=== PATIENT | male | born 1955 | race Caucasian/White ===

== ENCOUNTER 2016-04-08 22:21 | Inpatient (IN) | payer OTHER ==
[~2016-04-08] VITALS: Ht 175.3 cm; Wt 66.2 kg
[~2016-04-08 22:21] MED LIST: BSP15 PO; CALC600T PO; CHOLTAB3 PO; CLC150 PO; DLC5 PO; DOCU100C31 PO; FLUO40CA8 PO; FURO40TA3 PO; GABA600T PO; MAGN10TA; MCRK20 PO; NAPR1TAB9 PO; PANT40TA PO; PROP20TA67 PO; SPR25 PO
[2016-04-08] MEDS ORDERED: SODIUM CHLORIDE 0.9% 1000ML 1,000 ML IV STA ×2 (22:46)
[2016-04-08] MEDS ORDERED: MAGN400T6 PO (23:11)
[2016-04-08] MEDS ORDERED: POLY335019 PO (23:11)
[2016-04-08] MEDS ORDERED: POTA20TA16 PO (23:13)
[2016-04-08] MEDS ORDERED: ZNTT/150 PO (23:17)
[2016-04-08] MEDS ORDERED: SPIR100T PO (23:17)
[2016-04-08] MEDS ORDERED: CEFTRIAXONE SOD INJ 1 GM ADDVIAL IV STA (23:18)
[2016-04-08] MEDS ORDERED: BUSP5TAB59 PO (23:21)
[2016-04-08] MEDS ORDERED: ASCO1CAP3 PO (23:23)
[2016-04-08] MEDS ORDERED: CHOL1TAB42 PO (23:25)
[2016-04-08] MEDS ORDERED: PANTOprazole INJ 80 MG in DEXTROSE 5% 100ML IV SCH (23:45)
[2016-04-09] VITALS (29 sets, daily range): BP systolic 84–116; BP diastolic 53–72; PULSE 79–105; TEMP 36.7–37.1; O2SAT 96–100; Ht 175.3 cm; Wt 66.2 kg
[2016-04-09] MEDS ORDERED: PANTOprazole INJ 40 MG in DEXTROSE 5% 100ML IV SCH ×2
[2016-04-09] MEDS ORDERED: SODIUM CHLORIDE 0.9% 1000ML 1,000 ML IV STA (00:05)
[2016-04-09 00:09] LABS: BASO ABS # 0.01 K/uL (0-0.2); COMPLETE YES; HEMATOCRIT 29.9 % (42-52); IG% 0.5 %; LYMPH % 12.9 %; LYMPH ABS # 2.87 K/uL (1.2-3.4); MEAN CELL VOLUME 91.7 fL (80-100); MEAN CORPUSCULAR HEMOGLOBIN 33.4 pg (25-34); MEAN CORPUSCULAR HGB CONC 36.5 g/dl (32-36); MEAN PLATELET VOLUME 10.8 fL (7.4-10.4); MONO % 10.9 %; NEUT % 75.7 %; PLATELET COUNT 180 K/uL (130-400); RED BLOOD COUNT 3.26 M/uL (4.7-6.1); WHITE BLOOD COUNT 22.21 K/uL (4.8-10.8)
[2016-04-09] MEDS ORDERED: LORAZEPAM 2 MG/ML 1 ML VIAL IV STA (00:11)
[2016-04-09 00:23] LABS: INR 1.5 (0.9-1.1); PARTIAL THROMBOPLASTIN RATIO 1.3; PROTHROMBIN TIME (PATIENT) 16.6 SECONDS (9.0-12.0)
[2016-04-09 00:29] LABS: BUN/CREATININE RATIO 30.5 (10-20); CALCIUM 7.7 mg/dl (8.5-10.1); CREATININE 2.2 mg/dl (0.60-1.40); MAGNESIUM 1.7 mg/dl (1.8-2.4); POTASSIUM 3.9 mmol/L (3.5-5.1)
[2016-04-09 00:39] LABS: ALB/GLOB RATIO 0.6 (0.9-2); CKMB/CK RATIO 3.3 (0-3.0); THYROID STIMULATING HORMONE 0.782 uIu/ml (0.300-4.500)
[2016-04-09 00:47] LABS: VEN BLD GAS O2 SATURATION < 60.0 %; VEN BLOOD GAS BASE EXCESS -15.6 mmol/L; VENOUS BLOOD GAS PCO2 23 mmHg (38.0-50.0); VENOUS BLOOD GAS PO2 36 mmHg
[2016-04-09] MEDS ORDERED: VANCOMYCIN INJ 1,000 MG in SODIUM CHLORIDE 0.9% 250ML 250 ML IV STA (00:55)
[2016-04-09] MEDS ORDERED: PIPERACILLIN/TAZOBACTAM 4.5 GM/100ML D5W IV STA (00:55)
[2016-04-09] MEDS ORDERED: PHYTONADIONE INJ 10 MG in SODIUM CHLORIDE 0.9% 50ML 50 ML IV ONE (01:00)
[2016-04-09 01:49] LABS: URINE APPEARANCE CLEAR (CLEAR); URINE BILIRUBIN NEG (NEG); URINE COLOR YELLOW; URINE EPITHELIAL CELL AUTO >30 /lpf (0-5); URINE NITRITE NEG (NEG); URINE SPECIFIC GRAVITY 1.019 (1.000-1.030); UROBILINOGEN NEG (NEG); ZZURINE CULT IF INDIC CATH NO
[2016-04-09 01:52] LABS: MANUAL MICROSCOPIC REQUIRED? NO; REVIEW REQ? YES
[2016-04-09] MEDS ORDERED: RAPID SEQUENCE INDUCTION BAG ONE (01:55)
[2016-04-09 02:07] LABS: HEMATOCRIT 28.8 % (42-52)
[2016-04-09] MEDS ORDERED: NOREPINEPHRINE BIT INJ 8 MG in DEXTROSE 5% 500ML 500 ML IV PRN (02:15)
[2016-04-09] MEDS ORDERED: MIDAZOLAM HCL 1 MG/ML 2ML VIAL ONE (02:24)
[2016-04-09 02:30] LABS: ALLEN TEST POS (POS); ARTERIAL BLD GAS O2 SATURATION 89.2 % (90-95); ARTERIAL BLOOD GAS BASE EXCESS -15.6 mEq/L (-9-1.8); ARTERIAL BLOOD GAS HCO3 8 mmol/L (19-24); ARTERIAL BLOOD GAS PO2 62 mm/Hg (80-95); ARTERIAL BLOOD GAS pH 7.32 (7.35-7.45); O2 ADMINISTRATION ROOM AIR
[2016-04-09] MEDS ORDERED: FENTANYL 1250MCG/250ML NSS 250 ML IV PRN (02:30)
[2016-04-09] MEDS ORDERED: PIPERACILL/TAZOBAC CONSULT ACTIVE PRN (03:30)
[2016-04-09] MEDS ORDERED: VANCOMYCIN CONSULT ACTIVE PRN (03:30)
--- NOTE | 2016-04-09 03:34 | EMERGENCY ROOM VISIT NOTE ---
History First contact with patient: 22:34 Chief Complaint: LETHARGIC Stated Complaint: LETHARGIC Nursing Triage Summary: pt arrives by ALS for c/o lethargy from home. Daughter who is from out of town called EMS, reports she saw pt about 5 weeks ago. Pt has deteriorated in status since that visit. Reports weight loss, pt not eating, lethargic. Pt c/o chest pain, answers most questions with "10". pt has hx of Cirrhosis and does have a Holter monitor on upon arrival History of Present Illness The patient is a 60 year old male who presents to the Emergency Room with complaints of altered mental status. Patient has past medical history of liver cirrhosis, hepatitis, and alcohol abuse. He is found to have a nurse to be altered and was brought in. Leading up to today they've been trying to investigate why he has been having single episode was. History of present illness is unobtainable from patient. Patient was initially seen by my PA. Please refer to her note for initial history of present illness. Past Medical/Surgical History Medical Problems: (1) Bipolar disorder (2) Celiac disease (3) Chronic hepatitis C (4) Cirrhosis (5) Esophageal varices (6) GI bleed (7) Hematemesis with nausea (8) Hepatic encephalopathy (9) Pancreatitis (10) Sacral decubitus ulcer, stage II (11) stomach ulcers Family History Heart disease Hypertension Social History Smoking Status: Current Some Day Smoker Alcohol Use: occasionally Drug Use: none Marital Status: Housing Status: lives with friends Occupation Status: disabled Current/Historical Medications Scheduled Ascorbic Acid (Vitamin C), 500 MG PO QAM Buspirone Hcl (Buspirone Hcl), 15 MG PO BID Calcium Carbonate (Calcium 600), 600 MG PO QAM Cholecalciferol (Vitamin D), 5,000 UNIT PO DAILY Ergocalciferol (Vitamin D), 400 INTER.UNIT PO QAM Fluoxetine (Prozac), 40 MG PO BID Furosemide (Lasix), 40 MG PO DAILY Gabapentin (Neurontin), 600 MG PO BID Magnesium Oxide (Mag-Ox), 400 MG PO DAILY Pantoprazole (Protonix), 40 MG PO BID Polyethylene Glycol 3350 (Miralax), 17 GM PO DAILY Potassium Ext Rel (Klor-Con), 20 MEQ PO DAILY Propranolol (Inderal), 20 MG PO BID Ranitidine (Zantac), 150 MG PO BID Spironolactone (Aldactone), 100 MG PO DAILY Scheduled PRN Naproxen (Aleve), 440 MG PO Q6 PRN for Pain Allergies Coded Allergies: Gluten (Verified Allergy, Intermediate, PAINFUL JOINTS,ABD PAIN, 04/08/16) Lactose Intolerance (GI) (Unverified Allergy, Unknown, ABD PAIN, 04/08/16) NO KNOWN DRUG ALLERGIES (Unverified Allergy, Unknown, NONE, 04/08/16) Wheat (Verified Allergy, Unknown, GI intolerance, 04/08/16) Physical Exam Vital Signs Date Time Temp Pulse Resp B/P Pulse Ox O2 Delivery O2 Flow Rate FiO2 04/09/16 02:39 126/80 04/09/16 02:35 98 24 100 04/09/16 02:33 131/84 04/09/16 02:30 95 36 119/79 100 04/09/16 02:28 108/74 04/09/16 02:25 96 28 100 04/09/16 02:20 79 04/09/16 02:20 83 29 100 04/09/16 02:18 119/72 04/09/16 02:15 72 17 100 04/09/16 02:12 107/67 04/09/16 02:10 81 21 100 04/09/16 02:05 93 22 98 04/09/16 02:00 94 28 95 04/09/16 01:46 93 24 100/68 95 Room Air NIBP 04/09/16 01:30 93 24 116/64 95 Room Air 04/09/16 00:52 98 26 128/81 96 Room Air 04/08/16 22:42 92 04/08/16 22:29 94 Room Air 04/08/16 22:29 36.5 96 26 123/85 93 Room Air Physical Exam GENERAL: Ill-appearing, significant distress, toxic, not responding to commands EYE EXAM: normal conjunctiva OROPHARYNX: no exudate, no erythema, lips, buccal mucosa, and tongue normal and mucous membranes are dry NECK: supple, no nuchal rigidity, no adenopathy, non-tender LUNGS: Clear to auscultation. Normal chest wall mechanics HEART: Tachycardic, S1 normal and S2 normal ABDOMEN: abdomen soft, non-tender, normo-active bowel sounds, no masses, no rebound or guarding. RECTAL: Gross melanotic stools UPPER EXTREMITIES: upper extremities are grossly normal. LOWER EXTREMITIES: No pitting edema. NEURO EXAM: Laying in bed intermittently moaning moving extremities but nonfocal. Was Compa lower extremities pain. Medical Decision & Procedures ER Provider Diagnostic Interpretation: Portable AP one view left IJ in place without pneumothorax. Portable AP upright one view per my read ET tube in place without pneumothorax and left IJ in place. ET tube was advanced. Laboratory Results 04/08/16 23:58 Red Blood Count 3.26, Mean Corpuscular Volume 91.7, Mean Corpuscular Hemoglobin 33.4, Mean Corpuscular Hemoglobin Concent 36.5, Mean Platelet Volume 10.8, Neutrophils (%) (Auto) 75.7, Lymphocytes (%) (Auto) 12.9, Monocytes (%) (Auto) 10.9, Eosinophils (%) (Auto) 0.0, Basophils (%) (Auto) 0.0, Neutrophils # (Auto ) 16.81, Lymphocytes # (Auto) 2.87, Monocytes # (Auto) 2.42, Eosinophils # (Auto ) 0.00, Basophils # (Auto) 0.01 04/09/16 02:00 04/08/16 23:58 Test 04/08/16 23:58 04/09/16 00:15 04/09/16 01:35 04/09/16 02:00 White Blood Count 22.21 K/uL (4.8-10.8) Red Blood Count 3.26 M/uL (4.7-6.1) Hemoglobin 10.9 g/dL (14.0-18.0) Hematocrit 29.9 % (42-52) Mean Corpuscular Volume 91.7 fL (80-100) Mean Corpuscular Hemoglobin 33.4 pg (25-34) Mean Corpuscular Hemoglobin Concent 36.5 g/dl (32-36) Platelet Count 180 K/uL (130-400) Mean Platelet Volume 10.8 fL (7.4-10.4) Neutrophils (%) (Auto) 75.7 % Lymphocytes (%) (Auto) 12.9 % Monocytes (%) (Auto) 10.9 % Eosinophils (%) (Auto) 0.0 % Basophils (%) (Auto) 0.0 % Neutrophils # (Auto) 16.81 K/uL (1.4-6.5) Lymphocytes # (Auto) 2.87 K/uL (1.2-3.4) Monocytes # (Auto) 2.42 K/uL (0.11-0.59) Eosinophils # (Auto) 0.00 K/uL (0-0.5) Basophils # (Auto) 0.01 K/uL (0-0.2) RDW Standard Deviation 51.6 fL (36.4-46.3) RDW Coefficient of Variation 15.3 % (11.5-14.5) Immature Granulocyte % (Auto) 0.5 % Immature Granulocyte # (Auto) 0.10 K/uL (0.00-0.02) Prothrombin Time 16.6 SECONDS (9.0-12.0) Prothromb Time International Ratio 1.5 (0.9-1.1) Activated Partial Thromboplast Time 33.1 SECONDS (21.0-31.0) Partial Thromboplastin Ratio 1.3 Anion Gap 14.0 mmol/L (3-11) Est Creatinine Clear Calc Drug Dose 25.5 ml/min Estimated GFR () 36.1 Estimated GFR (Non- 31.2 BUN/Creatinine Ratio 30.5 (10-20) Calcium Level 7.7 mg/dl (8.5-10.1) Magnesium Level 1.7 mg/dl (1.8-2.4) Total Bilirubin 1.0 mg/dl (0.2-1) Aspartate Amino Transf (AST/SGOT) 39 U/L (15-37) Alanine Aminotransferase (ALT/SGPT) 34 U/L (12-78) Alkaline Phosphatase 114 U/L (45-117) Ammonia 265.0 umol/L (11-32) Creatine Kinase MB 4.3 ng/ml (0.5-3.6) Creatine Kinase MB Ratio 3.3 (0-3.0) Troponin I 0.017 ng/ml (0-0.045) Total Protein 7.0 gm/dl (6.4-8.2) Albumin 2.6 gm/dl (3.4-5.0) Globulin 4.4 gm/dl (2.5-4.0) Albumin/Globulin Ratio 0.6 (0.9-2) Thyroid Stimulating Hormone (TSH) 0.782 uIu/ml (0.300-4.500) Venous Blood pH 7.25 (7.36-7.41) Venous Blood Partial Pressure CO2 23 mmHg (38.0-50.0) Venous Blood Partial Pressure O2 36 mmHg Venous Blood HCO3 10 mmol/L Venous Blood Oxygen Saturation < 60.0 % Venous Blood Base Excess -15.6 mmol/L Total Creatine Kinase 140 U/L (39-308) Urine Color YELLOW Urine Appearance CLEAR (CLEAR) Urine pH 6.0 (4.5-7.5) Urine Specific [place] 1.019 (1.000-1.030) Urine Protein TRACE (NEG) Urine Glucose (UA) NEG (NEG) Urine Ketones NEG (NEG) Urine Occult Blood TRACE (NEG) Urine Nitrite NEG (NEG) Urine Bilirubin NEG (NEG) Urine Urobilinogen NEG (NEG) Urine Leukocyte Esterase NEG (NEG) Urine WBC (Auto) 1-5 /hpf (0-5) Urine RBC (Auto) 5-10 /hpf (0-4) Urine Hyaline Casts (Auto) 5-10 /lpf (0-5) Urine Epithelial Cells (Auto) >30 /lpf (0-5) Urine Bacteria (Auto) NEG (NEG) Urine Pathogenic Casts /lpf (0) Arterial Blood pH 7.32 (7.35-7.45) Arterial Blood Partial Pressure CO2 17 mmHg (35-46) Arterial Blood Partial Pressure O2 62 mm/Hg (80-95) Arterial Blood HCO3 8 mmol/L (19-24) Arterial Blood Oxygen Saturation 89.2 % (90-95) Arterial Blood Base Excess -15.6 mEq/L (-9-1.8) Arterial Blood Gas Delivery ROOM AIR Robert Test POS (POS) Test 04/09/16 03:00 Date/Time Source Procedure Growth Status 04/09/16 01:30 Stool C.difficile Toxin B Gene (PCR) - Final Positive for C. difficile toxin B gene Complete Medications Administered Medications (Trade) Dose Ordered Sig/Vin Route Start Time Stop Time Status Last Admin Dose Admin Sodium Chloride 1,000 ml @ 999 mls/hr Q1H1M STAT IV 04/08/16 22:46 04/08/16 23:46 DC 04/09/16 00:45 999 MLS/HR Sodium Chloride (Nss 1000ml) 1,000 ml @ 200 mls/hr Q5H STAT IV 04/08/16 22:46 04/09/16 03:45 04/09/16 00:48 200 MLS/HR Ceftriaxone Sodium (Rocephin Inj) 1 gm NOW STAT IV 04/08/16 23:18 04/08/16 23:23 DC 04/09/16 00:45 1 GM Pantoprazole Sodium 1 ea 1 ea NOW STAT IV 04/08/16 23:18 04/08/16 23:23 DC 04/09/16 00:48 1 EA Pantoprazole Sodium 80 mg/ Dextrose 120 ml @ 480 mls/hr TODAY@2345 IV 04/08/16 23:45 04/08/16 23:59 DC 04/09/16 00:48 480 MLS/HR Pantoprazole Sodium 40 mg/ Dextrose 100 ml @ 20 mls/hr Q5H IV 04/09/16 00:00 04/09/16 04:59 04/09/16 00:49 20 MLS/HR Sodium Chloride (Nss 1000ml) 1,000 ml @ 999 mls/hr Q1H1M STAT IV 04/09/16 00:05 04/09/16 01:05 DC 04/09/16 00:51 999 MLS/HR Lorazepam (Ativan Inj) 1 mg NOW STAT IV 04/09/16 00:11 04/09/16 00:12 DC 04/09/16 00:45 1 MG Piperacillin Sod/ Tazobactam Sod 4.5 gm 4.5 gm NOW STAT IV 04/09/16 00:55 04/09/16 00:56 DC 04/09/16 01:27 4.5 GM Vancomycin HCl 1000 mg/Sodium Chloride 270 ml @ 125 mls/hr NOW STAT IV 04/09/16 00:55 04/09/16 03:04 DC 04/09/16 02:25 125 MLS/HR Phytonadione/ Sodium Chloride (Aqua-Mephyton Inj/Nss 50ml) 51 ml @ 102 mls/hr ONE ONCE IV 04/09/16 01:00 04/09/16 01:29 DC 04/09/16 01:26 102 MLS/HR Miscellaneous (Rapid Sequence Induction Bag) 1 ea STK-MED ONCE N/A 04/09/16 01:55 04/09/16 01:56 DC 04/09/16 02:08 1 EA Midazolam HCl (Versed Inj) 2 mg STK-MED ONCE .ROUTE 04/09/16 02:24 04/09/16 02:25 DC 04/09/16 02:38 1 MG Procedure EM PROCEDURE NOTE - Endotracheal Intubation PROCEDURE NOTE: Informed consent was not obtained by the patient. Verify Correct Patient: yes Procedure: Endotracheal intubation Indication: Respiratory failure The procedure was done emergently. Description of the Procedure: The patient was seen and properly identified. The patient was pre-oxygenated and intubated after rapid sequence induction with meds: Succinylcholine and ketamine. Intubation was performed using a glidescope and a 7.5 cuffed endotracheal tube. The tube was visualized going through the cords and secured with the 23cm guillermo at the lips. The patient had good bilateral breath sounds in the axillae with good chest rise. Proper ET tube placement was confirmed by end tidal CO2 detector. The patient tolerated the procedure well. PROCEDURE NOTE - Central Line Insertion - Ultrasound Guided placed emergently for access PRIOR TO PROCEDURE: Consent: Discussion was not held with the patient concerning central line. The risks and benefits were not explained with possible risks to include bleeding, pain, pneumothorax, hemothorax, pulmonary contusion, pulmonary laceration, and infection. The [patient] freely consented. The patient was evaluated prior to the procedure. The patient was identified and the procedure verified as central line insertion. A Time Out was held and the following information confirmed. Verify Correct Patient: Yes Verify Correct Site: Yes Availability of Necessary Equipment: Yes PROCEDURE NOTE: Procedure: Central Line Inserting Clinician: Davina Hernandez DO. Guide-wire was removed, examined and is intact Complication/Corrective Action: two sticks Estimated Blood Loss: 5 mls US guided line placement: Yes Bonilla MCLAUGHLIN discussed this with family. CENTRAL LINE BUNDLE: Skin Prep: Chlorhexidine/alcohol Barriers Used: Mask: yes Sterile gown: yes Large sterile drape: yes Cap: yes Sterile gloves: yes Insertion Status: new site Indications - include all that apply: Emergent access Placement Conditions: Emergent Site: Left IJ Side: L Number of lumen(s): 3 Length of catheter inserted into patient: 16 centimeters Anesthesia: local Number of Needle Passes: 2 Radiological confirmation: Yes Procedure was performed by Mary MCLAUGHLIN and I assisted with the central line. Medical Decision Patient is a 60-year-old alcoholic liver cirrhotic with hepatitis C and known esophageal varices that presents the ER for altered mental status. Upon presentation he is not following commands an insignificant distress. Unable to obtain IV access with the exception of a right EJ. Patient was initially seen by my PA and was called into the room. At this time she'll are discussed with family and they wanted all measures performed. We established a left IJ performed under worsening incontinence and understood my supervision. Following this patient was given pulse normal saline and typed and crossed. Labs returned and showed leukocytosis of 22,000, anemia 10.9, bicarbonate 10, creatinine 2.2 and an ammonia of 265 with an elevated lactate at 3. INR was 1.5. VBG has a pH is 7.2. Following this his blood pressure became labile and he became more unresponsive. He is not protecting his airway and consequently was intubated. Repeat hemoglobin was obtained 3 hours later and trended down to 10.5. Patient was given vitamin K for the elevated INR 1.5. He is initially placed on a PPI drip and bolus. I gave him Rocephin initially as he had likely had a variceal bleed. Following placing a central line I immediately contacted GI. He recommended admission to the ICU and he will evaluate in the morning. And blood work returned to discuss case with internal medicine and the leather grader. Following intubating him short there after every discussed case with both internal medicine and the leather grader. His repeat hemoglobin returned at this time and was fairly stable. NG tube was placed and dark cough, emesis was returned. I did not elect to transfuse him at this time although his pressures did fracture. Into the 80s but rebounded following bolus normal saline. I did not transfuse him as I did not want to increase is not too much which would increase additional variceal bleeding which I presume is a cause of his melena. He was probably covered with Rocephin, Zosyn and vancomycin. He did end up being C. difficile positive. Patient was put on Levophed drip for comfort. I did give him a small dose of Versed for the advancement of the ET tube. This was advanced 1.5 cm following placement. Levophed was at the bedside but was never started as he maintained his pressures following intubation. Repeat VBG did show a pH is 7.32 and was slightly improving. His bicarbonate continued around 8. While on the ventilator we did adjust his vent settings from AC to SIMV as his respiratory rate was in the mid 20s. He was pulling tidal lungs 500-1 L. Patient rested comfortably during the remainder time in the ER. Patient was taken to the ICU Impression Primary Impression: Hepatic encephalopathy Additional Impressions: Altered mental status, Alcoholism, GI bleed, Cirrhosis , Esophageal varices, Anemia, Acute kidney injury, Leukocytosis Critical Care I have personally spent 130 minutes of critical care time in the direct management of this patient. This includes bedside care, interpretation of diagnostic studies, and testing, discussion with consultants, patient, and family members, and other required patient management activities. This 130 minutes is in excess of all separately billable procedures. Departure Information Referrals Babak Hunt M.D. (PCP) Patient Instructions A Signature Page, [facility]
--- NOTE | 2016-04-09 03:51 | EMERGENCY ROOM VISIT NOTE ---
History First contact with patient: 22:34 Chief Complaint: LETHARGIC Stated Complaint: LETHARGIC Nursing Triage Summary: pt arrives by ALS for c/o lethargy from home. Daughter who is from out of town called EMS, reports she saw pt about 5 weeks ago. Pt has deteriorated in status since that visit. Reports weight loss, pt not eating, lethargic. Pt c/o chest pain, answers most questions with "10". pt has hx of Cirrhosis and does have a Holter monitor on upon arrival History of Present Illness The patient is a 60 year old male who presents to the Emergency Room with complaints of lethargy, altered mental status with diarrhea. History is obtained from the daughter as patient is unable to answer questions and is confused appearing. The daughter states that he has been on clindamycin for the past week for decubitus ulcer that is infected on his buttocks. She states for the past 4 days he has had diarrhea and today it was black in nature. No history GI bleeding in the past. He does have cirrhosis and hepatitis C. Family denies vomiting, fever. Family states he was confused and crawling on the ground so they brought him in. The daughter states she just returned today and noticed how confused he was and brought him in. The son states that he was not this ill-appearing the other day. The daughter states 10 days ago he was at the family care doctor's office for syncopal episodes and had a negative EEG and now has a Holter monitor for further evaluation for the syncopal episodes. Review of Systems Unable to obtain secondary to altered mental status Past Medical/Surgical History Medical Problems: (1) Bipolar disorder (2) Celiac disease (3) Chronic hepatitis C (4) Cirrhosis (5) Esophageal varices (6) GI bleed (7) Hematemesis with nausea (8) Hepatic encephalopathy (9) Pancreatitis (10) Sacral decubitus ulcer, stage II (11) stomach ulcers Family History Heart disease Hypertension Social History Smoking Status: Current Some Day Smoker Alcohol Use: occasionally Drug Use: none Marital Status: Housing Status: lives with friends Occupation Status: disabled Current/Historical Medications Scheduled Ascorbic Acid (Vitamin C), 500 MG PO QAM Buspirone Hcl (Buspirone Hcl), 15 MG PO BID Calcium Carbonate (Calcium 600), 600 MG PO QAM Cholecalciferol (Vitamin D), 5,000 UNIT PO DAILY Ergocalciferol (Vitamin D), 400 INTER.UNIT PO QAM Fluoxetine (Prozac), 40 MG PO BID Furosemide (Lasix), 40 MG PO DAILY Gabapentin (Neurontin), 600 MG PO BID Magnesium Oxide (Mag-Ox), 400 MG PO DAILY Pantoprazole (Protonix), 40 MG PO BID Polyethylene Glycol 3350 (Miralax), 17 GM PO DAILY Potassium Ext Rel (Klor-Con), 20 MEQ PO DAILY Propranolol (Inderal), 20 MG PO BID Ranitidine (Zantac), 150 MG PO BID Spironolactone (Aldactone), 100 MG PO DAILY Scheduled PRN Naproxen (Aleve), 440 MG PO Q6 PRN for Pain Allergies Coded Allergies: Gluten (Verified Allergy, Intermediate, PAINFUL JOINTS,ABD PAIN, 04/08/16) Lactose Intolerance (GI) (Unverified Allergy, Unknown, ABD PAIN, 04/08/16) NO KNOWN DRUG ALLERGIES (Unverified Allergy, Unknown, NONE, 04/08/16) Wheat (Verified Allergy, Unknown, GI intolerance, 04/08/16) Physical Exam Vital Signs Date Time Temp Pulse Resp B/P Pulse Ox O2 Delivery O2 Flow Rate FiO2 04/09/16 02:39 126/80 04/09/16 02:35 98 24 100 04/09/16 02:33 131/84 04/09/16 02:30 95 36 119/79 100 04/09/16 02:28 108/74 04/09/16 02:25 96 28 100 04/09/16 02:20 79 04/09/16 02:20 83 29 100 04/09/16 02:18 119/72 04/09/16 02:15 72 17 100 04/09/16 02:12 107/67 04/09/16 02:10 81 21 100 04/09/16 02:05 93 22 98 04/09/16 02:00 94 28 95 04/09/16 01:46 93 24 100/68 95 Room Air NIBP 04/09/16 01:30 93 24 116/64 95 Room Air 04/09/16 00:52 98 26 128/81 96 Room Air 04/08/16 22:42 92 04/08/16 22:29 94 Room Air 04/08/16 22:29 36.5 96 26 123/85 93 Room Air Pain Rating (0-10): 0 Physical Exam VITALS: Vitals are noted on the nurse's note and reviewed by myself. Vital signs stable. GENERAL: Confused appearing male unable to answer questions SKIN: The skin was without rashes, erythema, edema, or bruising. There is tenting of the skin. Capillary reflex less than 2 seconds. HEAD: Normocephalic atraumatic. EARS: External auditory canals clear, tympanic membranes pearly lambert without erythema or effusion bilaterally. EYES: Pupils equal round and reactive to light and accommodation. Conjunctivae without injection, sclerae without icterus. Extraocular movements intact. NOSE: Patent, turbinates without inflammation or discharge. MOUTH: Mucous membranes dry. Pharynx without erythema or exudate. Uvula midline. Airway patent. Tongue does not deviate. NECK: Supple without nuchal rigidity. No lymphadenopathy. No thyromegaly. Cervical spine is nontender. No JVD. HEART: Regular rate and rhythm LUNGS: Clear to auscultation bilaterally without wheezes, rales or rhonchi. No dullness to percussion. No retractions or accessory muscle use. ABDOMEN: Positive bowel sounds x 4. Normal tympanic percussion. Soft, nontender, without masses or organomegaly. Ferreira sign negative. No guarding or rebound tenderness. exam: Stage II decubitus ulcer on the Buttucks with black stool malodorous concerning for C. difficile and guaiac positive MUSCULOSKELETAL: No muscle atrophy, erythema, or edema noted. NEURO: Patient was not alert and oriented to person place and time. He is awake but confused appearing. Unable to follow commands Medical Decision & Procedures Laboratory Results 04/08/16 23:58 Red Blood Count 3.26, Mean Corpuscular Volume 91.7, Mean Corpuscular Hemoglobin 33.4, Mean Corpuscular Hemoglobin Concent 36.5, Mean Platelet Volume 10.8, Neutrophils (%) (Auto) 75.7, Lymphocytes (%) (Auto) 12.9, Monocytes (%) (Auto) 10.9, Eosinophils (%) (Auto) 0.0, Basophils (%) (Auto) 0.0, Neutrophils # (Auto ) 16.81, Lymphocytes # (Auto) 2.87, Monocytes # (Auto) 2.42, Eosinophils # (Auto ) 0.00, Basophils # (Auto) 0.01 04/09/16 02:00 04/08/16 23:58 Test 04/08/16 23:58 04/09/16 00:15 04/09/16 01:35 04/09/16 02:00 White Blood Count 22.21 K/uL (4.8-10.8) Red Blood Count 3.26 M/uL (4.7-6.1) Hemoglobin 10.9 g/dL (14.0-18.0) Hematocrit 29.9 % (42-52) Mean Corpuscular Volume 91.7 fL (80-100) Mean Corpuscular Hemoglobin 33.4 pg (25-34) Mean Corpuscular Hemoglobin Concent 36.5 g/dl (32-36) Platelet Count 180 K/uL (130-400) Mean Platelet Volume 10.8 fL (7.4-10.4) Neutrophils (%) (Auto) 75.7 % Lymphocytes (%) (Auto) 12.9 % Monocytes (%) (Auto) 10.9 % Eosinophils (%) (Auto) 0.0 % Basophils (%) (Auto) 0.0 % Neutrophils # (Auto) 16.81 K/uL (1.4-6.5) Lymphocytes # (Auto) 2.87 K/uL (1.2-3.4) Monocytes # (Auto) 2.42 K/uL (0.11-0.59) Eosinophils # (Auto) 0.00 K/uL (0-0.5) Basophils # (Auto) 0.01 K/uL (0-0.2) RDW Standard Deviation 51.6 fL (36.4-46.3) RDW Coefficient of Variation 15.3 % (11.5-14.5) Immature Granulocyte % (Auto) 0.5 % Immature Granulocyte # (Auto) 0.10 K/uL (0.00-0.02) Prothrombin Time 16.6 SECONDS (9.0-12.0) Prothromb Time International Ratio 1.5 (0.9-1.1) Activated Partial Thromboplast Time 33.1 SECONDS (21.0-31.0) Partial Thromboplastin Ratio 1.3 Anion Gap 14.0 mmol/L (3-11) Est Creatinine Clear Calc Drug Dose 25.5 ml/min Estimated GFR () 36.1 Estimated GFR (Non- 31.2 BUN/Creatinine Ratio 30.5 (10-20) Calcium Level 7.7 mg/dl (8.5-10.1) Magnesium Level 1.7 mg/dl (1.8-2.4) Total Bilirubin 1.0 mg/dl (0.2-1) Aspartate Amino Transf (AST/SGOT) 39 U/L (15-37) Alanine Aminotransferase (ALT/SGPT) 34 U/L (12-78) Alkaline Phosphatase 114 U/L (45-117) Ammonia 265.0 umol/L (11-32) Creatine Kinase MB 4.3 ng/ml (0.5-3.6) Creatine Kinase MB Ratio 3.3 (0-3.0) Troponin I 0.017 ng/ml (0-0.045) Total Protein 7.0 gm/dl (6.4-8.2) Albumin 2.6 gm/dl (3.4-5.0) Globulin 4.4 gm/dl (2.5-4.0) Albumin/Globulin Ratio 0.6 (0.9-2) Thyroid Stimulating Hormone (TSH) 0.782 uIu/ml (0.300-4.500) Venous Blood pH 7.25 (7.36-7.41) Venous Blood Partial Pressure CO2 23 mmHg (38.0-50.0) Venous Blood Partial Pressure O2 36 mmHg Venous Blood HCO3 10 mmol/L Venous Blood Oxygen Saturation < 60.0 % Venous Blood Base Excess -15.6 mmol/L Total Creatine Kinase 140 U/L (39-308) Urine Color YELLOW Urine Appearance CLEAR (CLEAR) Urine pH 6.0 (4.5-7.5) Urine Specific Ewing 1.019 (1.000-1.030) Urine Protein TRACE (NEG) Urine Glucose (UA) NEG (NEG) Urine Ketones NEG (NEG) Urine Occult Blood TRACE (NEG) Urine Nitrite NEG (NEG) Urine Bilirubin NEG (NEG) Urine Urobilinogen NEG (NEG) Urine Leukocyte Esterase NEG (NEG) Urine WBC (Auto) 1-5 /hpf (0-5) Urine RBC (Auto) 5-10 /hpf (0-4) Urine Hyaline Casts (Auto) 5-10 /lpf (0-5) Urine Epithelial Cells (Auto) >30 /lpf (0-5) Urine Bacteria (Auto) NEG (NEG) Urine Pathogenic Casts /lpf (0) Arterial Blood pH 7.32 (7.35-7.45) Arterial Blood Partial Pressure CO2 17 mmHg (35-46) Arterial Blood Partial Pressure O2 62 mm/Hg (80-95) Arterial Blood HCO3 8 mmol/L (19-24) Arterial Blood Oxygen Saturation 89.2 % (90-95) Arterial Blood Base Excess -15.6 mEq/L (-9-1.8) Arterial Blood Gas Delivery ROOM AIR Robert Test POS (POS) Test 04/09/16 03:00 Lactic Acid Level 1.6 mmol/L (0.4-2.0) Date/Time Source Procedure Growth Status 04/09/16 01:30 Stool C.difficile Toxin B Gene (PCR) - Final Positive for C. difficile toxin B gene Complete Medications Administered Medications (Trade) Dose Ordered Sig/Vin Route Start Time Stop Time Status Last Admin Dose Admin Sodium Chloride 1,000 ml @ 999 mls/hr Q1H1M STAT IV 04/08/16 22:46 04/08/16 23:46 DC 04/09/16 00:45 999 MLS/HR Sodium Chloride (Nss 1000ml) 1,000 ml @ 200 mls/hr Q5H STAT IV 04/08/16 22:46 04/09/16 03:45 04/09/16 00:48 200 MLS/HR Ceftriaxone Sodium (Rocephin Inj) 1 gm NOW STAT IV 04/08/16 23:18 04/08/16 23:23 DC 04/09/16 00:45 1 GM Pantoprazole Sodium 1 ea 1 ea NOW STAT IV 04/08/16 23:18 04/08/16 23:23 DC 04/09/16 00:48 1 EA Pantoprazole Sodium 80 mg/ Dextrose 120 ml @ 480 mls/hr TODAY@2345 IV 04/08/16 23:45 04/08/16 23:59 DC 04/09/16 00:48 480 MLS/HR Pantoprazole Sodium 40 mg/ Dextrose 100 ml @ 20 mls/hr Q5H IV 04/09/16 00:00 04/09/16 04:59 04/09/16 00:49 20 MLS/HR Sodium Chloride (Nss 1000ml) 1,000 ml @ 999 mls/hr Q1H1M STAT IV 04/09/16 00:05 04/09/16 01:05 DC 04/09/16 00:51 999 MLS/HR Lorazepam (Ativan Inj) 1 mg NOW STAT IV 04/09/16 00:11 04/09/16 00:12 DC 04/09/16 00:45 1 MG Piperacillin Sod/ Tazobactam Sod 4.5 gm 4.5 gm NOW STAT IV 04/09/16 00:55 04/09/16 00:56 DC 04/09/16 01:27 4.5 GM Vancomycin HCl 1000 mg/Sodium Chloride 270 ml @ 125 mls/hr NOW STAT IV 04/09/16 00:55 04/09/16 03:04 DC 04/09/16 02:25 125 MLS/HR Phytonadione/ Sodium Chloride (Aqua-Mephyton Inj/Nss 50ml) 51 ml @ 102 mls/hr ONE ONCE IV 04/09/16 01:00 04/09/16 01:29 DC 04/09/16 01:26 102 MLS/HR Miscellaneous (Rapid Sequence Induction Bag) 1 ea STK-MED ONCE N/A 04/09/16 01:55 04/09/16 01:56 DC 04/09/16 02:08 1 EA Midazolam HCl (Versed Inj) 2 mg STK-MED ONCE .ROUTE 04/09/16 02:24 04/09/16 02:25 DC 04/09/16 02:38 1 MG ED Course Prior records/ancillary studies reviewed and summarized above. Nursing notes reviewed. Additional history obtained from family. The patient's history was concerning for altered mental status. Differential diagnosis: Etiologies such as metabolic, infection, hypoglycemia, electrolyte abnormalities , cardiac sources, intracerebral event, toxicologic, neurologic, as well as others were entertained. Physical examination: As above. ER treatment provided: IV Lock Normal saline hydration at 2 L bolus then 200 mL an hour. Protonix drip, vancomycin, Zosyn, Rocephin On reassessment the patients mental status improved. Diagnostics interpretation by me: ECG: Normal sinus, normal intervals, no acute ST-T wave changes. Impression normal sinus rhythm interpreted by myself The labs revealed leukocytosis, anemia, low magnesium , elevated ammonia VBG concerning for acidosis Imaging studies: Chest x-ray with proper ET tube placement with no pneumothorax or free air or pneumonia per my interpretation CT was negative for intracranial bleed per stat radiology Given the above diagnostic work-up and treatment, this episode appears to be consistent with GI bleeding, hepatic encephalopathy, altered mental status, C. difficile. Further treatment will be required. The patient is extremely sick. Family was consulted on how to their father was. They would like everything done for him. My attending was made immediately aware of this patient, initial evaluation. Central line was immediately placed as no peripheral axis was able to be obtained. Patient's respiratory drive was being suppressed and he was intubated as he was altered. Please see my attending's dictation for further pressure drainage procedures. Patient was typed and crossmatched but his H&H were stable so this was held. Antibiotics and drips were started as above. He was positive for C. difficile. He has been on clindamycin for decubitus ulcer. My attending and myself were caring for this patient for greater than 120 minutes. Consultation: A consultation was placed with Dr. Felix, hospitalist. The case was discussed and diagnostics were reviewed. The patient was evaluated in the ER for further treatment. The handbag framer was also informed of this patient as he was going to the unit. Medical Decision As above Impression Primary Impression: Hepatic encephalopathy Additional Impressions: Acute kidney injury, GI bleed, Anemia, Cirrhosis, Esophageal varices, Leukocytosis, Altered mental status Critical Care I have personally spent greater than 120 minutes of critical care time in the direct management of this patient. This includes bedside care, interpretation of diagnostic studies, and testing, discussion with consultants, patient, and family members, and other required patient management activities. This 120 minutes is in excess of all separately billable procedures. Departure Information Dispostion Being Evaluated By Hospitalist Condition POOR Referrals Babak Hunt M.D. (PCP) Patient Instructions A Signature Page, My [facility]
[2016-04-09] MEDS ORDERED: LEVOFLOXACIN / D5W 750 MG in PREMIXED IN D5W 150 ML IV SCH (04:00)
[2016-04-09] MEDS ORDERED: MAGNESIUM SULFATE 1GM / D5W 1 GM in PREMIXED IN D5W 100 ML IV STA (04:09)
[2016-04-09] MEDS ORDERED: LEVOFLOXACIN CONSULT ACTIVE PRN (04:30)
[2016-04-09 05:34] LABS: ISTAT ALLEN TEST Pass; ISTAT ARTERIAL BLOOD GAS HCO3 8 meq/L (19-24); ISTAT ARTERIAL BLOOD GAS PCO2 15 mmHg (35-46); ISTAT ARTERIAL BLOOD GAS PO2 205 mmHg (80-95); ISTAT ARTERIAL BLOOD GAS pH 7.32 (7.35-7.45); ISTAT CARBON DIOXIDE 8 mEq/l (24-31); ISTAT DELIVERY SYSTEM Ventilator; ISTAT FIO2 60 %; ISTAT PEEP 5; ISTAT RATE 8; ISTAT SITE R Radial; VE 17.5; Vt 450
[2016-04-09] MEDS: PANTOprazole INJ 40 MG in DEXTROSE 5% 100ML IV SCH ×4 (05:44→20:19)
[2016-04-09] MEDS ORDERED: PIPERACILL/TAZOBAC IV 3.375 GM in DEXTROSE 5% 100ML 100 ML IV SCH (06:00)
[2016-04-09] MEDS ORDERED: SODIUM BICARB 8.4% INJ 50 MEQ/50 ML SYR - CCU EMERGENCY DRUG IV STA (06:08)
--- NOTE | 2016-04-09 06:39 | DIAGNOSTIC IMAGING REPORT ---
CHEST ONE VIEW PORTABLE CLINICAL HISTORY: Sepsis CENTRAL LINE PLACEMENT COMPARISON STUDY: 01/29/2016 FINDINGS: The chest has an emphysematous configuration. There is chronic basilar interstitial thickening. There is no lobar consolidation. There is been interval placement on the left internal jugular central venous catheter. The tip projects over the superior vena cava at the brachiocephalic vein confluence. No pneumothorax is visualized on the supine study.[ IMPRESSION: 1. Chronic basilar interstitial thickening 2. No pneumothorax identified on this supine study status post central line placement Electronically signed by: Cachorro Landry M.D. 04/09/2016 6:37 AM
[2016-04-09] MEDS: SODIUM BICARBONATE 8.4% INJ 100 MEQ in DEXTROSE 5% 1000ML 1,000 ML IV SCH ×2 (06:45→18:26)
[2016-04-09] MEDS ORDERED: ETOMIDATE 2 MG/ML 20 ML VIAL IV ONE (06:51)
[2016-04-09] MEDS ORDERED: KETAMINE HCL INJ 50 MG/ML 10 ML VIAL IV ONE (06:51)
[2016-04-09] MEDS ORDERED: SUCCINYLCHOLINE CHLORIDE 20 MG/ML 10 ML VIAL IV ONE (06:51)
[2016-04-09 07:14] LABS: BUN/CREATININE RATIO 35.6 (10-20); CREATININE 1.8 mg/dl (0.60-1.40); MAGNESIUM 2.3 mg/dl (1.8-2.4); PHOSPHORUS 2.6 mg/dl (2.5-4.9); POTASSIUM 3.1 mmol/L (3.5-5.1)
--- NOTE | 2016-04-09 07:16 | DIAGNOSTIC IMAGING REPORT ---
CT SCAN OF THE BRAIN WITHOUT IV CONTRAST CLINICAL HISTORY: Change in mental status. COMPARISON STUDY: CT of the brain dated 08/23/2006. TECHNIQUE: Unenhanced axial CT scan of the brain is performed from the vertex to the skull base. Automated dose control exposure was utilized. The patient was scanned twice due to motion artifact. CT DOSE: 1423.56 mGy.cm FINDINGS: Brain parenchyma: There are mild age-related involutional changes. There is no hemorrhage, mass effect, or evidence of acute territorial ischemia by CT criteria. Starr-white matter is preserved. No extra-axial fluid collection is seen. Ventricles, sulci, cisterns: Prominent secondary to involutional change. Intracranial vasculature: There is mild atherosclerotic calcification of the cavernous carotid arteries. Calvarium: Unremarkable. Sinuses and mastoids: The visualized paranasal sinuses are clear. The mastoid air cells are well pneumatized. Orbits: The bony orbits are grossly intact. IMPRESSION: There is no hemorrhage, mass effect, or evidence of acute territorial ischemia by CT criteria noting a motion degraded examination. Electronically signed by: Manuel Bran M.D. 04/09/2016 7:14 AM
--- NOTE | 2016-04-09 07:34 | DIAGNOSTIC IMAGING REPORT ---
SINGLE VIEW CHEST CLINICAL HISTORY: Respiratory failure. Intubation. FINDINGS: An AP, portable, supine chest radiograph is compared to study performed earlier the same day 04/09/2016. The examination is degraded by portable technique and patient rotation. A left internal jugular central venous catheter is unchanged in position. An endotracheal tube has been placed. The tip of the catheter projects 6 cm above the skyler just below the thoracic inlet. The cardiomediastinal silhouette is unremarkable. There is atherosclerotic calcification of the thoracic aorta. The pulmonary vasculature is noncongested. Chronic interstitial thickening is unchanged. There are increasing airspace opacities at the left lung base. No large pleural effusion or pneumothorax is seen. The skeletal structures are osteopenic. The bony thorax is grossly intact. IMPRESSION: 1. An endotracheal tube has been placed. The tip of the catheter projects 6 cm above the skyler just below the thoracic inlet. 2. There are increasing airspace opacities at the left lung base. This could represent atelectasis, developed pneumonia, and/or aspiration pneumonitis. Clinical correlation will be required. Electronically signed by: Manuel Bran M.D. 04/09/2016 7:33 AM
[2016-04-09 07:35] LABS: HEMATOCRIT 27.6 % (42-52)
--- NOTE | 2016-04-09 07:43 | History and Physical ---
History & Physical Date & Time of Service: Apr 09, 2016 at 07:33 Chief Complaint: Gi Bleed, Hepatic Encephalopathy Primary Care Physician: Babak Hunt M.D. History of Present Illness Source: family, clinic records, hospital records The patient is a 60-year-old male who was brought emergency department with worsening lethargy, altered mental state, diarrhea. His daughter is the primary source of information, as the patient is unable to respond to questions. The daughter reports he been on clindamycin the past week for decubitus ulcer. He has a known history of hepatitis C and cirrhosis, and alcohol intake. Family reports that the patient was confused and crawling around on the grandmother brought him in. The son reports that the patient was being assessed for syncopal episodes when seen at doctor's office approximately 10 days ago, which included wearing a Holter monitor. Past Medical/Surgical History Medical Problems: (1) Bipolar disorder Status: Chronic (2) Celiac disease Status: Chronic (3) Chronic hepatitis C Status: Chronic (4) Pancreatitis Status: Chronic (5) stomach ulcers Status: Chronic Family History Heart disease Hypertension Social History Smoking Status: Current Some Day Smoker Smokeless Tobacco Use: No Alcohol Use: none Drug Use: none Marital Status: Housing status: lives alone Occupational Status: disabled Immunizations History of Influenza Vaccine: Yes Influenza Vaccine Date: Mar 15, 2012 History of Tetanus Vaccine?: Unknown History of Pneumococcal: No History of Hepatitis B Vaccine: Unknown Multi-Drug Resistant Organisms History of MDRO: No Allergies Coded Allergies: Gluten (Verified Allergy, Intermediate, PAINFUL JOINTS,ABD PAIN, 04/08/16) Lactose Intolerance (GI) (Unverified Allergy, Unknown, ABD PAIN, 04/08/16) NO KNOWN DRUG ALLERGIES (Unverified Allergy, Unknown, NONE, 04/08/16) Wheat (Verified Allergy, Unknown, GI intolerance, 04/08/16) Home Medications Scheduled Ascorbic Acid (Vitamin C), 500 MG PO QAM Buspirone Hcl (Buspirone Hcl), 15 MG PO BID Calcium Carbonate (Calcium 600), 600 MG PO QAM Cholecalciferol (Vitamin D), 5,000 UNIT PO DAILY Ergocalciferol (Vitamin D), 400 INTER.UNIT PO QAM Fluoxetine (Prozac), 40 MG PO BID Furosemide (Lasix), 40 MG PO DAILY Gabapentin (Neurontin), 600 MG PO BID Magnesium Oxide (Mag-Ox), 400 MG PO DAILY Pantoprazole (Protonix), 40 MG PO BID Polyethylene Glycol 3350 (Miralax), 17 GM PO DAILY Potassium Ext Rel (Klor-Con), 20 MEQ PO DAILY Propranolol (Inderal), 20 MG PO BID Ranitidine (Zantac), 150 MG PO BID Spironolactone (Aldactone), 100 MG PO DAILY Scheduled PRN Naproxen (Aleve), 440 MG PO Q6 PRN for Pain Review of Systems Review of systems cannot be obtained through family is a patient is not responsive Physical Exam Vital Signs Date Time Temp Pulse Resp B/P Pulse Ox O2 Delivery O2 Flow Rate FiO2 04/09/16 06:00 37.1 86 16 100/53 98 Mechanical Ventilator 40 04/09/16 05:27 40 04/09/16 05:03 37.1 79 26 111/66 100 Mechanical Ventilator 100 04/09/16 04:22 60 04/09/16 04:15 60 04/09/16 04:07 100 04/09/16 02:39 126/80 04/09/16 02:35 98 24 100 04/09/16 02:33 131/84 04/09/16 02:30 95 36 119/79 100 04/09/16 02:28 108/74 04/09/16 02:25 96 28 100 04/09/16 02:20 79 04/09/16 02:20 83 29 100 04/09/16 02:18 119/72 04/09/16 02:15 72 17 100 04/09/16 02:12 107/67 04/09/16 02:10 81 21 100 04/09/16 02:05 93 22 98 04/09/16 02:00 94 28 95 04/09/16 01:46 93 24 100/68 95 Room Air NIBP 04/09/16 01:30 93 24 116/64 95 Room Air 04/09/16 00:52 98 26 128/81 96 Room Air 04/08/16 22:42 92 04/08/16 22:29 94 Room Air 04/08/16 22:29 36.5 96 26 123/85 93 Room Air The patient is nonresponsive, chronically ill-appearing, progressively worsening respiratory state while in the emergency department, resulted in intubation for airway protection. HEENT--PERRL, mucous membranes dry, and oropharynx dry. Neck--supple, no JVD or bruits, thyroid normal, trachea midline, no adenopathy. Heart--normal S1 and S2, no extra beats, no murmurs, rubs or gallops. Lungs--coarse breath sounds throughout, progressively worsening respiratory distress with accessory muscle use during exam in the emergency department. Abdomen--normal bowel sounds and soft, nontender and nondistended, no hernias or masses, no organomegaly. Extremities--no cyanosis, clubbing or edema. There are good distal pulses b/l. Dermatologic--normal skin turgor, normal color, warm and dry, no abnormal lymph nodes, no rash. Neurologic--not able to perform Psychiatric--obtunded Diagnostics Laboratory Results Results Past 24 Hours Test 04/08/16 23:58 04/09/16 00:15 04/09/16 01:35 04/09/16 02:00 Range/Units White Blood Count 22.21 4.8-10.8 K/uL Red Blood Count 3.26 4.7-6.1 M/uL Hemoglobin 10.9 10.5 14.0-18.0 g/dL Hematocrit 29.9 28.8 42-52 % Mean Corpuscular Volume 91.7 80-100 fL Mean Corpuscular Hemoglobin 33.4 25-34 pg Mean Corpuscular Hemoglobin Concent 36.5 32-36 g/dl Platelet Count 180 130-400 K/uL Mean Platelet Volume 10.8 7.4-10.4 fL Neutrophils (%) (Auto) 75.7 % Lymphocytes (%) (Auto) 12.9 % Monocytes (%) (Auto) 10.9 % Eosinophils (%) (Auto) 0.0 % Basophils (%) (Auto) 0.0 % Neutrophils # (Auto) 16.81 1.4-6.5 K/uL Lymphocytes # (Auto) 2.87 1.2-3.4 K/uL Monocytes # (Auto) 2.42 0.11-0.59 K/uL Eosinophils # (Auto) 0.00 0-0.5 K/uL Basophils # (Auto) 0.01 0-0.2 K/uL RDW Standard Deviation 51.6 36.4-46.3 fL RDW Coefficient of Variation 15.3 11.5-14.5 % Immature Granulocyte % (Auto) 0.5 % Immature Granulocyte # (Auto) 0.10 0.00-0.02 K/uL Prothrombin Time 16.6 9.0-12.0 SECONDS Prothromb Time International Ratio 1.5 0.9-1.1 Activated Partial Thromboplast Time 33.1 21.0-31.0 SECONDS Partial Thromboplastin Ratio 1.3 Sodium Level 139 136-145 mmol/L Potassium Level 3.9 3.5-5.1 mmol/L Chloride Level 115 98-107 mmol/L Carbon Dioxide Level 10 21-32 mmol/L Anion Gap 14.0 3-11 mmol/L Blood Urea Nitrogen 67 7-18 mg/dl Creatinine 2.20 0.60-1.40 mg/dl Est Creatinine Clear Calc Drug Dose 25.5 ml/min Estimated GFR () 36.1 Estimated GFR (Non- 31.2 BUN/Creatinine Ratio 30.5 10-20 Random Glucose 111 70-99 mg/dl Calcium Level 7.7 8.5-10.1 mg/dl Magnesium Level 1.7 1.8-2.4 mg/dl Total Bilirubin 1.0 0.2-1 mg/dl Aspartate Amino Transf (AST/SGOT) 39 15-37 U/L Alanine Aminotransferase (ALT/SGPT) 34 12-78 U/L Alkaline Phosphatase 114 45-117 U/L Ammonia 265.0 11-32 umol/L Total Creatine Kinase 130 140 39-308 U/L Creatine Kinase MB 4.3 0.5-3.6 ng/ml Creatine Kinase MB Ratio 3.3 0-3.0 Troponin I 0.017 0-0.045 ng/ml Total Protein 7.0 6.4-8.2 gm/dl Albumin 2.6 3.4-5.0 gm/dl Globulin 4.4 2.5-4.0 gm/dl Albumin/Globulin Ratio 0.6 0.9-2 Thyroid Stimulating Hormone (TSH) 0.782 0.300-4.500 uIu/ml Venous Blood pH 7.25 7.36-7.41 Venous Blood Partial Pressure CO2 23 38.0-50.0 mmHg Venous Blood Partial Pressure O2 36 mmHg Venous Blood HCO3 10 mmol/L Venous Blood Oxygen Saturation < 60.0 % Venous Blood Base Excess -15.6 mmol/L Lactic Acid Level 3.1 0.4-2.0 mmol/L Urine Color YELLOW Urine Appearance CLEAR CLEAR Urine pH 6.0 4.5-7.5 Urine Specific [place] 1.019 1.000-1.030 Urine Protein TRACE NEG Urine Glucose (UA) NEG NEG Urine Ketones NEG NEG Urine Occult Blood TRACE NEG Urine Nitrite NEG NEG Urine Bilirubin NEG NEG Urine Urobilinogen NEG NEG Urine Leukocyte Esterase NEG NEG Urine WBC (Auto) 1-5 0-5 /hpf Urine RBC (Auto) 5-10 0-4 /hpf Urine Hyaline Casts (Auto) 5-10 0-5 /lpf Urine Epithelial Cells (Auto) >30 0-5 /lpf Urine Bacteria (Auto) NEG NEG Urine Pathogenic Casts 0 /lpf Arterial Blood pH 7.32 7.35-7.45 Arterial Blood Partial Pressure CO2 17 35-46 mmHg Arterial Blood Partial Pressure O2 62 80-95 mm/Hg Arterial Blood HCO3 8 19-24 mmol/L Arterial Blood Oxygen Saturation 89.2 90-95 % Arterial Blood Base Excess -15.6 -9-1.8 mEq/L Arterial Blood Gas Delivery ROOM AIR Robert Test POS POS Test 04/09/16 03:00 04/09/16 05:10 04/09/16 06:37 04/09/16 07:26 Range/Units Lactic Acid Level 1.6 0.4-2.0 mmol/L Blood Gas Sample Site R Radial Bedside Blood Gas pH (LAB) 7.32 7.35-7.45 Bedside Blood Gas pCO2 (LAB) 15 35-46 mmHg Bedside Blood Gas pO2 (LAB) 205 80-95 mmHg Bedside Blood Gas HCO3 (LAB) 8 19-24 meq/L Bedside Blood Gas Total CO2 8 24-31 mEq/l Bedside Blood Gas Base Excess (LAB) -18.0 -9-1.8 meq/L Bedside Blood Gas O2 Saturation 100.0 90-95 % Robert Test Pass Oxygen Delivery Device Ventilator Bedside Oxygen Rate (breaths/min) 8 Blood Gas Minute Ventilation 17.5 Bedside FiO2 60 % Blood Gas Tidal Volume 450 Blood Gas PEEP 5 Sodium Level 142 136-145 mmol/L Potassium Level 3.1 3.5-5.1 mmol/L Chloride Level 118 98-107 mmol/L Carbon Dioxide Level 9 21-32 mmol/L Anion Gap 15.0 3-11 mmol/L Blood Urea Nitrogen 64 7-18 mg/dl Creatinine 1.80 0.60-1.40 mg/dl Est Creatinine Clear Calc Drug Dose 30.6 ml/min Estimated GFR () 46.1 Estimated GFR (Non- 39.7 BUN/Creatinine Ratio 35.6 10-20 Random Glucose 112 70-99 mg/dl Calcium Level 8.0 8.5-10.1 mg/dl Phosphorus Level 2.6 2.5-4.9 mg/dl Magnesium Level 2.3 1.8-2.4 mg/dl Microbiology Results 04/08/16 Blood Culture, Received Pending 04/08/16 Blood Culture, Received Pending 04/09/16 MRSA DNA Surveillance Screen, Received Pending 04/09/16 C.difficile Toxin B Gene (PCR) - Final, Complete Positive for C. difficile toxin B gene 04/09/16 Shiga Toxin Test, Received Pending 04/09/16 Stool Culture, Received Pending Diagnostic Radiology Patient Name: LATESHA JENKINS Unit Number: [id number] Dictated: 04/09/16711 Transcribed: 04/09/16711 EV Printed Date/Time: [~ rep prt dt]/[~ rep prt tm] [~ rep ct labl] - [~ rep ct ivnm] [facility] Radiology [place] [address] Dictated: 04/09/16711 Transcribed: 04/09/16711 EV Printed Date/Time: [~ rep prt dt]/[~ rep prt tm] [~ rep ct labl] - [~ rep ct ivnm] CT SCAN OF THE BRAIN WITHOUT IV CONTRAST CLINICAL HISTORY: Change in mental status. COMPARISON STUDY: CT of the brain dated 08/23/2006. TECHNIQUE: Unenhanced axial CT scan of the brain is performed from the vertex to the skull base. Automated dose control exposure was utilized. The patient was scanned twice due to motion artifact. CT DOSE: 1423.56 mGy.cm FINDINGS: Brain parenchyma: There are mild age-related involutional changes. There is no hemorrhage, mass effect, or evidence of acute territorial ischemia by CT criteria. Starr-white matter is preserved. No extra-axial fluid collection is seen. Ventricles, sulci, cisterns: Prominent secondary to involutional change. Intracranial vasculature: There is mild atherosclerotic calcification of the cavernous carotid arteries. Calvarium: Unremarkable. Sinuses and mastoids: The visualized paranasal sinuses are clear. The mastoid air cells are well pneumatized. Orbits: The bony orbits are grossly intact. IMPRESSION: There is no hemorrhage, mass effect, or evidence of acute territorial ischemia by CT criteria noting a motion degraded examination. Electronically signed by: Manuel Bran M.D. 04/09/2016 7:14 AM The status of this report is Signed. Draft = Not yet reviewed or approved by Radiologist. Signed = Reviewed and approved by Radiologist. <AttendingPhy>Avi Arreguin M.D.</AttendingPhy> <FamilyPhy>Pita Werner C.R.N.P.</FamilyPhy> <PrimaryPhy>Babak Hunt M.D.</ PrimaryPhy> <UnitNumber>[id number]</UnitNumber> <VisitNumber>[id number]</ VisitNumber> <PatientName>LATESHA JENKINS</PatientName> <DateOfBirth>1955</DateOfBirth> <Location>C.MSICU</Location> <ServiceDate>04/08/16</ ServiceDate> <MNE>ESINDI</MNE> <OrderingPhy>Mary Tabor PA-C</OrderingPhy > <OrderingPhyMNE>f rep ord dr chahal</OrderingPhyMNE> <DictatingPhyMNE>f rep dict dr chahal</DictatingPhyMNE> <CCListMNE>f rep ct [place]e</CCListMNE> <AdmittingPhyMNE>f pt admit dr chahal</AdmittingPhyMNE> <AttendingPhyMNE>f pt attend dr chahal</ AttendingPhyMNE> <ConsultingPhyMNE>f pt consult dr chahal</ConsultingPhyMNE> <FamilyPhyMNE>f pt fam dr chahal</FamilyPhyMNE> <OtherPhyMNE>f pt other dr chahal</OtherPhyMNE> < PrimaryPhyMNE>f pt prim care dr chahal</PrimaryPhyMNE> <ReferringPhyMNE>f pt referring dr chahal</ReferringPhyMNE> Patient Name: LATESHA JENKINS Unit Number: [id number] Dictated: 04/09/16635 Transcribed: 04/09/16635 ARG Printed Date/Time: [~ rep prt dt]/[~ rep prt tm] [~ rep ct labl] - [~ rep ct ivnm] [facility] Radiology Department [place] [id number] Dictated: 04/09/16635 Transcribed: 04/09/16635 ARG Printed Date/Time: [~ rep prt dt]/[~ rep prt tm] [~ rep ct labl] - [~ rep ct ivnm] CLINICAL HISTORY: Sepsis CENTRAL LINE PLACEMENT COMPARISON STUDY: 01/29/2016 FINDINGS: The chest has an emphysematous configuration. There is chronic basilar interstitial thickening. There is no lobar consolidation. There is been interval placement on the left internal jugular central venous catheter. The tip projects over the superior vena cava at the brachiocephalic vein confluence. No pneumothorax is visualized on the supine study.[ IMPRESSION: 1. Chronic basilar interstitial thickening 2. No pneumothorax identified on this supine study status post central line placement Electronically signed by: Cachorro Landry M.D. 04/09/2016 6:37 AM The status of this report is Signed. Draft = Not yet reviewed or approved by Radiologist. Signed = Reviewed and approved by Radiologist. <AttendingPhy>Avi Arreguin M.D.</AttendingPhy> <FamilyPhy>Pita Werner C.R.NEvelynePEvelyne</FamilyPhy> <PrimaryPhy>Babak Hunt M.D.</ PrimaryPhy> <UnitNumber>[id number]</UnitNumber> <VisitNumber>[id number]</ VisitNumber> <PatientName>LATESHA JENKINS</PatientName> <DateOfBirth>1955</DateOfBirth> <Location>C.MSICU</Location> <ServiceDate>04/08/16</ ServiceDate> <MNE>ESINDI</MNE> <OrderingPhy>Leander, Mary PA-C</OrderingPhy > <OrderingPhyMNE>f rep ord dr chahal</OrderingPhyMNE> <DictatingPhyMNE>f rep dict dr chahal</DictatingPhyMNE> <CCListMNE>f rep ct mne</CCListMNE> <AdmittingPhyMNE>f pt admit dr chahal</AdmittingPhyMNE> <AttendingPhyMNE>f pt attend dr chahal</ AttendingPhyMNE> <ConsultingPhyMNE>f pt consult dr chahal</ConsultingPhyMNE> <FamilyPhyMNE>f pt fam dr chahal</FamilyPhyMNE> <OtherPhyMNE>f pt other dr chahal</OtherPhyMNE> < PrimaryPhyMNE>f pt prim care dr chahal</PrimaryPhyMNE> <ReferringPhyMNE>f pt referring dr chahal</ReferringPhyMNE> EKG EKG shows normal sinus rhythm at 95, with too much baseline noise for interpretation Impression Assessment and Plan Hepatic encephalopathy with intubation performed for airway protection, with subsequent admission to the ICU. Patient will be transferred to the care of the tentmaker service, case discussed with with Dr. Mclaughlin. Serial laboratories have been ordered for CBCD, chemistry profile, PT PTT INR, ABGs. Chronic hepatitis C, cirrhosis, esophageal varices, stomach ulcers--the patient started on a Protonix drip, serial laboratories performed. Left lower lobe pneumonia--place on vancomycin IV per renal dosing, levofloxacin 500 mg IV every 24 hours, and Zosyn 3.375 mg IV every 8 hours. Level of Care Critical Care Advanced Directives Existing Advance Directive: No Existing Living Will: No Existing Power of Yard Switch Operator: No Resuscitation Status FULL RESUSCITATION VTE Prophylaxis VTE Risk Assessment Done? Y/N: Yes Risk Level: High Given or contraindicated: SCD's
[2016-04-09] MEDS ORDERED: INFLUENZA ADMINISTRATION CHARGE ONE (08:00)
[2016-04-09] MEDS ORDERED: INFLUENZA VIRUS QUAD VACCINE 0.5 ML SYR IM. ONE (08:00)
[2016-04-09] MEDS ORDERED: CEFEPIME CONSULT ACTIVE PRN ×2 (08:45)
[2016-04-09] MEDS ORDERED: PANTOprazole INJ 40 MG in SYRINGE 0 ML IV SCH (09:00)
[2016-04-09] MEDS: METRONIDAZOLE 500MG / NSS IV SCH ×2 (09:24→18:26)
[2016-04-09] MEDS ORDERED: POTASSIUM CHLR 10 MEQ / WTR 10 MEQ in PREMIXED WATER 100 ML IV SCH (10:30)
[2016-04-09 11:03] LABS: CKMB/CK RATIO 3.9 (0-3.0)
--- NOTE | 2016-04-09 11:47 | Critical Care Consultation ---
Critical Care Consultation Date of Consultation: Apr 09, 2016. Attending Physician: Saad Yañez D.O. Reason for Consultation: ICU and vent management History of Present Illness Mr Godfrey is a 60 yo M with chronic hep C and cirrhosis, alcoholism (apparently in recovery), recent sacral ulcer (most recently admitted 02/01 for IV abx), and recent syncopal episodes for which he has a Holter monitor who was brought by his daughter to the ED for altered mental status, and is now in the ICU as he is ventilated. History was obtained from the patients daughter. She reports that after his last admission he was discharged to [facility] for rehab, and received Clindamycin IV for 12 days. She has not seen him over the last 5 weeks, but came to see him yesterday afternoon and found him laying on the sofa saying that "the ocean was behind him" and that he was "salting his food" though there was no food present. He was crawling on his hands and legs as well. He had meandered to the bathroom and she followed him, and he stooled himself, at which point she decided to call the ambulance. She reports he was adamant about not going to the hospital but the paramedics were able to convince him to come in. His daughter reports over the last 5 weeks he has also lost a significant amount of weight (BMI now 16). The patient lives with his son, who is not currently present, but told his sister he has not seen the patient drink any more alcohol since then. His daughter reports the pt follows with Dr Eckert and recently his liver function was "18% of normal" Upon arrival to the ED he was lethargic. There were concerns about his airway patency and he was intubated. He also had a Left IJ central line placed. He did have melena and tested positive for C difficile. He received Protonix, Vancomycin, Zosyn, and Rocephin. He also received a dose of Vitamin K to reverse his INR. Overnight, he has had loose bowel movements. He has an OG tube with black discharge. Past Medical/Surgical History Medical Problems: (1) Bipolar disorder (2) Celiac disease (3) Chronic hepatitis C (4) Cirrhosis (5) Esophageal varices (6) GI bleed (7) Hematemesis with nausea (8) Hepatic encephalopathy (9) Pancreatitis (10) Sacral decubitus ulcer, stage II (11) stomach ulcers Family History Heart disease Hypertension Social History Smoking Status: Current Some Day Smoker Smokeless Tobacco Use: No Alcohol Use: none Drug Use: none Marital Status: Housing Status: lives with family Occupation Status: disabled Allergies Coded Allergies: Gluten (Verified Allergy, Intermediate, PAINFUL JOINTS,ABD PAIN, 04/08/16) Lactose Intolerance (GI) (Unverified Allergy, Unknown, ABD PAIN, 04/08/16) NO KNOWN DRUG ALLERGIES (Unverified Allergy, Unknown, NONE, 04/08/16) Wheat (Verified Allergy, Unknown, GI intolerance, 04/08/16) Home Medications Scheduled Ascorbic Acid (Vitamin C), 500 MG PO QAM Buspirone Hcl (Buspirone Hcl), 15 MG PO BID Calcium Carbonate (Calcium 600), 600 MG PO QAM Cholecalciferol (Vitamin D), 5,000 UNIT PO DAILY Ergocalciferol (Vitamin D), 400 INTER.UNIT PO QAM Fluoxetine (Prozac), 40 MG PO BID Furosemide (Lasix), 40 MG PO DAILY Gabapentin (Neurontin), 600 MG PO BID Magnesium Oxide (Mag-Ox), 400 MG PO DAILY Pantoprazole (Protonix), 40 MG PO BID Polyethylene Glycol 3350 (Miralax), 17 GM PO DAILY Potassium Ext Rel (Klor-Con), 20 MEQ PO DAILY Propranolol (Inderal), 20 MG PO BID Ranitidine (Zantac), 150 MG PO BID Spironolactone (Aldactone), 100 MG PO DAILY Scheduled PRN Naproxen (Aleve), 440 MG PO Q6 PRN for Pain Current Inpatient Medications Current Inpatient Medications Medications (Trade) Dose Ordered Sig/Vin Route Start Time Stop Time Status Last Admin Dose Admin Lorazepam 0.5 mg 0.5 mg Q4H PRN IV 04/09/16 02:45 05/09/16 02:44 Pantoprazole Sodium 40 mg/ Dextrose 100 ml @ 20 mls/hr Q5H IV 04/09/16 05:30 05/09/16 05:29 04/09/16 09:24 20 MLS/HR Sodium Bicarbonate 100 meq/Dextrose 1,100 ml @ 100 mls/hr Q11H IV 04/09/16 06:30 05/09/16 06:29 04/09/16 06:45 100 MLS/HR Metronidazole/Prmx (Flagyl / Nss/ Premixed Nss) 100 ml @ 100 mls/hr Q8@0200,1000,1800 IV 04/09/16 09:30 04/19/16 09:29 04/09/16 09:24 100 MLS/HR Fentanyl Citrate (Fentanyl Inj) 25 mcg Q2H PRN IV 04/09/16 08:45 04/23/16 08:44 Cefepime HCl 1 ea 1 ea UD PRN N/A 04/09/16 08:45 05/09/16 08:44 Potassium Chloride 10 meq/ Prmx 100 ml @ 100 mls/hr Q1H IV 04/09/16 10:30 04/09/16 12:29 Cefepime HCl 2000 mg/Dextrose 112.5 ml @ 225 mls/hr TODAY@1200 ONCE IV 04/09/16 12:00 04/09/16 12:29 Cefepime HCl/ Dextrose (Maxipime IV/D5 100ml) 111.3 ml @ 222.6 mls/ hr DAILY@1200 IV 04/10/16 12:00 04/19/16 11:59 Chlorhexidine Gluconate (Peridex Oral Soln) 15 ml BID MT 04/09/16 21:00 05/09/16 20:59 Review of Systems Unable to obtain ROS due to patients mental status Physical Exam Date Time Temp Pulse Resp B/P Pulse Ox O2 Delivery O2 Flow Rate FiO2 04/09/16 10:00 89 19 91/57 97 Mechanical Ventilator 40 04/09/16 09:58 86 18 97 04/09/16 09:30 92 18 97 04/09/16 08:58 88 19 91/58 98 04/09/16 08:16 36.8 85 17 91/56 98 04/09/16 08:00 98 Mechanical Ventilator 40 04/09/16 08:00 40 04/09/16 07:58 91/56 04/09/16 07:40 40 04/09/16 06:00 37.1 86 16 100/53 98 Mechanical Ventilator 40 04/09/16 05:27 40 04/09/16 05:03 37.1 79 26 111/66 100 Mechanical Ventilator 100 04/09/16 04:22 60 04/09/16 04:15 60 04/09/16 04:07 100 04/09/16 02:39 126/80 04/09/16 02:35 98 24 100 04/09/16 02:33 131/84 04/09/16 02:30 95 36 119/79 100 04/09/16 02:28 108/74 04/09/16 02:25 96 28 100 04/09/16 02:20 79 04/09/16 02:20 83 29 100 04/09/16 02:18 119/72 04/09/16 02:15 72 17 100 04/09/16 02:12 107/67 04/09/16 02:10 81 21 100 04/09/16 02:05 93 22 98 04/09/16 02:00 94 28 95 04/09/16 01:46 93 24 100/68 95 Room Air NIBP 04/09/16 01:30 93 24 116/64 95 Room Air 04/09/16 00:52 98 26 128/81 96 Room Air 04/08/16 22:42 92 04/08/16 22:29 94 Room Air 04/08/16 22:29 36.5 96 26 123/85 93 Room Air General Appearance: WD/WN, no apparent distress, + thin Head: normocephalic, atraumatic Eyes: normal inspection, PERRL ENT: + pertinent finding (ET tube at 24mm) Neck: supple, no JVD Respiratory/Chest: lungs clear, normal breath sounds, no respiratory distress Cardiovascular: regular rate, rhythm, no murmur, normal peripheral pulses Abdomen/GI: normal bowel sounds, non tender, soft Back: no CVA tenderness, no muscle spasm Extremities/Musculoskelatal: no calf tenderness, no pedal edema Neurologic/Psych: + pertinent finding (Unable to assess) Skin: no rash Laboratory Results Last 24 Hours Test 04/08/16 23:58 04/09/16 00:15 04/09/16 01:35 04/09/16 02:00 White Blood Count 22.21 K/uL Red Blood Count 3.26 M/uL Hemoglobin 10.9 g/dL 10.5 g/dL Hematocrit 29.9 % 28.8 % Mean Corpuscular Volume 91.7 fL Mean Corpuscular Hemoglobin 33.4 pg Mean Corpuscular Hemoglobin Concent 36.5 g/dl Platelet Count 180 K/uL Mean Platelet Volume 10.8 fL Neutrophils (%) (Auto) 75.7 % Lymphocytes (%) (Auto) 12.9 % Monocytes (%) (Auto) 10.9 % Eosinophils (%) (Auto) 0.0 % Basophils (%) (Auto) 0.0 % Neutrophils # (Auto) 16.81 K/uL Lymphocytes # (Auto) 2.87 K/uL Monocytes # (Auto) 2.42 K/uL Eosinophils # (Auto) 0.00 K/uL Basophils # (Auto) 0.01 K/uL RDW Standard Deviation 51.6 fL RDW Coefficient of Variation 15.3 % Immature Granulocyte % (Auto) 0.5 % Immature Granulocyte # (Auto) 0.10 K/uL Prothrombin Time 16.6 SECONDS Prothromb Time International Ratio 1.5 Activated Partial Thromboplast Time 33.1 SECONDS Partial Thromboplastin Ratio 1.3 Sodium Level 139 mmol/L Potassium Level 3.9 mmol/L Chloride Level 115 mmol/L Carbon Dioxide Level 10 mmol/L Anion Gap 14.0 mmol/L Blood Urea Nitrogen 67 mg/dl Creatinine 2.20 mg/dl Est Creatinine Clear Calc Drug Dose 25.5 ml/min Estimated GFR () 36.1 Estimated GFR (Non- 31.2 BUN/Creatinine Ratio 30.5 Random Glucose 111 mg/dl Calcium Level 7.7 mg/dl Magnesium Level 1.7 mg/dl Total Bilirubin 1.0 mg/dl Aspartate Amino Transf (AST/SGOT) 39 U/L Alanine Aminotransferase (ALT/SGPT) 34 U/L Alkaline Phosphatase 114 U/L Ammonia 265.0 umol/L Total Creatine Kinase 130 U/L 140 U/L Creatine Kinase MB 4.3 ng/ml Creatine Kinase MB Ratio 3.3 Troponin I 0.017 ng/ml Total Protein 7.0 gm/dl Albumin 2.6 gm/dl Globulin 4.4 gm/dl Albumin/Globulin Ratio 0.6 Thyroid Stimulating Hormone (TSH) 0.782 uIu/ml Venous Blood pH 7.25 Venous Blood Partial Pressure CO2 23 mmHg Venous Blood Partial Pressure O2 36 mmHg Venous Blood HCO3 10 mmol/L Venous Blood Oxygen Saturation < 60.0 % Venous Blood Base Excess -15.6 mmol/L Lactic Acid Level 3.1 mmol/L Urine Color YELLOW Urine Appearance CLEAR Urine pH 6.0 Urine Specific [place] 1.019 Urine Protein TRACE Urine Glucose (UA) NEG Urine Ketones NEG Urine Occult Blood TRACE Urine Nitrite NEG Urine Bilirubin NEG Urine Urobilinogen NEG Urine Leukocyte Esterase NEG Urine WBC (Auto) 1-5 /hpf Urine RBC (Auto) 5-10 /hpf Urine Hyaline Casts (Auto) 5-10 /lpf Urine Epithelial Cells (Auto) >30 /lpf Urine Bacteria (Auto) NEG Urine Pathogenic Casts /lpf Arterial Blood pH 7.32 Arterial Blood Partial Pressure CO2 17 mmHg Arterial Blood Partial Pressure O2 62 mm/Hg Arterial Blood HCO3 8 mmol/L Arterial Blood Oxygen Saturation 89.2 % Arterial Blood Base Excess -15.6 mEq/L Arterial Blood Gas Delivery ROOM AIR Robert Test POS Test 04/09/16 03:00 04/09/16 05:10 04/09/16 06:37 04/09/16 07:26 Lactic Acid Level 1.6 mmol/L Blood Gas Sample Site R Radial Bedside Blood Gas pH (LAB) 7.32 Bedside Blood Gas pCO2 (LAB) 15 mmHg Bedside Blood Gas pO2 (LAB) 205 mmHg Bedside Blood Gas HCO3 (LAB) 8 meq/L Bedside Blood Gas Total CO2 8 mEq/l Bedside Blood Gas Base Excess (LAB) -18.0 meq/L Bedside Blood Gas O2 Saturation 100.0 % Robert Test Pass Oxygen Delivery Device Ventilator Bedside Oxygen Rate (breaths/min) 8 Blood Gas Minute Ventilation 17.5 Bedside FiO2 60 % Blood Gas Tidal Volume 450 Blood Gas PEEP 5 Sodium Level 142 mmol/L Potassium Level 3.1 mmol/L Chloride Level 118 mmol/L Carbon Dioxide Level 9 mmol/L Anion Gap 15.0 mmol/L Blood Urea Nitrogen 64 mg/dl Creatinine 1.80 mg/dl Est Creatinine Clear Calc Drug Dose 30.6 ml/min Estimated GFR () 46.1 Estimated GFR (Non- 39.7 BUN/Creatinine Ratio 35.6 Random Glucose 112 mg/dl Calcium Level 8.0 mg/dl Phosphorus Level 2.6 mg/dl Magnesium Level 2.3 mg/dl Total Bilirubin 1.0 mg/dl Direct Bilirubin 0.5 mg/dl Aspartate Amino Transf (AST/SGOT) 40 U/L Alanine Aminotransferase (ALT/SGPT) 29 U/L Alkaline Phosphatase 105 U/L Total Protein 6.6 gm/dl Albumin 2.4 gm/dl Hemoglobin 10.2 g/dL Hematocrit 27.6 % Test 04/09/16 10:25 Ammonia 98.0 umol/L Total Creatine Kinase 116 U/L Creatine Kinase MB 4.5 ng/ml Creatine Kinase MB Ratio 3.9 Troponin I < 0.015 ng/ml Diagnostic Results CT SCAN OF THE BRAIN WITHOUT IV CONTRAST CLINICAL HISTORY: Change in mental status. COMPARISON STUDY: CT of the brain dated 08/23/2006. TECHNIQUE: Unenhanced axial CT scan of the brain is performed from the vertex to the skull base. Automated dose control exposure was utilized. The patient was scanned twice due to motion artifact. CT DOSE: 1423.56 mGy.cm FINDINGS: Brain parenchyma: There are mild age-related involutional changes. There is no hemorrhage, mass effect, or evidence of acute territorial ischemia by CT criteria. Starr-white matter is preserved. No extra-axial fluid collection is seen. Ventricles, sulci, cisterns: Prominent secondary to involutional change. Intracranial vasculature: There is mild atherosclerotic calcification of the cavernous carotid arteries. Calvarium: Unremarkable. Sinuses and mastoids: The visualized paranasal sinuses are clear. The mastoid air cells are well pneumatized. Orbits: The bony orbits are grossly intact. IMPRESSION: There is no hemorrhage, mass effect, or evidence of acute territorial ischemia by CT criteria noting a motion degraded examination. CHEST ONE VIEW PORTABLE CLINICAL HISTORY: Sepsis CENTRAL LINE PLACEMENT COMPARISON STUDY: 01/29/2016 FINDINGS: The chest has an emphysematous configuration. There is chronic basilar interstitial thickening. There is no lobar consolidation. There is been interval placement on the left internal jugular central venous catheter. The tip projects over the superior vena cava at the brachiocephalic vein confluence. No pneumothorax is visualized on the supine study.[ IMPRESSION: 1. Chronic basilar interstitial thickening 2. No pneumothorax identified on this supine study status post central line placement Electronically signed by: Cachorro Landry M.D. 04/09/2016 6:37 AM SINGLE VIEW CHEST CLINICAL HISTORY: Respiratory failure. Intubation. FINDINGS: An AP, portable, supine chest radiograph is compared to study performed earlier the same day 04/09/2016. The examination is degraded by portable technique and patient rotation. A left internal jugular central venous catheter is unchanged in position. An endotracheal tube has been placed. The tip of the catheter projects 6 cm above the skyler just below the thoracic inlet. The cardiomediastinal silhouette is unremarkable. There is atherosclerotic calcification of the thoracic aorta. The pulmonary vasculature is noncongested. Chronic interstitial thickening is unchanged. There are increasing airspace opacities at the left lung base. No large pleural effusion or pneumothorax is seen. The skeletal structures are osteopenic. The bony thorax is grossly intact. IMPRESSION: 1. An endotracheal tube has been placed. The tip of the catheter projects 6 cm above the skyler just below the thoracic inlet. 2. There are increasing airspace opacities at the left lung base. This could represent atelectasis, developed pneumonia, and/or aspiration pneumonitis. Clinical correlation will be required. Assessment & Plan 60 year old male with chronic Hep C with cirrhosis, sacral ulcers, and alcoholism who presents with metabolic encephalopathy, now intubated and ventilated. IMPRESSION: 1. Acute hypoxemic respiratory failure, intubated / ventilated, from respiratory compensation of metabolic acidosis 2. Metabolic acidosis and encephalopathy, etiology uncertain. Differential includes ingestion of substances (alcohol v other drugs), infectious (C Diff related), electrolyte abnormality, sepsis (has an active ulcer). 3. Melena, presumed upper GI bleed, with Hb 10.5. Currently not indicated for transfusion. 4. Acute kidney injury, slightly improved with fluid rehydration. Baseline creatinine 0.7. 5. Sacral decubitus ulcer, with cultures previously pansensitive to MSSA 6. Clostridium difficile infection 7. Chronic hepatitis C with cirrhosis 8. Bipolar disorder 9. Syncopal episodes PLAN: RISK AND INSURANCE CONSULTANT/NEURO: Not on any sedatives. For pain, Fentanyl 25mcg PRN q2h. Monitor for signs of alcohol withdrawal. Head of bed to 30 degrees. HEME: Last Hb 10.2. Will continue to trend H&H q6h and transfuse if indicated. RENAL: Monitor renal function, will improve as acidosis improves. Will replace potassium today. ID: Will add IV Flagyl for C. Diff, and consider PO Vancomycin if severity worsens. Will add Cefepime IV to cover intra-abdominal infections. GI: Pt follows w/ Case, will consult GI today for potential EGD. Continue protonix drip. Trend ammonia / bicarb. Will consider lactulose. CVS: Continue to monitor PULMONARY: Continue to monitor, will likely improve as metabolic acidosis improves. Chlorhexidine rinse BID. SKIN/MSK: Ulcer precautions VTE: SCDs FULL CODE Fuel Cell Engineer Attending: Resident Physician Supervision Note: I interviewed and examined the patient. Discussed with Dr. Singh and agree with findings and plan as documented in the note. Any exceptions or clarifications are located in my dictated addendum. Documented By: Lisbeth Mclaughlin Resident Tracking Resident Involvement: Resident Care Provided Care Provided: Adult [facility] Medicine
--- NOTE | 2016-04-09 11:54 | Gastrointestinal Consultation ---
Gastrointestinal Consultation Date of Consultation: Apr 09, 2016 Attending Physician: Dr. Mclaughlin Consulting Physician: Dr. Avila Reason for Consultation: melena History of Present Illness Patient is a 60 year old male with ETOH/hepatitis C (not treated) cirrhosis as well as celiac disease, history of chronic pancreatitis and bipolar disorder admitted with altered mental status. He was found by family crawling around on the floor. He was intubated in the ER and remains intubated in the ICU. Workup on admission is significant for elevated ammonia in the 100's as well as C diff toxin which is positive. He has been on clindamycin for a decubitus ulcer. He has also had a problem with syncope and has been seeing his PCP for work up in the last 2 weeks. It is unclear if he is still drinking ETOH. OG tube has a small amount of dark coffee ground material in the tube. Nursing reports loose stool consistent with C diff but no justice melena. His hgb is stable in the mid 10's. He had an EGD in June (Dr. Eckert) which showed small grade 1 varices as well as mucosal chaages in the small intestine consistent with celiac disease. He is on IV PPI and is being treated for C diff as well as pneumonia. Past Medical/Surgical History Medical Problems: (1) Acute kidney injury Status: Acute (2) Alcoholism Status: Acute (3) Altered mental status Status: Acute (4) Anemia Status: Acute (5) Cellulitis Status: Acute (6) Decubitus ulcer Status: Acute (7) Dehydration Status: Acute (8) Elevated LFTs Status: Acute (9) Elevated lipase Status: Acute (10) GI bleed Status: Acute (11) Hypokalemia Status: Acute (12) Leukocytosis Status: Acute (13) Varices, esophageal Status: Acute Past Medical History: ETOH hepatitis C cirrhosis grade 1 varices chronic pancreatitis bipolar disorder celiac disease Past Surgical History: non-contributory Family History Heart disease Hypertension non-contributory Social History Smoking Status: Current Some Day Smoker Alcohol Use: occasionally Drug Use: none Marital Status: Housing Status: lives with friends Occupation Status: disabled Allergies Coded Allergies: Gluten (Verified Allergy, Intermediate, PAINFUL JOINTS,ABD PAIN, 04/08/16) Lactose Intolerance (GI) (Unverified Allergy, Unknown, ABD PAIN, 04/08/16) NO KNOWN DRUG ALLERGIES (Unverified Allergy, Unknown, NONE, 04/08/16) Wheat (Verified Allergy, Unknown, GI intolerance, 04/08/16) Current Medications Home Meds and Scripts Medications Dose Route/Sig Max Daily Dose Days Date Category Vitamin D (Cholecalciferol) 5,000 Unit Tab 5,000 Unit PO DAILY 04/08/16 Reported Vitamin C (Ascorbic Acid) 500 Mg Cap 500 Mg PO QAM 04/08/16 Reported Buspirone Hcl 5 Mg Tab 15 Mg PO BID 04/08/16 Reported Aldactone (Spironolactone) 100 Mg Tab 100 Mg PO DAILY 04/08/16 Reported Zantac (Ranitidine HCl) 150 Mg Tab 150 Mg PO BID 04/08/16 Reported Klor-Con (Potassium Chloride) 20 Meq Tabcr 20 Meq PO DAILY 04/08/16 Reported Miralax (Polyethylene Glycol 3350) 1 17 Gm PO DAILY 04/08/16 Reported Mag-Ox (Magnesium Oxide) 400 Mg Tab 400 Mg PO DAILY 04/08/16 Reported Lasix (Furosemide) 40 Mg Tab 40 Mg PO DAILY 02/19/16 Reported Inderal (Propranolol HCl) 20 Mg Tab 20 Mg PO BID 06/16/15 Reported Aleve (Naproxen) 220 Mg Tab 440 Mg PO Q6 PRN 09/07/13 Reported Calcium 600 (Calcium Carbonate) 600 Mg Tab 600 Mg PO QAM 09/01/13 Reported Vitamin D (Ergocalciferol) 400 Inter.unit Tab 400 Inter.unit PO QAM 09/01/13 Reported Neurontin (Gabapentin) 600 Mg Tab 600 Mg PO BID 10/07/12 Reported Protonix (Pantoprazole Sodium) 40 Mg Tab 40 Mg PO BID 08/02/12 Reported Prozac (Fluoxetine HCl) 40 Mg Cap 40 Mg PO BID 04/25/11 Reported Review of Systems unable to obtain ROS as patient is intubated and sedated Physical Exam Date Time Temp Pulse Resp B/P Pulse Ox O2 Delivery O2 Flow Rate FiO2 04/09/16 10:00 89 19 91/57 97 Mechanical Ventilator 40 04/09/16 09:58 86 18 97 04/09/16 09:30 92 18 97 04/09/16 08:58 88 19 91/58 98 04/09/16 08:16 36.8 85 17 91/56 98 04/09/16 08:00 98 Mechanical Ventilator 40 04/09/16 08:00 40 04/09/16 07:58 91/56 04/09/16 07:40 40 04/09/16 06:00 37.1 86 16 100/53 98 Mechanical Ventilator 40 04/09/16 05:27 40 04/09/16 05:03 37.1 79 26 111/66 100 Mechanical Ventilator 100 04/09/16 04:22 60 04/09/16 04:15 60 04/09/16 04:07 100 04/09/16 02:39 126/80 04/09/16 02:35 98 24 100 04/09/16 02:33 131/84 04/09/16 02:30 95 36 119/79 100 04/09/16 02:28 108/74 04/09/16 02:25 96 28 100 04/09/16 02:20 79 04/09/16 02:20 83 29 100 04/09/16 02:18 119/72 04/09/16 02:15 72 17 100 04/09/16 02:12 107/67 04/09/16 02:10 81 21 100 04/09/16 02:05 93 22 98 04/09/16 02:00 94 28 95 04/09/16 01:46 93 24 100/68 95 Room Air NIBP 04/09/16 01:30 93 24 116/64 95 Room Air 04/09/16 00:52 98 26 128/81 96 Room Air 04/08/16 22:42 92 04/08/16 22:29 94 Room Air 04/08/16 22:29 36.5 96 26 123/85 93 Room Air General Appearance: + pertinent finding (appears chronically ill, intubated, sedated) ENT: normal ENT inspection, + pertinent finding (OGT with small amount of dark/ ?coffee ground fluid) Neck: supple, no JVD Respiratory/Chest: lungs clear Cardiovascular: + tachycardia Abdomen: normal bowel sounds, non tender, soft Extremities: no pedal edema, normal capillary refill Neurologic/Psych: + pertinent finding (sedated) Skin: normal color, no jaundice Laboratory Results Last 24 Hours Test 04/08/16 23:58 04/09/16 00:15 04/09/16 01:35 04/09/16 02:00 White Blood Count 22.21 K/uL Red Blood Count 3.26 M/uL Hemoglobin 10.9 g/dL 10.5 g/dL Hematocrit 29.9 % 28.8 % Mean Corpuscular Volume 91.7 fL Mean Corpuscular Hemoglobin 33.4 pg Mean Corpuscular Hemoglobin Concent 36.5 g/dl Platelet Count 180 K/uL Mean Platelet Volume 10.8 fL Neutrophils (%) (Auto) 75.7 % Lymphocytes (%) (Auto) 12.9 % Monocytes (%) (Auto) 10.9 % Eosinophils (%) (Auto) 0.0 % Basophils (%) (Auto) 0.0 % Neutrophils # (Auto) 16.81 K/uL Lymphocytes # (Auto) 2.87 K/uL Monocytes # (Auto) 2.42 K/uL Eosinophils # (Auto) 0.00 K/uL Basophils # (Auto) 0.01 K/uL RDW Standard Deviation 51.6 fL RDW Coefficient of Variation 15.3 % Immature Granulocyte % (Auto) 0.5 % Immature Granulocyte # (Auto) 0.10 K/uL Prothrombin Time 16.6 SECONDS Prothromb Time International Ratio 1.5 Activated Partial Thromboplast Time 33.1 SECONDS Partial Thromboplastin Ratio 1.3 Sodium Level 139 mmol/L Potassium Level 3.9 mmol/L Chloride Level 115 mmol/L Carbon Dioxide Level 10 mmol/L Anion Gap 14.0 mmol/L Blood Urea Nitrogen 67 mg/dl Creatinine 2.20 mg/dl Est Creatinine Clear Calc Drug Dose 25.5 ml/min Estimated GFR () 36.1 Estimated GFR (Non- 31.2 BUN/Creatinine Ratio 30.5 Random Glucose 111 mg/dl Calcium Level 7.7 mg/dl Magnesium Level 1.7 mg/dl Total Bilirubin 1.0 mg/dl Aspartate Amino Transf (AST/SGOT) 39 U/L Alanine Aminotransferase (ALT/SGPT) 34 U/L Alkaline Phosphatase 114 U/L Ammonia 265.0 umol/L Total Creatine Kinase 130 U/L 140 U/L Creatine Kinase MB 4.3 ng/ml Creatine Kinase MB Ratio 3.3 Troponin I 0.017 ng/ml Total Protein 7.0 gm/dl Albumin 2.6 gm/dl Globulin 4.4 gm/dl Albumin/Globulin Ratio 0.6 Thyroid Stimulating Hormone (TSH) 0.782 uIu/ml Venous Blood pH 7.25 Venous Blood Partial Pressure CO2 23 mmHg Venous Blood Partial Pressure O2 36 mmHg Venous Blood HCO3 10 mmol/L Venous Blood Oxygen Saturation < 60.0 % Venous Blood Base Excess -15.6 mmol/L Lactic Acid Level 3.1 mmol/L Urine Color YELLOW Urine Appearance CLEAR Urine pH 6.0 Urine Specific [place] 1.019 Urine Protein TRACE Urine Glucose (UA) NEG Urine Ketones NEG Urine Occult Blood TRACE Urine Nitrite NEG Urine Bilirubin NEG Urine Urobilinogen NEG Urine Leukocyte Esterase NEG Urine WBC (Auto) 1-5 /hpf Urine RBC (Auto) 5-10 /hpf Urine Hyaline Casts (Auto) 5-10 /lpf Urine Epithelial Cells (Auto) >30 /lpf Urine Bacteria (Auto) NEG Urine Pathogenic Casts /lpf Arterial Blood pH 7.32 Arterial Blood Partial Pressure CO2 17 mmHg Arterial Blood Partial Pressure O2 62 mm/Hg Arterial Blood HCO3 8 mmol/L Arterial Blood Oxygen Saturation 89.2 % Arterial Blood Base Excess -15.6 mEq/L Arterial Blood Gas Delivery ROOM AIR Robert Test POS Test 04/09/16 03:00 04/09/16 05:10 04/09/16 06:37 04/09/16 07:26 Lactic Acid Level 1.6 mmol/L Blood Gas Sample Site R Radial Bedside Blood Gas pH (LAB) 7.32 Bedside Blood Gas pCO2 (LAB) 15 mmHg Bedside Blood Gas pO2 (LAB) 205 mmHg Bedside Blood Gas HCO3 (LAB) 8 meq/L Bedside Blood Gas Total CO2 8 mEq/l Bedside Blood Gas Base Excess (LAB) -18.0 meq/L Bedside Blood Gas O2 Saturation 100.0 % Robert Test Pass Oxygen Delivery Device Ventilator Bedside Oxygen Rate (breaths/min) 8 Blood Gas Minute Ventilation 17.5 Bedside FiO2 60 % Blood Gas Tidal Volume 450 Blood Gas PEEP 5 Sodium Level 142 mmol/L Potassium Level 3.1 mmol/L Chloride Level 118 mmol/L Carbon Dioxide Level 9 mmol/L Anion Gap 15.0 mmol/L Blood Urea Nitrogen 64 mg/dl Creatinine 1.80 mg/dl Est Creatinine Clear Calc Drug Dose 30.6 ml/min Estimated GFR () 46.1 Estimated GFR (Non- 39.7 BUN/Creatinine Ratio 35.6 Random Glucose 112 mg/dl Calcium Level 8.0 mg/dl Phosphorus Level 2.6 mg/dl Magnesium Level 2.3 mg/dl Total Bilirubin 1.0 mg/dl Direct Bilirubin 0.5 mg/dl Aspartate Amino Transf (AST/SGOT) 40 U/L Alanine Aminotransferase (ALT/SGPT) 29 U/L Alkaline Phosphatase 105 U/L Total Protein 6.6 gm/dl Albumin 2.4 gm/dl Hemoglobin 10.2 g/dL Hematocrit 27.6 % Test 04/09/16 10:25 Ammonia 98.0 umol/L Total Creatine Kinase 116 U/L Creatine Kinase MB 4.5 ng/ml Creatine Kinase MB Ratio 3.9 Troponin I < 0.015 ng/ml Impression Patient is a 60 year old male with ETOH/HCV cirrhosis admitted with altered mental status found to have C diff in the setting of recent abx for decub ulcer as well as ?lung infiltrate. His ammonia is elevated and he has some dark coffee ground material in the OGT. - clinical findings not suggestive of an acute on going UGI/portal hypertensive GI bleed. EGD in June with small varices. - ammonia elevate din the setting of acute illness. Unclear if he was on lactulose or Xifaxan as an outpatient. - ETOH/HCV cirrhosis. - +C diff secondary to recent clindamycin Plan - Would continue with IV PPI. - Follow H/H. - Agree with current tx of C diff - Consider addition of Xifaxan for the elevated ammonia. Lactulose will exacerbate the diarrhea in the setting of C diff. - If he becomes hemodynamically unstable with increase in OGT output of has melena, can consider an upper endoscopy.
[2016-04-09] MEDS ORDERED: CEFEPIME IV 2000 MG in DEXTROSE 5% 100ML IV ONE (12:00)
[2016-04-09 13:00] LABS: HEMATOCRIT 25.8 % (42-52)
--- NOTE | 2016-04-09 13:04 | Family Medicine Progress Note ---
Progress Note Date of Service Apr 09, 2016. Subjective Pt evaluation today including: conversation w/ patient, physical exam, chart review, lab review, review of studies, review of inpatient medication list Voiding: rangel catheter in place Patient is a 60 year old gentleman with history of liver cirrhosis secondary to hepatitis C and alcohol abuse. Admitted for progressive generalized weakness ( crawling on his hands and knees), altered mental state, malnutrition ( significant weight loss, in Oct he was 60kg, now approx 50kg) and diarrhea. He has been on clindamycin for the past week for a decubitus ulcer. Additional history was taken from his daughter at the bedside. She corroborates the story from previous notes. She also notes he has a pile of prescription papers at home which are not filled and therefore likely a lack of compliance with outpatient medications. His workup so far indicates dehydration, possible UGI bleed, c.diff positive diarrhea, hyperammonemia and multi-system failure (ANANYA, elevated LFTs, AMS). Ventilated for airway protection due to encephalopathy and acute hypoxic respiratory failure. Additional Comments: Unable to perform due to patient encephalopathy Medications Current Inpatient Medications Medications (Trade) Dose Ordered Sig/Vin Route Start Time Stop Time Status Last Admin Dose Admin Lorazepam 0.5 mg 0.5 mg Q4H PRN IV 04/09/16 02:45 05/09/16 02:44 Pantoprazole Sodium 40 mg/ Dextrose 100 ml @ 20 mls/hr Q5H IV 04/09/16 05:30 05/09/16 05:29 04/09/16 09:24 20 MLS/HR Sodium Bicarbonate 100 meq/Dextrose 1,100 ml @ 100 mls/hr Q11H IV 04/09/16 06:30 05/09/16 06:29 04/09/16 06:45 100 MLS/HR Metronidazole/Prmx (Flagyl / Nss/ Premixed Nss) 100 ml @ 100 mls/hr Q8@0200,1000,1800 IV 04/09/16 09:30 04/19/16 09:29 04/09/16 09:24 100 MLS/HR Fentanyl Citrate (Fentanyl Inj) 25 mcg Q2H PRN IV 04/09/16 08:45 04/23/16 08:44 Cefepime HCl 1 ea 1 ea UD PRN N/A 04/09/16 08:45 05/09/16 08:44 Cefepime HCl/ Dextrose (Maxipime IV/D5 100ml) 111.3 ml @ 222.6 mls/ hr DAILY@1200 IV 04/10/16 12:00 04/19/16 11:59 Chlorhexidine Gluconate (Peridex Oral Soln) 15 ml BID UT 04/09/16 21:00 05/09/16 20:59 Vancomycin HCl (Vancomycin Oral Soln) 250 mg QID PO 04/09/16 13:00 04/19/16 12:59 Raspberry (Raspberry Syrup 5ML Cup) 5 ml QID PO 04/09/16 13:00 04/19/16 12:59 Objective Vital Signs Current Inpatient Medications Medications (Trade) Dose Ordered Sig/Vin Route Start Time Stop Time Status Last Admin Dose Admin Lorazepam 0.5 mg 0.5 mg Q4H PRN IV 04/09/16 02:45 05/09/16 02:44 Pantoprazole Sodium 40 mg/ Dextrose 100 ml @ 20 mls/hr Q5H IV 04/09/16 05:30 05/09/16 05:29 04/09/16 09:24 20 MLS/HR Sodium Bicarbonate 100 meq/Dextrose 1,100 ml @ 100 mls/hr Q11H IV 04/09/16 06:30 05/09/16 06:29 04/09/16 06:45 100 MLS/HR Metronidazole/Prmx (Flagyl / Nss/ Premixed Nss) 100 ml @ 100 mls/hr Q8@0200,1000,1800 IV 04/09/16 09:30 04/19/16 09:29 04/09/16 09:24 100 MLS/HR Fentanyl Citrate (Fentanyl Inj) 25 mcg Q2H PRN IV 04/09/16 08:45 04/23/16 08:44 Cefepime HCl 1 ea 1 ea UD PRN N/A 04/09/16 08:45 05/09/16 08:44 Cefepime HCl/ Dextrose (Maxipime IV/D5 100ml) 111.3 ml @ 222.6 mls/ hr DAILY@1200 IV 04/10/16 12:00 04/19/16 11:59 Chlorhexidine Gluconate (Peridex Oral Soln) 15 ml BID UT 04/09/16 21:00 05/09/16 20:59 Vancomycin HCl (Vancomycin Oral Soln) 250 mg QID PO 04/09/16 13:00 04/19/16 12:59 Raspberry (Raspberry Syrup 5ML Cup) 5 ml QID PO 04/09/16 13:00 04/19/16 12:59 Physical Exam General Appearance: no apparent distress Eyes: + pertinent finding (drifting horizontal gaze without any fixation) Neck: supple, no JVD, no carotid bruits, trachea midline Respiratory/Chest: chest non-tender, lungs clear, normal breath sounds, no respiratory distress, no accessory muscle use Cardiovascular: regular rate, rhythm, no murmur Abdomen: normal bowel sounds, non tender, soft Extremities: no pedal edema, no calf tenderness Neurologic/Psychiatric: + pertinent finding (patient intubated, non responsive to voice or pain) Skin: normal color, warm/dry, no rash, + pertinent finding (ducubitus ulcer on right buttocks without surrounding cellulitis by report but patient not turned during examination) Laboratory Results 04/08/16 23:58 Red Blood Count 3.26, Mean Corpuscular Volume 91.7, Mean Corpuscular Hemoglobin 33.4, Mean Corpuscular Hemoglobin Concent 36.5, Mean Platelet Volume 10.8, Neutrophils (%) (Auto) 75.7, Lymphocytes (%) (Auto) 12.9, Monocytes (%) (Auto) 10.9, Eosinophils (%) (Auto) 0.0, Basophils (%) (Auto) 0.0, Neutrophils # (Auto ) 16.81, Lymphocytes # (Auto) 2.87, Monocytes # (Auto) 2.42, Eosinophils # (Auto ) 0.00, Basophils # (Auto) 0.01 04/09/16 07:26 04/09/16 06:37 Test 04/08/16 23:58 04/09/16 00:15 04/09/16 01:35 04/09/16 02:00 White Blood Count 22.21 K/uL (4.8-10.8) Red Blood Count 3.26 M/uL (4.7-6.1) Hemoglobin 10.9 g/dL (14.0-18.0) Hematocrit 29.9 % (42-52) Mean Corpuscular Volume 91.7 fL (80-100) Mean Corpuscular Hemoglobin 33.4 pg (25-34) Mean Corpuscular Hemoglobin Concent 36.5 g/dl (32-36) Platelet Count 180 K/uL (130-400) Mean Platelet Volume 10.8 fL (7.4-10.4) Neutrophils (%) (Auto) 75.7 % Lymphocytes (%) (Auto) 12.9 % Monocytes (%) (Auto) 10.9 % Eosinophils (%) (Auto) 0.0 % Basophils (%) (Auto) 0.0 % Neutrophils # (Auto) 16.81 K/uL (1.4-6.5) Lymphocytes # (Auto) 2.87 K/uL (1.2-3.4) Monocytes # (Auto) 2.42 K/uL (0.11-0.59) Eosinophils # (Auto) 0.00 K/uL (0-0.5) Basophils # (Auto) 0.01 K/uL (0-0.2) RDW Standard Deviation 51.6 fL (36.4-46.3) RDW Coefficient of Variation 15.3 % (11.5-14.5) Immature Granulocyte % (Auto) 0.5 % Immature Granulocyte # (Auto) 0.10 K/uL (0.00-0.02) Prothrombin Time 16.6 SECONDS (9.0-12.0) Prothromb Time International Ratio 1.5 (0.9-1.1) Activated Partial Thromboplast Time 33.1 SECONDS (21.0-31.0) Partial Thromboplastin Ratio 1.3 Globulin 4.4 gm/dl (2.5-4.0) Albumin/Globulin Ratio 0.6 (0.9-2) Thyroid Stimulating Hormone (TSH) 0.782 uIu/ml (0.300-4.500) Venous Blood pH 7.25 (7.36-7.41) Venous Blood Partial Pressure CO2 23 mmHg (38.0-50.0) Venous Blood Partial Pressure O2 36 mmHg Venous Blood HCO3 10 mmol/L Venous Blood Oxygen Saturation < 60.0 % Venous Blood Base Excess -15.6 mmol/L Urine Color YELLOW Urine Appearance CLEAR (CLEAR) Urine pH 6.0 (4.5-7.5) Urine Specific [place] 1.019 (1.000-1.030) Urine Protein TRACE (NEG) Urine Glucose (UA) NEG (NEG) Urine Ketones NEG (NEG) Urine Occult Blood TRACE (NEG) Urine Nitrite NEG (NEG) Urine Bilirubin NEG (NEG) Urine Urobilinogen NEG (NEG) Urine Leukocyte Esterase NEG (NEG) Urine WBC (Auto) 1-5 /hpf (0-5) Urine RBC (Auto) 5-10 /hpf (0-4) Urine Hyaline Casts (Auto) 5-10 /lpf (0-5) Urine Epithelial Cells (Auto) >30 /lpf (0-5) Urine Bacteria (Auto) NEG (NEG) Urine Pathogenic Casts /lpf (0) Arterial Blood pH 7.32 (7.35-7.45) Arterial Blood Partial Pressure CO2 17 mmHg (35-46) Arterial Blood Partial Pressure O2 62 mm/Hg (80-95) Arterial Blood HCO3 8 mmol/L (19-24) Arterial Blood Oxygen Saturation 89.2 % (90-95) Arterial Blood Base Excess -15.6 mEq/L (-9-1.8) Arterial Blood Gas Delivery ROOM AIR Robert Test POS (POS) Test 04/09/16 03:00 04/09/16 05:10 04/09/16 06:37 04/09/16 10:25 Lactic Acid Level 1.6 mmol/L (0.4-2.0) Blood Gas Sample Site R Radial Bedside Blood Gas pH (LAB) 7.32 (7.35-7.45) Bedside Blood Gas pCO2 (LAB) 15 mmHg (35-46) Bedside Blood Gas pO2 (LAB) 205 mmHg (80-95) Bedside Blood Gas HCO3 (LAB) 8 meq/L (19-24) Bedside Blood Gas Total CO2 8 mEq/l (24-31) Bedside Blood Gas Base Excess (LAB) -18.0 meq/L (-9-1.8) Bedside Blood Gas O2 Saturation 100.0 % (90-95) Robert Test Pass Oxygen Delivery Device Ventilator Bedside Oxygen Rate (breaths/min) 8 Blood Gas Minute Ventilation 17.5 Bedside FiO2 60 % Blood Gas Tidal Volume 450 Blood Gas PEEP 5 Anion Gap 15.0 mmol/L (3-11) Est Creatinine Clear Calc Drug Dose 30.6 ml/min Estimated GFR () 46.1 Estimated GFR (Non- 39.7 BUN/Creatinine Ratio 35.6 (10-20) Calcium Level 8.0 mg/dl (8.5-10.1) Phosphorus Level 2.6 mg/dl (2.5-4.9) Magnesium Level 2.3 mg/dl (1.8-2.4) Total Bilirubin 1.0 mg/dl (0.2-1) Direct Bilirubin 0.5 mg/dl (0-0.2) Aspartate Amino Transf (AST/SGOT) 40 U/L (15-37) Alanine Aminotransferase (ALT/SGPT) 29 U/L (12-78) Alkaline Phosphatase 105 U/L (45-117) Total Protein 6.6 gm/dl (6.4-8.2) Albumin 2.4 gm/dl (3.4-5.0) Ammonia 98.0 umol/L (11-32) Total Creatine Kinase 116 U/L (39-308) Creatine Kinase MB 4.5 ng/ml (0.5-3.6) Creatine Kinase MB Ratio 3.9 (0-3.0) Troponin I < 0.015 ng/ml (0-0.045) Date/Time Source Procedure Growth Status 04/09/16 00:00 Nasal MRSA DNA Surveillance Screen - Final Specimen Negative for MRSA by DNA Probe Complete 04/09/16 01:30 Stool C.difficile Toxin B Gene (PCR) - Final Positive for C. difficile toxin B gene Complete Assessment and Plan 60 yo male with known liver cirrhosis, Hep C, Alcohol abuse. Admitted for general deterioration over a number of weeks with weight loss, diarrhea, and acute altered mental status over the past week. Reportedly has not had an alcoholic drink in the past 5 weeks. Acute hypoxemic respiratory failure - current intubated and mechanically ventilated - management as per ICU. Not currently on any sedation. Metabolic acidosis with raised anion gap - lactic acidosis on admission, no ketones in urine - management as per ICU with sodium bicarb - possible sepsis source intraabdominal (SBP) vs. pneumonia. Treating with cefepime Hyperammonemia / hepatic encephalopathy - GI consult - consider lactulose / rifaximin Dehydration / ANANAY - Continue IV fluids (Sodium Bicarb 100 MLS/HR) - trend Cr, improving with IVF Melena - heme positive stool, probable UGI bleed given previous Hx. - stable Hgb - continue to trend - Pantoprazole 40mg IV Q5H - GI consult C. diff - management as per ICU team with IV metronidazole + PO vancomycin Chronic hepatitis C and alcohol abuse with cirrhosis - GI consult. - Under Dr Eckert previously, recently increased spironolactone and lasix in February Bipolar disorder - holding home medications due to encephalopathy Alcohol abuse with horizontal gaze drifting - will treat as Wernicke's encephalopathy with thiamine replacement. Apathy noted by daughter. - Thiamine 500 mg/day for 3 days, then 250mg daily - Thiamine level added to labs VTE Prophylaxis - chemical contraindicated given concern for GI bleed Code - Full Disposition - Continue management in ICU pending extubation. Resident Physician Supervision Note: I interviewed and examined the patient. Discussed with Dr. Haro and agree with findings and plan as documented in the note. Any exceptions or clarifications are listed here: None Documented By: Saad Yañez intubated, sedated, no HPI or ROS obtainable dw dr haro, german zamarripa ICU vitals noted intubated, sedated, nad breathing unlabored on the vent no pallor severe hepatic encephalopathy -- with apparent concomitant pneumonia and concern on possible SBP - ICU altered abx to be able to cover for all. continue current care. ammonia did come down, alonsoley still encephalopathic from septic physiology
[2016-04-09] MEDS: RASPBERRY SYRUP 5 ML UDP PO SCH ×3 (13:42→20:21)
[2016-04-09] MEDS: VANCOMYCIN HCL 250 MG/5 ML SOLN PO SCH ×3 (13:42→20:21)
[2016-04-09] MEDS: FENTANYL CITRATE INJ 50 MCG/1 ML 2 ML VIAL IV PRN (15:07)
[2016-04-09] MEDS ORDERED: THIAMINE HCL 100 MG/ML 2 ML VIAL IM STA (15:45)
[2016-04-09] MEDS ORDERED: THIAMINE HCL INJ 100 MG in SYRINGE 9 ML IV ONE (16:30)
[2016-04-09 18:51] LABS: HEMATOCRIT 25.9 % (42-52)
[2016-04-09 19:23] LABS: BLOOD UREA NITROGEN 48 mg/dl (7-18); BUN/CREATININE RATIO 32.3 (10-20); CALCIUM 8.2 mg/dl (8.5-10.1); CARBON DIOXIDE 15 mmol/L (21-32); CHLORIDE 113 mmol/L (98-107); GLUCOSE 129 mg/dl (70-99); POTASSIUM 2.9 mmol/L (3.5-5.1); SODIUM 140 mmol/L (136-145)
[2016-04-09] MEDS: CHLORHEXIDINE GLUCONATE 0.12% 480 ML MT SCH (19:26)
[2016-04-09] MEDS: THIAMINE HCL INJ 100 MG in SYRINGE 9 ML IV SCH ×2 (19:26→22:36)
[2016-04-09 19:28] LABS: CKMB/CK RATIO 3.5 (0-3.0)
[2016-04-09] MEDS: POTASSIUM CHLR 20 MEQ / WTR 20 MEQ in PREMIXED WATER 100 ML IV SCH ×4 (20:19→23:55)
[2016-04-09] MEDS: RIFAXIMIN TAB 200 MG TAB PO SCH (20:22)
--- NOTE | 2016-04-09 21:52 | CRITICAL CARE CONSULTATION ---
DATE OF CONSULTATION: 04/09/2016 Please accept this as an addendum to Dr. Jewell's consult done earlier today. CHIEF COMPLAINT: Altered mental status. Briefly, the patient is a 60-year-old gentleman with a history of hepatitis C, grade 1 esophageal varices, pancreatitis and alcohol use who presented to the Emergency Department last night with lethargy and altered mental status. He has been on clindamycin for a week and started having black diarrhea at home. He is known to have decubitus ulcers, which is the reason he was on clindamycin. In the Emergency Department, he required intubation secondary to his altered mental status and he received 2 liters of normal saline as well as a Protonix infusion, vancomycin, Zosyn and Rocephin. He has since been found to have positive C. diff assay. He was admitted to the intensive care unit last night for further management. Past medical and surgical history, allergies, outpatient medications, social history and family history as per Dr. Jewell's consultation. REVIEW OF SYSTEMS: Not obtainable. PHYSICAL EXAMINATION: VITAL SIGNS: Have been reviewed. Ventilator settings are assist control rate 12, tidal volume 450, FiO2 40%, PEEP 5. GENERAL: This is a chronically ill-appearing gentleman who is very thin. The patient was unresponsive to painful stimuli and on the ventilator. LUNGS: Coarse bilaterally. No rales, rhonchi or wheezes. HEART: Regular rate and rhythm. ABDOMEN: Flat, soft, nondistended with active bowel sounds. EXTREMITIES: Cachectic and somewhat cool. PERTINENT LABORATORY DATA: Hemoglobin 9.7, hematocrit 25.8. Sodium 142, potassium 3.1, chloride 118, CO2 9, BUN 64, creatinine 1.8, pH 7.32, pCO2 of 15, pO2 205, HCO3 8, INR 1.5. Urinalysis was reviewed. Ammonia level was initially 265, now down to 98. CT of the brain is negative for acute process. Chest x-ray shows left basilar density. MEDICATIONS: Cefepime, chlorhexidine, fentanyl, Ativan, Flagyl, Protonix, Xifaxan, sodium bicarbonate infusion, thiamin and vancomycin. IMPRESSION: 1. Altered mental status which is likely multifactorial, although hepatic encephalopathy is certainly contributing. He was unable to protect his airway, which is the reason he was intubated. There is also risk of aspiration. The history surrounding his history of present illness is quite limited. 2. Clostridium difficile colitis. 3. Acute kidney injury with metabolic acidosis. 4. Decubitus ulcers. 5. Gastrointestinal bleed with history of grade 1 esophageal varices. He remains on Protonix infusion. He is also on Xifaxan. He has been seen by the Gastroenterology service and we are following his blood counts presently. No plans for any endoscopies at the present time. 6. Possible sepsis. It is unclear to me what caused his hepatic decompensation, whether or not he was taking lactulose or perhaps developed an infection. I do not see any ascites on physical examination. He is being covered broadly with IV antibiotics while cultures are being resulted. 7. History of pancreatitis. I am not seeing a lipase and will order one. 8. History of hepatitis C. 9. History of tobacco and alcohol use. It is unclear whether or not he has continued to drink alcohol on a regular basis. PLAN: 1. NEUROLOGIC: Avoid sedatives and continue rifaximin. Follow ammonia level. 2. PULMONARY: Once he is awake, we will do weaning trials. Keep head of bed at 30 degrees and watch for development of aspiration pneumonia. 3. CARDIOVASCULAR: Trend up troponins. 4. RENAL: He remains on sodium bicarbonate infusion. I am ordering another PRP presently. 5. GASTROINTESTINAL: Continue Protonix infusion and follow blood counts. Should he worsen or develop brisk bleeding, we will contact the GI service for possible endoscopy. 6. INFECTIOUS DISEASE: Continue Flagyl and oral vancomycin as well as cefepime for the time being. The wound care team has been consulted. Consider culturing his decubitus ulcers. 7. HEME: Provide DVT prophylaxis with venodynes. Critical care time; 40 minutes.
[2016-04-10] VITALS (21 sets, daily range): BP systolic 90–151; BP diastolic 58–93; PULSE 72–108; TEMP 36.7–37.2; O2SAT 94–100
[2016-04-10] MEDS: PANTOprazole INJ 40 MG in DEXTROSE 5% 100ML IV SCH ×5 (00:58→20:37)
[2016-04-10] MEDS: METRONIDAZOLE 500MG / NSS IV SCH ×3 (01:41→18:21)
[2016-04-10] MEDS: SODIUM BICARBONATE 8.4% INJ 100 MEQ in DEXTROSE 5% 1000ML 1,000 ML IV SCH ×2 (05:23→15:48)
[2016-04-10 05:48] LABS: BASO % 0.1 %; BASO ABS # 0.01 K/uL (0-0.2); COMPLETE YES; EOS % 0.1 %; HEMATOCRIT 24.2 % (42-52); IG% 0.3 %; LYMPH % 16.8 %; LYMPH ABS # 3.03 K/uL (1.2-3.4); MEAN CORPUSCULAR HEMOGLOBIN 33.1 pg (25-34); MEAN CORPUSCULAR HGB CONC 37.6 g/dl (32-36); MEAN PLATELET VOLUME 10.7 fL (7.4-10.4); MONO % 11.2 %; NEUT % 71.5 %; PLATELET COUNT 154 K/uL (130-400); RED BLOOD COUNT 2.75 M/uL (4.7-6.1); WHITE BLOOD COUNT 18.06 K/uL (4.8-10.8)
[2016-04-10 06:26] LABS: BUN/CREATININE RATIO 32.7 (10-20); CALCIUM 7.9 mg/dl (8.5-10.1); CREATININE 1.2 mg/dl (0.60-1.40); MAGNESIUM 1.9 mg/dl (1.8-2.4); POTASSIUM 3.4 mmol/L (3.5-5.1)
[2016-04-10] MEDS: FENTANYL CITRATE INJ 50 MCG/1 ML 2 ML VIAL IV PRN ×3 (06:36→23:58)
--- NOTE | 2016-04-10 07:08 | DIAGNOSTIC IMAGING REPORT ---
CHEST ONE VIEW PORTABLE CLINICAL HISTORY: Respiratory failure COMPARISON STUDY: 04/09/2016 FINDINGS: There is a nasogastric tube within the stomach. There is a left internal jugular central venous catheter unchanged in position. The endotracheal tube is 34 mm above the skyelr. The heart is normal in size. There are progressive left basilar airspace opacities. Pneumonia/aspiration must be considered. There is also a slight increase in the airspace opacities the right lateral lung base.[ IMPRESSION: Progressive basal airspace opacities left greater than right. Pneumonia/aspiration pneumonia must be considered. Electronically signed by: Cachorro Landry M.D. 04/10/2016 7:06 AM
[2016-04-10] MEDS: THIAMINE HCL INJ 100 MG in SYRINGE 9 ML IV SCH (07:47)
--- NOTE | 2016-04-10 08:28 | Gastroenterology Progress Note ---
Progress Note Date of Service: Apr 10, 2016 Subjective Pt evaluation today including: conversation w/ patient, physical exam, chart review, lab review, review of studies, review of inpatient medication list Mr. 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 Ammonia: 265 on arrival, 65 this morning. Pt intubated, appears comfortable. Today OG aspirates clear. Yesterday: dark coffee ground material in the OGT. Hb 10.9 on arrival, 9.6 yesterday, 9.1. today. Review of Systems Constitutional: No fever Respiratory: No cough ROS not obtainable from pt Medications Current Inpatient Medications Medications (Trade) Dose Ordered Sig/Vin Route Start Time Stop Time Status Last Admin Dose Admin Lorazepam 0.5 mg 0.5 mg Q4H PRN IV 04/09/16 02:45 05/09/16 02:44 Pantoprazole Sodium 40 mg/ Dextrose 100 ml @ 20 mls/hr Q5H IV 04/09/16 05:30 05/09/16 05:29 04/10/16 05:55 20 MLS/HR Sodium Bicarbonate 100 meq/Dextrose 1,100 ml @ 100 mls/hr Q11H IV 04/09/16 06:30 05/09/16 06:29 04/10/16 05:23 100 MLS/HR Metronidazole/Prmx (Flagyl / Nss/ Premixed Nss) 100 ml @ 100 mls/hr Q8@0200,1000,1800 IV 04/09/16 09:30 04/19/16 09:29 04/10/16 01:41 100 MLS/HR Fentanyl Citrate (Fentanyl Inj) 25 mcg Q2H PRN IV 04/09/16 08:45 04/23/16 08:44 04/10/16 06:36 25 MCG Cefepime HCl (Consult) 1 ea UD PRN N/A 04/09/16 08:45 05/09/16 08:44 Chlorhexidine Gluconate (Peridex Oral Soln) 15 ml BID MT 04/09/16 21:00 05/09/16 20:59 04/09/16 19:26 15 ML Vancomycin HCl (Vancomycin Oral Soln) 250 mg QID PO 04/09/16 13:00 04/19/16 12:59 04/09/16 20:21 250 MG Raspberry (Raspberry Syrup 5ML Cup) 5 ml QID PO 04/09/16 13:00 04/19/16 12:59 04/09/16 20:21 5 ML Rifaximin 200 mg 200 mg TID PO 04/09/16 21:00 05/09/16 20:59 04/09/16 20:22 200 MG Thiamine HCl 100 mg/Syringe 10 ml @ 2 mls/min [id number] IV 04/09/16 19:00 05/09/16 18:59 04/10/16 07:47 2 MLS/MIN Cefepime HCl/ Dextrose (Maxipime IV/D5 100ml) 112.5 ml @ 225 mls/hr DAILY@1200 IV 04/10/16 12:00 04/19/16 11:59 Objective Vital Signs Date Time Temp Pulse Resp B/P Pulse Ox O2 Delivery O2 Flow Rate FiO2 04/10/16 05:59 106 20 103/67 94 04/10/16 05:14 40 04/10/16 04:59 108 25 151/93 96 04/10/16 04:00 Mechanical Ventilator 40 04/10/16 04:00 40 04/10/16 03:58 36.8 87 23 98/60 97 Mechanical Ventilator 04/10/16 02:58 89 22 108/71 97 Mechanical Ventilator 04/10/16 02:30 40 04/10/16 01:59 86 22 117/72 98 Mechanical Ventilator 40 04/10/16 00:58 90 23 91/66 98 Mechanical Ventilator 40 04/10/16 00:39 40 04/10/16 00:01 Mechanical Ventilator 40 04/10/16 00:01 40 04/09/16 23:59 36.7 89 24 100/62 97 Mechanical Ventilator 40 04/09/16 22:58 88 22 116/67 Mechanical Ventilator 40 04/09/16 21:58 87 107/72 97 Mechanical Ventilator 40 04/09/16 20:59 87 22 105/63 96 Mechanical Ventilator 40 04/09/16 20:56 40 04/09/16 20:27 36.8 96 24 97/64 100 Mechanical Ventilator 40 04/09/16 20:00 40 04/09/16 20:00 Mechanical Ventilator 40 04/09/16 19:00 96 33 96 04/09/16 18:59 115/64 04/09/16 18:00 93 23 96 04/09/16 17:58 94 23 110/56 96 04/09/16 17:45 40 04/09/16 17:00 94 21 96 04/09/16 16:58 92 21 86/62 96 04/09/16 16:00 96 Mechanical Ventilator 40 04/09/16 16:00 40 04/09/16 15:58 36.8 102/63 04/09/16 14:20 40 04/09/16 13:58 105 23 109/67 98 Mechanical Ventilator 40 04/09/16 13:00 93 22 96 04/09/16 12:59 97 22 98/65 96 04/09/16 12:00 89 21 96 04/09/16 11:59 84/67 Mechanical Ventilator 40 04/09/16 11:50 96 Mechanical Ventilator 40 04/09/16 11:50 40 04/09/16 11:40 40 04/09/16 11:00 86 20 96 04/09/16 10:00 89 19 91/57 97 Mechanical Ventilator 40 04/09/16 09:58 86 18 97 04/09/16 09:30 92 18 97 04/09/16 08:58 88 19 91/58 98 Physical Exam General Appearance: no apparent distress Neck: no JVD Respiratory/Chest: lungs clear Cardiovascular: regular rate, rhythm, no JVD, no murmur Abdomen: non tender, soft Extremities: no pedal edema Neurologic/Psych: + pertinent finding (intubated, sedated) Skin: normal color, no jaundice Laboratory Results Last 24 Hours Test 04/09/16 10:25 04/09/16 12:54 04/09/16 14:57 04/09/16 18:43 Ammonia 98.0 umol/L Total Creatine Kinase 116 U/L 109 U/L Creatine Kinase MB 4.5 ng/ml 3.8 ng/ml Creatine Kinase MB Ratio 3.9 3.5 Troponin I < 0.015 ng/ml < 0.015 ng/ml Hemoglobin 9.7 g/dL 9.6 g/dL Hematocrit 25.8 % 25.9 % Bedside Glucose 126 mg/dl Sodium Level 140 mmol/L Potassium Level 2.9 mmol/L Chloride Level 113 mmol/L Carbon Dioxide Level 15 mmol/L Anion Gap 12.0 mmol/L Blood Urea Nitrogen 48 mg/dl Creatinine 1.50 mg/dl Est Creatinine Clear Calc Drug Dose 36.7 ml/min Estimated GFR () 57.4 Estimated GFR (Non- 49.5 BUN/Creatinine Ratio 32.3 Random Glucose 129 mg/dl Calcium Level 8.2 mg/dl Lipase 238 U/L Test 04/09/16 21:49 04/10/16 05:36 04/10/16 05:37 Bedside Glucose 133 mg/dl 115 mg/dl White Blood Count 18.06 K/uL Red Blood Count 2.75 M/uL Hemoglobin 9.1 g/dL Hematocrit 24.2 % Mean Corpuscular Volume 88.0 fL Mean Corpuscular Hemoglobin 33.1 pg Mean Corpuscular Hemoglobin Concent 37.6 g/dl Platelet Count 154 K/uL Mean Platelet Volume 10.7 fL Neutrophils (%) (Auto) 71.5 % Lymphocytes (%) (Auto) 16.8 % Monocytes (%) (Auto) 11.2 % Eosinophils (%) (Auto) 0.1 % Basophils (%) (Auto) 0.1 % Neutrophils # (Auto) 12.93 K/uL Lymphocytes # (Auto) 3.03 K/uL Monocytes # (Auto) 2.02 K/uL Eosinophils # (Auto) 0.01 K/uL Basophils # (Auto) 0.01 K/uL RDW Standard Deviation 46.6 fL RDW Coefficient of Variation 14.7 % Immature Granulocyte % (Auto) 0.3 % Immature Granulocyte # (Auto) 0.06 K/uL Sodium Level 139 mmol/L Potassium Level 3.4 mmol/L Chloride Level 111 mmol/L Carbon Dioxide Level 18 mmol/L Anion Gap 10.0 mmol/L Blood Urea Nitrogen 39 mg/dl Creatinine 1.20 mg/dl Est Creatinine Clear Calc Drug Dose 48.2 ml/min Estimated GFR () 75.2 Estimated GFR (Non- 64.9 BUN/Creatinine Ratio 32.7 Random Glucose 118 mg/dl Calcium Level 7.9 mg/dl Phosphorus Level 1.0 mg/dl Magnesium Level 1.9 mg/dl Total Bilirubin 1.5 mg/dl Direct Bilirubin 0.7 mg/dl Aspartate Amino Transf (AST/SGOT) 41 U/L Alanine Aminotransferase (ALT/SGPT) 22 U/L Alkaline Phosphatase 87 U/L Ammonia 64.0 umol/L Total Protein 6.1 gm/dl Albumin 2.2 gm/dl Lipase 322 U/L Vitamin B12 Level 314 pg/mL Folate 2.52 ng/mL Assessment and Plan Mr. Godfrey is a 60 yr old male with ETOH and Hep C cirrhosis with hx of small EV. He was admitted for change in mental status (found non responsive, on the floor). C-diff likely caused by being on Clindamycin for an infected decubitus ulcer. No clear evidence of hepatic encephalopathy, but this may be part of his presentation. Responding well to Vanco for C-diff. No significant drop in Hb/Hct or large amt of gross GI bleeding. I have seen and examined the patient with AMARI Adamson whose note reflects our findings and plan.
[2016-04-10] MEDS: RASPBERRY SYRUP 5 ML UDP PO SCH ×4 (09:00→22:33)
[2016-04-10] MEDS: RIFAXIMIN TAB 200 MG TAB PO SCH ×3 (09:00→22:33)
[2016-04-10] MEDS ORDERED: THIAMINE HCL 100 MG/ML 2 ML VIAL IM SCH (09:00)
[2016-04-10] MEDS: CHLORHEXIDINE GLUCONATE 0.12% 480 ML MT SCH ×2 (09:00→22:32)
[2016-04-10] MEDS: VANCOMYCIN HCL 250 MG/5 ML SOLN PO SCH ×4 (09:00→22:32)
[2016-04-10] MEDS ORDERED: THIAMINE HCL IV SCH (09:45)
[2016-04-10] MEDS ORDERED: SODIUM PHOSPHATE 3 MMOL/1 ML INFUSION IV STA ×2 (09:52→20:39)
[2016-04-10] MEDS ORDERED: SODIUM PHOSPHATE INJ 30 MMOL in SODIUM CHLORIDE 0.9% 500ML 500 ML IV SCH (10:15)
--- NOTE | 2016-04-10 10:37 | Family Medicine Progress Note ---
Progress Note Date of Service Apr 10, 2016. Subjective Pt evaluation today including: conversation w/ patient, physical exam, chart review, lab review, review of studies, review of inpatient medication list Voiding: rangel catheter in place No acute issues overnight. BM liquid black stool. Additional Comments: Unable to obtain review of systems - Patient encephalopathic and intubated Medications Current Inpatient Medications Medications (Trade) Dose Ordered Sig/Vin Route Start Time Stop Time Status Last Admin Dose Admin Lorazepam 0.5 mg 0.5 mg Q4H PRN IV 04/09/16 02:45 05/09/16 02:44 Pantoprazole Sodium 40 mg/ Dextrose 100 ml @ 20 mls/hr Q5H IV 04/09/16 05:30 05/09/16 05:29 04/10/16 05:55 20 MLS/HR Sodium Bicarbonate 100 meq/Dextrose 1,100 ml @ 100 mls/hr Q11H IV 04/09/16 06:30 05/09/16 06:29 04/10/16 05:23 100 MLS/HR Metronidazole/Prmx (Flagyl / Nss/ Premixed Nss) 100 ml @ 100 mls/hr Q8@0200,1000,1800 IV 04/09/16 09:30 04/19/16 09:29 04/10/16 01:41 100 MLS/HR Fentanyl Citrate (Fentanyl Inj) 25 mcg Q2H PRN IV 04/09/16 08:45 04/23/16 08:44 04/10/16 06:36 25 MCG Cefepime HCl (Consult) 1 ea UD PRN N/A 04/09/16 08:45 05/09/16 08:44 Chlorhexidine Gluconate (Peridex Oral Soln) 15 ml BID MT 04/09/16 21:00 05/09/16 20:59 04/09/16 19:26 15 ML Vancomycin HCl (Vancomycin Oral Soln) 250 mg QID PO 04/09/16 13:00 04/19/16 12:59 04/09/16 20:21 250 MG Raspberry (Raspberry Syrup 5ML Cup) 5 ml QID PO 04/09/16 13:00 04/19/16 12:59 04/09/16 20:21 5 ML Rifaximin 200 mg 200 mg TID PO 04/09/16 21:00 05/09/16 20:59 12/27/16 20:22 200 MG Cefepime HCl 2000 mg/Dextrose 112.5 ml @ 225 mls/hr DAILY@1200 IV 04/10/16 12:00 04/19/16 11:59 Thiamine HCl 500 mg/Sodium Chloride 105 ml @ 210 mls/hr DAILY IV 04/11/16 09:00 05/11/16 08:59 Sodium Phosphate/ Sodium Chloride (Sodium Phosphate Inj/Nss 500ml) 510 ml @ 102 mls/hr TODAY@1015 IV 04/10/16 10:15 04/10/16 15:14 Objective Vital Signs Date Time Temp Pulse Resp B/P Pulse Ox O2 Delivery O2 Flow Rate FiO2 04/10/16 07:20 40 04/10/16 05:59 106 20 103/67 94 04/10/16 05:14 40 04/10/16 04:59 108 25 151/93 96 04/10/16 04:00 Mechanical Ventilator 40 04/10/16 04:00 40 04/10/16 03:58 36.8 87 23 98/60 97 Mechanical Ventilator 04/10/16 02:58 89 22 108/71 97 Mechanical Ventilator 04/10/16 02:30 40 04/10/16 01:59 86 22 117/72 98 Mechanical Ventilator 40 04/10/16 00:58 90 23 91/66 98 Mechanical Ventilator 40 04/10/16 00:39 40 04/10/16 00:01 Mechanical Ventilator 40 04/10/16 00:01 40 04/09/16 23:59 36.7 89 24 100/62 97 Mechanical Ventilator 40 04/09/16 22:58 88 22 116/67 Mechanical Ventilator 40 04/09/16 21:58 87 107/72 97 Mechanical Ventilator 40 04/09/16 20:59 87 22 105/63 96 Mechanical Ventilator 40 04/09/16 20:56 40 04/09/16 20:27 36.8 96 24 97/64 100 Mechanical Ventilator 40 04/09/16 20:00 40 04/09/16 20:00 Mechanical Ventilator 40 04/09/16 19:00 96 33 96 04/09/16 18:59 115/64 04/09/16 18:00 93 23 96 04/09/16 17:58 94 23 110/56 96 04/09/16 17:45 40 04/09/16 17:00 94 21 96 04/09/16 16:58 92 21 86/62 96 04/09/16 16:00 96 Mechanical Ventilator 40 04/09/16 16:00 40 04/09/16 15:58 36.8 102/63 04/09/16 14:20 40 04/09/16 13:58 105 23 109/67 98 Mechanical Ventilator 40 04/09/16 13:00 93 22 96 04/09/16 12:59 97 22 98/65 96 04/09/16 12:00 89 21 96 04/09/16 11:59 84/67 Mechanical Ventilator 40 04/09/16 11:50 96 Mechanical Ventilator 40 04/09/16 11:50 40 04/09/16 11:40 40 04/09/16 11:00 86 20 96 Physical Exam General Appearance: no apparent distress, + cachetic ENT: + pertinent finding (OG tube) Neck: no JVD, no carotid bruits Respiratory/Chest: lungs clear, normal breath sounds (anteriorly), + pertinent finding (intubated) Cardiovascular: regular rate, rhythm, no murmur Abdomen: normal bowel sounds, non tender, soft Extremities: no pedal edema, normal capillary refill Neurologic/Psychiatric: + pertinent finding (bites on tube on apinful stimuli, does not open eyes, GCS 3) Skin: + jaundice Laboratory Results 04/10/16 05:36 Red Blood Count 2.75, Mean Corpuscular Volume 88.0, Mean Corpuscular Hemoglobin 33.1, Mean Corpuscular Hemoglobin Concent 37.6, Mean Platelet Volume 10.7, Neutrophils (%) (Auto) 71.5, Lymphocytes (%) (Auto) 16.8, Monocytes (%) (Auto) 11.2, Eosinophils (%) (Auto) 0.1, Basophils (%) (Auto) 0.1, Neutrophils # (Auto ) 12.93, Lymphocytes # (Auto) 3.03, Monocytes # (Auto) 2.02, Eosinophils # (Auto ) 0.01, Basophils # (Auto) 0.01 04/10/16 05:36 Test 04/09/16 18:43 04/10/16 05:36 04/10/16 05:37 Total Creatine Kinase 109 U/L (39-308) Creatine Kinase MB 3.8 ng/ml (0.5-3.6) Creatine Kinase MB Ratio 3.5 (0-3.0) Troponin I < 0.015 ng/ml (0-0.045) White Blood Count 18.06 K/uL (4.8-10.8) Red Blood Count 2.75 M/uL (4.7-6.1) Hemoglobin 9.1 g/dL (14.0-18.0) Hematocrit 24.2 % (42-52) Mean Corpuscular Volume 88.0 fL (80-100) Mean Corpuscular Hemoglobin 33.1 pg (25-34) Mean Corpuscular Hemoglobin Concent 37.6 g/dl (32-36) Platelet Count 154 K/uL (130-400) Mean Platelet Volume 10.7 fL (7.4-10.4) Neutrophils (%) (Auto) 71.5 % Lymphocytes (%) (Auto) 16.8 % Monocytes (%) (Auto) 11.2 % Eosinophils (%) (Auto) 0.1 % Basophils (%) (Auto) 0.1 % Neutrophils # (Auto) 12.93 K/uL (1.4-6.5) Lymphocytes # (Auto) 3.03 K/uL (1.2-3.4) Monocytes # (Auto) 2.02 K/uL (0.11-0.59) Eosinophils # (Auto) 0.01 K/uL (0-0.5) Basophils # (Auto) 0.01 K/uL (0-0.2) RDW Standard Deviation 46.6 fL (36.4-46.3) RDW Coefficient of Variation 14.7 % (11.5-14.5) Immature Granulocyte % (Auto) 0.3 % Immature Granulocyte # (Auto) 0.06 K/uL (0.00-0.02) Anion Gap 10.0 mmol/L (3-11) Est Creatinine Clear Calc Drug Dose 48.2 ml/min Estimated GFR () 75.2 Estimated GFR (Non- 64.9 BUN/Creatinine Ratio 32.7 (10-20) Calcium Level 7.9 mg/dl (8.5-10.1) Phosphorus Level 1.0 mg/dl (2.5-4.9) Magnesium Level 1.9 mg/dl (1.8-2.4) Total Bilirubin 1.5 mg/dl (0.2-1) Direct Bilirubin 0.7 mg/dl (0-0.2) Aspartate Amino Transf (AST/SGOT) 41 U/L (15-37) Alanine Aminotransferase (ALT/SGPT) 22 U/L (12-78) Alkaline Phosphatase 87 U/L (45-117) Ammonia 64.0 umol/L (11-32) Total Protein 6.1 gm/dl (6.4-8.2) Albumin 2.2 gm/dl (3.4-5.0) Lipase 322 U/L (73-393) Vitamin B12 Level 314 pg/mL (211-911) Folate 2.52 ng/mL (>5.38) Bedside Glucose 115 mg/dl (70-99) Assessment and Plan 60 yo male with known liver cirrhosis, Hep C, Alcohol abuse. Admitted for general deterioration over a number of weeks with weight loss, diarrhea, and acute altered mental status over the past week. Reportedly has not had an alcoholic drink in the past 5 weeks. Metabolic encephalopathy - multiple possible causes including pneumonia, dehydration from diuretics, malnutrition, Wernicke's, metabolic acidosis - CT head - nill acute - EEG and MRI Brain as per ICU team - management of other abnormalities as below Acute hypoxemic respiratory failure - current intubated and mechanically ventilated - management as per ICU. Not currently on any sedation. Metabolic acidosis with raised anion gap - lactic acidosis on admission, no ketones in urine - management as per ICU with sodium bicarb - possible sepsis source intraabdominal (SBP) vs. pneumonia. Continue treatment with cefepime Hypophosphatemia - 1.0 - replacement as per ICU - 30 mmol Sodium Phos Hyperammonemia / hepatic encephalopathy - continue to trend, appears to be improving Dehydration / ANANYA - resolved - Continue IV fluids as per ICU (Sodium Bicarb 50 MLS/HR) - trend Cr, improving with IVF Melena - heme positive stool, continuing black stool overnight. - appreciate GI recommendations, not for EGD currently - slight downward trend in Hgb - continue to trend - Pantoprazole 40mg IV Q5H C. diff - Continue IV metronidazole + PO vancomycin Chronic hepatitis C and alcohol abuse with cirrhosis - appreciate GI recommendations, started rifaximin - Under Dr Eckert previously, recently increased spironolactone and lasix in February Bipolar disorder - holding home medications due to encephalopathy Alcohol abuse with horizontal gaze drifting - will treat as Wernicke's encephalopathy with thiamine replacement. Apathy noted by daughter. - Thiamine 500 mg/day for 3 days, then 250mg daily - Thiamine level added to labs VTE Prophylaxis - chemical contraindicated due to ongoing melena and Hgb trending down Code - Full Disposition - Continue management in ICU pending extubation. Resident Physician Supervision Note: I interviewed and examined the patient. Discussed with [Estrellita] and agree with findings and plan as documented in the note. Any exceptions or clarifications are listed here: [None] Documented By: Saad Yañez no hpi or ros obtainable labs reviewed d/w nursing extensively as well vitals noted sedated, intubated nc at mmm, ogt, ett without breakdown cardio -reg no r/m/g lungs - cta b/l no r/r/w good effort abd - soft nd nt ext - no c/c/e neuro - no asymmetry respiratory failure due to encephalopathy - vent support mutlifactorial encephalopathy - treat underlying causes pneumonia- abx cdiff - abx otherwise as above
--- NOTE | 2016-04-10 10:56 | Critical Care Progress Note ---
Critical Care Progress Note Date of Service Apr 10, 2016. Attending Dr Mclaughlin Subjective Mr Epifanio remains sedated / intubated today. Was not easily arousable during exam. Eyes open with sternal rub. Son and daughter present in the AM, multiple questions answered. Objective General Appearance: WD/WN, no apparent distress, + thin Head: normocephalic, atraumatic Eyes: normal inspection, PERRL ENT: + pertinent finding (ET tube at 24mm) Neck: supple, no JVD Respiratory/Chest: lungs clear, normal breath sounds, no respiratory distress Cardiovascular: regular rate, rhythm, no murmur, normal peripheral pulses Abdomen/GI: normal bowel sounds, non tender, soft Extremities/Musculoskelatal: no calf tenderness, no pedal edema Neurologic/Psych: + pertinent finding (Unable to assess) Skin: no rash Assessment & Plan 60 year old male with chronic Hep C with cirrhosis, sacral ulcers, and alcoholism who presents with metabolic encephalopathy, now intubated and ventilated. IMPRESSION: 1. Altered mental status, multifactorial, with hepatic encephalopathy as a major component. 2. Acute respiratory failure when was unable to maintain airway in ED, likely as compensation for metabolic acidosis. Day 2 of intubation. 3. Acute kidney injury with metabolic acidosis, improving. 4. Clostridium difficile colitis, on IV Flagyl and PO Vancomycin. Contact / Isolation precautions in place. Continues to have loose dark stool overnight. 5. Upper GI bleed with grade I varices. Was reviewed by GI and has stable H&Hs thus far, and remains on Protonix and Rifaximin. 6. Sacral decubitus ulcer, with cultures previously pansensitive to MSSA. Followed by wound care. 7. Chronic hepatitis C with cirrhosis 8. Bipolar disorder 9. Syncopal episodes 10. 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 For pain, Fentanyl 25mcg PRN q2h. High dose thiamine replacement. Head of bed to 30 degrees. Ammonia level improving. HEME: Will continue to trend H&H q6h and transfuse if indicated. RENAL: Continue sodium bicarbonate infusion. Will replace phosphorus. ID: Day 2 of IV Flagyl, PO Vancomycin, and IV Cefepime. Appreciate wound care recommendations. GI: Will start tube feeds today. Should he worsen or develop brisk bleeding, we will contact the GI service for possible endoscopy. CVS: Continue to monitor PULMONARY: CPAP weaning trial today. Monitor for aspiration pneumonia. Chlorhexidine rinse BID. SKIN/MSK: Ulcer precautions VTE: SCDs FULL CODE Data Medications: Current Inpatient Medications Medications (Trade) Dose Ordered Sig/Vin Route Start Time Stop Time Status Last Admin Dose Admin Lorazepam 0.5 mg 0.5 mg Q4H PRN IV 04/09/16 02:45 05/09/16 02:44 Pantoprazole Sodium 40 mg/ Dextrose 100 ml @ 20 mls/hr Q5H IV 04/09/16 05:30 05/09/16 05:29 04/10/16 05:55 20 MLS/HR Sodium Bicarbonate 100 meq/Dextrose 1,100 ml @ 100 mls/hr Q11H IV 04/09/16 06:30 05/09/16 06:29 04/10/16 05:23 100 MLS/HR Metronidazole/Prmx (Flagyl / Nss/ Premixed Nss) 100 ml @ 100 mls/hr Q8@0200,1000,1800 IV 04/09/16 09:30 04/19/16 09:29 04/10/16 01:41 100 MLS/HR Fentanyl Citrate (Fentanyl Inj) 25 mcg Q2H PRN IV 04/09/16 08:45 04/23/16 08:44 04/10/16 06:36 25 MCG Cefepime HCl (Consult) 1 ea UD PRN N/A 04/09/16 08:45 05/09/16 08:44 Chlorhexidine Gluconate (Peridex Oral Soln) 15 ml BID MT 04/09/16 21:00 05/09/16 20:59 04/09/16 19:26 15 ML Vancomycin HCl (Vancomycin Oral Soln) 250 mg QID PO 04/09/16 13:00 04/19/16 12:59 04/09/16 20:21 250 MG Raspberry (Raspberry Syrup 5ML Cup) 5 ml QID PO 04/09/16 13:00 04/19/16 12:59 04/09/16 20:21 5 ML Rifaximin 200 mg 200 mg TID PO 04/09/16 21:00 05/09/16 20:59 04/09/16 20:22 200 MG Cefepime HCl 2000 mg/Dextrose 112.5 ml @ 225 mls/hr DAILY@1200 IV 04/10/16 12:00 04/19/16 11:59 Thiamine HCl 500 mg/Sodium Chloride 105 ml @ 210 mls/hr DAILY IV 04/11/16 09:00 05/11/16 08:59 Sodium Phosphate/ Sodium Chloride (Sodium Phosphate Inj/Nss 500ml) 510 ml @ 102 mls/hr TODAY@1015 IV 04/10/16 10:15 04/10/16 15:14 Enteral Nutritional Formula (Impact 1.0 Duane) 1,000 ml UD OG 04/10/16 10:45 05/10/16 10:44 UNV I & O: 24-Hour Column 04/10/16 07:59 Intake Total 3837 ml Output Total 2425 ml Balance 1412 ml Vital Signs: Date Time Temp Pulse Resp B/P Pulse Ox O2 Delivery O2 Flow Rate FiO2 04/10/16 07:20 40 04/10/16 05:59 106 20 103/67 94 04/10/16 05:14 40 04/10/16 04:59 108 25 151/93 96 04/10/16 04:00 Mechanical Ventilator 40 04/10/16 04:00 40 04/10/16 03:58 36.8 87 23 98/60 97 Mechanical Ventilator 04/10/16 02:58 89 22 108/71 97 Mechanical Ventilator 04/10/16 02:30 40 04/10/16 01:59 86 22 117/72 98 Mechanical Ventilator 40 04/10/16 00:58 90 23 91/66 98 Mechanical Ventilator 40 04/10/16 00:39 40 04/10/16 00:01 Mechanical Ventilator 40 04/10/16 00:01 40 04/09/16 23:59 36.7 89 24 100/62 97 Mechanical Ventilator 40 04/09/16 22:58 88 22 116/67 Mechanical Ventilator 40 04/09/16 21:58 87 107/72 97 Mechanical Ventilator 40 04/09/16 20:59 87 22 105/63 96 Mechanical Ventilator 40 04/09/16 20:56 40 04/09/16 20:27 36.8 96 24 97/64 100 Mechanical Ventilator 40 04/09/16 20:00 40 04/09/16 20:00 Mechanical Ventilator 40 04/09/16 19:00 96 33 96 04/09/16 18:59 115/64 04/09/16 18:00 93 23 96 04/09/16 17:58 94 23 110/56 96 04/09/16 17:45 40 04/09/16 17:00 94 21 96 04/09/16 16:58 92 21 86/62 96 04/09/16 16:00 96 Mechanical Ventilator 40 04/09/16 16:00 40 04/09/16 15:58 36.8 102/63 04/09/16 14:20 40 04/09/16 13:58 105 23 109/67 98 Mechanical Ventilator 40 04/09/16 13:00 93 22 96 04/09/16 12:59 97 22 98/65 96 04/09/16 12:00 89 21 96 04/09/16 11:59 84/67 Mechanical Ventilator 40 04/09/16 11:50 96 Mechanical Ventilator 40 04/09/16 11:50 40 04/09/16 11:40 40 04/09/16 11:00 86 20 96 Laboratory Results: Last 24 Hours Test 04/09/16 12:54 04/09/16 14:57 04/09/16 18:43 04/09/16 21:49 Hemoglobin 9.7 g/dL 9.6 g/dL Hematocrit 25.8 % 25.9 % Bedside Glucose 126 mg/dl 133 mg/dl Sodium Level 140 mmol/L Potassium Level 2.9 mmol/L Chloride Level 113 mmol/L Carbon Dioxide Level 15 mmol/L Anion Gap 12.0 mmol/L Blood Urea Nitrogen 48 mg/dl Creatinine 1.50 mg/dl Est Creatinine Clear Calc Drug Dose 36.7 ml/min Estimated GFR () 57.4 Estimated GFR (Non- 49.5 BUN/Creatinine Ratio 32.3 Random Glucose 129 mg/dl Calcium Level 8.2 mg/dl Total Creatine Kinase 109 U/L Creatine Kinase MB 3.8 ng/ml Creatine Kinase MB Ratio 3.5 Troponin I < 0.015 ng/ml Lipase 238 U/L Test 04/10/16 05:36 04/10/16 05:37 White Blood Count 18.06 K/uL Red Blood Count 2.75 M/uL Hemoglobin 9.1 g/dL Hematocrit 24.2 % Mean Corpuscular Volume 88.0 fL Mean Corpuscular Hemoglobin 33.1 pg Mean Corpuscular Hemoglobin Concent 37.6 g/dl Platelet Count 154 K/uL Mean Platelet Volume 10.7 fL Neutrophils (%) (Auto) 71.5 % Lymphocytes (%) (Auto) 16.8 % Monocytes (%) (Auto) 11.2 % Eosinophils (%) (Auto) 0.1 % Basophils (%) (Auto) 0.1 % Neutrophils # (Auto) 12.93 K/uL Lymphocytes # (Auto) 3.03 K/uL Monocytes # (Auto) 2.02 K/uL Eosinophils # (Auto) 0.01 K/uL Basophils # (Auto) 0.01 K/uL RDW Standard Deviation 46.6 fL RDW Coefficient of Variation 14.7 % Immature Granulocyte % (Auto) 0.3 % Immature Granulocyte # (Auto) 0.06 K/uL Sodium Level 139 mmol/L Potassium Level 3.4 mmol/L Chloride Level 111 mmol/L Carbon Dioxide Level 18 mmol/L Anion Gap 10.0 mmol/L Blood Urea Nitrogen 39 mg/dl Creatinine 1.20 mg/dl Est Creatinine Clear Calc Drug Dose 48.2 ml/min Estimated GFR () 75.2 Estimated GFR (Non- 64.9 BUN/Creatinine Ratio 32.7 Random Glucose 118 mg/dl Calcium Level 7.9 mg/dl Phosphorus Level 1.0 mg/dl Magnesium Level 1.9 mg/dl Total Bilirubin 1.5 mg/dl Direct Bilirubin 0.7 mg/dl Aspartate Amino Transf (AST/SGOT) 41 U/L Alanine Aminotransferase (ALT/SGPT) 22 U/L Alkaline Phosphatase 87 U/L Ammonia 64.0 umol/L Total Protein 6.1 gm/dl Albumin 2.2 gm/dl Lipase 322 U/L Vitamin B12 Level 314 pg/mL Folate 2.52 ng/mL Bedside Glucose 115 mg/dl Resident Tracking Resident Involvement: Resident Care Provided Care Provided: Adult Hospital Medicine
[2016-04-10] MEDS ORDERED: CEFEPIME IV 1,000 MG in DEXTROSE 5% 100ML IV SCH (12:00)
[2016-04-10] MEDS: CEFEPIME IV 2000 MG in DEXTROSE 5% 100ML IV SCH (12:00)
--- NOTE | 2016-04-10 12:03 | EEG Procedure Note ---
EEG Procedure Note Date of Service Apr 10, 2016. Start / End Times Start Time: 11:07 AM End Time: 11:[address] Jewell History Encephalopathy, comatose, patient on life support, mechanical ventilator, hepatic encephalopathy Home Medication List Scheduled Ascorbic Acid (Vitamin C), 500 MG PO QAM Buspirone Hcl (Buspirone Hcl), 15 MG PO BID Calcium Carbonate (Calcium 600), 600 MG PO QAM Cholecalciferol (Vitamin D), 5,000 UNIT PO DAILY Ergocalciferol (Vitamin D), 400 INTER.UNIT PO QAM Fluoxetine (Prozac), 40 MG PO BID Furosemide (Lasix), 40 MG PO DAILY Gabapentin (Neurontin), 600 MG PO BID Magnesium Oxide (Mag-Ox), 400 MG PO DAILY Pantoprazole (Protonix), 40 MG PO BID Polyethylene Glycol 3350 (Miralax), 17 GM PO DAILY Potassium Ext Rel (Klor-Con), 20 MEQ PO DAILY Propranolol (Inderal), 20 MG PO BID Ranitidine (Zantac), 150 MG PO BID Spironolactone (Aldactone), 100 MG PO DAILY Scheduled PRN Naproxen (Aleve), 440 MG PO Q6 PRN for Pain Inpatient Medication List Current Inpatient Medications Medications (Trade) Dose Ordered Sig/Vin Route Start Time Stop Time Status Last Admin Dose Admin Lorazepam 0.5 mg 0.5 mg Q4H PRN IV 04/09/16 02:45 05/09/16 02:44 Pantoprazole Sodium 40 mg/ Dextrose 100 ml @ 20 mls/hr Q5H IV 04/09/16 05:30 05/09/16 05:29 04/10/16 05:55 20 MLS/HR Sodium Bicarbonate 100 meq/Dextrose 1,100 ml @ 100 mls/hr Q11H IV 04/09/16 06:30 05/09/16 06:29 04/10/16 05:23 100 MLS/HR Metronidazole/Prmx (Flagyl / Nss/ Premixed Nss) 100 ml @ 100 mls/hr Q8@0200,1000,1800 IV 04/09/16 09:30 04/19/16 09:29 04/10/16 01:41 100 MLS/HR Fentanyl Citrate (Fentanyl Inj) 25 mcg Q2H PRN IV 04/09/16 08:45 04/23/16 08:44 04/10/16 06:36 25 MCG Cefepime HCl (Consult) 1 ea UD PRN N/A 04/09/16 08:45 05/09/16 08:44 Chlorhexidine Gluconate (Peridex Oral Soln) 15 ml BID MT 04/09/16 21:00 05/09/16 20:59 04/09/16 19:26 15 ML Vancomycin HCl (Vancomycin Oral Soln) 250 mg QID PO 04/09/16 13:00 04/19/16 12:59 04/09/16 20:21 250 MG Raspberry (Raspberry Syrup 5ML Cup) 5 ml QID PO 04/09/16 13:00 04/19/16 12:59 04/09/16 20:21 5 ML Rifaximin 200 mg 200 mg TID PO 04/09/16 21:00 05/09/16 20:59 04/09/16 20:22 200 MG Cefepime HCl 2000 mg/Dextrose 112.5 ml @ 225 mls/hr DAILY@1200 IV 04/10/16 12:00 04/19/16 11:59 Thiamine HCl 500 mg/Sodium Chloride 105 ml @ 210 mls/hr DAILY IV 04/11/16 09:00 05/11/16 08:59 Sodium Phosphate/ Sodium Chloride (Sodium Phosphate Inj/Nss 500ml) 510 ml @ 102 mls/hr TODAY@1015 IV 04/10/16 10:15 04/10/16 15:14 Enteral Nutritional Formula (Impact 1.0 [place]) 1,000 ml trickle feed @ 10ml/hr OG 04/10/16 12:00 05/10/16 11:59 Description This is a 21 electrode EEG with a single channel dedicated to limited EKG. The electrodes were placed in accordance with the International 10-20 system. This EEG was obtained in the intensive care unit with the patient on life support on the mechanical ventilator. His sedation was weaned prior to obtaining the test. The predominant background rhythm consists of a mix of generalized polymorphic theta activity and admixed delta of moderate amplitude. Symmetrically distributed frontal beta activity is initiated. Movement artifact related to breathing movements while on the ventilator observed and correlated on video. Rare triphasic waves are observed. No epileptiform abnormalities appreciated. Interpretation This EEG is notable for generalized slowing and rare triphasic waves. These findings are consistent with encephalopathy. Clinical Correlation This abnormal EEG is suggestive of encephalopathy. The presence of triphasic waves is consistent with hepatic encephalopathy as suggested in the history. There is no evidence of seizure activity.
[2016-04-10 13:34] LABS: HEMATOCRIT 22.7 % (42-52)
--- NOTE | 2016-04-10 14:13 | CRITICAL CARE PROGRESS NOTE ---
DATE: 04/10/2016 HISTORY OF PRESENT ILLNESS: Mr. Godfrey is ventilator day #2 after being intubated for airway protection. He presented with altered mental status as well as melena. He has not had any acute events overnight and is not having any significant endotracheal tube secretions. He is still having some loose black stools, but no coffee or bloody NG tube drainage. He is not receiving sedation or did not have any until just recently when he received 0.5 mg of Ativan IV. His care was discussed in detail on multidisciplinary rounds. PHYSICAL EXAMINATION: VITAL SIGNS: Maximum temperature 36.8, heart rate 86-106, respiratory rate 20-25, blood pressure 91-151/70s to 90s, oxygen saturation 94%, ventilator settings assist controlled, rate 12, tidal volume 450, FiO2 40%, PEEP 5, CVP 4-5. GENERAL: He will withdraw to painful stimuli. HEENT: It is difficult for me to see his pupils, but he has roving eye movements. LUNGS: Clear anteriorly with decreased sounds in the bases laterally. No rales, rhonchi or wheezes. HEART: Tachycardic, regular, no murmurs. ABDOMEN: Flat, soft, nondistended, nontender. Active bowel sounds. EXTREMITIES: Cachectic, no edema. LABORATORY DATA: White blood cell count 18, hemoglobin 9.1, hematocrit 24.2, platelets 154. He has a left shift. Folate 2.52, Vitamin B12 of 314. Sodium 139, potassium 3.4, chloride 111, CO2 of 18, BUN 39, creatinine 1.2, phosphorus 1.0. Total bilirubin 1.5, direct bilirubin 0.7, AST 71, total protein 6.1, albumin 2.2. Lipase 322. MEDICATIONS AND INFUSIONS: Cefepime day 2, chlorhexidine, Impact at 10 mL per hour, fentanyl, Ativan, Flagyl day 2, Protonix, Xifaxan, D5W with 2 amps of sodium bicarbonate at 100 mL per hour, sodium phosphate, thiamine and vancomycin. DATA: No new microbiology data. Blood cultures 04/08/2016 show no growth. IMAGING: Portable chest x-ray from this morning was reviewed and shows bibasilar infiltrates, left greater than right. IMPRESSION: 1. Altered mental status, likely multifactorial. He may be encephalopathic from his infection. His ammonia level was elevated and he now has decreased. It is 64 today. He has undergone CT of the brain which did not show any acute changes. He is being supplemented with thiamine. 2. Acute hypoxemic respiratory failure, now with developing infiltrate. He may have aspirated. If he develops sputum we will culture that. 3. Acute gastrointestinal bleed, now without coffee-ground or bloody NG tube drainage. He also has a history of grade 1 esophageal varices. No plans to perform endoscopy at this point. 4. History of hepatitis C. 5. Metabolic acidosis improved with the sodium bicarbonate infusion. 6. Hypophosphatemia. 7. Malnutrition. 8. Decubitus ulcer. 9. C. diff colitis, leukocytosis is improving. 10. History of prior pancreatitis. 11. History of tobacco and alcohol use. Family reports he is not continuing to drink alcohol according to staff. 12. Folate deficiency. PLAN: 1. Neurologic: Continue to try to avoid sedatives and watch for any signs of alcohol withdrawal. I have ordered an MRI. EEG does not show any seizures and does show slowing. Check TSH if not already done and consider neuro consult. 2. Pulmonary: Attempt CPAP trial today. Keep head of bed at 30 degrees and culture sputum if he develops it. May benefit from bronchodilators. 3. Cardiovascular: Has a holter monitor in place. Discussed with RN regarding finding out who would take it off and who it belongs to. 4. Renal: Continue sodium bicarbonate infusion, likely will be able to discontinue tomorrow. I will cut it back later today. 5. Gastrointestinal: Continue to follow blood counts and continue Protonix infusion. Watch for any abdominal distention or signs that he is developing a toxic picture from his C. diff colitis. Begin tube feeds and consult dietary. 6. Infectious disease: Continue vancomycin, Flagyl, cefepime, which should cover pneumonia, his decubitus ulcers and his Clostridium difficile. 7. Fluids, electrolytes, nutrition: We will replete phosphorus and begin folic acid as well as tube feeds. His family was in this morning but did not stay long enough for me to talk with them. Critical care time 40 minutes. [facility]
[2016-04-10] MEDS ORDERED: RAPID SEQUENCE INDUCTION BAG ONE (14:52)
[2016-04-10] MEDS ORDERED: ALBUT/IPRATROP 3MG/0.5MG NEB 3 ML VIAL INH SCH (15:00)
[2016-04-10] MEDS ORDERED: NURSING VERBAL MED ORDER ONE (15:30)
--- NOTE | 2016-04-10 15:42 | DIAGNOSTIC IMAGING REPORT ---
KUB HISTORY: tube placement COMPARISON: Chest and abdominal series 06/19/2015. FINDINGS: The bowel gas pattern is unremarkable. There are no dilated loops of small bowel to suggest an obstruction. No renal calculi. No ureteral calculi. No pneumoperitoneum or pneumatosis. Nasogastric tube projects over the fundus of the stomach. Left basilar density/effusion. IMPRESSION: The tip of the nasogastric tube projects over the fundus of the stomach. Electronically signed by: Jonel Thomas M.D. 04/10/2016 3:40 PM
--- NOTE | 2016-04-10 16:21 | Procedure Note ---
Procedure Note Pen And Pencil Repairer: 7.5 ETT emergently exchanged over tube exchanger due to leak in the balloon. Patient was preoxygenated with 100% FiO2, tube feeds stopped and suctioned from stomach. He was sedated with 100mcg of Fentanyl and O2 sats 92% or greater throughout.
[2016-04-10] MEDS ORDERED: SODIUM CHLORIDE 0.9% 1000ML 1,000 ML IV STA (17:08)
[2016-04-10] MEDS ORDERED: THIAMINE HCL 100 MG/ML 2 ML VIAL IM STA (17:24)
[2016-04-10 18:48] LABS: INR 1.2 (0.9-1.1); PARTIAL THROMBOPLASTIN RATIO 1.5; PROTHROMBIN TIME (PATIENT) 12.9 SECONDS (9.0-12.0)
[2016-04-10 19:52] LABS: HEMATOCRIT 20.9 % (42-52)
[2016-04-10] MEDS: IPRATROPIUM BROMIDE HFA INHALER INH SCH (19:52)
[2016-04-10] MEDS: ALBUTEROL HFA 8 GM INHALER INH SCH (19:52)
[2016-04-10 20:17] LABS: HEMATOCRIT 21.5 % (42-52)
[2016-04-10] MEDS: LORAZEPAM 2 MG/ML 1 ML VIAL IV PRN (21:00)
[2016-04-10] MEDS ORDERED: SODIUM PHOSPHATE INJ 9 MMOL in SODIUM CHLORIDE 0.9% 250ML 250 ML IV SCH (21:00)
--- NOTE | 2016-04-10 22:09 | DIAGNOSTIC IMAGING REPORT ---
Brain MRI WITHOUT CONTRAST HISTORY: Change in mental status altered mental status TECHNIQUE: Multiplanar multisequence MRI of the brain was performed without the use of contrast. COMPARISON STUDY: None. FINDINGS: There are no areas of restricted diffusion to suggest acute infarction. The midline structures are intact. The paranasal sinuses are clear. The mastoid air cells are clear. The ventricles and sulci are within normal limits for age. There is no mass, hematoma, midline shift. The major vascular flow-voids at the skull base are well maintained. Considerable chronic small vessel change. IMPRESSION: 1. No acute intracranial abnormality. 2. Considerable chronic small vessel change Electronically signed by: Erick Lau M.D. 04/10/2016 10:08 PM
[2016-04-11] VITALS (16 sets, daily range): BP systolic 86–114; BP diastolic 55–73; PULSE 76–100; TEMP 36.6–37.4; O2SAT 96–100
[2016-04-11] MEDS ORDERED: NURSING VERBAL MED ORDER ONE
[2016-04-11] MEDS: METRONIDAZOLE 500MG / NSS IV SCH ×3 (01:34→17:22)
[2016-04-11] MEDS: PANTOprazole INJ 40 MG in DEXTROSE 5% 100ML IV SCH ×5 (01:35→22:18)
[2016-04-11] MEDS: LORAZEPAM 2 MG/ML 1 ML VIAL IV PRN ×2 (01:35→23:21)
[2016-04-11] MEDS: IPRATROPIUM BROMIDE HFA INHALER INH SCH ×4 (01:57→20:16)
[2016-04-11] MEDS: ALBUTEROL HFA 8 GM INHALER INH SCH ×4 (01:57→20:16)
[2016-04-11 03:32] LABS: HEMATOCRIT 24.9 % (42-52)
[2016-04-11 06:02] LABS: BASO % 0.1 %; BASO ABS # 0.01 K/uL (0-0.2); EOS % 0.8 %; HEMATOCRIT 22.8 % (42-52); IG% 0.2 %; LYMPH % 17.1 %; LYMPH ABS # 2.25 K/uL (1.2-3.4); MEAN CELL VOLUME 87.7 fL (80-100); MEAN CORPUSCULAR HEMOGLOBIN 31.9 pg (25-34); MEAN CORPUSCULAR HGB CONC 36.4 g/dl (32-36); MEAN PLATELET VOLUME 11.1 fL (7.4-10.4); MONO % 11.5 %; NEUT % 70.3 %; PLATELET COUNT 136 K/uL (130-400); WHITE BLOOD COUNT 13.15 K/uL (4.8-10.8)
[2016-04-11 06:13] LABS: INR 1.2 (0.9-1.1); PARTIAL THROMBOPLASTIN RATIO 1.3
[2016-04-11 06:54] LABS: COMPLETE YES; SCHISTOCYTES 2+
[2016-04-11 08:28] LABS: BUN/CREATININE RATIO 22.5 (10-20); CALCIUM 7.5 mg/dl (8.5-10.1); CREATININE 0.83 mg/dl (0.60-1.40); MAGNESIUM 1.7 mg/dl (1.8-2.4); PHOSPHORUS 1.7 mg/dl (2.5-4.9); POTASSIUM 2.5 mmol/L (3.5-5.1)
--- NOTE | 2016-04-11 08:38 | DIAGNOSTIC IMAGING REPORT ---
CHEST ONE VIEW PORTABLE HISTORY: Respiratory failure. VENTILATOR COMPARISON: Chest 04/10/2016. FINDINGS: No pneumothorax. Left basilar airspace opacity persists. Nasogastric tube terminates in the fundus of the stomach. Left jugular central venous catheter terminates at the brachiocephalic/SVC junction. Endotracheal tube terminates 3.5 cm from the skyler. Improvement in the patchy right basilar densities. The heart is normal in size. IMPRESSION: 1. Satisfactory support line placement. 2. Left basilar airspace opacities persist. This could be due to aspiration. Electronically signed by: Jonel Thomas M.D. 04/11/2016 8:36 AM
[2016-04-11] MEDS: RASPBERRY SYRUP 5 ML UDP PO SCH ×4 (09:00→20:37)
[2016-04-11] MEDS ORDERED: POTASSIUM CHLORIDE 20 MEQ/15 ML UDC PO STA (09:39)
[2016-04-11] MEDS ORDERED: POTASSIUM PHOS 3 MMOL/1 ML INFUSION IV STA (09:42)
[2016-04-11] MEDS: FoLIC ACID INJ 1 MG in SYRINGE 9.8 ML IV SCH (10:12)
[2016-04-11] MEDS: THIAMINE HCL INJ 500 MG in SODIUM CHLORIDE 0.9% 100ML IV SCH (10:14)
[2016-04-11] MEDS: RIFAXIMIN TAB 200 MG TAB PO SCH ×3 (10:15→20:37)
[2016-04-11] MEDS: VANCOMYCIN HCL 250 MG/5 ML SOLN PO SCH ×4 (10:15→20:37)
[2016-04-11] MEDS ORDERED: MAGNESIUM SULFATE 1GM / D5W 1 GM in PREMIXED IN D5W 100 ML IV STA (10:15)
[2016-04-11] MEDS: CHLORHEXIDINE GLUCONATE 0.12% 480 ML MT SCH ×2 (10:16→20:38)
[2016-04-11] MEDS ORDERED: POTASSIUM PHOSPHATE INJ 30 MMOL in SODIUM CHLORIDE 0.9% 500ML 500 ML IV SCH (11:00)
[2016-04-11] MEDS: CEFEPIME IV 2000 MG in DEXTROSE 5% 100ML IV SCH (11:30)
--- NOTE | 2016-04-11 13:05 | Family Medicine Progress Note ---
Progress Note Date of Service Apr 11, 2016. Subjective Pt evaluation today including: physical exam, chart review, lab review, review of studies, review of inpatient medication list Voiding: no incontinence Mr Godfrey is able to open his eyes today to voice. He looks in a straight direction but this does not appear to be purposeful. He remains intubated. Additional Comments: Unable to perform due to patient's encephalopathy Medications Current Inpatient Medications Medications (Trade) Dose Ordered Sig/Vin Route Start Time Stop Time Status Last Admin Dose Admin Lorazepam 0.5 mg 0.5 mg Q4H PRN IV 04/09/16 02:45 05/09/16 02:44 04/11/16 01:35 0.5 MG Pantoprazole Sodium 40 mg/ Dextrose 100 ml @ 20 mls/hr Q5H IV 04/09/16 05:30 05/09/16 05:29 04/11/16 11:30 20 MLS/HR Metronidazole/Prmx (Flagyl / Nss/ Premixed Nss) 100 ml @ 100 mls/hr Q8@0200,1000,1800 IV 04/09/16 09:30 04/19/16 09:29 04/11/16 10:16 100 MLS/HR Fentanyl Citrate (Fentanyl Inj) 25 mcg Q2H PRN IV 04/09/16 08:45 04/23/16 08:44 04/10/16 23:58 25 MCG Cefepime HCl (Consult) 1 ea UD PRN N/A 04/09/16 08:45 05/09/16 08:44 Chlorhexidine Gluconate (Peridex Oral Soln) 15 ml BID MT 04/09/16 21:00 05/09/16 20:59 04/11/16 10:16 15 ML Vancomycin HCl (Vancomycin Oral Soln) 250 mg QID PO 04/09/16 13:00 04/19/16 12:59 04/11/16 10:15 250 MG Raspberry (Raspberry Syrup 5ML Cup) 5 ml QID PO 04/09/16 13:00 04/19/16 12:59 04/10/16 22:33 5 ML Rifaximin 200 mg 200 mg TID PO 04/09/16 21:00 05/09/16 20:59 04/11/16 10:15 200 MG Cefepime HCl 2000 mg/Dextrose 112.5 ml @ 225 mls/hr DAILY@1200 IV 04/10/16 12:00 04/19/16 11:59 04/11/16 11:30 225 MLS/HR Thiamine HCl/ Sodium Chloride (Vitamin B-1 Inj/ Nss 100ml) 105 ml @ 210 mls/hr DAILY IV 04/11/16 09:00 05/11/16 08:59 04/11/16 10:14 210 MLS/HR Enteral Nutritional Formula 1000 ml 1,000 ml trickle feed @ 10ml/hr OG 04/10/16 12:00 05/10/16 11:59 Future hold Folic Acid/Syringe (Folvite Inj/ Syringe) 10 ml @ 5 mls/min QAM IV 04/11/16 09:00 05/11/16 08:59 04/11/16 10:12 5 MLS/MIN Ipratropium [place] (Atrovent Hfa Inhaler) 4 puffs Q6R INH 04/10/16 21:00 05/10/16 20:59 04/11/16 07:30 4 PUFFS Albuterol 4 puffs 4 puffs Q6R INH 04/10/16 21:00 05/10/16 20:59 04/11/16 07:30 4 PUFFS Potassium Phosphate/Sodium Chloride (Potassium Phosphate Inj/Nss 500ml) 510 ml @ 127.5 mls/ hr TODAY@1100 IV 04/11/16 11:00 04/11/16 14:59 04/11/16 11:06 127.5 MLS/HR Objective Vital Signs Date Time Temp Pulse Resp B/P Pulse Ox O2 Delivery O2 Flow Rate FiO2 04/11/16 11:49 40 04/11/16 10:00 76 16 92/59 99 BiPAP 40 Mechanical Ventilator 04/11/16 09:30 40 04/11/16 09:05 40 04/11/16 08:00 40 04/11/16 08:00 99 Mechanical Ventilator 40 04/11/16 08:00 36.7 78 20 109/68 99 Mechanical Ventilator 40 04/11/16 07:15 40 04/11/16 06:00 98 21 102/66 98 40 04/11/16 05:35 40 04/11/16 04:06 37.4 94 18 106/67 98 40 04/11/16 04:00 40 04/11/16 04:00 98 Mechanical Ventilator 40 04/11/16 02:00 95 21 113/70 96 40 04/11/16 01:57 40 04/11/16 01:15 36.9 100 22 103/70 97 04/11/16 00:50 37.2 90 20 114/68 97 04/11/16 00:20 36.9 94 18 108/62 97 04/10/16 23:59 40 04/10/16 23:59 97 Mechanical Ventilator 40 04/10/16 23:50 36.9 97 22 98/75 97 04/10/16 23:32 36.7 90 20 106/67 96 04/10/16 23:20 91 20 101/62 97 04/10/16 23:14 91 20 101/62 96 04/10/16 23:07 90 20 114/66 96 04/10/16 23:05 36.7 90 19 114/64 96 04/10/16 23:02 40 04/10/16 20:58 72 20 108/62 98 Mechanical Ventilator 40 04/10/16 20:00 98 Mechanical Ventilator 40 04/10/16 20:00 40 04/10/16 20:00 37.2 88 18 93/62 96 Mechanical Ventilator 40 04/10/16 19:53 100 04/10/16 18:20 40 04/10/16 18:00 84 20 104/68 100 Mechanical Ventilator 100 04/10/16 16:00 100 Mechanical Ventilator 40 04/10/16 16:00 36.9 78 20 99/62 100 Mechanical Ventilator 40 04/10/16 16:00 40 04/10/16 15:00 40 04/10/16 14:00 90 20 97/66 97 Mechanical Ventilator 40 Physical Exam General Appearance: no apparent distress (at rest but on movement of his limbs he grimaces), + cachetic Eyes: + abnormal sclerae exam (icteric), + pertinent finding (looking straight ahead when I open his eyes which has changed from the slow drifting from side to side he had before.) Neck: no adenopathy, trachea midline, + pertinent finding (intubated, OG tube in place) Respiratory/Chest: + accessory muscle use (on CPAP trial is using accessory muscles), + crackles (coarse anteriorly) Cardiovascular: regular rate, rhythm, no edema, no murmur Abdomen: normal bowel sounds, non tender, soft Extremities: no pedal edema, no calf tenderness, normal capillary refill Neurologic/Psychiatric: + pertinent finding (hypertonia (rigidity) of all his limbs, grimaces when I try to move them, opens eyes to pain but unable to illicit other purposeful movements, GCS 4) Assessment and Plan 60 yo male with known liver cirrhosis, hep C, alcohol abuse. Admitted for general deterioration over a number of weeks with weight loss, diarrhea, and acute altered mental status over the past week. Reportedly has not had an alcoholic drink in the past 5 weeks. Metabolic encephalopathy - Multiple possible causes including pneumonia, dehydration from diuretics, malnutrition, hyperammonemia, Wernicke's, metabolic acidosis - CT head - Nill acute - MRI Brain - No acute intracranial abnormality. Considerable chronic small vessel change - EEG - Generalized slowing and rare triphasic waves. These findings are consistent with encephalopathy. - Management of other abnormalities as below Acute hypoxemic respiratory failure - Currently intubated - Management as per ICU. CPAP trial ongoing - Continue ipratropium and albuterol as per ICU Metabolic acidosis with raised anion gap - Lactic acidosis on admission, no ketones in urine. resolved - Bicarb drip stopped Pneumonia - On CXR 04/10, continue cefepime (metronidazole also covering for aspiration) Hypophosphatemia - 1.9, will likely worsen with refeeding and malnutrition - Replacement as per ICU - 30 mmol Sodium Phos. Holding off starting OG feeds again. Hyperkalemia - Replete as per ICU protocol Hyperammonemia / hepatic encephalopathy - Continue to trend as no longer having loose stool as c.diff is treated therefore may go back up Dehydration / ANANYA - Resolved - Continue IV fluids as per ICU (Sodium Bicarb 50 MLS/HR) - Trend Cr Melena - Heme positive stool, continuing black stool overnight. - Appreciate GI recommendations, not for EGD currently - Transfused 1 unit RBC 04/10 - Pantoprazole 40mg IV Q5H C. diff - Continue IV metronidazole + PO vancomycin Chronic hepatitis C and alcohol abuse with cirrhosis - Appreciate GI recommendations, started rifaximin - Under Dr Eckert previously, recently increased spironolactone and lasix in February Bipolar disorder - Holding home medications due to encephalopathy Alcohol abuse - will treat as Wernicke's encephalopathy with thiamine replacement. Apathy and gait instability noted by daughter. - Thiamine 500 mg/day for 3 days, then 250mg daily - Thiamine level added to labs VTE Prophylaxis - Chemical contraindicated due to ongoing melena needing blood transfusion Code - Full Disposition - Continue management in ICU pending extubation. I agree with Resident's assessment and plan Pt admitted with metabolic encephalopathy Slightly improving mentation Lungs: Dec BS B/L Trial of CPAP today MRI brain no acute etiology Leukocytosis improving Agree with neuro consult
--- NOTE | 2016-04-11 14:02 | Critical Care Progress Note ---
Critical Care Progress Note Date of Service Apr 11, 2016. Attending Dr Arnoldo Hernandez Opened his eyes when his name was called today. Did not make any purposeful movements. Yesterday, ET tube was changed, and so he was given 100mcg fentanyl for this. He also received 1 unit PRBC transfusion and had a negative MRI. Objective PHYSICAL EXAM General Appearance: WD/WN, no apparent distress, + thin Head: normocephalic, atraumatic Eyes: normal inspection, PERRL ENT: + pertinent finding (ET tube at 24mm) Neck: supple, no JVD Respiratory/Chest: lungs clear, normal breath sounds, no respiratory distress Cardiovascular: regular rate, rhythm, no murmur, normal peripheral pulses Abdomen/GI: normal bowel sounds, non tender, soft Extremities/Musculoskelatal: no calf tenderness, no pedal edema Neurologic/Psych: + pertinent finding (Unable to assess) Skin: no rash DATA BY SYSTEM: NEURO: Received Ativan 0.2mg q4h twice (21:00 and 01:35), and 100mcg fentanyl. Receiving Thiamine replacement at 500mg IV x 3 days, and Folic acid 1mg IV daily. EEG (04/10): Suggestive of encephalopathy. The presence of triphasic waves is consistent with hepatic encephalopathy as suggested in the history. There is no evidence of seizure activity. Brain MRI (04/11): 1. No acute intracranial abnormality. 2. Considerable chronic small vessel change Restraints in place. CVS: Holter monitor given to [facility] lab for interrogation. Yesterday afternoon was slightly hypotensive and given 1L NS bolus. Telemetry: SR, no ectopy. EKG: SR 88bpm, QTc 464 RESP: Vent settings: Type: A/C: RR 14, TV 450mL, PEEP 5, FiO2 450. ET tube at 25 at lip. Sputum culture not yet sent. Minimal secretions, yellow sputum. Receiving Albuterol / Ipratropium nebs. Receiving Chlorhexidine mouth wash. GI: Receiving Rifaximin 200mg TID, and Protonix 40mg IV BID. Followed by GI. Less bowel movements overnight. OG tube to intermittent suction. Tube feeds were started yesterday, held when it was considered that pt may have a GI bleed. ID: Afebrile. Day 3 of Cefepime 2g daily IV, Flagyl 500mg TID IV, Vancomycin 250mg QID PO Cultures: Blood negative. Positive stool culture for C Diff. Lines: Right EJ day 3, Left IJ day 3. RENAL: Received 30mmoL KPhos yesterday for Phos 1.0, today is 2.0. Mag 1.7, K+ 2.5. Remains on Bicarb drip D5W with 2 amps sodium bicarb at 50mL / hour HEME: Hb 8.6, Hct 22.8. Received 1 unit PRBC on 04/10. SCDs in place. ENDO: Glc 115-121. SKIN: Ulcer over sacrum followed by wound care. Optifoam dressing has stayed now that loose BMs have slopped. Assessment & Plan 60 year old male with chronic Hep C with cirrhosis, sacral ulcers, and alcoholism who presents with metabolic encephalopathy, now intubated and ventilated. IMPRESSION: 1. Altered mental status, multifactorial, with hepatic encephalopathy as a major component. 2. Acute respiratory failure when was unable to maintain airway in ED, likely as compensation for metabolic acidosis. Day 3 of intubation. 3. Acute kidney injury with metabolic acidosis, improving. 4. Clostridium difficile colitis, on IV Flagyl and PO Vancomycin. Contact / Isolation precautions in place. 5. Upper GI bleed with grade I varices. Was reviewed by GI and has stable H&Hs thus far, and remains on Protonix and Rifaximin. 6. Sacral decubitus ulcer, with cultures previously pansensitive to MSSA. Followed by wound care. 7. Chronic hepatitis C with cirrhosis 8. Bipolar disorder 9. Syncopal episodes 10. History of drug and alcohol abuse PLAN: [employer] ST[employer]/STEWARDESS/NEURO: Not on any sedatives, and will continue to avoid. For pain, Fentanyl 25mcg PRN q2h. High dose thiamine replacement. Head of bed to 30 degrees. Ammonia level improving. Neuro consult. HEME: Will continue to trend H&H q6h and transfuse if indicated. RENAL: Stop sodium bicarbonate today. Replace K with 40mEQ KCL elixir and 30mmoL KPhos IV. Free water flushes. ID: Day 3 of IV Flagyl, PO Vancomycin, and IV Cefepime. Appreciate wound care recommendations. GI: Will re-start tube feeds today. Should he worsen or develop brisk bleeding, we will contact the GI service for possible endoscopy. CVS: Continue to monitor PULMONARY: CPAP weaning trial today. Monitor for aspiration pneumonia. Chlorhexidine rinse BID. SKIN/MSK: Ulcer precautions VTE: SCDs FULL CODE Admissions Supervisor Attending: Resident Physician Supervision Note: I interviewed and examined the patient. Discussed with Dr. Jewell and agree with findings and plan as documented in the note. Any exceptions or clarifications are listed here: He's a bit more awake today and is receiving some PRN ativan. He continues on a protonix infusion and feeds were held last night due to some blood tinged NGT output. He had 1unit of PRBC's but no other evidence of bleeding although Hct is trending down. Will resume TF at 10ml/hr and will not advance due to concerns of refeeding syndrome and recommendations by quantitative consultant. Data and imaging reviewed. Will wait for neurology evaluation and continue CPAP trials. I spoke to his daughter (Estrellita) and son, (Ignacio) last night and again to his daughter outside the room today. They have noticed consistent decline in the patient's health and mental status. Documented By: Lisbeth Mclaughlin Data Medications: Current Inpatient Medications Medications (Trade) Dose Ordered Sig/Vin Route Start Time Stop Time Status Last Admin Dose Admin Lorazepam 0.5 mg 0.5 mg Q4H PRN IV 04/09/16 02:45 05/09/16 02:44 04/11/16 01:35 0.5 MG Pantoprazole Sodium 40 mg/ Dextrose 100 ml @ 20 mls/hr Q5H IV 04/09/16 05:30 05/09/16 05:29 04/11/16 11:30 20 MLS/HR Metronidazole/Prmx (Flagyl / Nss/ Premixed Nss) 100 ml @ 100 mls/hr Q8@0200,1000,1800 IV 04/09/16 09:30 04/19/16 09:29 04/11/16 10:16 100 MLS/HR Fentanyl Citrate (Fentanyl Inj) 25 mcg Q2H PRN IV 04/09/16 08:45 04/23/16 08:44 04/10/16 23:58 25 MCG Cefepime HCl (Consult) 1 ea UD PRN N/A 04/09/16 08:45 05/09/16 08:44 Chlorhexidine Gluconate (Peridex Oral Soln) 15 ml BID MT 04/09/16 21:00 05/09/16 20:59 04/11/16 10:16 15 ML Vancomycin HCl (Vancomycin Oral Soln) 250 mg QID PO 04/09/16 13:00 04/19/16 12:59 04/11/16 10:15 250 MG Raspberry (Raspberry Syrup 5ML Cup) 5 ml QID PO 04/09/16 13:00 04/19/16 12:59 04/10/16 22:33 5 ML Rifaximin 200 mg 200 mg TID PO 04/09/16 21:00 05/09/16 20:59 04/11/16 13:15 200 MG Cefepime HCl 2000 mg/Dextrose 112.5 ml @ 225 mls/hr DAILY@1200 IV 04/10/16 12:00 04/19/16 11:59 04/11/16 11:30 225 MLS/HR Thiamine HCl/ Sodium Chloride (Vitamin B-1 Inj/ Nss 100ml) 105 ml @ 210 mls/hr DAILY IV 04/11/16 09:00 05/11/16 08:59 04/11/16 10:14 210 MLS/HR Enteral Nutritional Formula 1000 ml 1,000 ml trickle feed @ 10ml/hr OG 04/10/16 12:00 05/10/16 11:59 Future hold Folic Acid/Syringe (Folvite Inj/ Syringe) 10 ml @ 5 mls/min QAM IV 04/11/16 09:00 05/11/16 08:59 04/11/16 10:12 5 MLS/MIN Ipratropium [place] (Atrovent Hfa Inhaler) 4 puffs Q6R INH 04/10/16 21:00 05/10/16 20:59 04/11/16 07:30 4 PUFFS Albuterol 4 puffs 4 puffs Q6R INH 04/10/16 21:00 05/10/16 20:59 04/11/16 07:30 4 PUFFS Potassium Phosphate/Sodium Chloride (Potassium Phosphate Inj/Nss 500ml) 510 ml @ 127.5 mls/ hr TODAY@1100 IV 04/11/16 11:00 04/11/16 14:59 04/11/16 11:06 127.5 MLS/HR I & O: 24-Hour Column 04/11/16 08:00 Intake Total 3127 ml Output Total 1425 ml Balance 1702 ml Vital Signs: Date Time Temp Pulse Resp B/P Pulse Ox O2 Delivery O2 Flow Rate FiO2 04/11/16 12:00 100 CPAP 40 Mechanical Ventilator 04/11/16 12:00 40 04/11/16 12:00 36.6 90 24 98/68 100 CPAP 40 Mechanical Ventilator 04/11/16 11:49 40 04/11/16 10:00 76 16 92/59 99 BiPAP 40 Mechanical Ventilator 04/11/16 09:30 40 04/11/16 09:05 40 04/11/16 08:00 40 04/11/16 08:00 99 Mechanical Ventilator 40 04/11/16 08:00 36.7 78 20 109/68 99 Mechanical Ventilator 40 04/11/16 07:15 40 04/11/16 06:00 98 21 102/66 98 40 04/11/16 05:35 40 04/11/16 04:06 37.4 94 18 106/67 98 40 04/11/16 04:00 40 04/11/16 04:00 98 Mechanical Ventilator 40 04/11/16 02:00 95 21 113/70 96 40 04/11/16 01:57 40 04/11/16 01:15 36.9 100 22 103/70 97 04/11/16 00:50 37.2 90 20 114/68 97 04/11/16 00:20 36.9 94 18 108/62 97 04/10/16 23:59 40 04/10/16 23:59 97 Mechanical Ventilator 40 04/10/16 23:50 36.9 97 22 98/75 97 04/10/16 23:32 36.7 90 20 106/67 96 04/10/16 23:20 91 20 101/62 97 04/10/16 23:14 91 20 101/62 96 04/10/16 23:07 90 20 114/66 96 04/10/16 23:05 36.7 90 19 114/64 96 04/10/16 23:02 40 04/10/16 20:58 72 20 108/62 98 Mechanical Ventilator 40 04/10/16 20:00 98 Mechanical Ventilator 40 04/10/16 20:00 40 04/10/16 20:00 37.2 88 18 93/62 96 Mechanical Ventilator 40 04/10/16 19:53 100 04/10/16 18:20 40 04/10/16 18:00 84 20 104/68 100 Mechanical Ventilator 100 04/10/16 16:00 100 Mechanical Ventilator 40 04/10/16 16:00 36.9 78 20 99/62 100 Mechanical Ventilator 40 04/10/16 16:00 40 04/10/16 15:00 40 04/10/16 14:00 90 20 97/66 97 Mechanical Ventilator 40 Laboratory Results: Last 24 Hours Test 04/10/16 13:58 04/10/16 18:25 04/10/16 20:08 04/10/16 22:49 Bedside Glucose 118 mg/dl 106 mg/dl Hemoglobin 7.7 g/dL 7.8 g/dL Hematocrit 20.9 % 21.5 % Prothrombin Time 12.9 SECONDS Prothromb Time International Ratio 1.2 Activated Partial Thromboplast Time 38.4 SECONDS Partial Thromboplastin Ratio 1.5 Lactic Acid Level 1.6 mmol/L Phosphorus Level 2.0 mg/dl Test 04/11/16 02:15 04/11/16 05:50 04/11/16 06:26 04/11/16 13:15 Hemoglobin 9.1 g/dL 8.3 g/dL Hematocrit 24.9 % 22.8 % White Blood Count 13.15 K/uL Red Blood Count 2.60 M/uL Mean Corpuscular Volume 87.7 fL Mean Corpuscular Hemoglobin 31.9 pg Mean Corpuscular Hemoglobin Concent 36.4 g/dl Platelet Count 136 K/uL Mean Platelet Volume 11.1 fL Neutrophils (%) (Auto) 70.3 % Lymphocytes (%) (Auto) 17.1 % Monocytes (%) (Auto) 11.5 % Eosinophils (%) (Auto) 0.8 % Basophils (%) (Auto) 0.1 % Neutrophils # (Auto) 9.24 K/uL Lymphocytes # (Auto) 2.25 K/uL Monocytes # (Auto) 1.51 K/uL Eosinophils # (Auto) 0.11 K/uL Basophils # (Auto) 0.01 K/uL RDW Standard Deviation 47.3 fL RDW Coefficient of Variation 15.1 % Immature Granulocyte % (Auto) 0.2 % Immature Granulocyte # (Auto) 0.03 K/uL Nucleated RBC Absolute Count (auto) 0.07 K/uL Nucleated Red Blood Cells % 0.5 % Schistocytes 2+ Prothrombin Time 13.0 SECONDS Prothromb Time International Ratio 1.2 Activated Partial Thromboplast Time 34.8 SECONDS Partial Thromboplastin Ratio 1.3 Sodium Level 144 mmol/L Potassium Level 2.5 mmol/L Chloride Level 112 mmol/L Carbon Dioxide Level 21 mmol/L Anion Gap 11.0 mmol/L Blood Urea Nitrogen 19 mg/dl Creatinine 0.83 mg/dl Est Creatinine Clear Calc Drug Dose 74.6 ml/min Estimated GFR () 110.1 Estimated GFR (Non- 95.0 BUN/Creatinine Ratio 22.5 Random Glucose 109 mg/dl Calcium Level 7.5 mg/dl Phosphorus Level 1.7 mg/dl Magnesium Level 1.7 mg/dl Total Bilirubin 1.5 mg/dl Direct Bilirubin 0.6 mg/dl Aspartate Amino Transf (AST/SGOT) 40 U/L Alanine Aminotransferase (ALT/SGPT) 17 U/L Alkaline Phosphatase 74 U/L Ammonia 45.0 umol/L Total Protein 5.1 gm/dl Albumin 2.0 gm/dl Bedside Glucose 121 mg/dl Resident Tracking Resident Involvement: Resident Care Provided Care Provided: Adult [facility] Medicine
[2016-04-11] MEDS: IMPACT LIQ 1000 ML BAG OG SCH (15:02)
--- NOTE | 2016-04-11 15:33 | Progress Note ---
Progress Note Addendum to critical care progress note from today: Critical Care Time 40 min.
[2016-04-11 17:45] LABS: HEMATOCRIT 23.3 % (42-52)
[2016-04-11 18:07] LABS: CALCIUM 7.2 mg/dl (8.5-10.1); CREATININE 0.76 mg/dl (0.60-1.40); PHOSPHORUS 2.6 mg/dl (2.5-4.9); POTASSIUM 3.1 mmol/L (3.5-5.1)
[2016-04-11] MEDS: POTASSIUM CHLR 20 MEQ / WTR 20 MEQ in PREMIXED WATER 100 ML IV SCH ×3 (19:26→22:18)
[2016-04-11] MEDS ORDERED: POTASSIUM CHLORIDE 20 MEQ/15 ML UDC PO ONE (19:30)
[2016-04-11] MEDS: FENTANYL CITRATE INJ 50 MCG/1 ML 2 ML VIAL IV PRN (20:39)
[2016-04-12] VITALS (15 sets, daily range): BP systolic 90–109; BP diastolic 55–71; PULSE 80–104; TEMP 36.7–37.5; O2SAT 97–100
[2016-04-12] MEDS: CEFEPIME IV 2000 MG in DEXTROSE 5% 100ML IV SCH ×2 (00:12→12:01)
[2016-04-12] MEDS: FENTANYL CITRATE INJ 50 MCG/1 ML 2 ML VIAL IV PRN ×3 (01:10→23:17)
[2016-04-12] MEDS: METRONIDAZOLE 500MG / NSS IV SCH ×3 (01:49→18:14)
[2016-04-12] MEDS: IPRATROPIUM BROMIDE HFA INHALER INH SCH ×4 (03:11→19:12)
[2016-04-12] MEDS: ALBUTEROL HFA 8 GM INHALER INH SCH ×4 (03:11→19:12)
[2016-04-12] MEDS: PANTOprazole INJ 40 MG in DEXTROSE 5% 100ML IV SCH ×3 (03:44→12:00)
[2016-04-12] MEDS: LORAZEPAM 2 MG/ML 1 ML VIAL IV PRN ×2 (04:06→23:17)
[2016-04-12 05:19] LABS: BASO % 0.1 %; BASO ABS # 0.01 K/uL (0-0.2); EOS % 5.3 %; HEMATOCRIT 23.5 % (42-52); IG% 0.3 %; LYMPH % 22.3 %; LYMPH ABS # 2.54 K/uL (1.2-3.4); MEAN CELL VOLUME 89.7 fL (80-100); MEAN CORPUSCULAR HEMOGLOBIN 32.1 pg (25-34); MEAN CORPUSCULAR HGB CONC 35.7 g/dl (32-36); MEAN PLATELET VOLUME 10.8 fL (7.4-10.4); MONO % 15.6 %; NEUT % 56.4 %; PLATELET COUNT 141 K/uL (130-400); RED BLOOD COUNT 2.62 M/uL (4.7-6.1); WHITE BLOOD COUNT 11.38 K/uL (4.8-10.8)
[2016-04-12 05:28] LABS: INR 1.1 (0.9-1.1); PARTIAL THROMBOPLASTIN RATIO 1.3; PROTHROMBIN TIME (PATIENT) 12.1 SECONDS (9.0-12.0)
[2016-04-12 05:47] LABS: COMPLETE YES; POLYCHROMASIA 1+; TARGET CELLS 1+
[2016-04-12 05:51] LABS: BUN/CREATININE RATIO 15.7 (10-20); CALCIUM 7.4 mg/dl (8.5-10.1); CREATININE 0.8 mg/dl (0.60-1.40); MAGNESIUM 2.2 mg/dl (1.8-2.4); POTASSIUM 4.1 mmol/L (3.5-5.1)
[2016-04-12 05:58] LABS: PHOSPHORUS 1.1 mg/dl (2.5-4.9)
[2016-04-12] MEDS ORDERED: POTASSIUM PHOS 3 MMOL/1 ML INFUSION IV STA (06:24)
[2016-04-12] MEDS ORDERED: POTASSIUM PHOSPHATE INJ 30 MMOL in SODIUM CHLORIDE 0.9% 500ML 500 ML IV SCH (06:30)
--- NOTE | 2016-04-12 07:45 | DIAGNOSTIC IMAGING REPORT ---
CHEST ONE VIEW PORTABLE CLINICAL HISTORY: respiratory failure dyspnea COMPARISON STUDY: 04/11/2016 FINDINGS: Endotracheal tube 3 cm above the skyler. Bibasilar atelectasis similar compared to the prior exam. Mid and upper lungs are considered generally clear. IMPRESSION: Unchanging left and to lesser extent right basilar infiltrative/atelectatic change.. Tubes and lines in good position. Electronically signed by: Erick Lau M.D. 04/12/2016 7:43 AM
[2016-04-12] MEDS: THIAMINE HCL INJ 500 MG in SODIUM CHLORIDE 0.9% 100ML IV SCH (08:07)
[2016-04-12] MEDS: VANCOMYCIN HCL 250 MG/5 ML SOLN PO SCH ×4 (08:29→20:48)
[2016-04-12] MEDS: RASPBERRY SYRUP 5 ML UDP PO SCH ×4 (08:29→20:46)
[2016-04-12] MEDS: FoLIC ACID INJ 1 MG in SYRINGE 9.8 ML IV SCH (08:29)
[2016-04-12] MEDS: RIFAXIMIN TAB 200 MG TAB PO SCH ×3 (08:30→20:46)
[2016-04-12] MEDS: CHLORHEXIDINE GLUCONATE 0.12% 480 ML MT SCH ×2 (08:30→20:48)
--- NOTE | 2016-04-12 10:04 | Critical Care Progress Note ---
Critical Care Progress Note Date of Service Apr 12, 2016. Attending Dr Arnoldo Hernandez Did not open his eyes as much this morning. Had 4 loose, dark bowels yesterday and overnight. He also was slightly agitated when off CPAP all day then placed back on Assist Control. Objective PHYSICAL EXAM General Appearance: WD/WN, no apparent distress, + thin Head: normocephalic, atraumatic Eyes: normal inspection, PERRL ENT: + pertinent finding (ET tube at 24mm) Neck: supple, no JVD Respiratory/Chest: lungs clear, normal breath sounds, no respiratory distress Cardiovascular: regular rate, rhythm, no murmur, normal peripheral pulses Abdomen/GI: normal bowel sounds, non tender, soft Extremities/Musculoskeletal: no calf tenderness, no pedal edema Neurologic/Psych: + pertinent finding (Unable to assess) Skin: no rash DATA BY SYSTEM: NEURO: Received Ativan 0.2mg q4h once so far today (0400 today). Receiving Thiamine replacement at 500mg IV x 3 days, and Folic acid 1mg IV daily. EEG (04/10): Suggestive of encephalopathy. The presence of triphasic waves is consistent with hepatic encephalopathy as suggested in the history. There is no evidence of seizure activity. Brain MRI (04/11): 1. No acute intracranial abnormality. 2. Considerable chronic small vessel change Restraints in place. CVS: Holter monitor given to [facility] lab for interrogation. Remains slightly hypotensive, though this could be a reflection of his cirrhosis and consequent vasodilation as well. Telemetry: SR/sinus tachycardia. EKG 04/11: SR 88bpm, QTc 464 RESP: Vent settings: Type: A/C: RR 12, TV 450mL, PEEP 5, FiO2 40%. ET tube at 25 at lip. Sputum culture not yet sent. Minimal secretions, yellow sputum. Receiving Albuterol / Ipratropium nebs. Receiving Chlorhexidine mouth wash. CXR 04/12: Unchanging left and to lesser extent right basilar infiltrative/ atelectatic change.. Tubes and lines in good position. GI: Receiving Rifaximin 200mg TID, and Protonix 40mg infusion. Had 4 loose, dark, sticky bowel movements yesterday. OG tube to intermittent suction. Tube feeds were started yesterday, held when it was considered that pt may have a GI bleed / refeeding syndrome, then restarted in discussion with wild life photographer about giving him minimal caloric intake (10mL / hour) ID: Afebrile. Day 4 of Cefepime 2g BID IV, Flagyl 500mg TID IV, Vancomycin 250mg QID PO Cultures: Blood negative. Positive stool culture for C Diff. Lines: Right EJ day 4, Left IJ day 4. RENAL: Received 30mmoL KPhos yesterday for Phos 1.0, Repeat Phos was 2.6 at 1700 , then 1.0 this AM. Currently receiving further 30mmoL replacement, which will finish around noon. Mag 1.7, K+ 2.5. I/O's: Positive 2080mL yesterday. HEME: Hb 8.4, Hct 23.5. Received 1 unit PRBC on 04/10. SCDs in place. ENDO: Glc 115-121. SKIN: Ulcer over sacrum followed by wound care. Has Optifoam dressing. Assessment & Plan 60 year old male with chronic Hep C with cirrhosis, sacral ulcers, and alcoholism who presents with metabolic encephalopathy, now intubated and ventilated (day 4). IMPRESSION: 1. Altered mental status, multifactorial, with hepatic encephalopathy as a major component. 2. Acute respiratory failure when was unable to maintain airway in ED, likely as compensation for metabolic acidosis. Day 4 of intubation. 3. Refeeding syndrome 4. Clostridium difficile colitis, on IV Flagyl and PO Vancomycin. Contact / Isolation precautions in place. 5. Upper GI bleed with grade I varices. Was reviewed by GI and has stable H&Hs thus far, and remains on Protonix and Rifaximin. 6. Sacral decubitus ulcer, with cultures previously pansensitive to MSSA. Followed by wound care. 7. Chronic hepatitis C with cirrhosis 8. Bipolar disorder 9. Syncopal episodes 10. History of drug and alcohol abuse PLAN: UPSCALE SECURITY OFFICER/NEURO: Not on any sedatives, and will continue to avoid. For pain, Fentanyl 25mcg PRN q2h. High dose thiamine replacement - will increase to 500mg TID for two days, then reassess. If seems to be helpful, will go to 250mg IV thereafter. Head of bed to [address] Granado, appreciate his review of records, no further recommendations at this time. HEME: Will continue to trend H&H and transfuse if indicated. RENAL: Will recheck phos again 1 hour after infusion. Will continue free water flushes but increase this from 30 to 70mL q6h. ID: Will continue PO Vanco and IV Flagyl. Will continue Cefepime for 1 more day , to complete 5 day course total. GI: Will continue Impact feeds for now at lowest dose as recommended by Relief Worker, 10mL/hour. Will continue Protonix infusion for one further day, and tomorrow switch to BID. CVS: Continue to monitor PULMONARY: CPAP weaning trial today. Monitor for aspiration pneumonia. Chlorhexidine rinse BID. SKIN/MSK: Ulcer precautions VTE: SCDs FULL CODE Resident Physician Supervision Note: I interviewed and examined the patient. Discussed with Dr. Jewell and agree with findings and plan as documented in the note. Any exceptions or clarifications are listed in my dictated addendum. Documented By: Lisbeth Mclaughlin Consults & Procedures Consultants: Dr Granado, Neuro Data Medications: Current Inpatient Medications Medications (Trade) Dose Ordered Sig/Vin Route Start Time Stop Time Status Last Admin Dose Admin Lorazepam 0.5 mg 0.5 mg Q4H PRN IV 04/09/16 02:45 05/09/16 02:44 04/12/16 04:06 0.5 MG Pantoprazole Sodium 40 mg/ Dextrose 100 ml @ 20 mls/hr Q5H IV 04/09/16 05:30 05/09/16 05:29 04/12/16 06:09 20 MLS/HR Metronidazole/Prmx (Flagyl / Nss/ Premixed Nss) 100 ml @ 100 mls/hr Q8@0200,1000,1800 IV 04/09/16 09:30 04/19/16 09:29 04/12/16 01:49 100 MLS/HR Fentanyl Citrate (Fentanyl Inj) 25 mcg Q2H PRN IV 04/09/16 08:45 04/23/16 08:44 04/12/16 01:10 25 MCG Cefepime HCl (Consult) 1 ea UD PRN N/A 04/09/16 08:45 05/09/16 08:44 Chlorhexidine Gluconate (Peridex Oral Soln) 15 ml BID MT 04/09/16 21:00 05/09/16 20:59 04/12/16 08:30 15 ML Vancomycin HCl (Vancomycin Oral Soln) 250 mg QID PO 04/09/16 13:00 04/19/16 12:59 04/12/16 08:29 250 MG Raspberry (Raspberry Syrup 5ML Cup) 5 ml QID PO 04/09/16 13:00 04/19/16 12:59 04/11/16 20:37 5 ML Rifaximin 200 mg 200 mg TID PO 04/09/16 21:00 05/09/16 20:59 04/12/16 08:30 200 MG Thiamine HCl/ Sodium Chloride (Vitamin B-1 Inj/ Nss 100ml) 105 ml @ 210 mls/hr DAILY IV 04/11/16 09:00 05/11/16 08:59 04/12/16 08:07 210 MLS/HR Enteral Nutritional Formula 1000 ml 1,000 ml trickle feed @ 10ml/hr OG 04/10/16 12:00 05/10/16 11:59 Future hold 04/11/16 15:02 1,000 ML Folic Acid/Syringe (Folvite Inj/ Syringe) 10 ml @ 5 mls/min QAM IV 04/11/16 09:00 05/11/16 08:59 04/12/16 08:29 5 MLS/MIN Ipratropium [place] (Atrovent Hfa Inhaler) 4 puffs Q6R INH 04/10/16 21:00 05/10/16 20:59 04/12/16 07:33 4 PUFFS Albuterol 4 puffs 4 puffs Q6R INH 04/10/16 21:00 05/10/16 20:59 04/12/16 07:33 4 PUFFS Cefepime HCl 2000 mg/Dextrose 112.5 ml @ 225 mls/hr Q12@0000,1200 IV 04/12/16 00:00 04/19/16 00:00 04/12/16 00:12 225 MLS/HR Potassium Phosphate/Sodium Chloride (Potassium Phosphate Inj/Nss 500ml) 510 ml @ 88 mls/hr TODAY@0630 IV 04/12/16 06:30 04/12/16 12:18 04/12/16 06:43 88 MLS/HR I & O: 24-Hour Column 04/12/16 08:00 Intake Total 2773 ml Output Total 875 ml Balance 1898 ml Vital Signs: Date Time Temp Pulse Resp B/P Pulse Ox O2 Delivery O2 Flow Rate FiO2 04/12/16 08:00 100 Mechanical Ventilator 40 04/12/16 08:00 40 04/12/16 08:00 37.0 92 20 102/62 100 Mechanical Ventilator 40 04/12/16 06:00 84 17 99/64 100 Mechanical Ventilator 40 04/12/16 05:22 40 04/12/16 04:00 97 Mechanical Ventilator 40 04/12/16 04:00 40 04/12/16 03:58 36.7 96 20 95/57 98 Mechanical Ventilator 40 04/12/16 02:25 40 04/12/16 02:00 17 90/55 99 Mechanical Ventilator 40 04/12/16 00:00 36.8 88 21 101/66 100 Mechanical Ventilator 40 04/11/16 23:59 40 04/11/16 23:59 100 Mechanical Ventilator 40 04/11/16 23:20 40 04/11/16 22:00 80 17 92/58 100 Mechanical Ventilator 40 04/11/16 20:15 40 04/11/16 20:00 36.7 100/73 98 CPAP 40 04/11/16 20:00 40 04/11/16 20:00 98 CPAP 40 Mechanical Ventilator 04/11/16 18:00 100 24 86/55 99 CPAP 40 Mechanical Ventilator 04/11/16 17:28 40 04/11/16 16:00 36.6 97 16 95/71 100 CPAP 40 Mechanical Ventilator 04/11/16 16:00 40 04/11/16 16:00 97 CPAP 40 Mechanical Ventilator 04/11/16 14:15 40 04/11/16 14:00 94 24 104/71 99 CPAP 40 Mechanical Ventilator 04/11/16 12:00 100 CPAP 40 Mechanical Ventilator 04/11/16 12:00 40 04/11/16 12:00 36.6 90 24 98/68 100 CPAP 40 Mechanical Ventilator 04/11/16 11:49 40 04/11/16 10:00 76 16 92/59 99 BiPAP 40 Mechanical Ventilator Laboratory Results: Last 24 Hours Test 04/11/16 13:15 04/11/16 17:20 04/12/16 05:09 Magnesium Level 2.2 mg/dl 2.2 mg/dl Hemoglobin 8.4 g/dL 8.4 g/dL Hematocrit 23.3 % 23.5 % Sodium Level 143 mmol/L 143 mmol/L Potassium Level 3.1 mmol/L 4.1 mmol/L Chloride Level 109 mmol/L 113 mmol/L Carbon Dioxide Level 23 mmol/L 20 mmol/L Anion Gap 11.0 mmol/L 10.0 mmol/L Blood Urea Nitrogen 15 mg/dl 13 mg/dl Creatinine 0.76 mg/dl 0.80 mg/dl Est Creatinine Clear Calc Drug Dose 81.4 ml/min 77.4 ml/min Estimated GFR () 114.1 111.7 Estimated GFR (Non- 98.5 96.4 BUN/Creatinine Ratio 20.0 15.7 Random Glucose 106 mg/dl 103 mg/dl Calcium Level 7.2 mg/dl 7.4 mg/dl Phosphorus Level 2.6 mg/dl 1.1 mg/dl White Blood Count 11.38 K/uL Red Blood Count 2.62 M/uL Mean Corpuscular Volume 89.7 fL Mean Corpuscular Hemoglobin 32.1 pg Mean Corpuscular Hemoglobin Concent 35.7 g/dl Platelet Count 141 K/uL Mean Platelet Volume 10.8 fL Neutrophils (%) (Auto) 56.4 % Lymphocytes (%) (Auto) 22.3 % Monocytes (%) (Auto) 15.6 % Eosinophils (%) (Auto) 5.3 % Basophils (%) (Auto) 0.1 % Neutrophils # (Auto) 6.43 K/uL Lymphocytes # (Auto) 2.54 K/uL Monocytes # (Auto) 1.77 K/uL Eosinophils # (Auto) 0.60 K/uL Basophils # (Auto) 0.01 K/uL RDW Standard Deviation 51.8 fL RDW Coefficient of Variation 16.2 % Immature Granulocyte % (Auto) 0.3 % Immature Granulocyte # (Auto) 0.03 K/uL Nucleated RBC Absolute Count (auto) 0.04 K/uL Nucleated Red Blood Cells % 0.4 % Polychromasia 1+ Target Cells 1+ Prothrombin Time 12.1 SECONDS Prothromb Time International Ratio 1.1 Activated Partial Thromboplast Time 33.3 SECONDS Partial Thromboplastin Ratio 1.3 Total Bilirubin 1.3 mg/dl Direct Bilirubin 0.6 mg/dl Aspartate Amino Transf (AST/SGOT) 42 U/L Alanine Aminotransferase (ALT/SGPT) 18 U/L Alkaline Phosphatase 77 U/L Ammonia 34.0 umol/L Total Protein 5.5 gm/dl Albumin 2.0 gm/dl Resident Tracking Resident Involvement: Resident Care Provided Care Provided: Adult [facility]
--- NOTE | 2016-04-12 10:12 | Family Medicine Progress Note ---
Progress Note Date of Service Apr 12, 2016. Subjective Pt evaluation today including: conversation w/ patient, physical exam, chart review, lab review, review of studies, review of inpatient medication list Voiding: rangel catheter in place Tolerated CPAP well all of yesterday. On vent overnight and again on CPAP this morning without respiratory distress. Additional Comments: Unable to perform due to patient's encephalopathy. Medications Current Inpatient Medications Medications (Trade) Dose Ordered Sig/Vin Route Start Time Stop Time Status Last Admin Dose Admin Lorazepam 0.5 mg 0.5 mg Q4H PRN IV 04/09/16 02:45 05/09/16 02:44 04/12/16 04:06 0.5 MG Pantoprazole Sodium 40 mg/ Dextrose 100 ml @ 20 mls/hr Q5H IV 04/09/16 05:30 05/09/16 05:29 04/12/16 06:09 20 MLS/HR Metronidazole/Prmx (Flagyl / Nss/ Premixed Nss) 100 ml @ 100 mls/hr Q8@0200,1000,1800 IV 04/09/16 09:30 04/19/16 09:29 04/12/16 01:49 100 MLS/HR Fentanyl Citrate (Fentanyl Inj) 25 mcg Q2H PRN IV 04/09/16 08:45 04/23/16 08:44 04/12/16 01:10 25 MCG Cefepime HCl (Consult) 1 ea UD PRN N/A 04/09/16 08:45 05/09/16 08:44 Chlorhexidine Gluconate (Peridex Oral Soln) 15 ml BID MT 04/09/16 21:00 05/09/16 20:59 04/12/16 08:30 15 ML Vancomycin HCl (Vancomycin Oral Soln) 250 mg QID PO 04/09/16 13:00 04/19/16 12:59 04/12/16 08:29 250 MG Raspberry (Raspberry Syrup 5ML Cup) 5 ml QID PO 04/09/16 13:00 04/19/16 12:59 04/11/16 20:37 5 ML Rifaximin (Xifaxan Tab) 200 mg TID PO 04/09/16 21:00 05/09/16 20:59 04/12/16 08:30 200 MG Enteral Nutritional Formula 1000 ml 1,000 ml trickle feed @ 10ml/hr OG 04/10/16 12:00 05/10/16 11:59 Future hold 04/11/16 15:02 1,000 ML Folic Acid/Syringe (Folvite Inj/ Syringe) 10 ml @ 5 mls/min QAM IV 04/11/16 09:00 05/11/16 08:59 04/12/16 08:29 5 MLS/MIN Ipratropium [place] (Atrovent Hfa Inhaler) 4 puffs Q6R INH 04/10/16 21:00 05/10/16 20:59 04/12/16 07:33 4 PUFFS Albuterol 4 puffs 4 puffs Q6R INH 04/10/16 21:00 05/10/16 20:59 04/12/16 07:33 4 PUFFS Cefepime HCl 2000 mg/Dextrose 112.5 ml @ 225 mls/hr Q12@0000,1200 IV 04/12/16 00:00 04/12/16 13:00 04/12/16 00:12 225 MLS/HR Potassium Phosphate 30 mmol/ Sodium Chloride 510 ml @ 88 mls/hr TODAY@0630 IV 04/12/16 06:30 04/12/16 12:18 04/12/16 06:43 88 MLS/HR Thiamine HCl/ Sodium Chloride (Vitamin B-1 Inj/ Nss 100ml) 105 ml @ 210 mls/hr TID IV 04/12/16 14:00 04/13/16 21:00 UNV Objective Vital Signs Date Time Temp Pulse Resp B/P Pulse Ox O2 Delivery O2 Flow Rate FiO2 04/12/16 08:00 100 Mechanical Ventilator 40 04/12/16 08:00 40 04/12/16 08:00 37.0 92 20 102/62 100 Mechanical Ventilator 40 04/12/16 06:00 84 17 99/64 100 Mechanical Ventilator 40 04/12/16 05:22 40 04/12/16 04:00 97 Mechanical Ventilator 40 04/12/16 04:00 40 04/12/16 03:58 36.7 96 20 95/57 98 Mechanical Ventilator 40 04/12/16 02:25 40 04/12/16 02:00 17 90/55 99 Mechanical Ventilator 40 04/12/16 00:00 36.8 88 21 101/66 100 Mechanical Ventilator 40 04/11/16 23:59 40 04/11/16 23:59 100 Mechanical Ventilator 40 04/11/16 23:20 40 04/11/16 22:00 80 17 92/58 100 Mechanical Ventilator 40 04/11/16 20:15 40 04/11/16 20:00 36.7 100/73 98 CPAP 40 04/11/16 20:00 40 04/11/16 20:00 98 CPAP 40 Mechanical Ventilator 04/11/16 18:00 100 24 86/55 99 CPAP 40 Mechanical Ventilator 04/11/16 17:28 40 04/11/16 16:00 36.6 97 16 95/71 100 CPAP 40 Mechanical Ventilator 04/11/16 16:00 40 04/11/16 16:00 97 CPAP 40 Mechanical Ventilator 04/11/16 14:15 40 04/11/16 14:00 94 24 104/71 99 CPAP 40 Mechanical Ventilator 04/11/16 12:00 100 CPAP 40 Mechanical Ventilator 04/11/16 12:00 40 04/11/16 12:00 36.6 90 24 98/68 100 CPAP 40 Mechanical Ventilator 04/11/16 11:49 40 Physical Exam General Appearance: no apparent distress, + thin Eyes: + abnormal sclerae exam (icteric), + pertinent finding (pupils small and equal, looking straight ahead) Neck: supple Respiratory/Chest: chest non-tender, no respiratory distress, no accessory muscle use, + rales (b/l anteriorly, not assessed posteriorly) Cardiovascular: regular rate, rhythm, no murmur Abdomen: normal bowel sounds, non tender, soft Extremities: no pedal edema, normal capillary refill Neurologic/Psychiatric: + pertinent finding (opening eyes to voice, no purposeful movements of limbs) Skin: + jaundice Laboratory Results 04/12/16 05:09 Red Blood Count 2.62, Mean Corpuscular Volume 89.7, Mean Corpuscular Hemoglobin 32.1, Mean Corpuscular Hemoglobin Concent 35.7, Mean Platelet Volume 10.8, Neutrophils (%) (Auto) 56.4, Lymphocytes (%) (Auto) 22.3, Monocytes (%) (Auto) 15.6, Eosinophils (%) (Auto) 5.3, Basophils (%) (Auto) 0.1, Neutrophils # (Auto ) 6.43, Lymphocytes # (Auto) 2.54, Monocytes # (Auto) 1.77, Eosinophils # (Auto ) 0.60, Basophils # (Auto) 0.01 04/12/16 05:09 Test 04/12/16 05:09 White Blood Count 11.38 K/uL (4.8-10.8) Red Blood Count 2.62 M/uL (4.7-6.1) Hemoglobin 8.4 g/dL (14.0-18.0) Hematocrit 23.5 % (42-52) Mean Corpuscular Volume 89.7 fL (80-100) Mean Corpuscular Hemoglobin 32.1 pg (25-34) Mean Corpuscular Hemoglobin Concent 35.7 g/dl (32-36) Platelet Count 141 K/uL (130-400) Mean Platelet Volume 10.8 fL (7.4-10.4) Neutrophils (%) (Auto) 56.4 % Lymphocytes (%) (Auto) 22.3 % Monocytes (%) (Auto) 15.6 % Eosinophils (%) (Auto) 5.3 % Basophils (%) (Auto) 0.1 % Neutrophils # (Auto) 6.43 K/uL (1.4-6.5) Lymphocytes # (Auto) 2.54 K/uL (1.2-3.4) Monocytes # (Auto) 1.77 K/uL (0.11-0.59) Eosinophils # (Auto) 0.60 K/uL (0-0.5) Basophils # (Auto) 0.01 K/uL (0-0.2) RDW Standard Deviation 51.8 fL (36.4-46.3) RDW Coefficient of Variation 16.2 % (11.5-14.5) Immature Granulocyte % (Auto) 0.3 % Immature Granulocyte # (Auto) 0.03 K/uL (0.00-0.02) Nucleated RBC Absolute Count (auto) 0.04 K/uL (0-0) Nucleated Red Blood Cells % 0.4 % Polychromasia 1+ Target Cells 1+ Prothrombin Time 12.1 SECONDS (9.0-12.0) Prothromb Time International Ratio 1.1 (0.9-1.1) Activated Partial Thromboplast Time 33.3 SECONDS (21.0-31.0) Partial Thromboplastin Ratio 1.3 Anion Gap 10.0 mmol/L (3-11) Est Creatinine Clear Calc Drug Dose 77.4 ml/min Estimated GFR () 111.7 Estimated GFR (Non- 96.4 BUN/Creatinine Ratio 15.7 (10-20) Calcium Level 7.4 mg/dl (8.5-10.1) Phosphorus Level 1.1 mg/dl (2.5-4.9) Magnesium Level 2.2 mg/dl (1.8-2.4) Total Bilirubin 1.3 mg/dl (0.2-1) Direct Bilirubin 0.6 mg/dl (0-0.2) Aspartate Amino Transf (AST/SGOT) 42 U/L (15-37) Alanine Aminotransferase (ALT/SGPT) 18 U/L (12-78) Alkaline Phosphatase 77 U/L (45-117) Ammonia 34.0 umol/L (11-32) Total Protein 5.5 gm/dl (6.4-8.2) Albumin 2.0 gm/dl (3.4-5.0) Assessment and Plan 60 yo male with known liver cirrhosis, hep C, alcohol abuse. Admitted for general deterioration over a number of weeks with weight loss, diarrhea, and acute altered mental status over the past week. Reportedly has not had an alcoholic drink in the past 5 weeks. Metabolic encephalopathy - Multiple possible causes including pneumonia, dehydration from diuretics, malnutrition, hyperammonemia, Wernicke's, metabolic acidosis. Slow progress points more towards Wernicke's/Korsakoff than other pathology that has been reversed. - CT head - Nill acute - MRI Brain - No acute intracranial abnormality. Considerable chronic small vessel change - EEG - Generalized slowing and rare triphasic waves. These findings are consistent with encephalopathy. - Management of other abnormalities as below - Consulted neurology - Dr Granado Acute hypoxemic respiratory failure - Currently intubated - Management as per ICU. CPAP trial ongoing - Continue ipratropium and albuterol as per ICU Metabolic acidosis with raised anion gap - Lactic acidosis on admission, no ketones in urine. resolved Pneumonia - On CXR 04/10, continue cefepime (metronidazole also covering for aspiration) Hypophosphatemia - 1.1, will likely worsen with refeeding and malnutrition - Replacement as per ICU - 30 mmol Sodium Phos. Recommend stopping OG feeding. Hyperkalemia - Replete as per ICU protocol Hyperammonemia / hepatic encephalopathy - Continue to trend as no longer having loose stool as c.diff is treated therefore may go back up Dehydration / ANANYA - Resolved - I&Os - Trend Cr Melena - Heme positive stool, continuing black stool overnight. - Appreciate GI recommendations, not for EGD currently - Transfused 1 unit RBC 04/10 - Pantoprazole 40mg IV Q5H. Consider switching to BID once Hgb stable C. diff - Continue IV metronidazole + PO vancomycin. Consider stopping metronidazole. Continue vanc for 10 days. Chronic hepatitis C and alcohol abuse with cirrhosis - Appreciate GI recommendations, started rifaximin - Under Dr Babar previously, recently increased spironolactone and lasix in February Bipolar disorder - Holding home medications due to encephalopathy Alcohol abuse - will treat as Wernicke's encephalopathy with thiamine replacement. Apathy and gait instability noted by daughter. - Thiamine 500 mg/day TID for 3 days, then 250mg daily for 5 days. Initially having 500 mg daily since admission - Thiamine level pending (reference lab) VTE Prophylaxis - Chemical contraindicated due to melena requiring blood transfusion Code - Full Disposition - Continue management in ICU pending extubation. Resident Physician Supervision Note: I interviewed and examined the patient. Discussed with Dr. Haro and agree with findings and plan as documented in the note. Any exceptions or clarifications are listed here: None Documented By: Saad Yañez still intubated, no HPI or ROS obtainable from pt but does open eyes and reliably blink on varying versions of command vitals noted nad lungs diminished but no r/r/w good effort abd - soft nd nt hepatic / multifactorial encephalopathy / pneumonia / Cdiff / acute respiratory failure due to multiple factors -ongoing care as above -does seem to be showing slow progress, although overall prognosis is poor
--- NOTE | 2016-04-12 10:53 | Neurology Consultation ---
Neurology Consultation Date of Consultation: Apr 12, 2016. Attending Physician: Saad Yañez D.O. Primary Care Physician: Babak Hunt M.D. Reason for Consultation: Encephalopathy History of Present Illness Source: hospital records The patient is a 60-year-old male who was found at home by his daughter with confusion, lethargy, and weight loss. He was apparently lying on the couch making nonsensical statements such as "the ocean is behind me" and claimed to be salting his food although he had no food in front of him. He was then observed crawling on his hands and knees on the floor, wandering to the bathroom. She had last seen him about 5 weeks ago although he apparently lives with his son. He has not been eating or drinking well. Past medical history is significant for hepatic cirrhosis, hepatitis C, alcohol abuse, celiac disease, hepatic encephalopathy, GI bleed and bipolar disorder. He is prescribed BuSpar, Prozac, gabapentin. He does not take neuroleptics. Recent medical history also notable for syncope evaluation. Due to this patient's severe encephalopathy, obtundation and inability to protect his airway, he was intubated and placed on the ventilator while in the emergency department. Identified medical issues include hypoxemic respiratory failure, metabolic acidosis, suspected upper GI bleed, acute kidney injury, and hyperammonemia. This patient's renal function and ammonia levels have improved. He has been receiving high-dose intravenous thiamine and broad-spectrum antimicrobial therapy. I discussed this patient's case yesterday with the family practice nurse practitioner over the telephone. The patient had been exhibiting some unusual ocular movements as well as intermittent stiffening of the limbs with stimulation. Extensive neurological testing has been completed including a CT of the head at the time of presentation as well as a follow-up noncontrast brain MRI and electroencephalogram. Results of the imaging studies are as described below. The EEG revealed generalized slowing and intermittent triphasic waves consistent with encephalopathy. Past Medical/Surgical History Medical Problems: (1) Acute kidney injury Status: Acute (2) Alcoholism Status: Acute (3) Altered mental status Status: Acute (4) Anemia Status: Acute (5) Cellulitis Status: Acute (6) Decubitus ulcer Status: Acute (7) Dehydration Status: Acute (8) Elevated LFTs Status: Acute (9) Elevated lipase Status: Acute (10) GI bleed Status: Acute (11) Hypokalemia Status: Acute (12) Leukocytosis Status: Acute (13) Varices, esophageal Status: Acute Family History Heart disease and hypertension Social History Smoking Status: Current some day smoker Smokeless Tobacco Use: No Alcohol Use: none Drug Use: none Marital Status: Housing Status: lives with friends Occupation Status: disabled Allergies Coded Allergies: Gluten (Verified Allergy, Intermediate, PAINFUL JOINTS,ABD PAIN, 04/08/16) Lactose Intolerance (GI) (Unverified Allergy, Unknown, ABD PAIN, 04/08/16) NO KNOWN DRUG ALLERGIES (Unverified Allergy, Unknown, NONE, 04/08/16) Wheat (Verified Allergy, Unknown, GI intolerance, 04/08/16) Current Inpatient Medications Current Inpatient Medications Medications (Trade) Dose Ordered Sig/Vin Route Start Time Stop Time Status Last Admin Dose Admin Lorazepam 0.5 mg 0.5 mg Q4H PRN IV 04/09/16 02:45 05/09/16 02:44 04/12/16 04:06 0.5 MG Pantoprazole Sodium 40 mg/ Dextrose 100 ml @ 20 mls/hr Q5H IV 04/09/16 05:30 05/09/16 05:29 04/12/16 06:09 20 MLS/HR Metronidazole/Prmx (Flagyl / Nss/ Premixed Nss) 100 ml @ 100 mls/hr Q8@0200,1000,1800 IV 04/09/16 09:30 04/19/16 09:29 04/12/16 01:49 100 MLS/HR Fentanyl Citrate (Fentanyl Inj) 25 mcg Q2H PRN IV 04/09/16 08:45 04/23/16 08:44 04/12/16 01:10 25 MCG Cefepime HCl (Consult) 1 ea UD PRN N/A 04/09/16 08:45 05/09/16 08:44 Chlorhexidine Gluconate (Peridex Oral Soln) 15 ml BID MT 04/09/16 21:00 05/09/16 20:59 04/12/16 08:30 15 ML Vancomycin HCl (Vancomycin Oral Soln) 250 mg QID PO 04/09/16 13:00 04/19/16 12:59 04/12/16 08:29 250 MG Raspberry (Raspberry Syrup 5ML Cup) 5 ml QID PO 04/09/16 13:00 04/19/16 12:59 04/11/16 20:37 5 ML Rifaximin 200 mg 200 mg TID PO 04/09/16 21:00 05/09/16 20:59 04/12/16 08:30 200 MG Thiamine HCl/ Sodium Chloride (Vitamin B-1 Inj/ Nss 100ml) 105 ml @ 210 mls/hr DAILY IV 04/11/16 09:00 05/11/16 08:59 04/12/16 08:07 210 MLS/HR Enteral Nutritional Formula 1000 ml 1,000 ml trickle feed @ 10ml/hr OG 04/10/16 12:00 05/10/16 11:59 Future hold 04/11/16 15:02 1,000 ML Folic Acid/Syringe (Folvite Inj/ Syringe) 10 ml @ 5 mls/min QAM IV 04/11/16 09:00 05/11/16 08:59 04/12/16 08:29 5 MLS/MIN Ipratropium [place] (Atrovent Hfa Inhaler) 4 puffs Q6R INH 04/10/16 21:00 05/10/16 20:59 04/12/16 07:33 4 PUFFS Albuterol 4 puffs 4 puffs Q6R INH 04/10/16 21:00 05/10/16 20:59 04/12/16 07:33 4 PUFFS Cefepime HCl 2000 mg/Dextrose 112.5 ml @ 225 mls/hr Q12@0000,1200 IV 04/12/16 00:00 04/19/16 00:00 04/12/16 00:12 225 MLS/HR Potassium Phosphate/Sodium Chloride (Potassium Phosphate Inj/Nss 500ml) 510 ml @ 88 mls/hr TODAY@0630 IV 04/12/16 06:30 04/12/16 12:18 04/12/16 06:43 88 MLS/HR Review of Systems Unable to obtain from patient as he remains severely obtunded and remains on the ventilator Physical Exam Vital Signs (Past 24 Hrs): Date Time Temp Pulse Resp B/P Pulse Ox O2 Delivery O2 Flow Rate FiO2 04/12/16 08:00 100 Mechanical Ventilator 40 04/12/16 08:00 40 04/12/16 08:00 37.0 92 20 102/62 100 Mechanical Ventilator 40 04/12/16 06:00 84 17 99/64 100 Mechanical Ventilator 40 04/12/16 05:22 40 04/12/16 04:00 97 Mechanical Ventilator 40 04/12/16 04:00 40 04/12/16 03:58 36.7 96 20 95/57 98 Mechanical Ventilator 40 04/12/16 02:25 40 04/12/16 02:00 17 90/55 99 Mechanical Ventilator 40 04/12/16 00:00 36.8 88 21 101/66 100 Mechanical Ventilator 40 04/11/16 23:59 40 04/11/16 23:59 100 Mechanical Ventilator 40 04/11/16 23:20 40 04/11/16 22:00 80 17 92/58 100 Mechanical Ventilator 40 04/11/16 20:15 40 04/11/16 20:00 36.7 100/73 98 CPAP 40 04/11/16 20:00 40 04/11/16 20:00 98 CPAP 40 Mechanical Ventilator 04/11/16 18:00 100 24 86/55 99 CPAP 40 Mechanical Ventilator 04/11/16 17:28 40 04/11/16 16:00 36.6 97 16 95/71 100 CPAP 40 Mechanical Ventilator 04/11/16 16:00 40 04/11/16 16:00 97 CPAP 40 Mechanical Ventilator 04/11/16 14:15 40 04/11/16 14:00 94 24 104/71 99 CPAP 40 Mechanical Ventilator 04/11/16 12:00 100 CPAP 40 Mechanical Ventilator 04/11/16 12:00 40 04/11/16 12:00 36.6 90 24 98/68 100 CPAP 40 Mechanical Ventilator 04/11/16 11:49 40 04/11/16 10:00 76 16 92/59 99 BiPAP 40 Mechanical Ventilator The patient is lying in bed, in the intensive care unit, on the ventilator. He is a thin, chronically ill-appearing, elderly male. He is obtunded and will open his eyes briefly to voice. He does not follow commands but does look in my direction. There is no gaze preference. There is no spontaneous nystagmus. He exhibits forced eyelid closure. Pupils 3 mm, equal round and reactive to light. There is mild scleral icterus. Corneal reflexes and gag reflex intact. The patient winces and withdraws his limbs to noxious stimulation. He does not exhibit abnormal movements or posturing at this time. Deep tendon reflexes are brisk for the arms and legs symmetrically. He withdraws both lower limbs to plantar stimulation. The right plantar response is equivocal, the left plantar response is downgoing. Muscle tone is normal throughout. The patient does not cooperate for ophthalmoscopic examination. Cardiovascular examination reveals intact distal pulses, normal temperature of the limbs, and no distal edema. Laboratory Results Past 24 Hours: 04/12/16 05:09 Red Blood Count 2.62, Mean Corpuscular Volume 89.7, Mean Corpuscular Hemoglobin 32.1, Mean Corpuscular Hemoglobin Concent 35.7, Mean Platelet Volume 10.8, Neutrophils (%) (Auto) 56.4, Lymphocytes (%) (Auto) 22.3, Monocytes (%) (Auto) 15.6, Eosinophils (%) (Auto) 5.3, Basophils (%) (Auto) 0.1, Neutrophils # (Auto ) 6.43, Lymphocytes # (Auto) 2.54, Monocytes # (Auto) 1.77, Eosinophils # (Auto ) 0.60, Basophils # (Auto) 0.01 04/12/16 05:09 Test 04/12/16 05:09 White Blood Count 11.38 K/uL (4.8-10.8) Red Blood Count 2.62 M/uL (4.7-6.1) Hemoglobin 8.4 g/dL (14.0-18.0) Hematocrit 23.5 % (42-52) Mean Corpuscular Volume 89.7 fL (80-100) Mean Corpuscular Hemoglobin 32.1 pg (25-34) Mean Corpuscular Hemoglobin Concent 35.7 g/dl (32-36) Platelet Count 141 K/uL (130-400) Mean Platelet Volume 10.8 fL (7.4-10.4) Neutrophils (%) (Auto) 56.4 % Lymphocytes (%) (Auto) 22.3 % Monocytes (%) (Auto) 15.6 % Eosinophils (%) (Auto) 5.3 % Basophils (%) (Auto) 0.1 % Neutrophils # (Auto) 6.43 K/uL (1.4-6.5) Lymphocytes # (Auto) 2.54 K/uL (1.2-3.4) Monocytes # (Auto) 1.77 K/uL (0.11-0.59) Eosinophils # (Auto) 0.60 K/uL (0-0.5) Basophils # (Auto) 0.01 K/uL (0-0.2) RDW Standard Deviation 51.8 fL (36.4-46.3) RDW Coefficient of Variation 16.2 % (11.5-14.5) Immature Granulocyte % (Auto) 0.3 % Immature Granulocyte # (Auto) 0.03 K/uL (0.00-0.02) Nucleated RBC Absolute Count (auto) 0.04 K/uL (0-0) Nucleated Red Blood Cells % 0.4 % Polychromasia 1+ Target Cells 1+ Prothrombin Time 12.1 SECONDS (9.0-12.0) Prothromb Time International Ratio 1.1 (0.9-1.1) Activated Partial Thromboplast Time 33.3 SECONDS (21.0-31.0) Partial Thromboplastin Ratio 1.3 Anion Gap 10.0 mmol/L (3-11) Est Creatinine Clear Calc Drug Dose 77.4 ml/min Estimated GFR () 111.7 Estimated GFR (Non- 96.4 BUN/Creatinine Ratio 15.7 (10-20) Calcium Level 7.4 mg/dl (8.5-10.1) Phosphorus Level 1.1 mg/dl (2.5-4.9) Magnesium Level 2.2 mg/dl (1.8-2.4) Total Bilirubin 1.3 mg/dl (0.2-1) Direct Bilirubin 0.6 mg/dl (0-0.2) Aspartate Amino Transf (AST/SGOT) 42 U/L (15-37) Alanine Aminotransferase (ALT/SGPT) 18 U/L (12-78) Alkaline Phosphatase 77 U/L (45-117) Ammonia 34.0 umol/L (11-32) Total Protein 5.5 gm/dl (6.4-8.2) Albumin 2.0 gm/dl (3.4-5.0) Imaging I reviewed the images and radiologist's interpretation of the CT of the head obtained upon presentation as well as the follow-up brain MRI without contrast. The head CT is negative for hemorrhage or gross acute pathology. The brain MRI is negative for acute stroke. There is extensive, symmetrical, increased T2/ flair signal within the cerebral hemispheres and a nonspecific periventricular and subcortical distribution. Increased T2 signal is also observed in the brainstem, notably the posterior juve, periaqueductal area, and posterior region of the mid brain. There is no evidence of hemorrhage on MRI. Impression Encephalopathy. There appears to be a fair amount of supportive evidence of Wernicke's encephalopathy in light of this patient's history of alcohol abuse and other associated hepatic and gastrointestinal comorbidities. He could also have an element of hepatic encephalopathy. Dehydration, acute renal failure, and other metabolic abnormalities would also be likely contributing factors. There is no evidence of acute or subacute stroke or [employer] hemorrhage on recently completed imaging. There is no evidence of subclinical seizure activity recently completed EEG. Plan Agree with high-dose intravenous thiamine for treatment of suspected Wernicke's encephalopathy. Agree with folate supplementation as well given evidence of deficiency. Await thiamine blood level. Continue to monitor improving ammonia level. Continue supportive intensive medical care. Attempt to wean from sedatives and ventilator support as medically appropriate, as mental status improves. Please contact me if I may be of further assistance.
[2016-04-12 13:07] LABS: HEMATOCRIT 22.6 % (42-52)
[2016-04-12 13:39] LABS: BUN/CREATININE RATIO 18.8 (10-20); CALCIUM 7.3 mg/dl (8.5-10.1); CREATININE 0.74 mg/dl (0.60-1.40); MAGNESIUM 2.1 mg/dl (1.8-2.4); POTASSIUM 4.3 mmol/L (3.5-5.1)
[2016-04-12 13:43] LABS: PHOSPHORUS 2.5 mg/dl (2.5-4.9)
[2016-04-12] MEDS: THIAMINE HCL INJ 500 MG in SODIUM CHLORIDE 0.9% 100ML 100 ML IV SCH ×2 (14:26→20:48)
--- NOTE | 2016-04-12 17:19 | CRITICAL CARE PROGRESS NOTE ---
DATE: 04/12/2016 SUBJECTIVE: There were no acute events overnight. The patient's care was discussed in detail on multidisciplinary rounds. This is ventilator day #4. He is not having any endotracheal tube secretions and is still having some black "sticky" stools. He remains on a Protonix infusion. Presently, he is on CPAP 6/5 and is comfortable, but his mental status will not allow him to wake up and nod to questions. PHYSICAL EXAMINATION: VITAL SIGNS: Maximum temperature 36.8, heart rate 84-100, respiratory rate 17-24, blood pressure 90s-100s/50s-70s, and oxygen saturation 99%-100%. Vent settings CPAP 6/5 at 40%. 24-hour fluid balance positive 2 liters. GENERAL: He will open his eyes to his name, but does not follow commands. He will withdraw to painful stimuli in all 4 extremities. LUNGS: Coarse bilaterally with some rales in the left base. No rhonchi or wheezes. HEART: Mildly tachycardic, regular. No murmurs noted. ABDOMEN: Soft, flat, nondistended, and nontender with active bowel sounds. EXTREMITIES: Warm, cachectic appearing and distal pulses are 1+. LABORATORY DATA: White blood cell count 11.38, hemoglobin 8.4, hematocrit 23.5, and platelets 141. Sodium 141, potassium 4.3, chloride 113, CO2 of 20, BUN 14, creatinine 0.74, blood sugar 116, calcium 7.3, phosphorus 2.5, and magnesium 2.1. No new microbiology data other than a sputum from yesterday, the culture of which shows light normal madelyn. Portable chest x-ray from this morning was reviewed and shows bibasilar infiltrates, unchanged. MEDICATIONS AND INFUSIONS: Albuterol, chlorhexidine, tube feeds 10 mL per hour, fentanyl as needed, Atrovent, Ativan as needed, Flagyl day #4, Protonix infusion, rifaximin, thiamin, and vancomycin p.o. day #4. IMPRESSION: 1. Encephalopathy, initially felt to be secondary to decompensated cirrhosis and an elevated ammonia. This folic acid level is low and his thiamin level has not been resulted yet. The neurology service had seen him and we are considering Wernicke's encephalopathy as the cause of his altered mental status. He is on high dose thiamine, the dose of which was increased this morning. 2. Hypoxemic respiratory failure, primarily intubated for airway protection. This is ventilator day #4. He had his endotracheal tube changed 2 days ago due to a cuff problem. He has bibasilar infiltrates and no significant secretions. 3. Clostridium difficile colitis on enteral vancomycin as well as IV Flagyl day #4. 4. Probable gastrointestinal bleed. The GI service has been seeing him. He remains on rifaximin and has been getting serial blood counts, which have been stable. He received 1 unit of packed red blood cells 2 nights ago. He is on a Protonix infusion for that as well. Consider changing to b.i.d. Protonix. 5. History of hepatitis C. 6. Multiple electrolyte abnormalities and at risk for refeeding syndrome. He is on tube feeds at 10 mL per hour and we are not advancing them secondary to concerns of refeeding syndrome. 7. Sacral decubitus ulcers, previously treated with clindamycin. Wound care team has been seeing him. 8. Bipolar disorder. 9. Recent syncope, for which he was wearing a Holter monitor on arrival to the hospital. This has been discontinued. 10. History of alcohol abuse. 11. Severe metabolic acidosis on admission to the intensive care unit, resolved. 12. Elevated ammonia level, improved. PLAN: NEUROLOGIC: Continue to avoid sedatives if at all possible. I am sure he must have some discomfort and he is at risk for alcohol withdrawal as our history is sketchy regarding his alcohol use. Continue to wait the thiamin level and continue high dose supplementation with IV thiamin. I appreciate the neurology services consultation. PULMONARY: He has done well on CPAP and I would like to extubate him and continue to hope his mental status improves. Presently, I am relatively certain that he would not be able to protect his airway. Reassess daily. Continue bronchodilators. CARDIOVASCULAR: Watch volume status and consider Lasix. GASTROINTESTINAL: Do not advance tube feeds and continue to follow stool output. I will change his IV Protonix to b.i.d. INFECTIOUS DISEASE: He is on treatment for C. diff colitis. Although, he could have had an aspiration pneumonia, he really is not making any sputum to speak of. I have discontinued the cefepime. It was started initially due to the possibility of intra-abdominal sepsis or spontaneous bacterial peritonitis. HEMATOLOGY: Blood counts are stable. I do not think we need to check them serially unless his clinical condition changes. RENAL: No new issues. MUSCULOSKELETAL: His sacral ulcer is being cared for by the wound care team. I discussed his care with his daughter yesterday morning. I have not seen any 1 from his family today. Also, please note, he has elected an internal jugular triple lumen catheter. Critical care time 40 minutes. KASSID
[2016-04-12] MEDS: PANTOprazole INJ 40 MG in SYRINGE 0 ML IV SCH (20:47)
[2016-04-13] VITALS (22 sets, daily range): BP systolic 94–113; BP diastolic 55–78; PULSE 86–120; TEMP 36.4–36.8; O2SAT 92–100
[2016-04-13] MEDS: IPRATROPIUM BROMIDE HFA INHALER INH SCH ×2 (01:57→07:12)
[2016-04-13] MEDS: ALBUTEROL HFA 8 GM INHALER INH SCH ×2 (01:57→07:12)
[2016-04-13] MEDS: FENTANYL CITRATE INJ 50 MCG/1 ML 2 ML VIAL IV PRN ×2 (02:01→22:36)
[2016-04-13] MEDS: METRONIDAZOLE 500MG / NSS IV SCH ×3 (02:05→17:57)
[2016-04-13] MEDS: LORAZEPAM 2 MG/ML 1 ML VIAL IV PRN (03:35)
[2016-04-13] MEDS: IMPACT LIQ 1000 ML BAG OG SCH (04:49)
[2016-04-13 05:28] LABS: BASO % 0.2 %; BASO ABS # 0.02 K/uL (0-0.2); EOS % 5.6 %; HEMATOCRIT 23.4 % (42-52); IG% 0.3 %; LYMPH % 19.8 %; LYMPH ABS # 2.35 K/uL (1.2-3.4); MEAN CELL VOLUME 92.1 fL (80-100); MEAN CORPUSCULAR HEMOGLOBIN 32.3 pg (25-34); MEAN PLATELET VOLUME 10.5 fL (7.4-10.4); MONO % 18.4 %; NEUT % 55.7 %; PLATELET COUNT 151 K/uL (130-400); RED BLOOD COUNT 2.54 M/uL (4.7-6.1); WHITE BLOOD COUNT 11.87 K/uL (4.8-10.8)
[2016-04-13 05:40] LABS: INR 1.2 (0.9-1.1); PARTIAL THROMBOPLASTIN RATIO 1.3; PROTHROMBIN TIME (PATIENT) 12.7 SECONDS (9.0-12.0)
[2016-04-13 05:52] LABS: BUN/CREATININE RATIO 15.6 (10-20); CALCIUM 7.5 mg/dl (8.5-10.1); CREATININE 0.71 mg/dl (0.60-1.40); POTASSIUM 3.9 mmol/L (3.5-5.1)
[2016-04-13 06:01] LABS: PHOSPHORUS 1.8 mg/dl (2.5-4.9)
[2016-04-13 06:34] LABS: COMPLETE YES; POLYCHROMASIA 1+; TARGET CELLS 2+
[2016-04-13] MEDS ORDERED: POTASSIUM PHOS 3 MMOL/1 ML INFUSION IV STA (07:15)
--- NOTE | 2016-04-13 07:22 | DIAGNOSTIC IMAGING REPORT ---
CHEST ONE VIEW PORTABLE CLINICAL HISTORY: Pneumonia. Respiratory failure. COMPARISON STUDY: 04/12/2016 FINDINGS: The endotracheal tube 23 mm above the skyler. There is a left internal jugular central venous catheter. There is a nasogastric tube within stomach. The cardiac and mediastinal contours remain stable. There are persistent bibasal airspace opacities left greater than right, atelectatic versus inflammatory. There is minor blunting of the lateral costophrenic angles.[ IMPRESSION: Stable findings Electronically signed by: Cachorro Landry M.D. 04/13/2016 7:20 AM
[2016-04-13] MEDS ORDERED: POTASSIUM PHOSPHATE INJ 21 MMOL in SODIUM CHLORIDE 0.9% 500ML 500 ML IV SCH (08:00)
[2016-04-13] MEDS: PANTOprazole INJ 40 MG in SYRINGE 0 ML IV SCH ×2 (08:37→21:16)
[2016-04-13] MEDS: RIFAXIMIN TAB 200 MG TAB PO SCH ×3 (08:37→21:17)
[2016-04-13] MEDS: FoLIC ACID INJ 1 MG in SYRINGE 9.8 ML IV SCH (08:37)
[2016-04-13] MEDS: CHLORHEXIDINE GLUCONATE 0.12% 480 ML MT SCH (08:38)
[2016-04-13] MEDS: RASPBERRY SYRUP 5 ML UDP PO SCH ×4 (08:38→21:17)
[2016-04-13] MEDS: THIAMINE HCL INJ 500 MG in SODIUM CHLORIDE 0.9% 100ML 100 ML IV SCH ×3 (08:39→21:16)
[2016-04-13] MEDS: VANCOMYCIN HCL 250 MG/5 ML SOLN PO SCH ×4 (08:39→21:16)
[2016-04-13] MEDS: ALBUT/IPRATROP 3MG/0.5MG NEB 3 ML VIAL INH SCH ×2 (13:42→20:44)
[2016-04-13] MEDS: NYSTATIN SUSP 500,000 U/5 ML UDC PO SCH ×2 (17:56→21:17)
--- NOTE | 2016-04-13 18:04 | DIAGNOSTIC IMAGING REPORT ---
KUB CLINICAL HISTORY: Supine abdomen for feeding tube placement. COMPARISON STUDY: 04/02/2016 FINDINGS: The recently placed feeding tube is positioned with its tip projected over the stomach. There is no pathologic bowel dilatation. There are bibasilar pulmonary airspace opacities. IMPRESSION: The feeding tube is positioned within the stomach. Electronically signed by: Cachorro Landry M.D. 04/13/2016 6:02 PM
--- NOTE | 2016-04-13 18:49 | Progress Note ---
Subjective Date of Service: Apr 13, 2016. Subjective Pt evaluation today including: conversation w/ patient, physical exam, chart review, lab review, review of inpatient medication list extubated still no HPI or ROS obtainable, but smiles when i greet him and tries to answer questions - although generally monosyllabic and nonsensical Problem List Medical Problems: (1) Acute kidney injury Status: Acute (2) Alcoholism Status: Acute (3) Altered mental status Status: Acute (4) Anemia Status: Acute (5) Cellulitis Status: Acute (6) Decubitus ulcer Status: Acute (7) Dehydration Status: Acute (8) Elevated LFTs Status: Acute (9) Elevated lipase Status: Acute (10) GI bleed Status: Acute (11) Hypokalemia Status: Acute (12) Leukocytosis Status: Acute (13) Varices, esophageal Status: Acute Review of Systems unobtainable Objective Vital Signs Date Time Temp Pulse Resp B/P Pulse Ox O2 Delivery O2 Flow Rate FiO2 04/13/16 18:00 36.8 88 18 94/64 94 Room Air Mechanical Ventilator 04/13/16 16:00 36.8 87 18 103/69 97 Room Air Mechanical Ventilator 04/13/16 16:00 97 Room Air 04/13/16 14:00 36.8 94 21 97/67 99 Humidified Oxygen 40 04/13/16 13:37 100 22 97 Mask 10.0 40 04/13/16 12:00 30 04/13/16 12:00 36.8 86 19 107/73 100 Mechanical Ventilator 30 04/13/16 12:00 30 04/13/16 12:00 100 Mechanical Ventilator 30 04/13/16 10:35 30 04/13/16 10:00 36.8 95 14 108/66 98 Mechanical Ventilator 40 04/13/16 08:00 100 CPAP 40 Mechanical Ventilator 04/13/16 08:00 40 04/13/16 08:00 36.8 88 18 110/74 100 Mechanical Ventilator 40 04/13/16 07:10 40 04/13/16 06:00 93 17 108/73 100 Mechanical Ventilator 40 04/13/16 05:00 40 04/13/16 04:01 36.8 91 18 104/67 100 Mechanical Ventilator 40 04/13/16 04:00 40 04/13/16 04:00 100 Mechanical Ventilator 40 04/13/16 02:10 97 20 106/62 100 Mechanical Ventilator 40 04/13/16 01:58 40 04/13/16 00:00 36.8 90 19 110/73 100 Mechanical Ventilator 40 04/12/16 23:59 100 Mechanical Ventilator 40 04/12/16 23:59 40 04/12/16 22:57 40 04/12/16 22:00 98 22 109/71 100 Mechanical Ventilator 40 04/12/16 20:00 40 04/12/16 20:00 100 CPAP 40 Mechanical Ventilator 04/12/16 20:00 36.9 101 25 107/71 100 Mechanical Ventilator 40 04/12/16 19:12 40 Physical Exam General Appearance: no apparent distress (slow to respond, and see HPI as above , sitting up in bed, thick mucous on lip, but breathing unlabored and nad, extubated and on room air) Eyes: EOMI ENT: hearing grossly normal Neck: trachea midline Respiratory/Chest: lungs clear, normal breath sounds, no respiratory distress, no accessory muscle use Abdomen: non tender, soft Neurologic/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: 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 as tested (no focal deficits), + disoriented Skin: normal color, warm/dry Laboratory Results Last 24 Hours Test 04/13/16 05:11 White Blood Count 11.87 K/uL Red Blood Count 2.54 M/uL Hemoglobin 8.2 g/dL Hematocrit 23.4 % Mean Corpuscular Volume 92.1 fL Mean Corpuscular Hemoglobin 32.3 pg Mean Corpuscular Hemoglobin Concent 35.0 g/dl Platelet Count 151 K/uL Mean Platelet Volume 10.5 fL Neutrophils (%) (Auto) 55.7 % Lymphocytes (%) (Auto) 19.8 % Monocytes (%) (Auto) 18.4 % Eosinophils (%) (Auto) 5.6 % Basophils (%) (Auto) 0.2 % Neutrophils # (Auto) 6.61 K/uL Lymphocytes # (Auto) 2.35 K/uL Monocytes # (Auto) 2.18 K/uL Eosinophils # (Auto) 0.67 K/uL Basophils # (Auto) 0.02 K/uL RDW Standard Deviation 53.1 fL RDW Coefficient of Variation 16.9 % Immature Granulocyte % (Auto) 0.3 % Immature Granulocyte # (Auto) 0.04 K/uL Polychromasia 1+ Pappenheimer Bodies OCCASIONAL Target Cells 2+ Prothrombin Time 12.7 SECONDS Prothromb Time International Ratio 1.2 Activated Partial Thromboplast Time 34.2 SECONDS Partial Thromboplastin Ratio 1.3 Sodium Level 143 mmol/L Potassium Level 3.9 mmol/L Chloride Level 114 mmol/L Carbon Dioxide Level 22 mmol/L Anion Gap 7.0 mmol/L Blood Urea Nitrogen 11 mg/dl Creatinine 0.71 mg/dl Est Creatinine Clear Calc Drug Dose 89.0 ml/min Estimated GFR () 117.4 Estimated GFR (Non- 101.3 BUN/Creatinine Ratio 15.6 Random Glucose 92 mg/dl Calcium Level 7.5 mg/dl Phosphorus Level 1.8 mg/dl Magnesium Level 2.0 mg/dl Total Bilirubin 1.0 mg/dl Direct Bilirubin 0.5 mg/dl Aspartate Amino Transf (AST/SGOT) 39 U/L Alanine Aminotransferase (ALT/SGPT) 18 U/L Alkaline Phosphatase 77 U/L Ammonia 23.0 umol/L Total Protein 5.5 gm/dl Albumin 2.0 gm/dl Assessment and Plan 60 yo male with known liver cirrhosis, hep C, alcohol abuse. Admitted for general deterioration over a number of weeks with weight loss, diarrhea, and acute altered mental status over the past week. Reportedly has not had an alcoholic drink in the past 5 weeks. Metabolic encephalopathy - Multiple possible causes including pneumonia, dehydration from diuretics, malnutrition, hyperammonemia, Wernicke's, metabolic acidosis. Slow progress points more towards Wernicke's/Korsakoff than other pathology that has been reversed. - CT head - Nill acute - MRI Brain - No acute intracranial abnormality. Considerable chronic small vessel change - EEG - Generalized slowing and rare triphasic waves. These findings are consistent with encephalopathy. - Management of other abnormalities as below - Consulted neurology - Dr Granado - input noted - improving Acute hypoxemic respiratory failure - -extubated, likely was due to above, and pneumonia Metabolic acidosis with raised anion gap - Lactic acidosis on admission, no ketones in urine. resolved Pneumonia - On CXR 04/10, continue cefepime (metronidazole also covering for aspiration) Hypophosphatemia - 1.1, will likely worsen with refeeding and malnutrition - Replacement as per ICU - 30 mmol Sodium Phos. caution and close f/u when enteral intake increased Hyperkalemia - Replete as per ICU protocol Hyperammonemia / hepatic encephalopathy - Continue to trend as no longer having loose stool as c.diff is treated therefore may go back up Dehydration / ANANYA - Resolved - I&Os - Trend Cr Melena - Heme positive stool, fortunately no significant drop in Hgb last 48hrs - Appreciate GI recommendations, not for EGD currently - Transfused 1 unit RBC 04/10 - Pantoprazole 40mg IV Q5H. Consider switching to BID by tomorrow if Hgb still stable C. diff - Continue IV metronidazole + PO vancomycin. Continue vanc for 10 days. Chronic hepatitis C and alcohol abuse with cirrhosis - Appreciate GI recommendations, started rifaximin - Under Dr Eckert previously, recently increased spironolactone and lasix in February Bipolar disorder - Holding home medications due to encephalopathy Alcohol abuse - will treat as Wernicke's encephalopathy with thiamine replacement. Apathy and gait instability noted by daughter. - Thiamine 500 mg/day TID for 3 days, then 250mg daily for 5 days. Initially having 500 mg daily since admission - Thiamine level pending (reference lab) VTE Prophylaxis - Chemical contraindicated due to melena requiring blood transfusion Code - Full
[2016-04-13] MEDS: ALBUMIN HUMAN 25% 12.5 GM/50 ML VIAL IV SCH (22:42)
--- NOTE | 2016-04-13 23:35 | CRITICAL CARE PROGRESS NOTE ---
DATE: 04/13/2016 SUBJECTIVE: There were no acute events overnight. The patient was seen earlier today when he was on the ventilator. At that time, he would awaken to voice. His care was discussed with his bedside nurse, Kay. He has been tolerating his tube feeds at 10 mL per hour. He is still having some black bowel movements. PHYSICAL EXAMINATION: VITAL SIGNS: Maximum temperature 37.5, heart rate 91-104, respiratory rate 17-25, blood pressure 95-108/59-73, oxygen saturation 100%, ventilator settings are assist control, rate 12, tidal volume 450, FiO2 40%, PEEP 5. He was on CPAP 6/5 for several hours this morning. A 24-hour fluid balance positive 1.3 liters. GENERAL: He would awaken to voice and was following commands inconsistently. He was moving all 4 extremities and moved his right hand up toward his endotracheal tube. LUNGS: Coarse bilaterally. No rales, rhonchi or wheezes. HEART: Regular rate and rhythm. ABDOMEN: Moderately firm, nontender, active bowel sounds. EXTREMITIES: Cachectic, no edema. LABORATORY DATA: White blood cell count 11.87, hemoglobin 8.2, hematocrit 23.4, platelets 151. Sodium 143, potassium 3.9, chloride 114, CO2 22, BUN 11, creatinine 0.7, calcium 7.5, phosphorus 1.8. Total bilirubin 1.0, direct bilirubin 0.5, AST 39, ALT 18, ammonia 23, total protein 5.5, albumin 2.0. PT 12.7, PTT 34.2 and INR 1.2. Sputum culture from April 11 shows Elayne albicans, likely colonization. Blood cultures April 08, no growth to date. MEDICATIONS: DuoNeb, chlorhexidine impact at 10 mL per hour, fentanyl, folic acid, Flagyl, Protonix, rifaximin, thiamine, vancomycin. IMPRESSION: 1. Clostridium difficile colitis, on IV Flagyl and enteral vancomycin, both day #5. 2. Metabolic encephalopathy, possibly secondary to thiamine deficiency. He remains on high dose thiamine and his last dose will be today. 3. Acute hypoxemic respiratory failure, intubated secondary to altered mental status and inability to protect airway. He now has a gag and a cough. 4. History of hepatitis, grade 1 esophageal varices 5. Anemia status post transfusion of 1 unit packed red blood cells. 6. Protein calorie malnutrition with risk for refeeding syndrome. Since he has been extubated, he no longer has a feeding tube. 7. Heme positive stool, previously on Protonix infusion, now on Protonix b.i.d. 8. Sacral decubitus ulcer. 9. History of alcohol abuse and family is not sure whether or not he has been drinking recently. They believe he has stopped. 10. Hypophosphatemia, improved. 11. Possible aspiration pneumonia versus pneumonitis. PLAN: NEUROLOGIC: Minimize sedating medications. I have discontinued the Ativan, but will keep the fentanyl. Although he has liver disease, I think we could use a little bit of acetaminophen for pain as well. Continue thiamine supplementation. Change to 100 mg b.i.d. tomorrow. PULMONARY: He has been successfully extubated, but whether or not he will cough on command, is unclear. He is at risk for reintubation secondary to atelectasis. Consider intermittant bipap for pulmonary recruitment. PULMONARY: Continue DuoNebs. CARDIOVASCULAR: No acute issues. GASTROINTESTINAL: Continue proton pump inhibitor b.i.d. I would like to add back his nadolol, however, his blood pressure is not satisfactory to do that. RENAL: He has markedly positive fluid balance for his admission thus far. Consider IV Lasix. MISCELLANEOUS: Consult physical therapy, provide DVT and GI prophylaxis. Speech therapy consult. I spent 20 minutes with his children, Estrellita, Ignacio and Jaspreet this morning. I updated them extensively. Questions were answered and support was provided. Critical care time 1 hour. KARI
[2016-04-14] VITALS (18 sets, daily range): BP systolic 82–113; BP diastolic 51–72; PULSE 90–118; TEMP 36.4–36.7; O2SAT 91–100
[2016-04-14] MEDS: FENTANYL CITRATE INJ 50 MCG/1 ML 2 ML VIAL IV PRN ×2 (00:42→03:03)
[2016-04-14] MEDS: METRONIDAZOLE 500MG / NSS IV SCH ×3 (01:26→18:12)
[2016-04-14] MEDS: ALBUT/IPRATROP 3MG/0.5MG NEB 3 ML VIAL INH SCH ×4 (01:55→20:05)
[2016-04-14] MEDS ORDERED: NURSING VERBAL MED ORDER ONE (04:45)
[2016-04-14] MEDS ORDERED: DiphenhydrAMINE HCL 50 MG/ML VIAL IV STA (04:46)
[2016-04-14] MEDS: ALBUMIN HUMAN 25% 12.5 GM/50 ML VIAL IV SCH (05:13)
[2016-04-14 05:52] LABS: BASO % 0.2 %; BASO ABS # 0.03 K/uL (0-0.2); EOS % 1.9 %; HEMATOCRIT 24.4 % (42-52); IG% 0.2 %; LYMPH % 16.4 %; LYMPH ABS # 2.15 K/uL (1.2-3.4); MEAN CELL VOLUME 93.5 fL (80-100); MEAN CORPUSCULAR HEMOGLOBIN 32.6 pg (25-34); MEAN CORPUSCULAR HGB CONC 34.8 g/dl (32-36); MEAN PLATELET VOLUME 10.4 fL (7.4-10.4); NEUT % 64.3 %; PLATELET COUNT 172 K/uL (130-400); RED BLOOD COUNT 2.61 M/uL (4.7-6.1); WHITE BLOOD COUNT 13.12 K/uL (4.8-10.8)
[2016-04-14 06:11] LABS: BUN/CREATININE RATIO 10.9 (10-20); CALCIUM 7.8 mg/dl (8.5-10.1); CREATININE 0.73 mg/dl (0.60-1.40); MAGNESIUM 1.8 mg/dl (1.8-2.4); POTASSIUM 3.9 mmol/L (3.5-5.1)
[2016-04-14 06:18] LABS: PHOSPHORUS 1.8 mg/dl (2.5-4.9)
[2016-04-14 06:53] LABS: COMPLETE YES; POLYCHROMASIA 1+; TARGET CELLS 1+
[2016-04-14] MEDS ORDERED: POTASSIUM PHOS 3 MMOL/1 ML INFUSION IV STA (07:28)
[2016-04-14] MEDS: VANCOMYCIN HCL 250 MG/5 ML SOLN PO SCH ×4 (07:29→20:40)
[2016-04-14] MEDS: NYSTATIN SUSP 500,000 U/5 ML UDC PO SCH ×4 (07:29→20:39)
[2016-04-14] MEDS: RASPBERRY SYRUP 5 ML UDP PO SCH ×4 (07:29→20:40)
[2016-04-14] MEDS: RIFAXIMIN TAB 200 MG TAB PO SCH ×3 (07:29→20:40)
[2016-04-14] MEDS: PANTOprazole INJ 40 MG in SYRINGE 0 ML IV SCH ×2 (07:29→20:39)
[2016-04-14] MEDS: FoLIC ACID INJ 1 MG in SYRINGE 9.8 ML IV SCH (07:29)
[2016-04-14] MEDS ORDERED: POTASSIUM PHOSPHATE INJ 21 MMOL in SODIUM CHLORIDE 0.9% 500ML 500 ML IV SCH (08:00)
[2016-04-14] MEDS ORDERED: FUROSEMIDE INJ 20 MG in SYRINGE 0 ML IV ONE (08:00)
--- NOTE | 2016-04-14 08:17 | DIAGNOSTIC IMAGING REPORT ---
SINGLE VIEW CHEST CLINICAL HISTORY: Respiratory failure. Extubation. FINDINGS: An AP, portable, supine chest radiograph is compared to study performed 04/13/2016. The examination is degraded by portable technique and patient rotation. The endotracheal tube has been removed. An enteric tube projects over the stomach. The I internal jugular central venous catheter is unchanged in position. The cardiomediastinal silhouette is unremarkable. There is atherosclerotic calcification of the thoracic aorta. Perihilar airspace opacities persist and appear increased from yesterday. Layering pleural effusions are identified. No no pneumothorax is seen. The skeletal structures are osteopenic. The bony thorax is grossly intact. IMPRESSION: 1. The endotracheal tube has been removed. Additional lines and tubes as above. 2. There are increasing perihilar airspace opacities as compared to yesterday. This could represent a component of pulmonary edema or possibly multifocal pneumonia. Clinical correlation will be required. 3. Layering pleural effusions. Electronically signed by: Manuel Bran M.D. 04/14/2016 8:15 AM
[2016-04-14] MEDS: GABAPENTIN 250 MG/5 ML 470 ML BTL PO SCH ×2 (08:23→20:40)
[2016-04-14] MEDS: HEPARIN SOD 5000 UNIT/0.5 ML CARP SQ SCH ×2 (08:24→20:44)
[2016-04-14] MEDS ORDERED: THIAMINE HCL 100 MG/ML 2 ML VIAL IV SCH (09:00)
[2016-04-14] MEDS ORDERED: THIAMINE HCL 100 MG/ML 2 ML VIAL IM SCH (09:00)
[2016-04-14] MEDS: LORAZEPAM 2 MG/ML 1 ML VIAL IV PRN (11:05)
[2016-04-14] MEDS: THIAMINE HCL INJ 250 MG in SODIUM CHLORIDE 0.9% 100ML 100 ML IV SCH (12:18)
[2016-04-14 15:49] LABS: BUN/CREATININE RATIO 10.8 (10-20); CALCIUM 7.9 mg/dl (8.5-10.1); CREATININE 0.77 mg/dl (0.60-1.40); POTASSIUM 3.7 mmol/L (3.5-5.1)
[2016-04-14 16:06] LABS: PHOSPHORUS 2.6 mg/dl (2.5-4.9)
[2016-04-14 16:30] LABS: URINE APPEARANCE CLEAR (CLEAR); URINE COLOR DK YELLOW; URINE NITRITE NEG (NEG); URINE PH 5.5 (4.5-7.5); URINE SPECIFIC GRAVITY 1.016 (1.000-1.030); UROBILINOGEN NEG (NEG)
[2016-04-14 16:32] LABS: MANUAL MICROSCOPIC REQUIRED? NO; REVIEW REQ? NO
[2016-04-14 16:33] LABS: URINE BILIRUBIN NEG (NEG)
--- NOTE | 2016-04-14 17:44 | CRITICAL CARE PROGRESS NOTE ---
DATE: 04/09/2016 HISTORY OF PRESENT ILLNESS: This is an unfortunate 60-year-old gentleman with a history of cirrhosis, hepatitis C and alcohol abuse who was seen in the Emergency Department on April 09 after he was found to be lethargic. He had been on clindamycin secondary to decubitus ulcers which were being followed by the wound care clinic. He was intubated in the Emergency Department and transferred to the intensive care unit where he was maintained on a Protonix infusion secondary to black stool. He was found to be C. diff positive and was placed on IV Flagyl as well as oral vancomycin. Additionally, his ammonia level was elevated and he was started on Xifaxan. His mental status improved over the week after being worked up with CT, MRI as well as improving his ammonia level and giving him thiamine supplementation. His thiamine level is still pending. He was successfully extubated on April 13. He has been seen by the neurology service. There were no acute events overnight. He has remained extubated and has periods of tachypnea and tachycardia. He is not phonating very well and sometimes has a lot of upper airway noise when he gets tachypneic. He did not have a bowel movement in the past 24 hours. He denies pain. He tries to get out of bed or out of the chair despite instructions not to do so. PHYSICAL EXAMINATION: VITAL SIGNS: Maximum temperature 36.8, heart rate 88-110, respiratory rate 17-23, blood pressure 98-110/60s-70s, oxygen saturation 95% on 2 liters nasal cannula. 24-hour fluid balance is positive 978 mL. GENERAL: He is awake and oriented to the hospital. He does not know the year. His Cam assessment is positive. He moves all 4 extremities but is profoundly diffusely weak. He has difficulty phonating. LUNGS: Clear to auscultation bilaterally. No rales, rhonchi or wheezes. HEART: Tachycardic, regular. ABDOMEN: Firm but nontender, nondistended with active bowel sounds. EXTREMITIES: Thin and cachectic. LABORATORY DATA: White blood cell count 13.12, hemoglobin 8.5, hematocrit 25.4, platelets 172. Sodium 144, potassium 3.7, chloride 112, CO2 20, BUN 8, creatinine 0.77. Phosphorus 1.8, calcium 7.8, albumin 2.3. MEDICATIONS: DuoNeb impact 10 mL per hour, p.r.n. fentanyl, Prozac, folic acid, gabapentin, subcutaneous heparin, Ativan, Flagyl, Nystatin, Protonix b.i.d., rifaximin, thiamin, vancomycin. IMAGING DATA: Portable chest x-ray from this morning has been reviewed. He has some increasing perihilar airspace opacities. Basilar atelectasis. LABORATORY DATA: Cultures were reviewed. IMPRESSION: 1. Metabolic encephalopathy, possibly secondary to thiamine deficiency. He has been on high dose thiamine and will receive 250 mg IV daily x3 days then will get 100 mg IV daily. He also had doses of 500mg. 2. Clostridium difficile colitis. Lasix IV, Flagyl and enteral vancomycin. 3. Acute hypoxemic respiratory failure status post extubation April 13. He has been treated for possible aspiration pneumonia and was on cefepime for 4 days and Rocephin for 1 day prior to that. 4. Anemia, stable status post 1 unit packed red blood cells. 5. Protein calorie malnutrition with risk for refeeding syndrome. 6. Heme positive stool and history of grade 1 esophageal varices. Initially on Protonix infusion and now on Protonix b.i.d. GI following. 7. Sacral decubitus ulcer for which the wound care team is following him. 8. History of alcohol abuse and unclear whether or not he has been drinking recently and is going through alcohol withdrawal. 9. Hypophosphatemia, improved. 10. Possible aspiration pneumonia versus pneumonitis, as noted above he received Rocephin as well as cefepime during the time he was on Flagyl and vancomycin. PLAN: NEUROLOGIC: Continue Ativan 0.5 mg IV q. 4 hours p.r.n., restlessness. He also has p.r.n. fentanyl for pain. Await any further recommendations from the neurology service. He has had an EEG, which showed no seizures. He continues on thiamine supplementation. I have resumed his gabapentin at a lower dose and I have also resumed his Prozac. PULMONARY: He may benefit from some intermittent BiPAP since he cannot do incentive spirometry. He certainly at continued risk for aspiration. He had a speech and swallowing evaluation today and did not do well. Continue bronchodilators. GASTROINTESTINAL: He came to the intensive care unit with black stools and concern for GI bleed. The GI service did not care to do any further investigation. He was on a Protonix infusion which has been changed to IV Protonix b.i.d. He is receiving tube feeds and hopefully we can increase the rate of those soon. His electrolyte abnormalities seem to be improving. CARDIOVASCULAR: He has sinus tachycardia intermittently. He may still be having an element of alcohol withdrawal. I think he is volume overloaded and he received Lasix 20 mg IV x1 this morning. He has a left internal jugular triple lumen catheter placed April 09. INFECTIOUS DISEASE: Continue vancomycin and Flagyl. He is definitely having less diarrhea. Watch for any signs indicating a need to broaden antibiotic coverage. I do not think his decubitus ulcer is infected. RENAL: No acute issues. Lasix 20 mg IV given today. Consider resuming his outpatient diuretics. Await thiamine level. MISCELLANEOUS: Continue thrombosis prophylaxis with subcutaneous heparin as well as b.i.d. Protonix for GI prophylaxis. He has been ordered physical therapy and speech therapy. He was out of bed today. Consider ENT consult if he continues to be hoarse. Overall, he has done pretty well this week, but is definitely at risk for decompensation from his chronic illnesses along with his difficulty swallowing. This along with his delirium and confusion have motivated me to keep him in the unit for today. Reevaluate transfer to the floor tomorrow. KARI
--- NOTE | 2016-04-14 18:52 | Progress Note ---
Subjective Date of Service: Apr 14, 2016. Subjective Pt evaluation today including: conversation w/ patient, physical exam, chart review, lab review, review of studies (cxr), conversation w/ environmental remediation consultant ( critical care), review of inpatient medication list Pain: abdomen - mild PO Intake: NG tube feedings only at trophic rate Voiding: rangel catheter in place Pt states it is 2017 and that he is in the hospital. He is very weak. Tele stable overnight. He continues with cough, and at times gets quite dyspneic with borderline stridor. Problem List Medical Problems: (1) Acute kidney injury Status: Acute (2) Alcoholism Status: Acute (3) Altered mental status Status: Acute (4) Anemia Status: Acute (5) Cellulitis Status: Acute (6) Decubitus ulcer Status: Acute (7) Dehydration Status: Acute (8) Elevated LFTs Status: Acute (9) Elevated lipase Status: Acute (10) GI bleed Status: Acute (11) Hypokalemia Status: Acute (12) Leukocytosis Status: Acute (13) Varices, esophageal Status: Acute Review of Systems Constitutional: No fever ENT: + problem reported (hoarse voice) Respiratory: + dyspnea at rest Cardiac: No chest pain Abdomen: + pain, + see HPI Objective Vital Signs Date Time Temp Pulse Resp B/P Pulse Ox O2 Delivery O2 Flow Rate FiO2 04/14/16 10:34 112 91 04/14/16 10:00 114 22 103/67 93 Nasal Cannula 2.0 04/14/16 08:08 101 18 92 Room Air 04/14/16 08:00 108 20 111/67 98 Nasal Cannula 2.0 04/14/16 08:00 95 Nasal Cannula 2.0 04/14/16 06:00 109 23 110/69 95 Nasal Cannula 2.0 04/14/16 04:00 36.7 110 18 101/63 94 04/14/16 04:00 93 Room Air Mechanical Ventilator 04/14/16 02:00 109 17 110/72 94 04/14/16 01:55 108 18 93 Room Air 04/14/16 00:01 36.4 103 19 102/62 94 Room Air 04/13/16 23:59 94 Room Air Mechanical Ventilator 04/13/16 23:20 100 18 113/78 94 Room Air 04/13/16 23:17 113/78 04/13/16 22:39 103 18 106/74 95 Room Air 04/13/16 22:03 98/55 04/13/16 22:00 120 26 92 04/13/16 21:59 120 26 94/64 93 04/13/16 20:00 36.4 100 21 100/65 95 Room Air Mechanical Ventilator 04/13/16 20:00 95 Room Air Mechanical Ventilator 04/13/16 19:58 100 18 100/65 95 04/13/16 19:40 88 18 96 Room Air 04/13/16 18:00 36.8 88 18 94/64 94 Room Air Mechanical Ventilator 04/13/16 16:00 36.8 87 18 103/69 97 Room Air Mechanical Ventilator 04/13/16 16:00 97 Room Air 04/13/16 14:00 36.8 94 21 97/67 99 Humidified Oxygen 40 04/13/16 13:37 100 22 97 Mask 10.0 40 04/13/16 12:00 30 04/13/16 12:00 36.8 86 19 107/73 100 Mechanical Ventilator 30 04/13/16 12:00 30 04/13/16 12:00 100 Mechanical Ventilator 30 Physical Exam General Appearance: + mild distress (with movement in the bed he gets tachypneic, dyspneic, and there is borderline stridor), + cachetic, + thin ENT: pharynx normal (no thrush, MMM), + muffled/hoarse voice Neck: no JVD, + pertinent finding (left IJ CVC clean) Respiratory/Chest: + respiratory distress (as noted above), + rales (bases only ), + stridor (borderline) Cardiovascular: no gallop, no murmur, + tachycardia Abdomen: normal bowel sounds, non tender, soft, no organomegaly, + distended ( mild) Extremities: no pedal edema Neurologic/Psychiatric: + pertinent finding (EOMI, no nystagmus or LETICIA; no asterixis or tremor noted) Laboratory Results Last 24 Hours Test 04/14/16 05:15 White Blood Count 13.12 K/uL Red Blood Count 2.61 M/uL Hemoglobin 8.5 g/dL Hematocrit 24.4 % Mean Corpuscular Volume 93.5 fL Mean Corpuscular Hemoglobin 32.6 pg Mean Corpuscular Hemoglobin Concent 34.8 g/dl Platelet Count 172 K/uL Mean Platelet Volume 10.4 fL Neutrophils (%) (Auto) 64.3 % Lymphocytes (%) (Auto) 16.4 % Monocytes (%) (Auto) 17.0 % Eosinophils (%) (Auto) 1.9 % Basophils (%) (Auto) 0.2 % Neutrophils # (Auto) 8.43 K/uL Lymphocytes # (Auto) 2.15 K/uL Monocytes # (Auto) 2.23 K/uL Eosinophils # (Auto) 0.25 K/uL Basophils # (Auto) 0.03 K/uL RDW Standard Deviation 54.8 fL RDW Coefficient of Variation 17.7 % Immature Granulocyte % (Auto) 0.2 % Immature Granulocyte # (Auto) 0.03 K/uL Polychromasia 1+ Pappenheimer Bodies OCCASIONAL Target Cells 1+ Sodium Level 142 mmol/L Potassium Level 3.9 mmol/L Chloride Level 113 mmol/L Carbon Dioxide Level 21 mmol/L Anion Gap 8.0 mmol/L Blood Urea Nitrogen 8 mg/dl Creatinine 0.73 mg/dl Est Creatinine Clear Calc Drug Dose 91.1 ml/min Estimated GFR () 116.0 Estimated GFR (Non- 100.1 BUN/Creatinine Ratio 10.9 Random Glucose 90 mg/dl Calcium Level 7.8 mg/dl Phosphorus Level 1.8 mg/dl Magnesium Level 1.8 mg/dl Total Bilirubin 0.8 mg/dl Direct Bilirubin 0.4 mg/dl Aspartate Amino Transf (AST/SGOT) 37 U/L Alanine Aminotransferase (ALT/SGPT) 19 U/L Alkaline Phosphatase 77 U/L Total Protein 5.8 gm/dl Albumin 2.3 gm/dl Assessment and Plan 60yo male with known cirrhosis, hep C, and chronic alcohol abuse with: 1. Metabolic encephalopathy - multifactorial - slow improving. Suspicion of Wernicke's encephalopathy in setting of other factors. Large w/u including MRI brain, EEG, etc otherwise wnl. Thiamine level pending; remains on IV thiamine. I don't see evidence of etoh withdrawal or hepatic encephalopathy on exam today. 2. Acute hypoxemic respiratory failure - likely 2nd to pneumonia. Resolved. Completed full course of IV antibiotics. 3. c. diff colitis - day #6 of enteric vanco/IV flagyl. Need for latter given no toxic megacolon? 4. hoarse voice - likely 2nd to recent intubation and laryngeal edema. Consider modest amount of steroids in light of intermittent stridor. 5. hypophosphatemia - replace; defer to critical care team. 6. recent hepatic encephalopathy - resolved; recent ammonia level also normal. continues on rifaximin. 7. recent melena stools - H/H stable. s/p 1 unit PRBCs on 04/10/16. Cont IV PPI twice daily. 8. chronic hepatitis C cirrhosis with alcohol abuse/dependence - agree with IV lasix as recommended by Dr. Mclaughlin restart aldactone when able needs etoh abstinence after this hospitalization 9. bipolar disorder - was taking prozac BID and gabapentin BID these have been resumed albeit at lower doses consider titration tomorrow if stable and mentation is again improved 10. folic acid deficiency - continue IV folic acid 11. concern of Wernicke's encephalopathy - continue IV thiamine daily thiamine level pending (reference lab) 12. deconditioning - severe PT, OT 13. celiac disease - gluten free diet when taking po 14. FEN - defer enteral feedings to critical care team along with phos replacement. Repeat labs in AM. 15. DVT proph - heparin cautiously restarted; also has SCDs in place to remain in ICU at least 1 more day Continued [facility] stay due to: ambulation difficulties, multiple IV medications needed, home environment unsafe for pt Discharge planning: uncertain
[2016-04-15] VITALS (15 sets, daily range): BP systolic 97–115; BP diastolic 65–79; PULSE 81–118; TEMP 36.4–36.8; O2SAT 91–100
[2016-04-15] MEDS: METRONIDAZOLE 500MG / NSS IV SCH ×3 (01:56→17:21)
[2016-04-15] MEDS: ALBUT/IPRATROP 3MG/0.5MG NEB 3 ML VIAL INH SCH ×4 (02:16→20:35)
[2016-04-15] MEDS: LORAZEPAM 2 MG/ML 1 ML VIAL IV PRN (02:31)
[2016-04-15] MEDS: FENTANYL CITRATE INJ 50 MCG/1 ML 2 ML VIAL IV PRN (03:50)
[2016-04-15 04:50] LABS: BASO % 0.1 %; BASO ABS # 0.02 K/uL (0-0.2); HEMATOCRIT 25.2 % (42-52); IG% 0.3 %; LYMPH % 18.7 %; LYMPH ABS # 2.59 K/uL (1.2-3.4); MEAN CELL VOLUME 95.8 fL (80-100); MEAN CORPUSCULAR HEMOGLOBIN 33.1 pg (25-34); MEAN CORPUSCULAR HGB CONC 34.5 g/dl (32-36); MEAN PLATELET VOLUME 10.1 fL (7.4-10.4); MONO % 17.9 %; PLATELET COUNT 179 K/uL (130-400); RED BLOOD COUNT 2.63 M/uL (4.7-6.1); WHITE BLOOD COUNT 13.84 K/uL (4.8-10.8)
[2016-04-15 05:10] LABS: BUN/CREATININE RATIO 12.5 (10-20); CALCIUM 7.9 mg/dl (8.5-10.1); CREATININE 0.7 mg/dl (0.60-1.40); POTASSIUM 3.8 mmol/L (3.5-5.1)
[2016-04-15 05:11] LABS: PHOSPHORUS 1.6 mg/dl (2.5-4.9)
[2016-04-15 06:04] LABS: MAGNESIUM 1.8 mg/dl (1.8-2.4)
[2016-04-15 06:32] LABS: COMPLETE YES; POLYCHROMASIA 1+; TARGET CELLS 2+
[2016-04-15] MEDS ORDERED: NURSING VERBAL MED ORDER ONE (06:45)
[2016-04-15] MEDS: RASPBERRY SYRUP 5 ML UDP PO SCH ×4 (07:24→22:02)
[2016-04-15] MEDS: NYSTATIN SUSP 500,000 U/5 ML UDC PO SCH ×4 (07:24→22:04)
[2016-04-15] MEDS: FoLIC ACID INJ 1 MG in SYRINGE 9.8 ML IV SCH (07:24)
[2016-04-15] MEDS: VANCOMYCIN HCL 250 MG/5 ML SOLN PO SCH ×4 (07:24→22:02)
[2016-04-15] MEDS: MAGNESIUM SULFATE 1GM / D5W 1 GM in PREMIXED IN D5W 100 ML IV SCH ×2 (07:25→08:21)
[2016-04-15] MEDS: PANTOprazole INJ 40 MG in SYRINGE 0 ML IV SCH (07:25)
[2016-04-15] MEDS: GABAPENTIN 250 MG/5 ML 470 ML BTL PO SCH ×2 (07:25→22:02)
[2016-04-15] MEDS: RIFAXIMIN TAB 200 MG TAB PO SCH ×2 (07:25→12:26)
[2016-04-15] MEDS: THIAMINE HCL INJ 250 MG in SODIUM CHLORIDE 0.9% 100ML 100 ML IV SCH (07:25)
[2016-04-15] MEDS: FLUOXETINE HCL 20 MG/5 ML UDP PO SCH (07:25)
[2016-04-15] MEDS: HEPARIN SOD 5000 UNIT/0.5 ML CARP SQ SCH ×2 (07:26→22:07)
--- NOTE | 2016-04-15 07:32 | DIAGNOSTIC IMAGING REPORT ---
CHEST ONE VIEW PORTABLE CLINICAL HISTORY: Follow up atelectasis. COMPARISON STUDY: Chest radiograph April 14, 2016. FINDINGS: The tip of the feeding tube is within the mid body of the stomach. A left internal jugular central line remains in place. There is no pneumothorax. Small bilateral pleural effusions persist. Interstitial thickening with bilateral opacities persist. IMPRESSION: 1. No significant change in interstitial thickening with bilateral opacities which could reflect an infectious process or mild pulmonary edema. 2. Persistent bilateral pleural effusions. 3. No pneumothorax. Electronically signed by: Fan Bolaños M.D. 04/15/2016 7:30 AM
[2016-04-15] MEDS ORDERED: CYANOCOBALAMIN 500 MCG TAB (VIT B-12) PEG ONE (11:26)
[2016-04-15 12:05] LABS: PHOSPHORUS 1.6 mg/dl (2.5-4.9); PREALBUMIN 6.2 mg/dl (20-40)
[2016-04-15] MEDS ORDERED: ASCORBIC ACID 500 MG TAB NG ONE (12:15)
[2016-04-15] MEDS ORDERED: PROPRANOLOL HCL 10 MG TAB PO ONE (12:15)
[2016-04-15] MEDS ORDERED: POTASSIUM PHOSPHATE INJ 24 MMOL in SODIUM CHLORIDE 0.9% 500ML 500 ML IV ONE (12:15)
[2016-04-15] MEDS: POT PHOSPHATE MONOBASIC W/ SOD TAB PO SCH ×3 (12:26→22:05)
--- NOTE | 2016-04-15 14:12 | Medical Student: [facility] ---
Med Student Progress Note Date of Service Apr 15, 2016. Subjective Pt evaluation today including: conversation w/ patient, physical exam, chart review, lab review, review of studies Pain: Denies any pain PO Intake: NPO Voiding: rangel catheter in place No acute events overnight. Patient is responsive to questions, but is still having difficulty with phonation. Per nurse reports he is feeling much better and his mental status is much improved. He expresses that he is very thirsty, but he still cannot take anything by mouth. Review of Systems All Other Systems: Reviewed and Negative (except as noted in H&P) Objective Vital Signs Date Time Temp Pulse Resp B/P Pulse Ox O2 Delivery O2 Flow Rate FiO2 04/15/16 12:10 Room Air 04/15/16 12:10 109 24 98/65 92 Nasal Cannula 2.0 04/15/16 10:12 112 22 93 04/15/16 08:00 Room Air 04/15/16 08:00 118 20 115/71 98 Nasal Cannula 2.0 04/15/16 07:05 115 18 95 Room Air 04/15/16 05:58 115 20 106/79 92 Nasal Cannula 2.0 04/15/16 04:00 36.4 114 22 112/72 94 Room Air 04/15/16 04:00 94 Room Air Mechanical Ventilator 04/15/16 02:16 110 18 95 Room Air 04/15/16 02:00 95 17 110/70 100 04/15/16 00:00 36.8 97 19 98/66 96 Room Air 04/14/16 23:59 95 Room Air Mechanical Ventilator 04/14/16 22:00 99 20 96/57 97 Room Air 04/14/16 20:06 90 18 95 Room Air 04/14/16 20:00 36.4 91 20 93/61 95 Room Air 04/14/16 20:00 95 Room Air Mechanical Ventilator 04/14/16 18:11 99 20 94/57 94 Room Air 04/14/16 16:03 106 22 82/51 92 Room Air 04/14/16 16:00 Room Air 04/14/16 14:19 99 18 92 Room Air 04/14/16 14:07 105 22 100/61 100 Room Air Physical Exam General Appearance: + thin ENT: hearing grossly normal, + muffled/hoarse voice, + pertinent finding (dry mucus membranes) Neck: supple, no adenopathy, no JVD Respiratory/Chest: chest non-tender, lungs clear, + accessory muscle use Cardiovascular: no gallop, no JVD, no murmur, + tachycardia, + normal peripheral pulses Abdomen: normal bowel sounds, non tender, + splenomegaly, + pertinent finding ( abdomen hyperresonant to percussion) Extremities: normal inspection, no pedal edema, normal capillary refill Neurologic/Psychiatric: no motor/sensory deficits, alert, oriented x 3 Skin: normal color, warm/dry, no rash Laboratory Results Last 24 Hours Test 04/14/16 15:13 04/14/16 16:10 04/15/16 04:41 04/15/16 11:29 Sodium Level 144 mmol/L 146 mmol/L Potassium Level 3.7 mmol/L 3.8 mmol/L Chloride Level 112 mmol/L 115 mmol/L Carbon Dioxide Level 20 mmol/L 23 mmol/L Anion Gap 12.0 mmol/L 8.0 mmol/L Blood Urea Nitrogen 8 mg/dl 9 mg/dl Creatinine 0.77 mg/dl 0.70 mg/dl Est Creatinine Clear Calc Drug Dose 85.1 ml/min 93.6 ml/min Estimated GFR () 113.5 118.1 Estimated GFR (Non- 97.9 101.9 BUN/Creatinine Ratio 10.8 12.5 Random Glucose 111 mg/dl 93 mg/dl Calcium Level 7.9 mg/dl 7.9 mg/dl Phosphorus Level 2.6 mg/dl 1.6 mg/dl 1.6 mg/dl Urine Color DK YELLOW Urine Appearance CLEAR Urine pH 5.5 Urine Specific Biggers 1.016 Urine Protein TRACE Urine Glucose (UA) NEG Urine Ketones TRACE Urine Occult Blood 1+ Urine Nitrite NEG Urine Bilirubin NEG Urine Urobilinogen NEG Urine Leukocyte Esterase SMALL Urine WBC (Auto) 1-5 /hpf Urine RBC (Auto) >30 /hpf Urine Hyaline Casts (Auto) 1-5 /lpf Urine Epithelial Cells (Auto) 10-20 /lpf Urine Bacteria (Auto) NEG White Blood Count 13.84 K/uL Red Blood Count 2.63 M/uL Hemoglobin 8.7 g/dL Hematocrit 25.2 % Mean Corpuscular Volume 95.8 fL Mean Corpuscular Hemoglobin 33.1 pg Mean Corpuscular Hemoglobin Concent 34.5 g/dl Platelet Count 179 K/uL Mean Platelet Volume 10.1 fL Neutrophils (%) (Auto) 61.0 % Lymphocytes (%) (Auto) 18.7 % Monocytes (%) (Auto) 17.9 % Eosinophils (%) (Auto) 2.0 % Basophils (%) (Auto) 0.1 % Neutrophils # (Auto) 8.44 K/uL Lymphocytes # (Auto) 2.59 K/uL Monocytes # (Auto) 2.48 K/uL Eosinophils # (Auto) 0.27 K/uL Basophils # (Auto) 0.02 K/uL RDW Standard Deviation 57.1 fL RDW Coefficient of Variation 18.4 % Immature Granulocyte % (Auto) 0.3 % Immature Granulocyte # (Auto) 0.04 K/uL Polychromasia 1+ Pappenheimer Bodies OCCASIONAL Target Cells 2+ Magnesium Level 1.8 mg/dl Ammonia 21.0 umol/L Prealbumin 6.2 mg/dl Medications Current Inpatient Medications Medications (Trade) Dose Ordered Sig/Vin Route Start Time Stop Time Status Last Admin Dose Admin Metronidazole/Prmx (Flagyl / Nss/ Premixed Nss) 100 ml @ 100 mls/hr Q8@0200,1000,1800 IV 04/09/16 09:30 04/26/16 23:59 04/15/16 08:21 100 MLS/HR Vancomycin HCl (Vancomycin Oral Soln) 250 mg QID PO 04/09/16 13:00 04/26/16 23:59 04/15/16 12:27 250 MG Raspberry (Raspberry Syrup 5ML Cup) 5 ml QID PO 04/09/16 13:00 04/26/16 23:59 04/15/16 12:26 5 ML Rifaximin (Xifaxan Tab) 200 mg TID PO 04/09/16 21:00 05/09/16 20:59 04/15/16 12:26 200 MG Enteral Nutritional Formula 1000 ml 1,000 ml trickle feed @ 10ml/hr OG 04/10/16 12:00 05/10/16 11:59 Future hold 04/13/16 04:49 1,000 ML Folic Acid 1 mg/ Syringe 10 ml @ 5 mls/min QAM IV 04/11/16 09:00 05/11/16 08:59 04/15/16 07:24 5 MLS/MIN Pantoprazole Sodium/Syringe (Protonix Inj/ Syringe) 10 ml @ 5 mls/min BID@0900,2100 IV 04/12/16 21:00 05/12/16 20:59 04/15/16 07:25 5 MLS/MIN Albuterol/ Ipratropium (Duoneb) 3 ml Q6R INH 04/13/16 15:00 05/13/16 14:59 04/15/16 07:05 3 ML Nystatin (Mycostatin Susp) 5 ml QID PO 04/13/16 17:00 04/23/16 16:59 04/15/16 12:25 5 ML Lorazepam (Ativan Inj) 0.5 mg Q4H PRN IV 04/14/16 07:30 05/14/16 07:29 04/15/16 02:31 0.5 MG Heparin Sodium (Porcine) (Heparin Sq 5000 Unit/0.5ml) 5,000 unit Q12 SQ 04/14/16 09:00 05/14/16 08:59 04/15/16 07:26 5,000 UNIT Gabapentin (Neurontin) 100 mg BID PO 04/14/16 09:00 05/14/16 08:59 04/15/16 07:25 100 MG Fluoxetine HCl 20 mg 20 mg QAM PO 04/15/16 09:00 05/15/16 08:59 04/15/16 07:25 20 MG Thiamine HCl 250 mg/Sodium Chloride 102.5 ml @ 210 mls/hr DAILY IV 04/14/16 11:45 04/16/16 09:30 04/15/16 07:25 210 MLS/HR Thiamine HCl/ Syringe (Vitamin B-1 Inj/ Syringe) 10 ml @ 2 mls/min DAILY IV 04/17/16 09:00 05/17/16 08:59 Cyanocobalamin (Vitamin B-12 Tab) 1,000 mcg QAM PEG 04/16/16 09:00 05/16/16 08:59 Propranolol HCl 10 mg 10 mg BID PO 04/15/16 21:00 05/15/16 20:59 Potassium Phosphate/Sodium Chloride (Potassium Phosphate Inj/Nss 500ml) 508 ml @ 88 mls/hr TODAY@1215 ONCE IV 04/15/16 12:15 04/15/16 18:01 04/15/16 12:47 88 MLS/HR Potassium/ Phosphorus/Sodium (Phospha 250 Neutral 155-852-130 Mg) 2 tab QID PO 04/15/16 13:00 05/15/16 12:59 04/15/16 12:26 2 TAB Ascorbic Acid (Vitamin C Tab) 1,000 mg DAILY NG 04/16/16 09:00 05/16/16 08:59 Multivitamins Therapeutic (Cerovite Liquid) 15 ml QAM NG 04/16/16 09:00 05/16/16 08:59 Assessment and Plan Problems Altered mental status Anemia Decubitus ulcer GI bleed Hypokalemia Hypomagnesemia Varices, esophageal Bipolar disorder Celiac disease Chronic hepatitis C Pancreatitis stomach ulcers Assessment and Plan: Encephalopathy: Improving. Continue rifaximin 200 mg bid for hepatic encephalopathy. Continue thiamine replacement at 200 mg IV bid until levels come back and begin B12 supplementation. Anemia: Stable s/p one unit packed RBC. Continue to monitor CBCs. Protein/Calorie Malnutrition: Increase NG tube feedings by 10 cc/hr q 8hrs to a goal of 60 cc/hr, with flushes of 70 cc free water q 6hrs. Continue to monitor albumin and BMPs. GI bleed: Continue protonix. Monitor stools for further evidence of bleeding. Continue to monitor blood counts with daily CBCs. C. Difficile infection: Continue oral vancomycin. D/c flagyl. Decubitus ulcer: Does not appear infected. Monitor for any signs of infection and continue to reposition as tolerated. DVT prophylaxis: Continue sub-q heparin infusions and compression for DVT prophylaxis. Continued [facility] stay due to: ambulation difficulties, multiple IV medications needed, home environment unsafe for pt Discharge planning: uncertain
--- NOTE | 2016-04-15 17:38 | Progress Note ---
Subjective Date of Service: Apr 15, 2016. Subjective Pt evaluation today including: conversation w/ patient, physical exam, chart review, lab review, review of studies (cxr), conversation w/ home care consultant ( critical care) Pain: denies PO Intake: npo; NG tube feedings in place Voiding: rangel catheter in place tele with sinus tach overnight only he knows it is 2016 and that it is April staff report his dyspnea is much improved he still has poor voice quality ("I can't talk") no GI bleeding Problem List Medical Problems: (1) Acute kidney injury Status: Acute (2) Alcoholism Status: Acute (3) Altered mental status Status: Acute (4) Anemia Status: Acute (5) Cellulitis Status: Acute (6) Decubitus ulcer Status: Acute (7) Dehydration Status: Acute (8) Elevated LFTs Status: Acute (9) Elevated lipase Status: Acute (10) GI bleed Status: Acute (11) Hypokalemia Status: Acute (12) Leukocytosis Status: Acute (13) Varices, esophageal Status: Acute Review of Systems Constitutional: No chills, No fever Respiratory: + dyspnea on exertion, No dyspnea at rest Cardiac: No chest pain, No orthopnea Abdomen: No diarrhea, No pain Objective Vital Signs Date Time Temp Pulse Resp B/P Pulse Ox O2 Delivery O2 Flow Rate FiO2 04/15/16 16:00 89 22 97/69 95 Nasal Cannula 2.0 04/15/16 16:00 Nasal Cannula 2.0 04/15/16 15:28 89 98 04/15/16 14:07 89 18 98 Nasal Cannula 2.0 04/15/16 12:10 Room Air 04/15/16 12:10 109 24 98/65 92 Nasal Cannula 2.0 04/15/16 10:12 112 22 93 04/15/16 08:00 Room Air 04/15/16 08:00 118 20 115/71 98 Nasal Cannula 2.0 04/15/16 07:05 115 18 95 Room Air 04/15/16 05:58 115 20 106/79 92 Nasal Cannula 2.0 04/15/16 04:00 36.4 114 22 112/72 94 Room Air 04/15/16 04:00 94 Room Air Mechanical Ventilator 04/15/16 02:16 110 18 95 Room Air 04/15/16 02:00 95 17 110/70 100 04/15/16 00:00 36.8 97 19 98/66 96 Room Air 04/14/16 23:59 95 Room Air Mechanical Ventilator 04/14/16 22:00 99 20 96/57 97 Room Air 04/14/16 20:06 90 18 95 Room Air 04/14/16 20:00 36.4 91 20 93/61 95 Room Air 04/14/16 20:00 95 Room Air Mechanical Ventilator 04/14/16 18:11 99 20 94/57 94 Room Air Physical Exam General Appearance: no apparent distress, + cachetic ENT: pharynx normal, + muffled/hoarse voice (hoarse), + pertinent finding (NG tube in place) Neck: no JVD, + pertinent finding (CVC left neck clean) Respiratory/Chest: lungs clear, no respiratory distress, no accessory muscle use Cardiovascular: no gallop, no murmur, + tachycardia Abdomen: normal bowel sounds, non tender, soft, + splenomegaly Extremities: no pedal edema Neurologic/Psychiatric: alert, oriented x 3, + pertinent finding (no tremor or asterixis ) Laboratory Results Last 24 Hours Test 04/15/16 04:41 04/15/16 11:29 White Blood Count 13.84 K/uL Red Blood Count 2.63 M/uL Hemoglobin 8.7 g/dL Hematocrit 25.2 % Mean Corpuscular Volume 95.8 fL Mean Corpuscular Hemoglobin 33.1 pg Mean Corpuscular Hemoglobin Concent 34.5 g/dl Platelet Count 179 K/uL Mean Platelet Volume 10.1 fL Neutrophils (%) (Auto) 61.0 % Lymphocytes (%) (Auto) 18.7 % Monocytes (%) (Auto) 17.9 % Eosinophils (%) (Auto) 2.0 % Basophils (%) (Auto) 0.1 % Neutrophils # (Auto) 8.44 K/uL Lymphocytes # (Auto) 2.59 K/uL Monocytes # (Auto) 2.48 K/uL Eosinophils # (Auto) 0.27 K/uL Basophils # (Auto) 0.02 K/uL RDW Standard Deviation 57.1 fL RDW Coefficient of Variation 18.4 % Immature Granulocyte % (Auto) 0.3 % Immature Granulocyte # (Auto) 0.04 K/uL Polychromasia 1+ Pappenheimer Bodies OCCASIONAL Target Cells 2+ Sodium Level 146 mmol/L Potassium Level 3.8 mmol/L Chloride Level 115 mmol/L Carbon Dioxide Level 23 mmol/L Anion Gap 8.0 mmol/L Blood Urea Nitrogen 9 mg/dl Creatinine 0.70 mg/dl Est Creatinine Clear Calc Drug Dose 93.6 ml/min Estimated GFR () 118.1 Estimated GFR (Non- 101.9 BUN/Creatinine Ratio 12.5 Random Glucose 93 mg/dl Calcium Level 7.9 mg/dl Phosphorus Level 1.6 mg/dl 1.6 mg/dl Magnesium Level 1.8 mg/dl Ammonia 21.0 umol/L Prealbumin 6.2 mg/dl Assessment and Plan 60yo male with known cirrhosis, hep C, and chronic alcohol abuse with: 1. Metabolic encephalopathy - multifactorial - appears resolved. A/O x 3 today. Suspicion of Wernicke's encephalopathy in setting of other factors. Large w/u including MRI brain, EEG, etc otherwise wnl. Thiamine level pending; remains on IV thiamine. I again don't see evidence of etoh withdrawal or hepatic encephalopathy. Cont supportive care. 2. Acute hypoxemic respiratory failure - likely 2nd to pneumonia. Resolved. Completed full course of IV antibiotics. 3. c. diff colitis - day #7 of enteric vanco/IV flagyl. Need for latter given no toxic megacolon? Consider d/c flagyl. 4. hoarse voice - likely 2nd to recent intubation and laryngeal edema. Consider decadron. 5. hypophosphatemia - replace IV and/or PO. repeat level AM. 6. recent hepatic encephalopathy - resolved; recent ammonia level also normal. continues on rifaximin. 7. recent melena stools - H/H stable. s/p 1 unit PRBCs on 04/10/16. Remains on IV PPI. Reasonable to change to PPI via NG tube. 8. chronic hepatitis C cirrhosis with alcohol abuse/dependence - needs etoh abstinence after this hospitalization 9. bipolar disorder - was taking prozac BID and gabapentin BID these have been resumed albeit at lower doses consider titration in AM. 10. folic acid deficiency - continue IV folic acid b12 level was borderline low; will also supplement b12 11. concern of Wernicke's encephalopathy - continue IV thiamine daily thiamine level pending (reference lab) 12. deconditioning - severe PT, OT 13. celiac disease - gluten free diet when taking po 14. FEN - increase enteral feedings to 20cc/hr and then 10cc every 8 hrs to goal of 60cc/hr replace Phos keep NPO 15. DVT proph - heparin cautiously restarted; also has SCDs in place 16. dysphagia - speech eval appreciated; they recommend continued NPO status; video swallow in 1-2 days ok to move to telemetry floor Continued [facility] stay due to: ambulation difficulties, multiple IV medications needed, home environment unsafe for pt Discharge planning: uncertain
--- NOTE | 2016-04-15 18:32 | Critical Care Progress Note ---
Critical Care Progress Note Date of Service Apr 15, 2016. Attending Dr. Shannon Subjective No events overnight, continues to cough. Objective PHYSICAL EXAM General Appearance: WD/WN, no apparent distress, + thin Head: normocephalic, atraumatic Eyes: normal inspection, PERRL Neck: supple, no JVD Respiratory/Chest: lungs clear, normal breath sounds, no respiratory distress Cardiovascular: regular rate, rhythm, no murmur, normal peripheral pulses Abdomen/GI: normal bowel sounds, non tender, soft Extremities/Musculoskeletal: no calf tenderness, no pedal edema Skin: no rash DATA BY SYSTEM: NEURO: EEG (04/10): Suggestive of encephalopathy. The presence of triphasic waves is consistent with hepatic encephalopathy as suggested in the history. There is no evidence of seizure activity. Brain MRI (04/11): 1. No acute intracranial abnormality. 2. Considerable chronic small vessel change CVS: Telemetry: SR/sinus tachycardia. EKG 04/11: SR 88bpm, QTc 464 RESP: Receiving Albuterol / Ipratropium nebs. Receiving Chlorhexidine mouth wash. CXR 04/12: Unchanging left and to lesser extent right basilar infiltrative/ atelectatic change.. Tubes and lines in good position. GI: Receiving Rifaximin 200mg TID, and Protonix 40mg infusion. Tube feeds at 10 mLs ID: Afebrile. Day 3 of Flagyl 500mg TID IV, Vancomycin 250mg QID PO rifaximin Cultures: Blood negative. Positive stool culture for C Diff. Lines: Right EJ day 4, Left IJ day 4. RENAL: Mayes D/c'ed HEME: Hb 8.7, Hct 25.2. Received 1 unit PRBC on 04/10. SCDs in place. ENDO: Glc 106-135. SKIN: Ulcer over sacrum followed by wound care. Has Optifoam dressing. CVL: 04/09 Assessment & Plan IMPRESSION: 1. Metabolic encephalopathy, possibly secondary to thiamine deficiency. Thiamine level pending. Folate down. 2. Clostridium difficile colitis. Flagyl and enteral vancomycin. - holding Xifaxan until 14 days of treatment for c. diff. then possibly restart , ammonia improved 3. Acute hypoxemic respiratory failure status post extubation April 13, improved. 4. Anemia, stable status post 1 unit packed red blood cells. 5. Protein calorie malnutrition with risk for refeeding syndrome., aggressive phosphate replacement 6. Heme positive stool and history of grade 1 esophageal varices. Initially on Protonix infusion and now on Protonix b.i.d. GI following. 7. Sacral decubitus ulcer for which the wound care team is following him., add daily multivitamin, vitamin C, zinc 8. History of alcohol abuse and unclear whether or not he has been drinking recently and is going through alcohol withdrawal. 9. Hypophosphatemia, 10. Possible aspiration pneumonia versus pneumonitis, as noted above he received Rocephin as well as cefepime during the time he was on Flagyl and vancomycin. PLAN: NEUROLOGIC: Continue Ativan 0.5 mg IV q. 4 hours p.r.n., restlessness. He also has p.r.n. fentanyl for pain. Await any further recommendations from the neurology service. He has had an EEG, which showed no seizures. He continues on thiamine supplementation. I have resumed his gabapentin at a lower dose and I have also resumed his Prozac. PULMONARY: He may benefit from some intermittent BiPAP since he cannot do incentive spirometry. He certainly at continued risk for aspiration. He had a speech and swallowing evaluation today and still did not pass. GASTROINTESTINAL: He came to the intensive care unit with black stools and concern for GI bleed. The GI service did not care to do any further investigation. He was on a Protonix infusion which has been changed to IV Protonix b.i.d. He is receiving tube feeds and hopefully we can increase the rate of those soon. His electrolyte abnormalities seem to be improving. CARDIOVASCULAR: He has sinus tachycardia intermittently. He may still be having an element of alcohol withdrawal. I think he is volume overloaded and he received Lasix 20 mg IV x1 this morning. He has a left internal jugular triple lumen catheter placed April 09, if able to place a peripheral IV would discontinue central line INFECTIOUS DISEASE: Continue vancomycin and Flagyl. He is definitely having less diarrhea. Watch for any signs indicating a need to broaden antibiotic coverage. His ammonia has improved, and there is no indication that rifaximin improves out comes with C. difficile, we will hold rifaximin until after treatment course for C. difficile. There is a case series which were faxed them and was started after completed treatment course of oral vancomycin. RENAL: No acute issues. MISCELLANEOUS: Continue thrombosis prophylaxis with subcutaneous heparin as well as b.i.d. Protonix for GI prophylaxis. He has been ordered physical therapy and speech therapy. He was out of bed today. He continues to slowly improve and is stable for transfer to telemetry today. I discussed this case with the hospitalist.. Consults & Procedures Consultants: Dr Granado, Neuro Data Medications: Current Inpatient Medications Medications (Trade) Dose Ordered Sig/Vin Route Start Time Stop Time Status Last Admin Dose Admin Metronidazole/Prmx (Flagyl / Nss/ Premixed Nss) 100 ml @ 100 mls/hr Q8@0200,1000,1800 IV 04/09/16 09:30 04/26/16 23:59 04/15/16 08:21 100 MLS/HR Vancomycin HCl (Vancomycin Oral Soln) 250 mg QID PO 04/09/16 13:00 04/26/16 23:59 04/15/16 12:27 250 MG Raspberry (Raspberry Syrup 5ML Cup) 5 ml QID PO 04/09/16 13:00 04/26/16 23:59 04/15/16 12:26 5 ML Rifaximin (Xifaxan Tab) 200 mg TID PO 04/09/16 21:00 05/09/16 20:59 04/15/16 12:26 200 MG Enteral Nutritional Formula 1000 ml 1,000 ml trickle feed @ 10ml/hr OG 04/10/16 12:00 05/10/16 11:59 Future hold 04/13/16 04:49 1,000 ML Folic Acid 1 mg/ Syringe 10 ml @ 5 mls/min QAM IV 04/11/16 09:00 05/11/16 08:59 04/15/16 07:24 5 MLS/MIN Pantoprazole Sodium/Syringe (Protonix Inj/ Syringe) 10 ml @ 5 mls/min BID@0900,2100 IV 04/12/16 21:00 05/12/16 20:59 04/15/16 07:25 5 MLS/MIN Albuterol/ Ipratropium (Duoneb) 3 ml Q6R INH 04/13/16 15:00 05/13/16 14:59 04/15/16 07:05 3 ML Nystatin (Mycostatin Susp) 5 ml QID PO 04/13/16 17:00 04/23/16 16:59 04/15/16 12:25 5 ML Lorazepam (Ativan Inj) 0.5 mg Q4H PRN IV 04/14/16 07:30 05/14/16 07:29 04/15/16 02:31 0.5 MG Heparin Sodium (Porcine) (Heparin Sq 5000 Unit/0.5ml) 5,000 unit Q12 SQ 04/14/16 09:00 05/14/16 08:59 04/15/16 07:26 5,000 UNIT Gabapentin (Neurontin) 100 mg BID PO 04/14/16 09:00 05/14/16 08:59 04/15/16 07:25 100 MG Fluoxetine HCl 20 mg 20 mg QAM PO 04/15/16 09:00 05/15/16 08:59 04/15/16 07:25 20 MG Thiamine HCl 250 mg/Sodium Chloride 102.5 ml @ 210 mls/hr DAILY IV 04/14/16 11:45 04/16/16 09:30 04/15/16 07:25 210 MLS/HR Thiamine HCl/ Syringe (Vitamin B-1 Inj/ Syringe) 10 ml @ 2 mls/min DAILY IV 04/17/16 09:00 05/17/16 08:59 Cyanocobalamin (Vitamin B-12 Tab) 1,000 mcg QAM PEG 04/16/16 09:00 05/16/16 08:59 Propranolol HCl 10 mg 10 mg BID PO 04/15/16 21:00 05/15/16 20:59 Potassium Phosphate/Sodium Chloride (Potassium Phosphate Inj/Nss 500ml) 508 ml @ 88 mls/hr TODAY@1215 ONCE IV 04/15/16 12:15 04/15/16 18:01 04/15/16 12:47 88 MLS/HR Potassium/ Phosphorus/Sodium (Phospha 250 Neutral 155-852-130 Mg) 2 tab QID PO 04/15/16 13:00 05/15/16 12:59 04/15/16 12:26 2 TAB Ascorbic Acid (Vitamin C Tab) 1,000 mg DAILY NG 04/16/16 09:00 05/16/16 08:59 Multivitamins Therapeutic (Cerovite Liquid) 15 ml QAM NG 04/16/16 09:00 05/16/16 08:59 I & O: 24-Hour Column 04/15/16 08:00 Intake Total 1356 ml Output Total 1925 ml Balance -569 ml Vital Signs: Date Time Temp Pulse Resp B/P Pulse Ox O2 Delivery O2 Flow Rate FiO2 04/15/16 12:10 Room Air 04/15/16 12:10 109 24 98/65 92 Nasal Cannula 2.0 04/15/16 10:12 112 22 93 04/15/16 08:00 Room Air 04/15/16 08:00 118 20 115/71 98 Nasal Cannula 2.0 04/15/16 07:05 115 18 95 Room Air 04/15/16 05:58 115 20 106/79 92 Nasal Cannula 2.0 04/15/16 04:00 36.4 114 22 112/72 94 Room Air 04/15/16 04:00 94 Room Air Mechanical Ventilator 04/15/16 02:16 110 18 95 Room Air 04/15/16 02:00 95 17 110/70 100 04/15/16 00:00 36.8 97 19 98/66 96 Room Air 04/14/16 23:59 95 Room Air Mechanical Ventilator 04/14/16 22:00 99 20 96/57 97 Room Air 04/14/16 20:06 90 18 95 Room Air 04/14/16 20:00 36.4 91 20 93/61 95 Room Air 04/14/16 20:00 95 Room Air Mechanical Ventilator 04/14/16 18:11 99 20 94/57 94 Room Air 04/14/16 16:03 106 22 82/51 92 Room Air 04/14/16 16:00 Room Air 04/14/16 14:19 99 18 92 Room Air Laboratory Results: Last 24 Hours Test 04/14/16 15:13 04/14/16 16:10 04/15/16 04:41 04/15/16 11:29 Sodium Level 144 mmol/L 146 mmol/L Potassium Level 3.7 mmol/L 3.8 mmol/L Chloride Level 112 mmol/L 115 mmol/L Carbon Dioxide Level 20 mmol/L 23 mmol/L Anion Gap 12.0 mmol/L 8.0 mmol/L Blood Urea Nitrogen 8 mg/dl 9 mg/dl Creatinine 0.77 mg/dl 0.70 mg/dl Est Creatinine Clear Calc Drug Dose 85.1 ml/min 93.6 ml/min Estimated GFR () 113.5 118.1 Estimated GFR (Non- 97.9 101.9 BUN/Creatinine Ratio 10.8 12.5 Random Glucose 111 mg/dl 93 mg/dl Calcium Level 7.9 mg/dl 7.9 mg/dl Phosphorus Level 2.6 mg/dl 1.6 mg/dl 1.6 mg/dl Urine Color DK YELLOW Urine Appearance CLEAR Urine pH 5.5 Urine Specific [place] 1.016 Urine Protein TRACE Urine Glucose (UA) NEG Urine Ketones TRACE Urine Occult Blood 1+ Urine Nitrite NEG Urine Bilirubin NEG Urine Urobilinogen NEG Urine Leukocyte Esterase SMALL Urine WBC (Auto) 1-5 /hpf Urine RBC (Auto) >30 /hpf Urine Hyaline Casts (Auto) 1-5 /lpf Urine Epithelial Cells (Auto) 10-20 /lpf Urine Bacteria (Auto) NEG White Blood Count 13.84 K/uL Red Blood Count 2.63 M/uL Hemoglobin 8.7 g/dL Hematocrit 25.2 % Mean Corpuscular Volume 95.8 fL Mean Corpuscular Hemoglobin 33.1 pg Mean Corpuscular Hemoglobin Concent 34.5 g/dl Platelet Count 179 K/uL Mean Platelet Volume 10.1 fL Neutrophils (%) (Auto) 61.0 % Lymphocytes (%) (Auto) 18.7 % Monocytes (%) (Auto) 17.9 % Eosinophils (%) (Auto) 2.0 % Basophils (%) (Auto) 0.1 % Neutrophils # (Auto) 8.44 K/uL Lymphocytes # (Auto) 2.59 K/uL Monocytes # (Auto) 2.48 K/uL Eosinophils # (Auto) 0.27 K/uL Basophils # (Auto) 0.02 K/uL RDW Standard Deviation 57.1 fL RDW Coefficient of Variation 18.4 % Immature Granulocyte % (Auto) 0.3 % Immature Granulocyte # (Auto) 0.04 K/uL Polychromasia 1+ Pappenheimer Bodies OCCASIONAL Target Cells 2+ Magnesium Level 1.8 mg/dl Ammonia 21.0 umol/L Prealbumin 6.2 mg/dl
[2016-04-15] MEDS ORDERED: POT PHOSPHATE MONOBASIC W/ SOD TAB PO SCH (21:00)
[2016-04-15] MEDS: PROPRANOLOL HCL 10 MG TAB PO SCH (22:03)
[2016-04-15] MEDS: LANSOPRAZOLE SOLUTAB 30 MG NG SCH (22:03)
[2016-04-16] VITALS (13 sets, daily range): BP systolic 88–103; BP diastolic 55–63; PULSE 61–98; TEMP 36.3–37.4; O2SAT 4–100
[2016-04-16] MEDS: ALBUT/IPRATROP 3MG/0.5MG NEB 3 ML VIAL INH SCH ×4 (02:07→19:07)
[2016-04-16 05:15] LABS: PHOSPHORUS 2.8 mg/dl (2.5-4.9)
--- NOTE | 2016-04-16 07:26 | DIAGNOSTIC IMAGING REPORT ---
CHEST ONE VIEW PORTABLE CLINICAL HISTORY: Pneumonia. COMPARISON STUDY: Chest radiograph April 15, 2016 FINDINGS: The left internal jugular central line and feeding tube have been removed. There is no pneumothorax. Small bilateral pleural effusions persist. Mixed interstitial and alveolar opacities within lungs persist. Cardiac size is normal. IMPRESSION: 1. No significant change in bilateral opacities and interstitial thickening which may reflect pneumonia or pulmonary edema. 2. Suspected small bilateral pleural effusions. Electronically signed by: Fan Bolaños M.D. 04/16/2016 7:24 AM
--- NOTE | 2016-04-16 07:51 | DIAGNOSTIC IMAGING REPORT ---
KUB CLINICAL HISTORY: NG tube placement confirmation COMPARISON STUDY: KUB April 13, 2016 FINDINGS: The tip of the feeding tube is within the gastric fundus. Airspace opacities and interstitial thickening within the lungs are incidentally noted. IMPRESSION: Tip of feeding tube within the gastric fundus. Electronically signed by: Fan Bolaños M.D. 04/16/2016 7:50 AM
[2016-04-16 08:55] LABS: BASO % 0.1 %; BASO ABS # 0.01 K/uL (0-0.2); COMPLETE YES; EOS % 0.1 %; HEMATOCRIT 26.4 % (42-52); IG% 0.5 %; LYMPH % 10.6 %; MEAN CORPUSCULAR HEMOGLOBIN 32.7 pg (25-34); MEAN CORPUSCULAR HGB CONC 34.5 g/dl (32-36); MEAN PLATELET VOLUME 10.4 fL (7.4-10.4); NEUT % 75.7 %; PLATELET COUNT 217 K/uL (130-400); RED BLOOD COUNT 2.78 M/uL (4.7-6.1); WHITE BLOOD COUNT 18.81 K/uL (4.8-10.8)
[2016-04-16] MEDS: MULTIVITAMINS W/MINERALS 15ML UDP NG SCH (09:00)
[2016-04-16] MEDS: FLUOXETINE HCL 20 MG/5 ML UDP PO SCH (09:00)
[2016-04-16] MEDS: ZINC SULFATE 220 MG CAP PO SCH (09:00)
[2016-04-16] MEDS: CYANOCOBALAMIN 500 MCG TAB (VIT B-12) PEG SCH (09:00)
[2016-04-16] MEDS: RASPBERRY SYRUP 5 ML UDP PO SCH ×4 (09:00→20:47)
[2016-04-16] MEDS: GABAPENTIN 250 MG/5 ML 470 ML BTL PO SCH ×2 (09:00→20:43)
[2016-04-16] MEDS: POT PHOSPHATE MONOBASIC W/ SOD TAB PO SCH ×4 (09:00→20:48)
[2016-04-16] MEDS ORDERED: MULTIVITAMINS W/MINERALS 15ML UDP PO SCH (09:00)
[2016-04-16] MEDS: LANSOPRAZOLE SOLUTAB 30 MG NG SCH ×2 (09:00→20:49)
[2016-04-16] MEDS: VANCOMYCIN HCL 250 MG/5 ML SOLN PO SCH ×4 (09:00→20:43)
[2016-04-16] MEDS: ASCORBIC ACID 500 MG TAB NG SCH (09:00)
[2016-04-16] MEDS: PROPRANOLOL HCL 10 MG TAB PO SCH ×2 (09:00→20:47)
[2016-04-16] MEDS: THIAMINE HCL INJ 250 MG in SODIUM CHLORIDE 0.9% 100ML 100 ML IV SCH (09:00)
[2016-04-16] MEDS: NYSTATIN SUSP 500,000 U/5 ML UDC PO SCH ×4 (09:00→20:43)
[2016-04-16] MEDS: HEPARIN SOD 5000 UNIT/0.5 ML CARP SQ SCH ×2 (09:00→20:50)
[2016-04-16 09:22] LABS: BUN/CREATININE RATIO 17.9 (10-20); CALCIUM 7.9 mg/dl (8.5-10.1); CREATININE 0.78 mg/dl (0.60-1.40); POTASSIUM 3.5 mmol/L (3.5-5.1)
[2016-04-16] MEDS: DEXAMETHASONE INJ 4 MG in SYRINGE 0 ML IV SCH ×3 (09:50→20:44)
[2016-04-16] MEDS: FLUCONAZOLE / NSS 100 MG in PREMIXED NSS 50 ML IV SCH (09:50)
[2016-04-16] MEDS: FoLIC ACID INJ 1 MG in SYRINGE 9.8 ML IV SCH (09:51)
[2016-04-16] MEDS: D5W AND 1/4NSS + 20MEQ KCL 1,000 ML IV SCH ×2 (10:00→23:20)
--- NOTE | 2016-04-16 10:14 | Medical Student: [facility] ---
Med Student Progress Note Date of Service Apr 16, 2016. Subjective Pt evaluation today including: conversation w/ patient, conversation w/ family , physical exam, chart review, lab review, review of studies Pain: no subjective pain Voiding: incontinence Patient pulled out NG tube and IV last night. He consented to replacement of NG tube and PICC line placement. According to his nurse he appeared to aspirate some water on attempting to drink. He has been very thirsty and asked for water. Today he is more conversant and easier to understand. No other symptoms reported, but he did have a large, loose, mucus-laden stool yesterday. I spoke with his son, Ignacio Jones Jr. this morning who expressed interest in knowing more about his hospital course, prognosis, and plan. He also suggested that the patient has expressed wishes to be DNR/DNI in the past and he believes that he still would want that. He says that he and his sister Estrellita should be the primary contacts for medical decision-making. Review of Systems Constitutional: No chills, No fever, No sweats Respiratory: + dyspnea on exertion, + shortness of breath Abdomen: + see HPI Male : + incontinence Objective Vital Signs Date Time Temp Pulse Resp B/P Pulse Ox O2 Delivery O2 Flow Rate FiO2 04/16/16 08:21 98 16 100 Nasal Cannula 6.0 04/16/16 04:00 Nasal Cannula 4.0 04/16/16 03:15 37.4 89 24 93/63 97 Nasal Cannula 4.0 04/16/16 02:08 84 18 94 Nasal Cannula 6.0 04/15/16 23:59 Nasal Cannula 4.0 04/15/16 23:43 36.8 81 20 97/68 91 Nasal Cannula 3.0 Humidified Oxygen 04/15/16 22:54 Nasal Cannula 2.0 04/15/16 20:35 84 18 91 Nasal Cannula 2.0 04/15/16 18:35 98 22 92 2.0 04/15/16 16:00 89 22 97/69 95 Nasal Cannula 2.0 04/15/16 16:00 Nasal Cannula 2.0 04/15/16 15:28 89 98 04/15/16 14:07 89 18 98 Nasal Cannula 2.0 04/15/16 12:10 Room Air 04/15/16 12:10 109 24 98/65 92 Nasal Cannula 2.0 04/15/16 10:12 112 22 93 Physical Exam General Appearance: no apparent distress, + cachetic Eyes: bilateral eyes PERRL ENT: hearing grossly normal, + muffled/hoarse voice, + pertinent finding ( white plaques on tongue and palate) Neck: supple, no JVD Respiratory/Chest: chest non-tender, lungs clear, normal breath sounds, + accessory muscle use Cardiovascular: regular rate, rhythm, no gallop, no JVD, no murmur Abdomen: normal bowel sounds, + tenderness (in left lower quadrant), + splenomegaly Extremities: no pedal edema, no calf tenderness Neurologic/Psychiatric: alert, oriented x 3 Skin: normal color, warm/dry, no rash Laboratory Results Last 24 Hours Test 04/15/16 11:29 04/15/16 22:31 04/16/16 04:45 04/16/16 06:26 Phosphorus Level 1.6 mg/dl 2.6 mg/dl 2.8 mg/dl Prealbumin 6.2 mg/dl Total Bilirubin 1.1 mg/dl Direct Bilirubin 0.5 mg/dl Aspartate Amino Transf (AST/SGOT) 42 U/L Alanine Aminotransferase (ALT/SGPT) 22 U/L Alkaline Phosphatase 83 U/L Total Protein 6.5 gm/dl Albumin 2.6 gm/dl Bedside Glucose 91 mg/dl Test 04/16/16 08:35 White Blood Count 18.81 K/uL Red Blood Count 2.78 M/uL Hemoglobin 9.1 g/dL Hematocrit 26.4 % Mean Corpuscular Volume 95.0 fL Mean Corpuscular Hemoglobin 32.7 pg Mean Corpuscular Hemoglobin Concent 34.5 g/dl Platelet Count 217 K/uL Mean Platelet Volume 10.4 fL Neutrophils (%) (Auto) 75.7 % Lymphocytes (%) (Auto) 10.6 % Monocytes (%) (Auto) 13.0 % Eosinophils (%) (Auto) 0.1 % Basophils (%) (Auto) 0.1 % Neutrophils # (Auto) 14.24 K/uL Lymphocytes # (Auto) 2.00 K/uL Monocytes # (Auto) 2.45 K/uL Eosinophils # (Auto) 0.02 K/uL Basophils # (Auto) 0.01 K/uL RDW Standard Deviation 59.1 fL RDW Coefficient of Variation 18.7 % Immature Granulocyte % (Auto) 0.5 % Immature Granulocyte # (Auto) 0.09 K/uL Sodium Level 147 mmol/L Potassium Level 3.5 mmol/L Chloride Level 115 mmol/L Carbon Dioxide Level 22 mmol/L Anion Gap 10.0 mmol/L Blood Urea Nitrogen 14 mg/dl Creatinine 0.78 mg/dl Est Creatinine Clear Calc Drug Dose 81.6 ml/min Estimated GFR () 112.9 Estimated GFR (Non- 97.4 BUN/Creatinine Ratio 17.9 Random Glucose 99 mg/dl Calcium Level 7.9 mg/dl Phosphorus Level 2.8 mg/dl Medications Current Inpatient Medications Medications (Trade) Dose Ordered Sig/Vin Route Start Time Stop Time Status Last Admin Dose Admin Vancomycin HCl (Vancomycin Oral Soln) 250 mg QID PO 04/09/16 13:00 04/26/16 23:59 04/15/16 22:02 250 MG Raspberry (Raspberry Syrup 5ML Cup) 5 ml QID PO 04/09/16 13:00 04/26/16 23:59 04/15/16 22:02 5 ML Rifaximin (Xifaxan Tab) 200 mg TID PO 04/09/16 21:00 05/09/16 20:59 Future hold 04/15/16 12:26 200 MG Enteral Nutritional Formula 1000 ml 1,000 ml trickle feed @ 10ml/hr OG 04/10/16 12:00 05/10/16 11:59 Future hold 04/13/16 04:49 1,000 ML Folic Acid/Syringe (Folvite Inj/ Syringe) 10 ml @ 5 mls/min QAM IV 04/11/16 09:00 05/11/16 08:59 04/16/16 09:51 5 MLS/MIN Albuterol/ Ipratropium (Duoneb) 3 ml Q6R INH 04/13/16 15:00 05/13/16 14:59 04/16/16 07:58 3 ML Nystatin (Mycostatin Susp) 5 ml QID PO 04/13/16 17:00 04/23/16 16:59 04/15/16 22:04 5 ML Lorazepam (Ativan Inj) 0.5 mg Q4H PRN IV 04/14/16 07:30 05/14/16 07:29 04/15/16 02:31 0.5 MG Heparin Sodium (Porcine) (Heparin Sq 5000 Unit/0.5ml) 5,000 unit Q12 SQ 04/14/16 09:00 05/14/16 08:59 04/16/16 09:00 5,000 UNIT Gabapentin (Neurontin) 100 mg BID PO 04/14/16 09:00 05/14/16 08:59 04/15/16 22:02 100 MG Fluoxetine HCl 20 mg 20 mg QAM PO 04/15/16 09:00 05/15/16 08:59 04/15/16 07:25 20 MG Thiamine HCl/ Syringe (Vitamin B-1 Inj/ Syringe) 10 ml @ 2 mls/min DAILY IV 04/17/16 09:00 05/17/16 08:59 Cyanocobalamin (Vitamin B-12 Tab) 1,000 mcg QAM PEG 04/16/16 09:00 05/16/16 08:59 Propranolol HCl (Inderal Tab) 10 mg BID PO 04/15/16 21:00 05/15/16 20:59 04/15/16 22:03 10 MG Potassium/ Phosphorus/Sodium (Phospha 250 Neutral 155-852-130 Mg) 2 tab QID PO 04/15/16 13:00 05/15/16 12:59 04/15/16 22:05 2 TAB Ascorbic Acid (Vitamin C Tab) 1,000 mg DAILY NG 04/16/16 09:00 05/16/16 08:59 Multivitamins Therapeutic (Cerovite Liquid) 15 ml QAM NG 04/16/16 09:00 05/16/16 08:59 Lansoprazole (Prevacid Solutab) 30 mg BID NG 04/15/16 21:00 05/15/16 20:59 04/15/16 22:03 30 MG Zinc Sulfate 220 mg 220 mg QAM PO 04/16/16 09:00 05/16/16 08:59 Fluconazole/ Sodium Chloride 100 mg/Prmx 50 ml @ 100 mls/hr DAILY IV 04/16/16 09:00 04/26/16 08:59 04/16/16 09:50 100 MLS/HR Dexamethasone Sodium Phosphate 4 mg/Syringe 1 ml @ 1 mls/min Q6H IV 04/16/16 09:00 05/16/16 08:59 04/16/16 09:50 1 MLS/MIN Potassium Chloride/Dextrose/ Sod Cl (D5W And 1/4nss + 20meq KCl) 1,000 ml @ 75 mls/hr [id number] IV 04/16/16 10:00 05/16/16 09:59 04/16/16 10:00 75 MLS/HR Assessment and Plan Problems Altered mental status Anemia Decubitus ulcer GI bleed Bipolar disorder Celiac disease Chronic hepatitis C Assessment and Plan: Encephalopathy: Continues to improve. Mental status is improved today despite some sundowning last night. Rifaximin was d/c until diarrhea from c. diff resolves. Continue thiamine replacement at 200 mg IV bid until levels come back. Continue B12 supplementation. Goals of care discussion: Pt's son expressed interest in having a discussion regarding resuscitation status, prognosis, and goals of care. Dr. Hamilton is amenable to this and will coordinate with the family to discuss their concerns. Anemia: Counts continue to improve s/p one unit packed RBC. Continue to monitor CBCs. Protein/Calorie Malnutrition: Increase NG tube feedings by 10 cc/hr q 8hrs to a goal of 60 cc/hr, with flushes of 70 cc free water q 6hrs. Continue to monitor albumin and BMPs. GI bleed: Continue protonix. Monitor stools for further evidence of bleeding. Continue to monitor blood counts with daily CBCs. C. Difficile infection: Continue oral vancomycin. D/c flagyl. Decubitus ulcer: Does not appear infected. Monitor for any signs of infection and continue to reposition as tolerated. Continue use of waffle boots and bandage for decubitus ulcer. DVT prophylaxis: Continue sub-q heparin infusions and compression for DVT prophylaxis Continued [facility] stay due to: ambulation difficulties, multiple IV medications needed, home environment unsafe for pt Discharge planning: uncertain
--- NOTE | 2016-04-16 10:40 | Gastroenterology Progress Note ---
Progress Note Date of Service: Apr 16, 2016 Subjective Pt evaluation today including: conversation w/ patient, physical exam, lab review Patient is seen and examined this morning. Per nurse, the patient had one episode of stool incontinence overnight. The stool was liquid and yellow - no black or bloody stool. The nurse reports an episode of continent BM this AM that was loose, yellow and without blood. He denies any chest pain, abd pain, SOB. He reports that he is thirsty. He was provided with a mouth swab - he is NPO for speech evaluation. He is alert and oriented x 3. Ammonia on admission was in the 200's. Yesterday value was 21. Review of Systems Constitutional: No chills, No fever Respiratory: No shortness of breath Cardiac: No chest pain Abdomen: + diarrhea, No GI bleeding, No constipation, No nausea, No pain, No vomiting Medications Current Inpatient Medications Medications (Trade) Dose Ordered Sig/Vin Route Start Time Stop Time Status Last Admin Dose Admin Vancomycin HCl (Vancomycin Oral Soln) 250 mg QID PO 04/09/16 13:00 04/26/16 23:59 04/15/16 22:02 250 MG Raspberry (Raspberry Syrup 5ML Cup) 5 ml QID PO 04/09/16 13:00 04/26/16 23:59 04/15/16 22:02 5 ML Rifaximin (Xifaxan Tab) 200 mg TID PO 04/09/16 21:00 05/09/16 20:59 Future hold 04/15/16 12:26 200 MG Enteral Nutritional Formula 1000 ml 1,000 ml trickle feed @ 10ml/hr OG 04/10/16 12:00 05/10/16 11:59 Future hold 04/13/16 04:49 1,000 ML Folic Acid/Syringe (Folvite Inj/ Syringe) 10 ml @ 5 mls/min QAM IV 04/11/16 09:00 05/11/16 08:59 04/16/16 09:51 5 MLS/MIN Albuterol/ Ipratropium (Duoneb) 3 ml Q6R INH 04/13/16 15:00 05/13/16 14:59 04/16/16 07:58 3 ML Nystatin (Mycostatin Susp) 5 ml QID PO 04/13/16 17:00 04/23/16 16:59 04/15/16 22:04 5 ML Lorazepam (Ativan Inj) 0.5 mg Q4H PRN IV 04/14/16 07:30 05/14/16 07:29 04/15/16 02:31 0.5 MG Heparin Sodium (Porcine) (Heparin Sq 5000 Unit/0.5ml) 5,000 unit Q12 SQ 04/14/16 09:00 05/14/16 08:59 04/15/16 22:07 5,000 UNIT Gabapentin (Neurontin) 100 mg BID PO 04/14/16 09:00 05/14/16 08:59 04/15/16 22:02 100 MG Fluoxetine HCl 20 mg 20 mg QAM PO 04/15/16 09:00 05/15/16 08:59 04/15/16 07:25 20 MG Thiamine HCl/ Syringe (Vitamin B-1 Inj/ Syringe) 10 ml @ 2 mls/min DAILY IV 04/17/16 09:00 05/17/16 08:59 Cyanocobalamin (Vitamin B-12 Tab) 1,000 mcg QAM PEG 04/16/16 09:00 05/16/16 08:59 Propranolol HCl (Inderal Tab) 10 mg BID PO 04/15/16 21:00 05/15/16 20:59 04/15/16 22:03 10 MG Potassium/ Phosphorus/Sodium (Phospha 250 Neutral 155-852-130 Mg) 2 tab QID PO 04/15/16 13:00 05/15/16 12:59 04/15/16 22:05 2 TAB Ascorbic Acid (Vitamin C Tab) 1,000 mg DAILY NG 04/16/16 09:00 05/16/16 08:59 Multivitamins Therapeutic (Cerovite Liquid) 15 ml QAM NG 04/16/16 09:00 05/16/16 08:59 Lansoprazole (Prevacid Solutab) 30 mg BID NG 04/15/16 21:00 05/15/16 20:59 04/15/16 22:03 30 MG Zinc Sulfate 220 mg 220 mg QAM PO 04/16/16 09:00 05/16/16 08:59 Fluconazole/ Sodium Chloride 100 mg/Prmx 50 ml @ 100 mls/hr DAILY IV 04/16/16 09:00 04/26/16 08:59 04/16/16 09:50 100 MLS/HR Dexamethasone Sodium Phosphate 4 mg/Syringe 1 ml @ 1 mls/min Q6H IV 04/16/16 09:00 05/16/16 08:59 04/16/16 09:50 1 MLS/MIN Potassium Chloride/Dextrose/ Sod Cl (D5W And 1/4nss + 20meq KCl) 1,000 ml @ 75 mls/hr [id number] IV 04/16/16 10:00 05/16/16 09:59 Objective Vital Signs Date Time Temp Pulse Resp B/P Pulse Ox O2 Delivery O2 Flow Rate FiO2 04/16/16 08:21 98 16 100 Nasal Cannula 6.0 04/16/16 04:00 Nasal Cannula 4.0 04/16/16 03:15 37.4 89 24 93/63 97 Nasal Cannula 4.0 04/16/16 02:08 84 18 94 Nasal Cannula 6.0 04/15/16 23:59 Nasal Cannula 4.0 04/15/16 23:43 36.8 81 20 97/68 91 Nasal Cannula 3.0 Humidified Oxygen 04/15/16 22:54 Nasal Cannula 2.0 04/15/16 20:35 84 18 91 Nasal Cannula 2.0 04/15/16 18:35 98 22 92 2.0 04/15/16 16:00 89 22 97/69 95 Nasal Cannula 2.0 04/15/16 16:00 Nasal Cannula 2.0 04/15/16 15:28 89 98 04/15/16 14:07 89 18 98 Nasal Cannula 2.0 04/15/16 12:10 Room Air 04/15/16 12:10 109 24 98/65 92 Nasal Cannula 2.0 Physical Exam General Appearance: + mild distress (patient states that he is thirsty) Eyes: normal inspection Neck: supple Respiratory/Chest: no respiratory distress, no accessory muscle use, + decreased breath sounds Cardiovascular: regular rate, rhythm, no edema, no gallop, no JVD, no murmur Abdomen: normal bowel sounds, non tender, soft, no organomegaly, no pulsatile mass Neurologic/Psych: alert, normal mood/affect, oriented x 3 Skin: + jaundice Laboratory Results Last 24 Hours Test 04/15/16 11:29 04/15/16 22:31 04/16/16 04:45 04/16/16 06:26 Phosphorus Level 1.6 mg/dl 2.6 mg/dl 2.8 mg/dl Prealbumin 6.2 mg/dl Total Bilirubin 1.1 mg/dl Direct Bilirubin 0.5 mg/dl Aspartate Amino Transf (AST/SGOT) 42 U/L Alanine Aminotransferase (ALT/SGPT) 22 U/L Alkaline Phosphatase 83 U/L Total Protein 6.5 gm/dl Albumin 2.6 gm/dl Bedside Glucose 91 mg/dl Test 04/16/16 08:35 White Blood Count 18.81 K/uL Red Blood Count 2.78 M/uL Hemoglobin 9.1 g/dL Hematocrit 26.4 % Mean Corpuscular Volume 95.0 fL Mean Corpuscular Hemoglobin 32.7 pg Mean Corpuscular Hemoglobin Concent 34.5 g/dl Platelet Count 217 K/uL Mean Platelet Volume 10.4 fL Neutrophils (%) (Auto) 75.7 % Lymphocytes (%) (Auto) 10.6 % Monocytes (%) (Auto) 13.0 % Eosinophils (%) (Auto) 0.1 % Basophils (%) (Auto) 0.1 % Neutrophils # (Auto) 14.24 K/uL Lymphocytes # (Auto) 2.00 K/uL Monocytes # (Auto) 2.45 K/uL Eosinophils # (Auto) 0.02 K/uL Basophils # (Auto) 0.01 K/uL RDW Standard Deviation 59.1 fL RDW Coefficient of Variation 18.7 % Immature Granulocyte % (Auto) 0.5 % Immature Granulocyte # (Auto) 0.09 K/uL Sodium Level 147 mmol/L Potassium Level 3.5 mmol/L Chloride Level 115 mmol/L Carbon Dioxide Level 22 mmol/L Anion Gap 10.0 mmol/L Blood Urea Nitrogen 14 mg/dl Creatinine 0.78 mg/dl Est Creatinine Clear Calc Drug Dose 81.6 ml/min Estimated GFR () 112.9 Estimated GFR (Non- 97.4 BUN/Creatinine Ratio 17.9 Random Glucose 99 mg/dl Calcium Level 7.9 mg/dl Phosphorus Level 2.8 mg/dl Assessment and Plan Mr. Godfrey is a 60 year old male with ETOH cirrhosis and untreated hepatitis C who was admitted with c.diff and altered mental status, differential include wernicke's encephalopathy and hepatic encephalopathy - His ammonia is trending down and he is alert and oriented today. During admission he has developed oral thrush. - NPO until swallow study - Continue IV thiamine - supportive care - c.diff: continue with treatment with vancomycin - nystatin swish - IV fluconazole - continue to monitor ammonia - continue to monitor stools for evidence of bleed - monitor H&H - alcohol cessation education Attg addendum: I interviewed and examined pt, reviewed chart and labs. Pt with cirrhosis, now with AMS, diarrhea, dysphagia. On my exam, he is lucid and awake. His voice is breathy. He has only a weak gag. He has no nystagmus. No candidal plaques on my exam. abd exam is unremarkable.He has marked wasting , and no edema. - Regarding AMS -- thought to be Wernicke's; would contnue empiric xifaxan. Can change dose to 550 BID. Defer lactulose, due to C diff diarrhea. - Regarding C diff - Decrease PPI dose to once daily, may decrease vanco dose to 125 QID. He is at high risk for recurrence, due to his profound malnutrition - would consider long tapering course to minimize this risk, even though this appears to be his first incidence. - Regarding dysphagia -- I am not sure what the cause of this. He does not have oral thrush on my exam; although it may be possible that he has esophageal candidiasis. Await speech eval.
[2016-04-16] MEDS: TUBE FEEDING WATER FLUSH NG SCH ×3 (16:00→23:54)
--- NOTE | 2016-04-16 19:39 | DIAGNOSTIC IMAGING REPORT ---
KUB HISTORY: cor safe placed COMPARISON: KUB 04/16/2016. FINDINGS: The feeding tube is curled within the body of the stomach. Mildly dilated gas-filled loops of large and small bowel are again noted. No renal calculi. No ureteral calculi. No pneumoperitoneum or pneumatosis. IMPRESSION: The feeding tube is curled within the body of the stomach with the tip near the gastric fundus. Electronically signed by: Jonel Thomas M.D. 04/16/2016 7:37 PM
[2016-04-16] MEDS: FIBERSOURCE HN 1000ML BAG NG SCH ×2 (20:31)
[2016-04-16] MEDS ORDERED: NURSING VERBAL MED ORDER ONE (21:00)
[2016-04-17] VITALS (11 sets, daily range): BP systolic 85–100; BP diastolic 51–60; PULSE 61–78; TEMP 36.2–36.7; O2SAT 93–95
--- NOTE | 2016-04-17 01:28 | Progress Note ---
Subjective Date of Service: late entry for visit on Apr 16, 2016. Subjective Pt evaluation today including: conversation w/ patient, conversation w/ family (3 children at bedside), physical exam, chart review, lab review, review of studies (KUB x-rays x 2 ), conversation w/ [employer] sales consultant (gastroenterology), review of inpatient medication list Pain: none voiced during the visits PO Intake: npo Voiding: rangel catheter in place Last evening the patient was mildly confused, pulling out his NG tube. NG tube was attempted to be placed back but during replacement he dropped his O2 saturations. The tube was finally replaced but there were mechanical difficulties with such and thus it was pulled again. He also lost IV access. Tele stable overnight. During my 2nd visit with the patient, and in the presence of his 3 kids, he voiced a desire to be a level 5 DNR. He continues to have hoarse voice and significant dysphagia. Problem List Medical Problems: (1) Acute kidney injury Status: Acute (2) Alcoholism Status: Acute (3) Altered mental status Status: Acute (4) Anemia Status: Acute (5) Cellulitis Status: Acute (6) Decubitus ulcer Status: Acute (7) Dehydration Status: Acute (8) Elevated LFTs Status: Acute (9) Elevated lipase Status: Acute (10) GI bleed Status: Acute (11) Hypokalemia Status: Acute (12) Leukocytosis Status: Acute (13) Varices, esophageal Status: Acute Review of Systems Constitutional: No chills, No fever Respiratory: + cough, + dyspnea on exertion, No dyspnea at rest, No hemoptysis , No wheezing Cardiac: No chest pain Breast: No breast lump Abdomen: No nausea, No pain Objective Vital Signs Date Time Temp Pulse Resp B/P Pulse Ox O2 Delivery O2 Flow Rate FiO2 04/17/16 00:38 36.3 68 18 94/55 95 Nasal Cannula 3.0 04/16/16 23:59 96 Nasal Cannula 2.0 04/16/16 20:45 36.3 61 16 96/61 95 Nasal Cannula 3.0 04/16/16 20:00 95 Nasal Cannula 2.0 04/16/16 19:07 83 16 80 Room Air 04/16/16 16:00 97 Nasal Cannula 2.0 04/16/16 15:28 36.3 76 18 90/55 97 2.0 04/16/16 14:38 82 16 99 Nasal Cannula 4.0 04/16/16 12:00 100 Nasal Cannula 4.0 04/16/16 11:36 36.6 76 20 88/55 98 Nasal Cannula 04/16/16 08:21 98 16 100 Nasal Cannula 6.0 04/16/16 08:00 37.1 80 22 103/63 96 Nasal Cannula 4.0 04/16/16 08:00 96 Nasal Cannula 4.0 04/16/16 08:00 37.1 80 22 103/63 4 Nasal Cannula 96.0 04/16/16 04:00 Nasal Cannula 4.0 04/16/16 03:15 37.4 89 24 93/63 97 Nasal Cannula 4.0 04/16/16 02:08 84 18 94 Nasal Cannula 6.0 Physical Exam General Appearance: no apparent distress ENT: + muffled/hoarse voice (severely hoarse and difficulty w/ phonation), + pertinent finding (thrush plaques throughout oral mucosa) Neck: no JVD Respiratory/Chest: lungs clear, no respiratory distress, no accessory muscle use Cardiovascular: regular rate, rhythm, no gallop, no murmur Abdomen: normal bowel sounds, non tender, + distended (mild gaseous) Extremities: no pedal edema Neurologic/Psychiatric: alert, oriented x 3, + pertinent finding (severely weak with movement of arms and legs) Skin: + pertinent finding (no jaundice) Laboratory Results Last 24 Hours Test 04/16/16 04:45 04/16/16 06:26 04/16/16 08:35 04/16/16 10:52 Phosphorus Level 2.8 mg/dl 2.8 mg/dl Total Bilirubin 1.1 mg/dl Direct Bilirubin 0.5 mg/dl Aspartate Amino Transf (AST/SGOT) 42 U/L Alanine Aminotransferase (ALT/SGPT) 22 U/L Alkaline Phosphatase 83 U/L Total Protein 6.5 gm/dl Albumin 2.6 gm/dl Bedside Glucose 91 mg/dl 92 mg/dl White Blood Count 18.81 K/uL Red Blood Count 2.78 M/uL Hemoglobin 9.1 g/dL Hematocrit 26.4 % Mean Corpuscular Volume 95.0 fL Mean Corpuscular Hemoglobin 32.7 pg Mean Corpuscular Hemoglobin Concent 34.5 g/dl Platelet Count 217 K/uL Mean Platelet Volume 10.4 fL Neutrophils (%) (Auto) 75.7 % Lymphocytes (%) (Auto) 10.6 % Monocytes (%) (Auto) 13.0 % Eosinophils (%) (Auto) 0.1 % Basophils (%) (Auto) 0.1 % Neutrophils # (Auto) 14.24 K/uL Lymphocytes # (Auto) 2.00 K/uL Monocytes # (Auto) 2.45 K/uL Eosinophils # (Auto) 0.02 K/uL Basophils # (Auto) 0.01 K/uL RDW Standard Deviation 59.1 fL RDW Coefficient of Variation 18.7 % Immature Granulocyte % (Auto) 0.5 % Immature Granulocyte # (Auto) 0.09 K/uL Sodium Level 147 mmol/L Potassium Level 3.5 mmol/L Chloride Level 115 mmol/L Carbon Dioxide Level 22 mmol/L Anion Gap 10.0 mmol/L Blood Urea Nitrogen 14 mg/dl Creatinine 0.78 mg/dl Est Creatinine Clear Calc Drug Dose 81.6 ml/min Estimated GFR () 112.9 Estimated GFR (Non- 97.4 BUN/Creatinine Ratio 17.9 Random Glucose 99 mg/dl Calcium Level 7.9 mg/dl Assessment and Plan 60yo male with known cirrhosis, hep C, and chronic alcohol abuse with: 1. Metabolic encephalopathy - multifactorial - resolved. Had hepatic encephalopathy - resolved. Suspicion of Wernicke's encephalopathy in setting of other factors. Large w/u including MRI brain, EEG, etc otherwise wnl. Thiamine level pending; remains on IV thiamine. 2. Acute hypoxemic respiratory failure - likely 2nd to pneumonia. Ongoing, but stable. Completed full course of IV antibiotics. Suspect he had had intermittent aspiration. Cannot exclude fluid overload. Did he have ARDS? 3. c. diff colitis - day #8 of enteric vanco. Plan 14 day course. 4. hoarse voice - likely 2nd to recent intubation and laryngeal edema. Since there has been no improvement start decadron. If no improvement with decadron will ask ENT to see to exclude vocal cord paralysis/injury, etc. Laryngeal candidiasis also possible. 5. hypophosphatemia - resolved; stop phos checks. 6. recent hepatic encephalopathy - resolved; recent ammonia level also normal. continues on rifaximin. 7. recent melena stools - H/H stable. s/p 1 unit PRBCs on 04/10/16. Remains on PPI. 8. chronic hepatitis C cirrhosis with alcohol abuse/dependence - needs etoh abstinence after this hospitalization 9. bipolar disorder - was taking prozac BID and gabapentin BID these have been resumed albeit at lower doses increase in AM. 10. folic acid deficiency - continue folic acid supplementation b12 level was borderline low; will also supplement b12 11. concern of Wernicke's encephalopathy - continue IV thiamine daily thiamine level pending (reference lab) 12. deconditioning - severe PT, OT 13. celiac disease - gluten free diet when taking po 14. FEN - pt agreeable to placing back the NG tube for feedings start 20cc/hr and titrate to 60cc/hr continue IVF (hypotonic) due to hypernatremia repeat labs in am 15. DVT proph - heparin cautiously restarted; also has SCDs in place 16. dysphagia - speech eval appreciated; they recommend continued NPO status; video swallow soon see discussion above re: steroids 17. oral thrush - diflucan Lengthy discussion today (30-40 minute) held with pt and his 2 sons & 1 daughter. Discussed problems and plan of care, code status (patient consistently requested DNR level 5), need for probable rehab at the conclusion of his stay, etc Answered questions. total time today between 2 visits about 60 minutes PICC line placed today for access Continued [facility] stay due to: ambulation difficulties, multiple IV medications needed, home environment unsafe for pt Discharge planning: uncertain
[2016-04-17] MEDS: DEXAMETHASONE INJ 4 MG in SYRINGE 0 ML IV SCH ×4 (02:09→19:40)
[2016-04-17] MEDS: ALBUT/IPRATROP 3MG/0.5MG NEB 3 ML VIAL INH SCH ×4 (02:53→19:15)
[2016-04-17] MEDS: TUBE FEEDING WATER FLUSH NG SCH ×4 (05:38→23:47)
[2016-04-17 06:36] LABS: CREATININE 0.82 mg/dl (0.60-1.40); POTASSIUM 3.9 mmol/L (3.5-5.1)
[2016-04-17] MEDS: FoLIC ACID INJ 1 MG in SYRINGE 9.8 ML IV SCH (08:34)
[2016-04-17] MEDS: VANCOMYCIN HCL 250 MG/5 ML SOLN PO SCH ×4 (08:34→19:45)
[2016-04-17] MEDS: RASPBERRY SYRUP 5 ML UDP PO SCH ×4 (08:34→19:44)
[2016-04-17] MEDS: THIAMINE HCL INJ 100 MG in SYRINGE 9 ML IV SCH (08:34)
[2016-04-17] MEDS: FLUCONAZOLE / NSS 100 MG in PREMIXED NSS 50 ML IV SCH (08:35)
[2016-04-17] MEDS: FLUOXETINE HCL 20 MG/5 ML UDP PO SCH (08:36)
[2016-04-17] MEDS: GABAPENTIN 250 MG/5 ML 470 ML BTL PO SCH ×2 (08:36→19:49)
[2016-04-17] MEDS: NYSTATIN SUSP 500,000 U/5 ML UDC PO SCH ×4 (08:37→19:42)
[2016-04-17] MEDS: PROPRANOLOL HCL 10 MG TAB PO SCH ×2 (08:37→21:00)
[2016-04-17] MEDS: CYANOCOBALAMIN 500 MCG TAB (VIT B-12) PEG SCH (08:38)
[2016-04-17] MEDS: ZINC SULFATE 220 MG CAP PO SCH (08:38)
[2016-04-17] MEDS: LANSOPRAZOLE SOLUTAB 30 MG NG SCH ×2 (08:40→19:41)
[2016-04-17] MEDS: ASCORBIC ACID 500 MG TAB NG SCH (08:41)
[2016-04-17] MEDS: POT PHOSPHATE MONOBASIC W/ SOD TAB PO SCH ×4 (08:41→19:43)
[2016-04-17] MEDS: HEPARIN SOD 5000 UNIT/0.5 ML CARP SQ SCH ×2 (08:44→19:46)
[2016-04-17] MEDS: MULTIVITAMINS W/MINERALS 15ML UDP NG SCH (08:44)
[2016-04-17] MEDS: PROSOURCE NOCARB 30ML/PKT NG SCH (08:45)
[2016-04-17] MEDS ORDERED: THIAMINE HCL 100 MG/ML 2 ML VIAL IV SCH (09:00)
[2016-04-17] MEDS ORDERED: THIAMINE HCL 100 MG/ML 2 ML VIAL IM SCH (09:00)
[2016-04-17] MEDS: FIBERSOURCE HN 1000ML BAG NG SCH ×4 (09:41→16:00)
--- NOTE | 2016-04-17 10:27 | Medical Student: [facility] ---
Med Student Progress Note Date of Service Apr 17, 2016. Subjective Pt evaluation today including: conversation w/ patient, physical exam, chart review, lab review Pain: no pain reported PO Intake: via corsafe tube Voiding: no voiding problems, rangel catheter in place Patient reports doing much better following the placement of his NG tube yesterday evening and subsequent feeding and medicine administration. He denies any pain or other symptoms. He is concerned that his voice hoarseness is not improved at all despite initiation of steroid treatments. He also expressed interest in improving his strength and working with PT/OT. He requested some hygiene care. Review of Systems Constitutional: No fever ENT: + trouble swallowing Respiratory: + dyspnea on exertion, + see HPI, + shortness of breath Objective Vital Signs Date Time Temp Pulse Resp B/P Pulse Ox O2 Delivery O2 Flow Rate FiO2 04/17/16 08:32 36.4 73 24 100/58 93 Nasal Cannula 2.0 04/17/16 07:14 74 16 94 Nasal Cannula 2.0 04/17/16 04:00 95 Nasal Cannula 2.0 04/17/16 04:00 36.6 71 17 92/60 95 Nasal Cannula 2.0 04/17/16 02:53 61 16 94 Nasal Cannula 3.0 04/17/16 00:38 36.3 68 18 94/55 95 Nasal Cannula 3.0 04/16/16 23:59 96 Nasal Cannula 2.0 04/16/16 20:45 36.3 61 16 96/61 95 Nasal Cannula 3.0 04/16/16 20:00 95 Nasal Cannula 2.0 04/16/16 19:07 83 16 80 Room Air 04/16/16 16:00 97 Nasal Cannula 2.0 04/16/16 15:28 36.3 76 18 90/55 97 2.0 04/16/16 14:38 82 16 99 Nasal Cannula 4.0 04/16/16 12:00 100 Nasal Cannula 4.0 04/16/16 11:36 36.6 76 20 88/55 98 Nasal Cannula Physical Exam General Appearance: no apparent distress, + thin Eyes: bilateral eyes PERRL, bilateral eyes normal inspection ENT: pharynx normal Neck: supple, no JVD Respiratory/Chest: chest non-tender, lungs clear, normal breath sounds Cardiovascular: regular rate, rhythm, no gallop, no murmur Abdomen: normal bowel sounds, non tender, soft, + splenomegaly Extremities: normal inspection, no pedal edema Neurologic/Psychiatric: alert, normal mood/affect, oriented x 3 Skin: normal color, warm/dry, no rash Laboratory Results Last 24 Hours Test 04/16/16 10:52 04/17/16 05:45 Bedside Glucose 92 mg/dl Sodium Level 146 mmol/L Potassium Level 3.9 mmol/L Chloride Level 114 mmol/L Carbon Dioxide Level 23 mmol/L Anion Gap 9.0 mmol/L Blood Urea Nitrogen 20 mg/dl Creatinine 0.82 mg/dl Est Creatinine Clear Calc Drug Dose 77.6 ml/min Estimated GFR () 110.6 Estimated GFR (Non- 95.4 BUN/Creatinine Ratio 25.0 Random Glucose 151 mg/dl Calcium Level 8.0 mg/dl Medications Current Inpatient Medications Medications (Trade) Dose Ordered Sig/Vin Route Start Time Stop Time Status Last Admin Dose Admin Vancomycin HCl (Vancomycin Oral Soln) 250 mg QID PO 04/09/16 13:00 04/26/16 23:59 04/17/16 08:34 250 MG Raspberry (Raspberry Syrup 5ML Cup) 5 ml QID PO 04/09/16 13:00 04/26/16 23:59 04/17/16 08:34 5 ML Rifaximin 200 mg 200 mg TID PO 04/09/16 21:00 05/09/16 20:59 Future hold 04/15/16 12:26 200 MG Folic Acid/Syringe (Folvite Inj/ Syringe) 10 ml @ 5 mls/min QAM IV 04/11/16 09:00 05/11/16 08:59 04/17/16 08:34 5 MLS/MIN Albuterol/ Ipratropium (Duoneb) 3 ml Q6R INH 04/13/16 15:00 05/13/16 14:59 04/17/16 07:14 3 ML Nystatin (Mycostatin Susp) 5 ml QID PO 04/13/16 17:00 04/23/16 16:59 04/17/16 08:37 5 ML Lorazepam (Ativan Inj) 0.5 mg Q4H PRN IV 04/14/16 07:30 05/14/16 07:29 04/15/16 02:31 0.5 MG Heparin Sodium (Porcine) (Heparin Sq 5000 Unit/0.5ml) 5,000 unit Q12 SQ 04/14/16 09:00 05/14/16 08:59 04/17/16 08:44 5,000 UNIT Gabapentin (Neurontin) 100 mg BID PO 04/14/16 09:00 05/14/16 08:59 04/17/16 08:36 100 MG Fluoxetine HCl 20 mg 20 mg QAM PO 04/15/16 09:00 05/15/16 08:59 04/17/16 08:36 20 MG Thiamine HCl/ Syringe (Vitamin B-1 Inj/ Syringe) 10 ml @ 2 mls/min DAILY IV 04/17/16 09:00 05/17/16 08:59 04/17/16 08:34 2 MLS/MIN Cyanocobalamin (Vitamin B-12 Tab) 1,000 mcg QAM PEG 04/16/16 09:00 05/16/16 08:59 04/17/16 08:38 1,000 MCG Propranolol HCl (Inderal Tab) 10 mg BID PO 04/15/16 21:00 05/15/16 20:59 04/17/16 08:37 10 MG Potassium/ Phosphorus/Sodium (Phospha 250 Neutral 155-852-130 Mg) 2 tab QID PO 04/15/16 13:00 05/15/16 12:59 04/17/16 08:41 2 TAB Ascorbic Acid (Vitamin C Tab) 1,000 mg DAILY NG 04/16/16 09:00 05/16/16 08:59 04/17/16 08:41 1,000 MG Multivitamins Therapeutic (Cerovite Liquid) 15 ml QAM NG 04/16/16 09:00 05/16/16 08:59 04/17/16 08:44 15 ML Lansoprazole (Prevacid Solutab) 30 mg BID NG 04/15/16 21:00 05/15/16 20:59 04/17/16 08:40 30 MG Zinc Sulfate 220 mg 220 mg QAM PO 04/16/16 09:00 05/16/16 08:59 04/17/16 08:38 220 MG Fluconazole/ Sodium Chloride 100 mg/Prmx 50 ml @ 100 mls/hr DAILY IV 04/16/16 09:00 04/26/16 08:59 04/17/16 08:35 100 MLS/HR Dexamethasone Sodium Phosphate 4 mg/Syringe 1 ml @ 1 mls/min Q6H IV 04/16/16 09:00 05/16/16 08:59 04/17/16 08:35 1 MLS/MIN Potassium Chloride/Dextrose/ Sod Cl (D5W And 1/4nss + 20meq KCl) 1,000 ml @ 75 mls/hr [id number] IV 04/16/16 10:00 05/16/16 09:59 04/16/16 23:20 75 MLS/HR Enteral Nutritional Formula (Fibersource HN) 1,000 ml UD NG 04/16/16 12:15 05/16/16 12:14 04/17/16 09:41 40 ML Enteral Nutritional Formula (Prosource No Carb) 30 ml DAILY NG 04/17/16 09:00 05/17/16 08:59 04/17/16 08:45 30 ML Sterile Water (Tube Feeding Water Flush) 1 ea Q6 NG 04/17/16 00:00 05/17/16 00:00 04/17/16 05:38 1 EA Assessment and Plan Assessment and Plan: This is a 60 yo male with a hx of cirrhosis, hep c, celiac disease, bipolar disorder who presented on 04/09 with altered mental status and severe diarrhea and was intubated for hypoxic respiratory failure. Extubated on 04/13. Encephalopathy: Continues to improve. Patient is in much better spirits today following replacement of corsafe tube and has been alert and oriented since yesterday with no owning. Rifaximin reinitiated for prevention of hepatic encephalopathy. Continue thiamine replacement at 200 mg IV bid until levels come back. Continue B12 supplementation. C. Difficile infection: Continue oral vancomycin via NG tube. D/c flagyl. Anemia: Counts continue to improve s/p one unit packed RBC. Continue to monitor CBCs. Protein/Calorie Malnutrition: Increase NG tube feedings by 10 cc/hr q 8hrs to a goal of 60 cc/hr, with flushes of 70 cc free water q 6hrs. Continue to monitor albumin and BMPs. GI bleed: Continue protonix. Monitor stools for further evidence of bleeding. Continue to monitor blood counts with daily CBCs. Decubitus ulcer: Does not appear infected. Monitor for any signs of infection and continue to reposition as tolerated. Continue use of waffle boots and bandage for decubitus ulcer. Goals of care discussion: Pt decided to be designated as DNR yesterday at family meeting. The family was informed of the plan and prognosis and expressed understanding and support for pt. Daughter Estrellita was designated as pt's POA. Preparation for discharge: PT/OT continue to work on strength with patient. He expressed interest and motivation in getting more exercise and gaining strength. DVT prophylaxis: Continue sub-q heparin infusions and compression for DVT prophylaxis Continued [facility] stay due to: ambulation difficulties, multiple IV medications needed, home environment unsafe for pt Discharge planning: uncertain
[2016-04-17] MEDS: D5W AND 1/4NSS + 20MEQ KCL 1,000 ML IV SCH (13:30)
--- NOTE | 2016-04-17 14:28 | Gastroenterology Progress Note ---
Progress Note Date of Service: Apr 17, 2016 Subjective Pt evaluation today including: conversation w/ patient, physical exam, lab review, review of studies, review of inpatient medication list Patient having difficulty speaking and still NPO with coresafe NG in place. He was to have a repeat speech eval today which had not been performed at the time of visit. Denies any abdominal pain or diarrhea today. He did have 6 bms yesterday. Continues high dose Vancomycin. Medications Current Inpatient Medications Medications (Trade) Dose Ordered Sig/Vin Route Start Time Stop Time Status Last Admin Dose Admin Vancomycin HCl (Vancomycin Oral Soln) 250 mg QID PO 04/09/16 13:00 04/26/16 23:59 04/17/16 13:32 250 MG Raspberry (Raspberry Syrup 5ML Cup) 5 ml QID PO 04/09/16 13:00 04/26/16 23:59 04/17/16 13:39 5 ML Rifaximin 200 mg 200 mg TID PO 04/09/16 21:00 05/09/16 20:59 Future hold 04/15/16 12:26 200 MG Folic Acid/Syringe (Folvite Inj/ Syringe) 10 ml @ 5 mls/min QAM IV 04/11/16 09:00 05/11/16 08:59 04/17/16 08:34 5 MLS/MIN Albuterol/ Ipratropium (Duoneb) 3 ml Q6R INH 04/13/16 15:00 05/13/16 14:59 04/17/16 07:14 3 ML Nystatin (Mycostatin Susp) 5 ml QID PO 04/13/16 17:00 04/23/16 16:59 04/17/16 13:39 5 ML Lorazepam (Ativan Inj) 0.5 mg Q4H PRN IV 04/14/16 07:30 05/14/16 07:29 04/15/16 02:31 0.5 MG Heparin Sodium (Porcine) (Heparin Sq 5000 Unit/0.5ml) 5,000 unit Q12 SQ 04/14/16 09:00 05/14/16 08:59 04/17/16 08:44 5,000 UNIT Gabapentin (Neurontin) 100 mg BID PO 04/14/16 09:00 05/14/16 08:59 04/17/16 08:36 100 MG Fluoxetine HCl 20 mg 20 mg QAM PO 04/15/16 09:00 05/15/16 08:59 04/17/16 08:36 20 MG Thiamine HCl/ Syringe (Vitamin B-1 Inj/ Syringe) 10 ml @ 2 mls/min DAILY IV 04/17/16 09:00 05/17/16 08:59 04/17/16 08:34 2 MLS/MIN Cyanocobalamin (Vitamin B-12 Tab) 1,000 mcg QAM PEG 04/16/16 09:00 05/16/16 08:59 04/17/16 08:38 1,000 MCG Propranolol HCl (Inderal Tab) 10 mg BID PO 04/15/16 21:00 05/15/16 20:59 04/17/16 08:37 10 MG Potassium/ Phosphorus/Sodium (Phospha 250 Neutral 155-852-130 Mg) 2 tab QID PO 04/15/16 13:00 05/15/16 12:59 04/17/16 13:00 2 TAB Ascorbic Acid (Vitamin C Tab) 1,000 mg DAILY NG 04/16/16 09:00 05/16/16 08:59 04/17/16 08:41 1,000 MG Multivitamins Therapeutic (Cerovite Liquid) 15 ml QAM NG 04/16/16 09:00 05/16/16 08:59 04/17/16 08:44 15 ML Lansoprazole (Prevacid Solutab) 30 mg BID NG 04/15/16 21:00 05/15/16 20:59 04/17/16 08:40 30 MG Zinc Sulfate 220 mg 220 mg QAM PO 04/16/16 09:00 05/16/16 08:59 04/17/16 08:38 220 MG Fluconazole/ Sodium Chloride 100 mg/Prmx 50 ml @ 100 mls/hr DAILY IV 04/16/16 09:00 04/26/16 08:59 04/17/16 08:35 100 MLS/HR Dexamethasone Sodium Phosphate 4 mg/Syringe 1 ml @ 1 mls/min Q6H IV 04/16/16 09:00 05/16/16 08:59 04/17/16 13:39 1 MLS/MIN Potassium Chloride/Dextrose/ Sod Cl (D5W And 1/4nss + 20meq KCl) 1,000 ml @ 75 mls/hr [id number] IV 04/16/16 10:00 05/16/16 09:59 04/17/16 13:30 75 MLS/HR Enteral Nutritional Formula (Fibersource HN) 1,000 ml UD NG 04/16/16 12:15 05/16/16 12:14 04/17/16 09:41 40 ML Enteral Nutritional Formula (Prosource No Carb) 30 ml DAILY NG 04/17/16 09:00 05/17/16 08:59 04/17/16 08:45 30 ML Sterile Water (Tube Feeding Water Flush) 1 ea Q6 NG 04/17/16 00:00 05/17/16 00:00 04/17/16 12:18 1 EA Objective Vital Signs Date Time Temp Pulse Resp B/P Pulse Ox O2 Delivery O2 Flow Rate FiO2 04/17/16 12:00 Nasal Cannula 2.0 04/17/16 11:23 36.7 71 23 85/51 93 Nasal Cannula 2.0 04/17/16 08:32 36.4 73 24 100/58 93 Nasal Cannula 2.0 04/17/16 08:00 Nasal Cannula 2.0 04/17/16 07:14 74 16 94 Nasal Cannula 2.0 04/17/16 04:00 95 Nasal Cannula 2.0 04/17/16 04:00 36.6 71 17 92/60 95 Nasal Cannula 2.0 04/17/16 02:53 61 16 94 Nasal Cannula 3.0 04/17/16 00:38 36.3 68 18 94/55 95 Nasal Cannula 3.0 04/16/16 23:59 96 Nasal Cannula 2.0 04/16/16 20:45 36.3 61 16 96/61 95 Nasal Cannula 3.0 04/16/16 20:00 95 Nasal Cannula 2.0 04/16/16 19:07 83 16 80 Room Air 04/16/16 16:00 97 Nasal Cannula 2.0 04/16/16 15:28 36.3 76 18 90/55 97 2.0 04/16/16 14:38 82 16 99 Nasal Cannula 4.0 Laboratory Results Last 24 Hours Test 04/17/16 05:45 Sodium Level 146 mmol/L Potassium Level 3.9 mmol/L Chloride Level 114 mmol/L Carbon Dioxide Level 23 mmol/L Anion Gap 9.0 mmol/L Blood Urea Nitrogen 20 mg/dl Creatinine 0.82 mg/dl Est Creatinine Clear Calc Drug Dose 77.6 ml/min Estimated GFR () 110.6 Estimated GFR (Non- 95.4 BUN/Creatinine Ratio 25.0 Random Glucose 151 mg/dl Calcium Level 8.0 mg/dl Assessment and Plan Patient is a 60 year-old male with a history of Celiac disease as well as alcohol and hepatitis C associated cirrhosis admitted with acute mental status changes felt possibly Wernicke's encephalopathy although serum ammonia level was elevated on admission as well with persistent dysphagia status post extubation and C Difficile associated diarrhea. 1. Await PROFESSOR OF [employer]OLOG[employer] evaluation. Continue NPO status for now. 2. Continue Vancomycin but agree to consider dose reduction to 125 mg QID. 3. Start Xifaxan 550 mg BID. Hold lactulose due to diarrhea. 4. Continue vitamin repletion. 5. Alcohol abstinence. 6. Supportive medical management. Agree with AMARI Melgar as above Abd: Soft, NT, Distended, +BS Complete treatment for C-diff Recommend 100% Gluten free diet Recommend Complete Abstinence from Alcohol
[2016-04-18] VITALS (11 sets, daily range): BP systolic 91–95; BP diastolic 52–63; PULSE 69–83; TEMP 36.3–36.7; O2SAT 90–94
[2016-04-18] MEDS: ALBUT/IPRATROP 3MG/0.5MG NEB 3 ML VIAL INH SCH ×4 (01:52→19:10)
[2016-04-18] MEDS: DEXAMETHASONE INJ 4 MG in SYRINGE 0 ML IV SCH ×4 (03:24→21:55)
[2016-04-18] MEDS: FIBERSOURCE HN 1000ML BAG NG SCH ×2 (03:24)
[2016-04-18] MEDS: D5W AND 1/4NSS + 20MEQ KCL 1,000 ML IV SCH (04:40)
[2016-04-18] MEDS: TUBE FEEDING WATER FLUSH NG SCH ×3 (04:41→17:36)
--- NOTE | 2016-04-18 07:48 | Progress Note ---
Subjective Date of Service: late entry for visit on Apr 17, 2016. Subjective Pt evaluation today including: conversation w/ patient, conversation w/ family (son, daughter at bedside), physical exam, chart review, lab review Pain: denies PO Intake: npo, ng tube feedings restarted; no residuals per staff Voiding: rangel catheter in place feels "much better today" overall - better strength, better mood, laughing with children family pleased w/ his progress continues with hoarse voice denies sob some intermittent cough no abd pain Problem List Medical Problems: (1) Acute kidney injury Status: Acute (2) Alcoholism Status: Acute (3) Altered mental status Status: Acute (4) Anemia Status: Acute (5) Cellulitis Status: Acute (6) Decubitus ulcer Status: Acute (7) Dehydration Status: Acute (8) Elevated LFTs Status: Acute (9) Elevated lipase Status: Acute (10) GI bleed Status: Acute (11) Hypokalemia Status: Acute (12) Leukocytosis Status: Acute (13) Varices, esophageal Status: Acute Review of Systems Constitutional: No fever ENT: + trouble swallowing Respiratory: + cough, No dyspnea on exertion, No shortness of breath, No sputum , No wheezing Cardiac: No chest pain, No orthopnea Abdomen: No pain Objective Vital Signs Date Time Temp Pulse Resp B/P Pulse Ox O2 Delivery O2 Flow Rate FiO2 04/17/16 23:41 36.2 78 23 91/59 93 Nasal Cannula 2.0 04/17/16 20:03 36.5 73 20 92/56 95 2.0 04/17/16 20:00 94 Nasal Cannula 2.0 04/17/16 19:19 75 16 93 Nasal Cannula 2.0 04/17/16 16:00 Nasal Cannula 2.0 04/17/16 15:12 36.3 74 20 92/59 94 Nasal Cannula 2.0 04/17/16 12:00 Nasal Cannula 2.0 04/17/16 11:23 36.7 71 23 85/51 93 Nasal Cannula 2.0 04/17/16 08:32 36.4 73 24 100/58 93 Nasal Cannula 2.0 04/17/16 08:00 Nasal Cannula 2.0 04/17/16 07:14 74 16 94 Nasal Cannula 2.0 04/17/16 04:00 95 Nasal Cannula 2.0 04/17/16 04:00 36.6 71 17 92/60 95 Nasal Cannula 2.0 04/17/16 02:53 61 16 94 Nasal Cannula 3.0 04/17/16 00:38 36.3 68 18 94/55 95 Nasal Cannula 3.0 Physical Exam General Appearance: no apparent distress, + pertinent finding (looks overall better today) ENT: + muffled/hoarse voice (no change in hoarse voice ) Neck: no JVD Respiratory/Chest: lungs clear, no respiratory distress, no accessory muscle use Cardiovascular: regular rate, rhythm, no gallop, no murmur Abdomen: normal bowel sounds, non tender, soft, no organomegaly, + distended ( mild) Extremities: no pedal edema Neurologic/Psychiatric: no motor/sensory deficits, alert, oriented x 3 Comments: PICC line RUE clean Laboratory Results Last 24 Hours Test 04/17/16 05:45 Sodium Level 146 mmol/L Potassium Level 3.9 mmol/L Chloride Level 114 mmol/L Carbon Dioxide Level 23 mmol/L Anion Gap 9.0 mmol/L Blood Urea Nitrogen 20 mg/dl Creatinine 0.82 mg/dl Est Creatinine Clear Calc Drug Dose 77.6 ml/min Estimated GFR () 110.6 Estimated GFR (Non- 95.4 BUN/Creatinine Ratio 25.0 Random Glucose 151 mg/dl Calcium Level 8.0 mg/dl Assessment and Plan 60yo male with known cirrhosis, hep C, and chronic alcohol abuse with: 1. Metabolic encephalopathy - resolved. 2. Acute hypoxemic respiratory failure - likely 2nd to pneumonia. Resolving albeit slowly. Completed full course of IV antibiotics for pneumonia. 3. c. diff colitis - day #9 of enteric vanco. Plan 14 day course. 4. hoarse voice - likely 2nd to recent intubation and laryngeal edema. Decadron started yesterday to see if the culprit is laryngeal edema. If no improvement with decadron will ask ENT to see to exclude vocal cord paralysis/injury, etc. Laryngeal candidiasis also possible. 5. hypophosphatemia - resolved. 6. recent hepatic encephalopathy - resolved; recent ammonia level also normal. continues on rifaximin. 7. recent melena stools - H/H stable. s/p 1 unit PRBCs on 04/10/16. Remains on PPI. 8. chronic hepatitis C cirrhosis with alcohol abuse/dependence - needs etoh abstinence after this hospitalization currently the cirrhosis is compensated. 9. bipolar disorder - was taking prozac BID and gabapentin BID these have been resumed albeit at lower doses 10. folic acid deficiency - continue folic acid supplementation b12 level was borderline low; will also supplement b12 11. concern of Wernicke's encephalopathy - continue IV thiamine daily thiamine level pending (reference lab) 12. deconditioning - severe PT, OT 13. celiac disease - gluten free diet when taking po 14. FEN - cont to titrate NG tube feedings to goal of 60cc/hr. BMP stable. NPO status. 15. DVT proph - heparin cautiously restarted; also has SCDs in place 16. dysphagia - speech eval appreciated; they recommend continued NPO status; video swallow Friday 17. oral thrush - diflucan family updated once again today PT, OT evals appreciated Continued [facility] stay due to: ambulation difficulties, multiple IV medications needed, home environment unsafe for pt Discharge planning: uncertain
[2016-04-18 08:16] LABS: COMPLETE YES; HEMATOCRIT 27.1 % (42-52); IG% 0.3 %; LYMPH % 5.6 %; LYMPH ABS # 0.92 K/uL (1.2-3.4); MEAN CELL VOLUME 94.8 fL (80-100); MEAN CORPUSCULAR HEMOGLOBIN 32.9 pg (25-34); MEAN CORPUSCULAR HGB CONC 34.7 g/dl (32-36); MEAN PLATELET VOLUME 10.3 fL (7.4-10.4); MONO % 6.7 %; NEUT % 87.4 %; PLATELET COUNT 268 K/uL (130-400); RED BLOOD COUNT 2.86 M/uL (4.7-6.1); WHITE BLOOD COUNT 16.45 K/uL (4.8-10.8)
[2016-04-18 08:39] LABS: BUN/CREATININE RATIO 33.6 (10-20); CALCIUM 7.8 mg/dl (8.5-10.1); CREATININE 0.81 mg/dl (0.60-1.40); POTASSIUM 3.5 mmol/L (3.5-5.1)
[2016-04-18] MEDS: RASPBERRY SYRUP 5 ML UDP PO SCH ×4 (09:16→21:00)
[2016-04-18] MEDS: FLUOXETINE HCL 20 MG/5 ML NG SCH (09:17)
[2016-04-18] MEDS: GABAPENTIN 250 MG/5 ML 470 ML BTL NG SCH ×2 (09:17→21:00)
[2016-04-18] MEDS: MULTIVITAMINS W/MINERALS 15ML UDP NG SCH (09:17)
[2016-04-18] MEDS: ASCORBIC ACID 500 MG TAB NG SCH (09:19)
[2016-04-18] MEDS: LANSOPRAZOLE SOLUTAB 30 MG NG SCH ×2 (09:19→21:03)
[2016-04-18] MEDS: PROSOURCE NOCARB 30ML/PKT NG SCH (09:19)
[2016-04-18] MEDS: CYANOCOBALAMIN 500 MCG TAB (VIT B-12) PEG SCH (09:19)
[2016-04-18] MEDS: PROPRANOLOL HCL 10 MG TAB PO SCH ×2 (09:20→20:59)
[2016-04-18] MEDS: NYSTATIN SUSP 500,000 U/5 ML UDC PO SCH ×4 (09:20→21:04)
[2016-04-18] MEDS: FLUCONAZOLE SUSP 40 MG/ML 35 ML NG SCH (09:21)
[2016-04-18] MEDS: ZINC SULFATE 220 MG CAP PO SCH (09:21)
[2016-04-18] MEDS: VANCOMYCIN HCL 250 MG/5 ML SOLN PO SCH ×4 (09:23→21:00)
[2016-04-18] MEDS: POT PHOSPHATE MONOBASIC W/ SOD TAB PO SCH ×4 (09:23→21:02)
[2016-04-18] MEDS: THIAMINE HCL INJ 100 MG in SYRINGE 9 ML IV SCH (09:25)
[2016-04-18] MEDS: HEPARIN SOD 5000 UNIT/0.5 ML CARP SQ SCH ×2 (09:27→21:14)
--- NOTE | 2016-04-18 09:36 | Medical Student: [facility] ---
Med Student Progress Note Date of Service Apr 18, 2016. Subjective Pt evaluation today including: conversation w/ patient, physical exam, chart review, lab review, review of studies Pain: no pain reported Voiding: rangel catheter in place Patient says that he is doing "good" today. He denies any pain or other symptoms. Does not report diarrhea, but nurse says he had a large liquid bowel movement early this morning. He does express deep concern about his inability to swallow, saying "this is not normal". Patient was also wondering when he would be moved to a new room. Review of Systems Constitutional: No chills, No fever Respiratory: + dyspnea on exertion, + shortness of breath Objective Vital Signs Date Time Temp Pulse Resp B/P Pulse Ox O2 Delivery O2 Flow Rate FiO2 04/18/16 08:10 36.7 83 18 94/62 90 Nasal Cannula 2.0 04/18/16 07:15 Nasal Cannula 2.0 04/18/16 07:12 76 16 94 Nasal Cannula 2.0 04/18/16 04:00 Nasal Cannula 2.0 04/18/16 03:37 36.3 74 20 91/57 94 Nasal Cannula 2.0 04/18/16 01:52 74 16 92 Nasal Cannula 2.0 04/18/16 00:01 Nasal Cannula 2.0 04/17/16 23:41 36.2 78 23 91/59 93 Nasal Cannula 2.0 04/17/16 20:03 36.5 73 20 92/56 95 2.0 04/17/16 20:00 94 Nasal Cannula 2.0 04/17/16 19:19 75 16 93 Nasal Cannula 2.0 04/17/16 16:00 Nasal Cannula 2.0 04/17/16 15:12 36.3 74 20 92/59 94 Nasal Cannula 2.0 04/17/16 12:00 Nasal Cannula 2.0 04/17/16 11:23 36.7 71 23 85/51 93 Nasal Cannula 2.0 Physical Exam General Appearance: no apparent distress, + thin Eyes: bilateral eyes PERRL, bilateral eyes normal inspection ENT: pharynx normal, + muffled/hoarse voice (unchanged. seems more strained on speaking today.), + pertinent finding (no plaques in mouth or on palate) Neck: supple, no JVD Respiratory/Chest: lungs clear, normal breath sounds, no accessory muscle use Cardiovascular: regular rate, rhythm, no gallop, no murmur Abdomen: normal bowel sounds, non tender, soft Extremities: normal inspection, no pedal edema Neurologic/Psychiatric: alert, oriented x 3, + depressed affect (appears listless today and has poor eye contact while answering questions) Skin: normal color, warm/dry, no rash Laboratory Results Last 24 Hours Test 04/18/16 06:00 04/18/16 07:55 Magnesium Level 2.1 mg/dl White Blood Count 16.45 K/uL Red Blood Count 2.86 M/uL Hemoglobin 9.4 g/dL Hematocrit 27.1 % Mean Corpuscular Volume 94.8 fL Mean Corpuscular Hemoglobin 32.9 pg Mean Corpuscular Hemoglobin Concent 34.7 g/dl Platelet Count 268 K/uL Mean Platelet Volume 10.3 fL Neutrophils (%) (Auto) 87.4 % Lymphocytes (%) (Auto) 5.6 % Monocytes (%) (Auto) 6.7 % Eosinophils (%) (Auto) 0.0 % Basophils (%) (Auto) 0.0 % Neutrophils # (Auto) 14.38 K/uL Lymphocytes # (Auto) 0.92 K/uL Monocytes # (Auto) 1.10 K/uL Eosinophils # (Auto) 0.00 K/uL Basophils # (Auto) 0.00 K/uL RDW Standard Deviation 61.2 fL RDW Coefficient of Variation 19.0 % Immature Granulocyte % (Auto) 0.3 % Immature Granulocyte # (Auto) 0.05 K/uL Sodium Level 145 mmol/L Potassium Level 3.5 mmol/L Chloride Level 114 mmol/L Carbon Dioxide Level 21 mmol/L Anion Gap 10.0 mmol/L Blood Urea Nitrogen 27 mg/dl Creatinine 0.81 mg/dl Est Creatinine Clear Calc Drug Dose 82.1 ml/min Estimated GFR () 111.2 Estimated GFR (Non- 95.9 BUN/Creatinine Ratio 33.6 Random Glucose 136 mg/dl Calcium Level 7.8 mg/dl Medications Current Inpatient Medications Medications (Trade) Dose Ordered Sig/Vin Route Start Time Stop Time Status Last Admin Dose Admin Vancomycin HCl (Vancomycin Oral Soln) 250 mg QID PO 04/09/16 13:00 04/26/16 23:59 04/17/16 19:45 250 MG Raspberry (Raspberry Syrup 5ML Cup) 5 ml QID PO 04/09/16 13:00 04/26/16 23:59 04/17/16 13:39 5 ML Rifaximin (Xifaxan Tab) 200 mg TID PO 04/09/16 21:00 05/09/16 20:59 Future hold 04/15/16 12:26 200 MG Albuterol/ Ipratropium (Duoneb) 3 ml Q6R INH 04/13/16 15:00 05/13/16 14:59 04/18/16 07:11 3 ML Nystatin (Mycostatin Susp) 5 ml QID PO 04/13/16 17:00 04/23/16 16:59 04/17/16 19:42 5 ML Lorazepam (Ativan Inj) 0.5 mg Q4H PRN IV 04/14/16 07:30 05/14/16 07:29 04/15/16 02:31 0.5 MG Heparin Sodium (Porcine) 5000 unit 5,000 unit Q12 SQ 04/14/16 09:00 05/14/16 08:59 04/17/16 19:46 5,000 UNIT Thiamine HCl/ Syringe (Vitamin B-1 Inj/ Syringe) 10 ml @ 2 mls/min DAILY IV 04/17/16 09:00 05/17/16 08:59 04/17/16 08:34 2 MLS/MIN Cyanocobalamin (Vitamin B-12 Tab) 1,000 mcg QAM PEG 04/16/16 09:00 05/16/16 08:59 04/17/16 08:38 1,000 MCG Propranolol HCl (Inderal Tab) 10 mg BID PO 04/15/16 21:00 05/15/16 20:59 04/17/16 08:37 10 MG Potassium/ Phosphorus/Sodium (Phospha 250 Neutral 155-852-130 Mg) 2 tab QID PO 04/15/16 13:00 05/15/16 12:59 04/17/16 19:43 2 TAB Ascorbic Acid (Vitamin C Tab) 1,000 mg DAILY NG 04/16/16 09:00 05/16/16 08:59 04/17/16 08:41 1,000 MG Multivitamins Therapeutic (Cerovite Liquid) 15 ml QAM NG 04/16/16 09:00 05/16/16 08:59 04/17/16 08:44 15 ML Lansoprazole (Prevacid Solutab) 30 mg BID NG 04/15/16 21:00 05/15/16 20:59 04/17/16 19:41 30 MG Zinc Sulfate 220 mg 220 mg QAM PO 04/16/16 09:00 05/16/16 08:59 04/17/16 08:38 220 MG Dexamethasone Sodium Phosphate 4 mg/Syringe 1 ml @ 1 mls/min Q6H IV 04/16/16 09:00 05/16/16 08:59 04/18/16 03:24 1 MLS/MIN Potassium Chloride/Dextrose/ Sod Cl (D5W And 1/4nss + 20meq KCl) 1,000 ml @ 50 mls/hr Q20H IV 04/16/16 10:00 05/16/16 09:59 04/18/16 04:40 50 MLS/HR Enteral Nutritional Formula (Fibersource HN) 1,000 ml UD NG 04/16/16 12:15 05/16/16 12:14 04/18/16 03:24 1,000 ML Enteral Nutritional Formula (Prosource No Carb) 30 ml DAILY NG 04/17/16 09:00 05/17/16 08:59 04/17/16 08:45 30 ML Sterile Water (Tube Feeding Water Flush) 1 ea Q6 NG 04/17/16 00:00 05/17/16 00:00 04/18/16 04:41 1 EA Fluconazole (Diflucan Susp) 100 mg QAM NG 04/18/16 09:00 04/28/16 08:59 Folic Acid (Folvite Tab) 1 mg QAM NG 04/18/16 09:00 05/18/16 08:59 Fluoxetine HCl (Prozac Soln) 40 mg QAM NG 04/18/16 09:00 05/18/16 08:59 Gabapentin (Neurontin) 200 mg BID NG 04/18/16 09:00 05/18/16 08:59 Assessment and Plan Assessment and Plan: This is a 60 yo male with a hx of cirrhosis, hep c, celiac disease, bipolar disorder who presented on 04/09 with altered mental status and severe diarrhea and was intubated for hypoxic respiratory failure. Extubated on 04/13. C. Difficile infection: Continue oral vancomycin via NG tube. D/c flagyl. Hoarse voice: Continues to have minimal to no phonation. Will continue dexamethasone but ENT consult would be appreciated to evaluate vocal cord function. Dysphagia: Appreciate continued [employer] attention and will hopefully perform video swallow tomorrow. Encephalopathy: Resolved. Rifaximin reinitiated for prevention of hepatic encephalopathy. Continue thiamine replacement at 200 mg IV bid until levels come back. Continue B12 supplementation. Anemia: Counts continue to improve s/p one unit packed RBC. Continue to monitor CBCs. Protein/Calorie Malnutrition: Increase NG tube feedings by 10 cc/hr q 8hrs to a goal of 60 cc/hr, with flushes of 70 cc free water q 6hrs. Continue to monitor albumin and BMPs. GI bleed: Continue protonix. Monitor stools for further evidence of bleeding. Continue to monitor blood counts with daily CBCs. Decubitus ulcer: Does not appear infected. Monitor for any signs of infection and continue to reposition as tolerated. Continue use of waffle boots and bandage for decubitus ulcer. Preparation for discharge: PT/OT continue to work on strength with patient. He expressed interest and motivation in getting more exercise and gaining strength. DVT prophylaxis: Continue sub-q heparin infusions and compression for DVT prophylaxis Continued [facility] stay due to: ambulation difficulties, multiple IV medications needed, home environment unsafe for pt Discharge planning: uncertain
--- NOTE | 2016-04-18 20:30 | Progress Note ---
Subjective Date of Service: Apr 18, 2016. Subjective Pt evaluation today including: conversation w/ patient, physical exam, chart review, lab review Pain: denies any abd pain, chest pain, etc PO Intake: NPO; getting enteral feedings Voiding: rangel catheter in place telemetry stable overnight; no dysrhythmia. he denies any complaints -- no chest pain, sob, abd pain. 1 episode of diarrhea this AM but no nausea. hoarse voice continues. alert and awake again during the visit; spirits are upbeat. Problem List Medical Problems: (1) Acute kidney injury Status: Acute (2) Alcoholism Status: Acute (3) Altered mental status Status: Acute (4) Anemia Status: Acute (5) Cellulitis Status: Acute (6) Decubitus ulcer Status: Acute (7) Dehydration Status: Acute (8) Elevated LFTs Status: Acute (9) Elevated lipase Status: Acute (10) GI bleed Status: Acute (11) Hypokalemia Status: Acute (12) Leukocytosis Status: Acute (13) Varices, esophageal Status: Acute Review of Systems Constitutional: No fever Respiratory: + cough, No dyspnea at rest, No sputum Abdomen: No nausea, No pain Objective Vital Signs Date Time Temp Pulse Resp B/P Pulse Ox O2 Delivery O2 Flow Rate FiO2 04/18/16 19:11 78 16 90 Room Air 04/18/16 19:05 36.4 73 20 91/53 90 Room Air 04/18/16 18:08 36.4 76 22 90 2.0 04/18/16 16:15 Room Air 04/18/16 15:50 36.4 76 22 95/63 90 Room Air 04/18/16 14:20 75 16 94 Nasal Cannula 2.0 04/18/16 12:00 Room Air 04/18/16 11:18 36.6 69 18 95/61 94 Nasal Cannula 2.0 04/18/16 08:10 36.7 83 18 94/62 90 Nasal Cannula 2.0 04/18/16 07:15 Nasal Cannula 2.0 04/18/16 07:12 76 16 94 Nasal Cannula 2.0 04/18/16 04:00 Nasal Cannula 2.0 04/18/16 03:37 36.3 74 20 91/57 94 Nasal Cannula 2.0 04/18/16 01:52 74 16 92 Nasal Cannula 2.0 04/18/16 00:01 Nasal Cannula 2.0 04/17/16 23:41 36.2 78 23 91/59 93 Nasal Cannula 2.0 Physical Exam General Appearance: no apparent distress, + cachetic ENT: pharynx normal (thrush resolved; MMM), + muffled/hoarse voice, + pertinent finding (NG tube in place) Neck: no JVD Respiratory/Chest: lungs clear, no respiratory distress, no accessory muscle use Cardiovascular: regular rate, rhythm, no gallop, no murmur Abdomen: normal bowel sounds, non tender, soft, no organomegaly, + distended ( mild only) Extremities: no pedal edema Neurologic/Psychiatric: alert, oriented x 3 Skin: no rash Laboratory Results Last 24 Hours Test 04/18/16 06:00 04/18/16 07:55 Magnesium Level 2.1 mg/dl White Blood Count 16.45 K/uL Red Blood Count 2.86 M/uL Hemoglobin 9.4 g/dL Hematocrit 27.1 % Mean Corpuscular Volume 94.8 fL Mean Corpuscular Hemoglobin 32.9 pg Mean Corpuscular Hemoglobin Concent 34.7 g/dl Platelet Count 268 K/uL Mean Platelet Volume 10.3 fL Neutrophils (%) (Auto) 87.4 % Lymphocytes (%) (Auto) 5.6 % Monocytes (%) (Auto) 6.7 % Eosinophils (%) (Auto) 0.0 % Basophils (%) (Auto) 0.0 % Neutrophils # (Auto) 14.38 K/uL Lymphocytes # (Auto) 0.92 K/uL Monocytes # (Auto) 1.10 K/uL Eosinophils # (Auto) 0.00 K/uL Basophils # (Auto) 0.00 K/uL RDW Standard Deviation 61.2 fL RDW Coefficient of Variation 19.0 % Immature Granulocyte % (Auto) 0.3 % Immature Granulocyte # (Auto) 0.05 K/uL Sodium Level 145 mmol/L Potassium Level 3.5 mmol/L Chloride Level 114 mmol/L Carbon Dioxide Level 21 mmol/L Anion Gap 10.0 mmol/L Blood Urea Nitrogen 27 mg/dl Creatinine 0.81 mg/dl Est Creatinine Clear Calc Drug Dose 82.1 ml/min Estimated GFR () 111.2 Estimated GFR (Non- 95.9 BUN/Creatinine Ratio 33.6 Random Glucose 136 mg/dl Calcium Level 7.8 mg/dl Assessment and Plan 60yo male with known cirrhosis, hep C, and chronic alcohol abuse with who presented with encephalopathy, diarrhea, resp failure. 1. Metabolic encephalopathy - resolved. 2. acute hypoxemic respiratory failure - resolved. Was likely due to aspiration pneumonia +/- volume overload. ARDS component as well? O2 sats 90% in RA today; O2 shut off. Cont to track O2 sats carefully. 3. c. diff colitis - day #10 of enteric vanco. Plan 14 day course. Improved. 4. hoarse voice - likely 2nd to recent intubation and laryngeal edema. Cannot exclude laryngeal candidiasis. Day #3 each of decadron & diflucan. No significant improvement in phonation or dysphagia. Will ask ENT to evaluate tomorrow and for consideration of laryngoscopy. Does he have vocal cord injury from recent intubation? 5. hypophosphatemia - resolved. Repeat phos in AM to ensure stability. 6. recent hepatic encephalopathy - resolved; recent ammonia level also normal. continues on rifaximin. 7. recent melena stools - resolved. Cont PPI. 8. chronic hepatitis C cirrhosis with alcohol abuse/dependence - needs etoh abstinence after this hospitalization currently the cirrhosis is compensated. 9. bipolar disorder - was taking prozac BID and gabapentin BID increase the doses today (closer to his previous home doses). psych consultation for any other recommendations. the bipolar disorder appears overall stable. 10. folic acid deficiency and borderline low B12 - supplement both. 11. concern of Wernicke's encephalopathy - continue IV thiamine daily thiamine level pending (reference lab) 12. deconditioning - severe - cont PT, OT 13. celiac disease - gluten free diet 14. FEN - at goal of 60cc/hr for tube feedings. BMP stable. NPO status. 15. DVT proph - heparin SC + SCDs 16. dysphagia - ongoing; video swallow eval in AM 17. oral thrush - diflucan, day #3 - appears resolved ok to move to med/surg unit today Continued [facility] stay due to: inadequate po fluid intake, voiding difficulties, ambulation difficulties, multiple IV medications needed, home environment unsafe for pt Discharge planning: uncertain
[2016-04-19] VITALS (7 sets, daily range): BP systolic 95–101; BP diastolic 63–65; PULSE 67–73; TEMP 36.4–36.5; O2SAT 90–93
[2016-04-19] MEDS: TUBE FEEDING WATER FLUSH NG SCH ×4 (00:06→17:08)
[2016-04-19] MEDS: FIBERSOURCE HN 1000ML BAG NG SCH ×2 (00:42)
[2016-04-19] MEDS: D5W AND 1/4NSS + 20MEQ KCL 1,000 ML IV SCH ×2 (00:48→18:57)
[2016-04-19] MEDS: ALBUT/IPRATROP 3MG/0.5MG NEB 3 ML VIAL INH SCH ×4 (02:01→20:06)
[2016-04-19] MEDS: DEXAMETHASONE INJ 4 MG in SYRINGE 0 ML IV SCH ×2 (03:51→10:03)
[2016-04-19 06:29] LABS: BUN/CREATININE RATIO 37.8 (10-20); CALCIUM 7.8 mg/dl (8.5-10.1); CREATININE 0.71 mg/dl (0.60-1.40); PHOSPHORUS 3.4 mg/dl (2.5-4.9); POTASSIUM 3.4 mmol/L (3.5-5.1)
[2016-04-19] MEDS: PROPRANOLOL HCL 10 MG TAB PO SCH ×2 (09:00→21:47)
[2016-04-19] MEDS: GABAPENTIN 250 MG/5 ML 470 ML BTL NG SCH ×2 (09:22→21:46)
[2016-04-19] MEDS: VANCOMYCIN HCL 250 MG/5 ML SOLN PO SCH ×4 (09:22→21:45)
[2016-04-19] MEDS: RASPBERRY SYRUP 5 ML UDP PO SCH ×4 (09:22→21:45)
[2016-04-19] MEDS: POT PHOSPHATE MONOBASIC W/ SOD TAB PO SCH ×4 (09:23→21:49)
[2016-04-19] MEDS: LANSOPRAZOLE SOLUTAB 30 MG NG SCH ×2 (09:24→21:58)
[2016-04-19] MEDS: CYANOCOBALAMIN 500 MCG TAB (VIT B-12) PEG SCH (09:24)
[2016-04-19] MEDS: ZINC SULFATE 220 MG CAP PO SCH (09:24)
[2016-04-19] MEDS: ASCORBIC ACID 500 MG TAB NG SCH (09:24)
[2016-04-19] MEDS: NYSTATIN SUSP 500,000 U/5 ML UDC PO SCH ×4 (09:26→21:41)
[2016-04-19] MEDS: FLUOXETINE HCL 20 MG/5 ML NG SCH (09:27)
[2016-04-19] MEDS: PROSOURCE NOCARB 30ML/PKT NG SCH (09:27)
[2016-04-19] MEDS: MULTIVITAMINS W/MINERALS 15ML UDP NG SCH (09:28)
[2016-04-19] MEDS: FLUCONAZOLE SUSP 40 MG/ML 35 ML NG SCH (09:29)
[2016-04-19] MEDS: THIAMINE HCL INJ 100 MG in SYRINGE 9 ML IV SCH (09:29)
[2016-04-19] MEDS: HEPARIN SOD 5000 UNIT/0.5 ML CARP SQ SCH ×2 (09:34→21:55)
--- NOTE | 2016-04-19 09:37 | Medical Student: [facility] ---
Med Student Progress Note Date of Service Apr 19, 2016. Subjective Pt evaluation today including: conversation w/ patient, physical exam, chart review, lab review, review of studies Pain: no pain reported PO Intake: npo Voiding: rangel catheter in place No acute events overnight. Transferred from pcu to floor yesterday. Patient is in good spirits today. He continues to want to eat and drink and expresses being thirsty. He continues to do exercises for PT and feels stronger. Denies pain, nausea, difficulty breathing. He reports two episodes of diarrhea since yesterday. Patient still having little to no phonation. Review of Systems Constitutional: No chills, No fever Respiratory: + dyspnea on exertion, + shortness of breath Objective Vital Signs Date Time Temp Pulse Resp B/P Pulse Ox O2 Delivery O2 Flow Rate FiO2 04/19/16 07:50 73 16 90 Room Air 04/19/16 07:41 36.5 69 20 96/64 92 04/19/16 01:00 Room Air 04/19/16 00:05 36.5 67 16 95/63 92 Room Air 04/18/16 20:58 73 91/52 90 Room Air 04/18/16 19:11 78 16 90 Room Air 04/18/16 19:05 36.4 73 20 91/53 90 Room Air 04/18/16 18:08 36.4 76 22 90 2.0 04/18/16 16:15 Room Air 04/18/16 15:50 36.4 76 22 95/63 90 Room Air 04/18/16 14:20 75 16 94 Nasal Cannula 2.0 04/18/16 12:00 Room Air 04/18/16 11:18 36.6 69 18 95/61 94 Nasal Cannula 2.0 Physical Exam General Appearance: no apparent distress, + thin Eyes: bilateral eyes normal inspection ENT: pharynx normal (no thrush. MMM) Neck: supple, no JVD Respiratory/Chest: chest non-tender, no respiratory distress, + wheezing (mild wheezing) Cardiovascular: regular rate, rhythm, no edema, no gallop, no JVD, no murmur Abdomen: non tender, soft, + abnormal bowel sounds (hyperactive bowel sounds), + pertinent finding (increased tympanicity to percussion) Extremities: normal inspection, no pedal edema Neurologic/Psychiatric: alert, oriented x 3 Skin: normal color, warm/dry, no rash Laboratory Results Last 24 Hours Test 04/19/16 05:36 04/19/16 07:40 Sodium Level 145 mmol/L Potassium Level 3.4 mmol/L Chloride Level 112 mmol/L Carbon Dioxide Level 25 mmol/L Anion Gap 8.0 mmol/L Blood Urea Nitrogen 27 mg/dl Creatinine 0.71 mg/dl Est Creatinine Clear Calc Drug Dose 93.7 ml/min Estimated GFR () 117.4 Estimated GFR (Non- 101.3 BUN/Creatinine Ratio 37.8 Random Glucose 131 mg/dl Calcium Level 7.8 mg/dl Phosphorus Level 3.4 mg/dl Bedside Glucose 134 mg/dl Medications Current Inpatient Medications Medications (Trade) Dose Ordered Sig/Vin Route Start Time Stop Time Status Last Admin Dose Admin Vancomycin HCl (Vancomycin Oral Soln) 250 mg QID PO 04/09/16 13:00 04/26/16 23:59 04/18/16 21:00 250 MG Raspberry (Raspberry Syrup 5ML Cup) 5 ml QID PO 04/09/16 13:00 04/26/16 23:59 04/18/16 21:00 5 ML Rifaximin (Xifaxan Tab) 200 mg TID PO 04/09/16 21:00 05/09/16 20:59 Future hold 04/15/16 12:26 200 MG Albuterol/ Ipratropium (Duoneb) 3 ml Q6R INH 04/13/16 15:00 05/13/16 14:59 04/19/16 08:10 3 ML Nystatin (Mycostatin Susp) 5 ml QID PO 04/13/16 17:00 04/23/16 16:59 04/18/16 21:04 5 ML Lorazepam (Ativan Inj) 0.5 mg Q4H PRN IV 04/14/16 07:30 05/14/16 07:29 04/15/16 02:31 0.5 MG Heparin Sodium (Porcine) 5000 unit 5,000 unit Q12 SQ 04/14/16 09:00 05/14/16 08:59 04/18/16 21:14 5,000 UNIT Thiamine HCl/ Syringe (Vitamin B-1 Inj/ Syringe) 10 ml @ 2 mls/min DAILY IV 04/17/16 09:00 05/17/16 08:59 1/5/17 09:25 2 MLS/MIN Cyanocobalamin (Vitamin B-12 Tab) 1,000 mcg QAM PEG 04/16/16 09:00 05/16/16 08:59 04/18/16 09:19 1,000 MCG Propranolol HCl (Inderal Tab) 10 mg BID PO 04/15/16 21:00 05/15/16 20:59 04/18/16 09:20 10 MG Potassium/ Phosphorus/Sodium (Phospha 250 Neutral 155-852-130 Mg) 2 tab QID PO 04/15/16 13:00 05/15/16 12:59 04/18/16 21:02 2 TAB Ascorbic Acid (Vitamin C Tab) 1,000 mg DAILY NG 04/16/16 09:00 05/16/16 08:59 04/18/16 09:19 1,000 MG Multivitamins Therapeutic (Cerovite Liquid) 15 ml QAM NG 04/16/16 09:00 05/16/16 08:59 04/18/16 09:17 15 ML Lansoprazole (Prevacid Solutab) 30 mg BID NG 04/15/16 21:00 05/15/16 20:59 04/18/16 21:03 30 MG Zinc Sulfate 220 mg 220 mg QAM PO 04/16/16 09:00 05/16/16 08:59 04/18/16 09:21 220 MG Dexamethasone Sodium Phosphate 4 mg/Syringe 1 ml @ 1 mls/min Q6H IV 04/16/16 09:00 05/16/16 08:59 04/19/16 03:51 1 MLS/MIN Potassium Chloride/Dextrose/ Sod Cl (D5W And 1/4nss + 20meq KCl) 1,000 ml @ 50 mls/hr Q20H IV 04/16/16 10:00 05/16/16 09:59 04/19/16 00:48 50 MLS/HR Enteral Nutritional Formula (Fibersource HN) 1,000 ml UD NG 04/16/16 12:15 05/16/16 12:14 04/19/16 00:42 1,000 ML Enteral Nutritional Formula (Prosource No Carb) 30 ml DAILY NG 04/17/16 09:00 05/17/16 08:59 04/18/16 09:19 30 ML Sterile Water (Tube Feeding Water Flush) 1 ea Q6 NG 04/17/16 00:00 05/17/16 00:00 04/19/16 06:03 1 EA Fluconazole (Diflucan Susp) 100 mg QAM NG 04/18/16 09:00 04/28/16 08:59 04/18/16 09:21 100 MG Folic Acid (Folvite Tab) 1 mg QAM NG 04/18/16 09:00 05/18/16 08:59 04/18/16 09:21 1 MG Fluoxetine HCl (Prozac Soln) 40 mg QAM NG 04/18/16 09:00 05/18/16 08:59 04/18/16 09:17 40 MG Gabapentin (Neurontin) 200 mg BID NG 04/18/16 09:00 05/18/16 08:59 04/18/16 21:00 200 MG Assessment and Plan Assessment and Plan: This is a 60 yo male with a hx of cirrhosis, hep c, celiac disease, bipolar disorder who presented on 04/09 with altered mental status and severe diarrhea and was intubated for hypoxic respiratory failure. Extubated on 04/13. C. Difficile infection: Continues to have intermittent loose stools. Continue oral vancomycin via NG tube. D/c flagyl. Hoarse voice: Continues to have minimal to no phonation. ENT consult appreciated. Dysphagia: Appreciate continued [employer]CHNIC[employer] attention. VSS planned for today to reassess NPO status. Encephalopathy: Resolved. Rifaximin reinitiated for prevention of hepatic encephalopathy. Continue thiamine replacement at 200 mg IV bid until levels come back. Continue B12 supplementation. Anemia: Counts continue to improve s/p one unit packed RBC. Continue to monitor CBCs. Protein/Calorie Malnutrition: Continue feedings at 60 cc/hr, with flushes of 70 cc free water q 6hrs. Continue to monitor albumin and BMPs. GI bleed: Continue protonix. Monitor stools for further evidence of bleeding. Continue to monitor blood counts with daily CBCs. Decubitus ulcer: Does not appear infected. Monitor for any signs of infection and continue to reposition as tolerated. Continue use of waffle boots and bandage for decubitus ulcer. Preparation for discharge: PT/OT continue to work on strength with patient. He expressed interest and motivation in getting more exercise and gaining strength. Plan to eventually discharge to acute rehab facility. DVT prophylaxis: Continue sub-q heparin infusions and compression for DVT prophylaxis Continued [facility] stay due to: inadequate po fluid intake, voiding difficulties, ambulation difficulties, multiple IV medications needed, home environment unsafe for pt Discharge planning: uncertain
--- NOTE | 2016-04-19 11:54 | Medical Student: [facility] Only ---
Psychiatric Evaluation IDENTIFYING DATA: Ignacio Godfrey is a 60-year-old male who currently lives alone and is disabled. Ignacio Godfrey was admitted to the ICU on 04/09/16 and to the medical floor on 04/14/16. Ignacio Godfrey was brought to the hospital by EMS and his daughter. Information provided by the patient is considered to be reliable. CHIEF COMPLAINT: "lethargic". HISTORY OF PRESENT ILLNESS: Ignacio Godfrey is a 60 year old male with a history of chronic Hepatitis C, cirrhosis, chronic alcohol abuse, celiac disease, and bipolar disorder who presented to the ED with lethargy and altered mental status as reported by his daughter. He was ultimately diagnosed with hepatic encephalopathy and an esophageal variceal bleed. He has had a complicated hospital course including treatment for C difficile, metabolic encephalopathy with an initial ammonia level of 265, concern for Wernicke's encephalopathy, and a hoarse voice secondary to intubation and laryngeal edema. He currently has an NG tube and has difficulty speaking and swallowing. The patient has a history of Bipolar Disorder and is followed by Dr. Chand at [facility]. He said he was diagnosed 10-20 years ago. He takes Prozac 40 mg BID and Neurontin 600 mg BID at home. During his hospital course, he has been taking Prozac 20 mg qAM NG until 04/18/16 and Neurontin 100 mg BID NG until . He is currently taking Prozac 40 mg qAM NG and Neurontin 200 mg BID NG, which remain below his home doses. He also has Ativan 0.5 mg q4h PRN with a last dose on 04/15/16. We were consulted for treatment of his Bipolar Disorder. The patient states he has limited speech because of his voice, but was agreeable to answering yes or no questions. He says his mood is good and he has not had any thoughts of wanting to or hurting himself. He says he has not had any recent episodes of mariangel. The patient received a score of 12 on PHQ-9. He described little interest or pleasure in doing things, difficulty with sleep , feeling tired and having low energy, and poor appetite although he attributes this to his difficulty swallowing. He says he is not depressed. Risk of violence to self within the last 6 months: no. Risk of violence to others within the last 6 months: no. CURRENT MEDICATIONS: 1. Prozac 40 mg qAM NG 2. Neurontin 200 mg BID NG 3. Ativan 0.5 mg q4h PRN 4. Fluconazole 100 mg qAM NG 5. Folic acid 1 mg qAM NG 6. Thiamine HCl 100 mg IV 7. Cyanocobalamin 100 mg qAM PEG 8. Ascorbic acid 100 mg daily NG 9. Dexamethasone 4 mg q6h IV 10. Propranolol HCl 10 mg BID po 11. Lansoprazole 30 mg BID NG 12. Heparin 5,000 unit q12 SQ 13. Nystatin 5 ml qid po 14. Albuterol/Ipratropium 3ml q6h 15. Vancomycin 250 mg qid po PAST PSYCHIATRIC HISTORY: Current outpatient mental health treatment: [facility] Dr. Chand. Prior outpatient mental health treatment: unknown Prior psychiatric hospitalizations: no Prior medication trials: unknown Prior suicide attempts: unknown Access to weapons: unknown PAST MEDICAL HISTORY: Current primary care practitioner is Max Eckert DO medical history: Chronic Hepatitis C, cirrhosis, chronic alcohol abuse, celiac disease, bipolar disorder surgical history: none history of head injury: unknown history of seizure: unknown history of iv drug use: no ALLERGIES: gluten, lactose, NKDA FAMILY HISTORY: Mental Health: none Substance Abuse: mother with alcohol dependence Suicide: none Medical history: heart disease, hypertension SUBSTANCE USE HISTORY: Tobacco use hx: current smoker Caffeine use hx: unknown history of marijuana use many years ago, denies history of other drug use MENTAL STATUS EXAM: Appearance is that of an ill, discouraged, male who appears his stated age. The patient is generally cooperative with the interview. Eye contact is good. Motor behavior is normal. Speech: hoarse whisper, unable to speak clearly Exam is limited by inability to converse and only respond by nodding or shaking head. The patient did not want a pen and paper for communication. DIAGNOSTIC IMPRESSION: Ignacio Godfrey is a 60 year old male with a history of bipolar disorder who follows with Dr. Chand. Based on the patient's reported mood, he appears to be stable and does not need further psychiatric intervention. The patient signed a release form for us to obtain records from [facility] so a further psychiatric history can be obtained. RECOMMENDATIONS: 1. History of bipolar disorder a. Continue Prozac and Neurontin, consider increasing to home dose of Prozac 40 mg BID and Neurontin 600 mg BID as there is no longer a concern for GI bleed per Dr. Erickson and the primary team.= 2. Aftercare Planning: a. Dr. Chand will be updated on the patient's status. b. The patient should follow up with Dr. Chand as an outpatient. Date of Service: Apr 19, 2016.
--- NOTE | 2016-04-19 12:04 | DIAGNOSTIC IMAGING REPORT ---
VIDEO SWALLOW HISTORY: Tach encephalopathy. Possible aspiration. TECHNIQUE: Video fluoroscopic evaluation of swallowing was performed in the AP and lateral projections by the speech pathology staff. The patient was administered thin liquid barium and honey thick liquid. FLUOROSCOPY TIME: 1.3 minutes. COMPARISON STUDY: None. FINDINGS: With swallowing thin liquid barium and honey thick liquid, there was justice aspiration. There is minimal epiglottic inversion. IMPRESSION: 1. Extensive aspiration when swallowing thin liquid barium and honey thick liquid with minimal epiglottic inversion 2. Please see the speech pathologist report for detailed findings and recommendations. Electronically signed by: Cachorro Landry M.D. 04/19/2016 12:02 PM Dictated Date/Time: 04/19/2016 12:01 PM
--- NOTE | 2016-04-19 13:39 | ENT CONSULTATION ---
DATE OF CONSULTATION: 04/19/2016 DATE OF CONSULTATION: 04/19/2016. DIAGNOSIS: Bilateral vocal cord paralysis. HISTORY OF PRESENT ILLNESS: This 60-year-old male presented with confusion, lethargy and weight loss, apparently has severe encephalopathy, obtundation and was intubated in the Emergency Room. The patient was just recently extubated, however he cannot speak at all, had minimal voice and has severe dysphasia. The video swallow showed justice aspiration. PAST MEDICAL HISTORY: Is as noted on chart. PHYSICAL EXAMINATION: Showed a severely cachectic male who has barely a whisper. Fiberoptic examination of the vocal cords showed bilateral vocal cord paralysis; however, the vocal cords appeared to be in abducted position with good airway. Also, there is a severe amount of thick mucus coated around the piriform sinus area and around the larynx consistent with dehydration. IMPRESSION: Bilateral vocal cord paralysis and dehydration. The etiology of the vocal cord paralysis is either due to his encephalopathy or due to the endotracheal tube intubation. It would be hard to determine the exact cause of the etiology; however, it does appear that the patient may need to have a gastrostomy tube.
--- NOTE | 2016-04-19 16:48 | Psychiatric Consultation ---
Consultation Identifying Data Mr. Godfrey is an outpatient of Dr. Golden at [facility] who resides alone in [place]. He was admitted to medical service/currently under care of Dr. Erickson for GI bleed from esophageal varices with evidence of hepatic encephalopathy on admission. He will likely require placement in a halfway facility when medically cleared and has a history of bipolar disorder. Chief Complaint "I'm having a hard time talking right now". History of Present Illness Mr. Godfrey presented to the ED with lethargy and altered mental status as reported by his daughter. He has had a complicated hospital course including treatment for C difficile, metabolic encephalopathy with an initial ammonia level of 265, concern for Wernicke's encephalopathy, and a hoarse voice secondary to intubation and laryngeal edema. He currently has an NG tube and has difficulty speaking and swallowing. During his hospital course, he has been taking Prozac 20 mg qAM NG until 04/18/16 and Neurontin 100 mg BID NG until 04/18/16. He is currently taking Prozac 40 mg qAM NG and Neurontin 200 mg BID NG, which remain below his home doses. He also has Ativan 0.5 mg q4h PRN with a last dose on 04/15/16. The patient states he has limited speech because of his voice, but was agreeable to answering yes or no questions. He says his mood is good and he has not had any thoughts of wanting to or hurting himself. He says he has not had any recent episodes of mariangel. The patient receive a score of 12 on PHQ-9. He described little interest or pleasure in doing things, difficulty with sleep , feeling tired and having low energy, and poor appetite although he attributes this to his difficulty swallowing. He says he is not depressed. Past Psychiatric History Current OP Treatment: psychiatrist ([facility]) 25 year history of depression, entered care at [facility] in 2007, had 1 inpatient stay at [facility] in , denies suicide attempts, rehab placements 5 times by report (Radha Kam 2006) prior med trials of lexapro, paxil, wellbutrin and Celexa current diagnoses bipolar II and OCD Past Medical/Surgical History Problem List: (1) Cirrhosis (2) Esophageal varices (3) Chronic hepatitis C (4) Celiac disease (5) Hepatic encephalopathy (6) GI bleed Allergies Allergies: Coded Allergies: Gluten (Verified Allergy, Intermediate, PAINFUL JOINTS,ABD PAIN, 04/08/16) Lactose Intolerance (GI) (Unverified Allergy, Unknown, ABD PAIN, 04/08/16) NO KNOWN DRUG ALLERGIES (Unverified Allergy, Unknown, NONE, 04/08/16) Wheat (Verified Allergy, Unknown, GI intolerance, 04/08/16) Home Medications Scheduled Ascorbic Acid (Vitamin C), 500 MG PO QAM Buspirone Hcl (Buspirone Hcl), 15 MG PO BID Calcium Carbonate (Calcium 600), 600 MG PO QAM Cholecalciferol (Vitamin D), 5,000 UNIT PO DAILY Ergocalciferol (Vitamin D), 400 INTER.UNIT PO QAM Fluoxetine (Prozac), 40 MG PO BID Furosemide (Lasix), 40 MG PO DAILY Gabapentin (Neurontin), 600 MG PO BID Magnesium Oxide (Mag-Ox), 400 MG PO DAILY Pantoprazole (Protonix), 40 MG PO BID Polyethylene Glycol 3350 (Miralax), 17 GM PO DAILY Potassium Ext Rel (Klor-Con), 20 MEQ PO DAILY Propranolol (Inderal), 20 MG PO BID Ranitidine (Zantac), 150 MG PO BID Spironolactone (Aldactone), 100 MG PO DAILY Scheduled PRN Naproxen (Aleve), 440 MG PO Q6 PRN for Pain Family History Heart disease Hypertension denied family history of formal psych issues or suicide attempts, children have had substance use issues and mother (ETOH) Alcohol Use Alcohol Use In Past 12 Months: Yes patient unable to quantify Substance History indicates no just ETOH Personal History Relationship History: (after 27 yo marriage) Children: 3 Legal History: reported Abuse History: none Additional Comments: past parole Review of Systems Psych: denies symptoms other than stated above Constitutional: fatigue Cardiovascular: denied GI: denied Neurologic: denied Remainder of 10 body systems also reviewed and denied other than noted above other than difficulty breathing/talking following intubation Examination Vital Signs Vital Signs Past 12 Hours Date Time Temp Pulse Resp B/P Pulse Ox O2 Delivery O2 Flow Rate FiO2 04/19/16 14:44 36.4 72 20 101/65 90 04/19/16 08:00 90 Room Air 04/19/16 07:50 73 16 90 Room Air 04/19/16 07:41 36.5 69 20 96/64 92 Laboratory Results Last 24 Hours Test 04/19/16 05:36 04/19/16 07:40 04/19/16 11:22 Sodium Level 145 mmol/L Potassium Level 3.4 mmol/L Chloride Level 112 mmol/L Carbon Dioxide Level 25 mmol/L Anion Gap 8.0 mmol/L Blood Urea Nitrogen 27 mg/dl Creatinine 0.71 mg/dl Est Creatinine Clear Calc Drug Dose 93.7 ml/min Estimated GFR () 117.4 Estimated GFR (Non- 101.3 BUN/Creatinine Ratio 37.8 Random Glucose 131 mg/dl Calcium Level 7.8 mg/dl Phosphorus Level 3.4 mg/dl Bedside Glucose 134 mg/dl 153 mg/dl Mental Examination During interview pt is: cooperative Appearance: disheveled Eye contact is: fair Motor behavior is: no abnormal motor movements Speech: other (very soft) Affect: blunted Mood is: other ("just don't physically feel good") Thought process: clear, coherent Thought content: reality based without delusions Suicidal thought are: denied Homicidal thoughts are: denied Hallucinations: denies auditory, denies visual Cognition: language grossly intact, other (unable to assess memroy, attention span short) Intelligence estimated to be: average Insight: limited Judgement: limited Impression / Recommendations Impression 60 yo male with history of bipolar disorder, stable as outpatient on Prozac, Neurontin, and Buspar. Significant ETOH use disorder with recent significant medical complications which will likely require halfway care. Risk Factors Assessment Access to guns: No (denied) Recommendations The patient is psychiatrically stable for transfer to a halfway facility. There is no acute indication for inpatient psychiatric hospitalization as the patient is not suicidal or homicidal; there is no evidence of psychosis. Psychiatric follow-up care for this patient should include: follow up with Dr. Óscar Golden when medically able for ongoing rx of psych meds as well as participation in a alcohol recovery program. will retitrate outpatient psych meds as discussed with Dr. Erickson. Dr. Golden updated.
[2016-04-19] MEDS ORDERED: OPTIRAY 320 IV PRN (18:45)
--- NOTE | 2016-04-19 19:48 | DIAGNOSTIC IMAGING REPORT ---
CT SOFT TISSUE NECK WITH CT DOSE: 234.85 mGy.cm CLINICAL HISTORY: Difficulty with speech and swallowing. TECHNIQUE: Axial images of the neck were obtained following intravenous injection 118 cc Optiray 320 IV. COMPARISON STUDY: None. FINDINGS: A right PICC is in place. A feeding tube is in place. The epiglottis is normal. There is no cervical lymphadenopathy. No cervical masses are identified. No mucosal lesions are identified although these may be occult by CT. There is a moderate amount of oral contrast within visualized portions of the airway from recent modified barium swallow. This represents aspiration. Major vasculature of the neck is patent. There is a trace amount of thrombus within the left internal jugular vein. Visualized portions of the lungs demonstrate extensive groundglass opacities. A right pleural effusion is partially imaged. IMPRESSION: 1. No acute process within the neck by CT. 2. Moderate amount of oral contrast within visualized portions of the airway from recent modified barium swallow consistent with aspiration. 3. Tiny thrombus within the left internal jugular vein. 4. Extensive groundglass opacities within visualized portions of the lungs which could reflect an infectious process such as pneumonia. Alternatively, pulmonary edema could appear similar. Partially visualized right pleural effusion. Electronically signed by: Fan Bolaños M.D. 04/19/2016 7:46 PM Dictated Date/Time: 04/19/2016 7:40 PM
--- NOTE | 2016-04-19 19:58 | DIAGNOSTIC IMAGING REPORT ---
CT CERVICAL SPINE WITH CLINICAL HISTORY: Speech and swallowing difficulty. TECHNIQUE: Axial images of the cervical spine were obtained following intravenous injection of 118 cc of Optiray 320 IV. Sagittal and coronal reconstructions were viewed. COMPARISON STUDY: CT of the cervical spine August 23, 2006 FINDINGS: The CT of the neck will be reported separately. This demonstrates contrast within the airway representing aspiration. There is reversal of the normal cervical lordosis. No fracture or subluxation is present. There is no suspicious lesion within the cervical spine by CT. The central canal and neural foramen are suboptimally assessed by CT. Mild multilevel degenerative disc disease and facet arthrosis is present. There is no prevertebral edema. IMPRESSION: 1. No acute cervical spine fracture or subluxation. 2. Mild multilevel degenerative disc disease of the cervical spine. 3. Multiple additional findings within the neck and upper chest which are better depicted on the CT of the neck. Please see that report for further description. Electronically signed by: Fan Bolaños M.D. 04/19/2016 7:56 PM Dictated Date/Time: 04/19/2016 7:51 PM
[2016-04-19] MEDS ORDERED: DEXAMETHASONE INJ 4 MG in SYRINGE 0 ML IV SCH (21:00)
--- NOTE | 2016-04-19 21:12 | Progress Note ---
Subjective Date of Service: Apr 19, 2016. Subjective Pt evaluation today including: conversation w/ patient, conversation w/ family (daughter by phone), physical exam, chart review, lab review, review of studies (laryngoscopy report; CT neck/CT c-spine; video swallow), conversation w/ seo consultant (GI, neurology) Pain: denies any abd pain, throat pain PO Intake: NPO, NG tube in place Voiding: rangel catheter in place patient with intermittent cough but no sputum no change in phonation/voice he denies abd pain some diarrhea still he is upset about the results of his studies Problem List Medical Problems: (1) Acute kidney injury Status: Acute (2) Alcoholism Status: Acute (3) Altered mental status Status: Acute (4) Anemia Status: Acute (5) Cellulitis Status: Acute (6) Decubitus ulcer Status: Acute (7) Dehydration Status: Acute (8) Elevated LFTs Status: Acute (9) Elevated lipase Status: Acute (10) GI bleed Status: Acute (11) Hypokalemia Status: Acute (12) Leukocytosis Status: Acute (13) Varices, esophageal Status: Acute Review of Systems Constitutional: No fever Respiratory: No dyspnea at rest Abdomen: + diarrhea, No nausea, No vomiting Objective Vital Signs Date Time Temp Pulse Resp B/P Pulse Ox O2 Delivery O2 Flow Rate FiO2 04/19/16 20:12 70 16 93 Room Air 04/19/16 16:00 90 Room Air 04/19/16 14:44 36.4 72 20 101/65 90 04/19/16 08:00 90 Room Air 04/19/16 07:50 73 16 90 Room Air 04/19/16 07:41 36.5 69 20 96/64 92 04/19/16 01:00 Room Air 04/19/16 00:05 36.5 67 16 95/63 92 Room Air Physical Exam General Appearance: no apparent distress ENT: pharynx normal, + muffled/hoarse voice, + pertinent finding (NG tube in place ) Neck: no JVD Respiratory/Chest: lungs clear, no respiratory distress, no accessory muscle use Cardiovascular: regular rate, rhythm, no gallop, no murmur Abdomen: normal bowel sounds, non tender, soft, + splenomegaly Extremities: no pedal edema Neurologic/Psychiatric: alert, oriented x 3 Laboratory Results Last 24 Hours Test 04/19/16 05:36 1/6/17 07:40 04/19/16 11:22 04/19/16 18:48 Sodium Level 145 mmol/L Potassium Level 3.4 mmol/L Chloride Level 112 mmol/L Carbon Dioxide Level 25 mmol/L Anion Gap 8.0 mmol/L Blood Urea Nitrogen 27 mg/dl Creatinine 0.71 mg/dl Est Creatinine Clear Calc Drug Dose 93.7 ml/min Estimated GFR () 117.4 Estimated GFR (Non- 101.3 BUN/Creatinine Ratio 37.8 Random Glucose 131 mg/dl Calcium Level 7.8 mg/dl Phosphorus Level 3.4 mg/dl Bedside Glucose 134 mg/dl 153 mg/dl 139 mg/dl Assessment and Plan 60yo male with known cirrhosis, hep C, and chronic alcohol abuse with who presented with encephalopathy, diarrhea, resp failure. 1. acute hypoxemic respiratory failure - resolved. Was likely due to aspiration pneumonia +/- volume overload. ARDS component as well? O2 sats in RA at rest continue to be 90% or more. 2. c. diff colitis - day #11 of enteric vanco. Plan 14 day course. Diarrhea improved. 3. hoarse voice - appreciate ENT consult by Dr. Nelson. He has b/l vocal cord paralysis on laryngoscopy today, likely from recent intubation. No laryngeal edema seen nor any nida. Wean steroids off. 4. dysphagia - video swallow results reviewed. Severe aspiration. Etiology?? Spoke with GI, speech, and neuro regarding this issue. Etiology is uncertain. Neuro recommending CPK, aldolase, sed rate, and CT neck/c-spine. Latter studies without identifiable cause of dysphagia. Will speak with patient tomorrow re: wishes for PEG tube. 5. recent hepatic encephalopathy - resolved. continues on rifaximin. 6. recent melena stools - resolved. Cont PPI. H/H have been stable. 7. chronic hepatitis C cirrhosis with alcohol abuse/dependence - needs etoh abstinence after this hospitalization currently the cirrhosis is compensated. 8. bipolar disorder - cont prozac and gabapentin BID psych consultation appreciated. the bipolar disorder appears overall stable. 9. folic acid deficiency and borderline low B12 - supplement both. 10. concern of Wernicke's encephalopathy - ruled out. Thiamine level was very high. stop IV thiamine 11. deconditioning - severe - cont PT, OT 12. FEN - at goal of 60cc/hr for tube feedings. Cont IVF at rate of 75cc/hr. BMP stable. NPO status continues. 13. DVT proph - heparin SC + SCDs 14. oral thrush - diflucan, day #4 - appears resolved; plan 7 days in total daughter updated by phone 60 minutes today spent discussing and coordinating his care with neurology, GI, speech, social work Continued [facility] stay due to: inadequate po fluid intake, voiding difficulties, ambulation difficulties, multiple IV medications needed, home environment unsafe for pt, other (dysphagia - severe) Discharge planning: uncertain
[2016-04-19] MEDS: LORAZEPAM INJ 0.5 MG in SYRINGE 0.75 ML IV PRN (21:41)
[2016-04-20 00:02] VITALS: BP 93/57; PULSE 67; TEMP 36.4; O2SAT 93
[2016-04-20] MEDS: FIBERSOURCE HN 1000ML BAG NG SCH ×4 (00:57→22:44)
[2016-04-20] MEDS: ALBUT/IPRATROP 3MG/0.5MG NEB 3 ML VIAL INH SCH ×3 (01:57→14:41)
[2016-04-20] MEDS: TUBE FEEDING WATER FLUSH NG SCH ×4 (06:04→16:58)
[2016-04-20 06:36] LABS: BUN/CREATININE RATIO 36.6 (10-20); CALCIUM 7.8 mg/dl (8.5-10.1); CREATININE 0.71 mg/dl (0.60-1.40); POTASSIUM 3.4 mmol/L (3.5-5.1)
[2016-04-20] MEDS: FLUOXETINE HCL 20 MG/5 ML PO SCH ×2 (06:39→14:07)
[2016-04-20 06:59] VITALS: BP 101/70; PULSE 68; TEMP 36.5; O2SAT 92
[2016-04-20 07:27] VITALS: PULSE 68; O2SAT 92
[2016-04-20] MEDS: DEXTROSE 5% 1000ML 1,000 ML IV SCH (08:47)
[2016-04-20] MEDS: ASCORBIC ACID 500 MG TAB NG SCH (08:51)
[2016-04-20] MEDS: THIAMINE HCL 100 MG TAB NG SCH (08:51)
[2016-04-20] MEDS: PROPRANOLOL HCL 10 MG TAB PO SCH ×2 (08:52→21:33)
[2016-04-20] MEDS: CYANOCOBALAMIN 500 MCG TAB (VIT B-12) PEG SCH (08:53)
[2016-04-20] MEDS: VANCOMYCIN HCL 250 MG/5 ML SOLN PO SCH ×4 (08:54→21:27)
[2016-04-20] MEDS: GABAPENTIN 250 MG/5 ML 470 ML BTL NG SCH ×2 (08:54→21:29)
[2016-04-20] MEDS: RASPBERRY SYRUP 5 ML UDP PO SCH ×4 (08:55→21:28)
[2016-04-20] MEDS: PROSOURCE NOCARB 30ML/PKT NG SCH (08:56)
[2016-04-20] MEDS: MULTIVITAMINS W/MINERALS 15ML UDP NG SCH (08:57)
[2016-04-20] MEDS: ZINC SULFATE 220 MG CAP PO SCH (08:58)
[2016-04-20] MEDS: FLUCONAZOLE SUSP 40 MG/ML 35 ML NG SCH (08:58)
[2016-04-20] MEDS: NYSTATIN SUSP 500,000 U/5 ML UDC PO SCH ×4 (08:59→21:30)
[2016-04-20] MEDS: LANSOPRAZOLE SOLUTAB 30 MG NG SCH ×2 (08:59→21:31)
[2016-04-20] MEDS: HEPARIN SOD 5000 UNIT/0.5 ML CARP SQ SCH ×2 (10:01→21:38)
[2016-04-20] MEDS: POTASSIUM CHLORIDE 20MEQ/15ML 473ML NG SCH ×3 (10:15→21:30)
[2016-04-20 14:38] VITALS: BP 98/65; PULSE 76; TEMP 36.8; O2SAT 90
--- NOTE | 2016-04-20 14:53 | ENT PROGRESS NOTE ---
DATE: 04/20/2016 DATE: 04/20/2016. I had a conversation with Dr. Hamilton today. This patient continues to have a breathy voice with very low volume and very hoarse. He continues to have dysphagia. The patient essentially was unable to talk on admission and was very confused and was intubated right away so it is difficult to evaluate the cause of the voice change and hoarseness. The bilateral vocal cord paralysis would be unlikely to be due to trauma from intubation and may be more related to the hepatic encephalopathy in view of involvement of cranial nerves 9 and 10. The best course would probably be a feeding tube and see if the vocal cords have any return of function.
[2016-04-20] MEDS ORDERED: ALBUT/IPRATROP 3MG/0.5MG NEB 3 ML VIAL INH PRN (15:00)
[2016-04-20] MEDS: IPRATROPIUM BROMIDE/ALBUTEROL respimat INH INH SCH (16:28)
--- NOTE | 2016-04-20 17:49 | Progress Note ---
Subjective Date of Service: Apr 20, 2016. Subjective Pt evaluation today including: conversation w/ patient, physical exam, chart review, lab review, conversation w/ law firm consultant (neurology, ENT) Pain: denies PO Intake: npo Voiding: rangel catheter in place patient despondent about the news he received yesterday after his testing ( video swallow, etc) he asks for "pepsi" when asked if he would want a PEG tube he is not sure he knows that his daughter is coming from [place] tomorrow afternoon Problem List Medical Problems: (1) Acute kidney injury Status: Acute (2) Alcoholism Status: Acute (3) Altered mental status Status: Acute (4) Anemia Status: Acute (5) Cellulitis Status: Acute (6) Decubitus ulcer Status: Acute (7) Dehydration Status: Acute (8) Elevated LFTs Status: Acute (9) Elevated lipase Status: Acute (10) GI bleed Status: Acute (11) Hypokalemia Status: Acute (12) Leukocytosis Status: Acute (13) Varices, esophageal Status: Acute Review of Systems Respiratory: + cough, No dyspnea at rest Cardiac: No chest pain, No orthopnea Abdomen: + diarrhea (ongoing ), No pain Objective Vital Signs Date Time Temp Pulse Resp B/P Pulse Ox O2 Delivery O2 Flow Rate FiO2 04/20/16 15:30 Room Air 04/20/16 14:38 36.8 76 20 98/65 90 04/20/16 08:00 Room Air 04/20/16 07:27 68 16 92 Room Air 04/20/16 06:59 36.5 68 20 101/70 92 Room Air 04/20/16 00:02 36.4 67 20 93/57 93 Room Air 04/19/16 23:59 Room Air 04/19/16 20:12 70 16 93 Room Air 04/19/16 20:00 Room Air Physical Exam General Appearance: no apparent distress, + cachetic, + thin ENT: pharynx normal (no thrush), + muffled/hoarse voice, + pertinent finding ( NG tube present) Neck: no JVD Respiratory/Chest: lungs clear, no respiratory distress, no accessory muscle use Cardiovascular: regular rate, rhythm, no gallop, no murmur Abdomen: normal bowel sounds, non tender, + distended Extremities: no pedal edema Neurologic/Psychiatric: alert, oriented x 3, + pertinent finding (no tremors, no asterixis, a/o x 3; very weak - proximal muscles particularly) Laboratory Results Last 24 Hours Test 04/19/16 18:48 04/20/16 00:09 04/20/16 05:46 04/20/16 06:06 Bedside Glucose 139 mg/dl 140 mg/dl 138 mg/dl Erythrocyte Sedimentation Rate 17 mm/hr Sodium Level 146 mmol/L Potassium Level 3.4 mmol/L Chloride Level 113 mmol/L Carbon Dioxide Level 23 mmol/L Anion Gap 10.0 mmol/L Blood Urea Nitrogen 26 mg/dl Creatinine 0.71 mg/dl Est Creatinine Clear Calc Drug Dose 96.7 ml/min Estimated GFR () 117.4 Estimated GFR (Non- 101.3 BUN/Creatinine Ratio 36.6 Random Glucose 128 mg/dl Calcium Level 7.8 mg/dl Total Creatine Kinase 53 U/L Test 04/20/16 12:17 Bedside Glucose 141 mg/dl Assessment and Plan 60yo male with known cirrhosis, hep C, and chronic alcohol abuse with who presented with encephalopathy, diarrhea, resp failure. 1. acute hypoxemic respiratory failure - resolved. O2 sats in RA at rest continue to be 90% or more. 2. c. diff colitis - day #12/14 of enteric vanco. Diarrhea improved in frequency. 3. hoarse voice - appreciate ENT consult by Dr. Nelson. He has b/l vocal cord paralysis. Etiology uncertain. Would be unusual to have BILATERAL paralysis from trauma from intubation ( typically it is unilateral). Due to recent infection? Other?? No laryngeal edema seen nor any nida. Steroids have been stopped. Nothing on CT to account for this issue. 4. dysphagia - video swallow results reviewed. Severe aspiration. Etiology?? Spoke with GI, speech, and neuro regarding this issue. Etiology is uncertain. Sed rate, CPK and CT soft tissue neck and CT c-spine w/o etiology. Discussed PEG tube placement today - he is not certain. Will have family meeting tomorrow to review all results. 5. recent hepatic encephalopathy - resolved. 6. recent melena stools - resolved. Cont PPI. H/H have been stable. 7. chronic hepatitis C cirrhosis with alcohol abuse/dependence - currently the cirrhosis is compensated. 8. bipolar disorder - cont prozac and gabapentin BID psych consultation appreciated. 9. folic acid deficiency and borderline low B12 - supplement both. 10. concern of Wernicke's encephalopathy - ruled out. Thiamine level was very high. 11. deconditioning - severe - cont PT, OT 12. FEN - at goal of 60cc/hr for tube feedings. lower fluid rate to 50cc/hr of D5W. BMP stable. NPO status continues. 13. DVT proph - heparin SC + SCDs 14. oral thrush - diflucan, day #5 - appears resolved; plan 7 days in total 15. hypernatremia - D5W; BMP in am family meeting tomorrow Continued [facility] stay due to: inadequate po fluid intake, voiding difficulties, ambulation difficulties, multiple IV medications needed, home environment unsafe for pt, other (dysphagia - severe) Discharge planning: uncertain
[2016-04-20] MEDS: LORAZEPAM INJ 0.5 MG in SYRINGE 0.75 ML IV PRN (21:22)
[2016-04-20] MEDS: RIFAXIMIN TAB 200 MG TAB PO SCH (21:28)
[2016-04-20 21:32] VITALS: BP 104/71; PULSE 69; O2SAT 95
[2016-04-21 00:01] VITALS: BP 105/71; PULSE 68; TEMP 37.1; O2SAT 93
[2016-04-21] MEDS: TUBE FEEDING WATER FLUSH NG SCH ×2 (00:03→06:18)
[2016-04-21] MEDS: DEXTROSE 5% 1000ML 1,000 ML IV SCH (04:15)
[2016-04-21] MEDS: IPRATROPIUM BROMIDE/ALBUTEROL respimat INH INH SCH ×3 (06:18→11:54)
[2016-04-21] MEDS: FLUOXETINE HCL 20 MG/5 ML PO SCH ×2 (06:18→13:25)
[2016-04-21 07:11] LABS: HEMATOCRIT 29.1 % (42-52); MEAN CELL VOLUME 97.3 fL (80-100); MEAN CORPUSCULAR HEMOGLOBIN 32.8 pg (25-34); MEAN CORPUSCULAR HGB CONC 33.7 g/dl (32-36); MEAN PLATELET VOLUME 11.2 fL (7.4-10.4); PLATELET COUNT 236 K/uL (130-400); RED BLOOD COUNT 2.99 M/uL (4.7-6.1); WHITE BLOOD COUNT 15.45 K/uL (4.8-10.8)
[2016-04-21 07:22] VITALS: BP 97/63; PULSE 63; TEMP 36.9; O2SAT 92
[2016-04-21 07:49] LABS: BUN/CREATININE RATIO 34.4 (10-20); CALCIUM 7.6 mg/dl (8.5-10.1); CREATININE 0.73 mg/dl (0.60-1.40); POTASSIUM 3.9 mmol/L (3.5-5.1)
[2016-04-21] MEDS: NYSTATIN SUSP 500,000 U/5 ML UDC PO SCH ×2 (08:50→12:37)
[2016-04-21] MEDS: PROPRANOLOL HCL 10 MG TAB PO SCH (08:51)
[2016-04-21] MEDS: ZINC SULFATE 220 MG CAP PO SCH (08:52)
[2016-04-21] MEDS: VANCOMYCIN HCL 250 MG/5 ML SOLN PO SCH ×3 (08:53→16:51)
[2016-04-21] MEDS: RASPBERRY SYRUP 5 ML UDP PO SCH ×4 (08:53→21:00)
[2016-04-21] MEDS: ASCORBIC ACID 500 MG TAB NG SCH (09:00)
[2016-04-21] MEDS: POTASSIUM CHLORIDE 20MEQ/15ML 473ML NG SCH ×2 (09:00→13:25)
[2016-04-21] MEDS: LANSOPRAZOLE SOLUTAB 30 MG NG SCH ×2 (09:00→21:00)
[2016-04-21] MEDS: HEPARIN SOD 5000 UNIT/0.5 ML CARP SQ SCH (09:00)
[2016-04-21] MEDS: THIAMINE HCL 100 MG TAB NG SCH (09:00)
[2016-04-21] MEDS: PROSOURCE NOCARB 30ML/PKT NG SCH (09:00)
[2016-04-21] MEDS: FLUCONAZOLE SUSP 40 MG/ML 35 ML NG SCH (09:00)
[2016-04-21] MEDS: RIFAXIMIN TAB 200 MG TAB PO SCH ×3 (09:00→21:00)
[2016-04-21] MEDS: CYANOCOBALAMIN 500 MCG TAB (VIT B-12) PEG SCH (09:00)
[2016-04-21] MEDS: MULTIVITAMINS W/MINERALS 15ML UDP NG SCH (09:00)
[2016-04-21] MEDS: GABAPENTIN 250 MG/5 ML 470 ML BTL NG SCH ×2 (09:00→21:00)
[2016-04-21] MEDS: LORAZEPAM INJ 0.5 MG in SYRINGE 0.75 ML IV PRN (09:23)
[2016-04-21] MEDS ORDERED: NURSING VERBAL MED ORDER ONE (10:30)
[2016-04-21] MEDS ORDERED: HYDROmorphone INJ 0.5 MG/0.5 ML SYR IV STA (13:29)
--- NOTE | 2016-04-21 13:51 | PROGRESS NOTE ---
DATE: 04/21/2016 DIAGNOSIS: Bilateral vocal cord paralysis. SUBJECTIVE: The patient still unable to speak, very breathy voice. OBJECTIVE: The patient's voice is still very breathy. ASSESSMENT: Bilateral vocal cord paralysis. RECOMMENDATIONS: Because of aspiration, the patient is deciding on whether he will have a feeding tube. Further management will be by Dr. Hamilton. I will sign off on this patient for right now. Please contact me if I can be of any further help.
[2016-04-21 14:39] VITALS: BP 92/60; PULSE 62; TEMP 37; O2SAT 90
[2016-04-21] MEDS: HYDROmorphone INJ 0.5 MG/0.5 ML SYR IV PRN (16:50)
[2016-04-21] MEDS: LORAZEPAM INJ 1 MG in SYRINGE 0.75 ML IV PRN (16:51)
[2016-04-21] MEDS: VANCOMYCIN HCL 125 MG/2.5ML SOLN PO SCH ×2 (19:00→21:14)
--- NOTE | 2016-04-21 19:53 | Progress Note ---
Subjective Date of Service: Apr 21, 2016. Subjective Pt evaluation today including: conversation w/ patient (over two visits), conversation w/ family (2 sons + daughter), physical exam, chart review, lab review, conversation w/ medical device sales consultant (neurology) Pain: headache, back ache PO Intake: NPO Voiding: rangel catheter in place During my visit with him during AM rounds he clearly stated that he wished to go home with hospice. He did NOT want a permanent PEG tube. He complained of headache and back ache. Some cough at times. Shortly after my visit the pt's nurse called telling me his coresafe was clogged ; thus, we discontinued it. Late this afternoon I met with the patient and his 3 children. He again confirmed he wanted to return home with hospice, that he did not want a PEG tube, and that he wanted to "be sedated" and be comfortable. Lengthy discussion held with 3 children shortly after. Problem List Medical Problems: (1) Acute kidney injury Status: Acute (2) Alcoholism Status: Acute (3) Altered mental status Status: Acute (4) Anemia Status: Acute (5) Cellulitis Status: Acute (6) Decubitus ulcer Status: Acute (7) Dehydration Status: Acute (8) Elevated LFTs Status: Acute (9) Elevated lipase Status: Acute (10) GI bleed Status: Acute (11) Hypokalemia Status: Acute (12) Leukocytosis Status: Acute (13) Varices, esophageal Status: Acute Review of Systems Respiratory: No dyspnea at rest Cardiac: No chest pain Abdomen: + diarrhea, No nausea, No pain, No vomiting Musculoskeletal: + see HPI (back ache) Neurologic: + problem reported (headache) Objective Vital Signs Date Time Temp Pulse Resp B/P Pulse Ox O2 Delivery O2 Flow Rate FiO2 04/21/16 14:39 37.0 62 20 92/60 90 04/21/16 08:00 Room Air 04/21/16 07:22 36.9 63 20 97/63 92 04/21/16 00:01 37.1 68 20 105/71 93 Room Air 04/20/16 23:59 Room Air 04/20/16 21:32 69 104/71 95 Physical Exam General Appearance: no apparent distress ENT: pharynx normal (MMM, no thrush), + muffled/hoarse voice (ongoing hoarse voice/phonation difficulties) Neck: no JVD Respiratory/Chest: lungs clear, no respiratory distress, no accessory muscle use Cardiovascular: regular rate, rhythm, no gallop, no murmur Abdomen: normal bowel sounds, non tender, + distended Extremities: no pedal edema Neurologic/Psychiatric: alert, oriented x 3 Laboratory Results Last 24 Hours Test 04/21/16 00:24 04/21/16 06:29 04/21/16 06:42 Bedside Glucose 127 mg/dl 120 mg/dl White Blood Count 15.45 K/uL Red Blood Count 2.99 M/uL Hemoglobin 9.8 g/dL Hematocrit 29.1 % Mean Corpuscular Volume 97.3 fL Mean Corpuscular Hemoglobin 32.8 pg Mean Corpuscular Hemoglobin Concent 33.7 g/dl RDW Standard Deviation 65.0 fL RDW Coefficient of Variation 19.4 % Platelet Count 236 K/uL Mean Platelet Volume 11.2 fL Sodium Level 143 mmol/L Potassium Level 3.9 mmol/L Chloride Level 111 mmol/L Carbon Dioxide Level 23 mmol/L Anion Gap 9.0 mmol/L Blood Urea Nitrogen 25 mg/dl Creatinine 0.73 mg/dl Est Creatinine Clear Calc Drug Dose 97.4 ml/min Estimated GFR () 116.0 Estimated GFR (Non- 100.1 BUN/Creatinine Ratio 34.4 Random Glucose 108 mg/dl Calcium Level 7.6 mg/dl Assessment and Plan 60yo male with known cirrhosis, hep C, and chronic alcohol abuse with who presented with encephalopathy, diarrhea, resp failure. 1. acute hypoxemic respiratory failure - resolved. 2. c. diff colitis - day #13/14 of enteric vanco. Will continue in light that this can be a palliative measure for him. 3. b/l vocal cord paralysis - etiology uncertain. Would be unusual to have BILATERAL paralysis from trauma from intubation ( typically it is unilateral). Due to recent infection? Other?? No laryngeal edema seen nor any nida. Steroids have been stopped. Nothing on CT to account for this issue. 4. dysphagia - video swallow results reviewed. Severe aspiration. Etiology also uncertain. Spoke with GI, speech, and neuro regarding this issue. Sed rate, CPK and CT soft tissue neck and CT c-spine w/o etiology. MRI brain w/o stroke. Discussed PEG tube placement again today and patient has been consistent with NOT wanting a PEG. 5. recent hepatic encephalopathy - resolved. 6. recent melena stools - resolved. Cont PPI. 7. chronic hepatitis C cirrhosis with alcohol abuse/dependence - ascites seems worse today. 8. bipolar disorder - cont prozac and gabapentin BID 9. folic acid deficiency and borderline low B12 - stop supplements since we are transitioning to hospice/palliative care. 10. concern of Wernicke's encephalopathy - ruled out. 11. FEN - stop NG tube feedings. Stop blood draws. Allow diet for palliation. 12. DVT proph - stop heparin. 14. oral thrush - resolved. Stop diflucan. 15. severe protein calorie malnutrition 16. stage 3 buttock decubitus ulcer Lengthy discussion held with patient, his 2 sons, and daughter along with pt's nurse. We reviewed the current issues, all test results, etc. Patient again very clear he does NOT want PEG tube placement and simply wants to be comfortable at home on hospice. 1 of his sons and daughter were very supportive of this. Another son questioned the issue of nutrition and why it would be stopped. I explained that with hospice the top goal for his care would be that of pain control & keeping him comfortable. I further explained that as the body declines and gets sicker it (the body) declines/rejects food and that this is normal/natural. He expressed understanding. I then had a 2nd conversation in a conference room with the pt's 3 children and we further reviewed the hospice model. Family wants him home "as soon as possible." I asked them to ready the house for a hospital bed, etc. d/c all blood draws d/c heparin d/c unnecessary meds vitals qshift only ativan/dilaudid ordered IV allow "palliative" food/beverage despite aspiration risk social work consult for dispo planning time 60 minutes today Continued [facility] stay due to: inadequate po fluid intake, inadequate oral pain control, voiding difficulties, ambulation difficulties, multiple IV medications needed, other (dysphagia - severe) Discharge planning: home with Hospice
[2016-04-22] MEDS: DEXTROSE 5% 1000ML 1,000 ML IV SCH ×2 (00:19→19:44)
[2016-04-22] MEDS: LORAZEPAM INJ 1 MG in SYRINGE 0.75 ML IV PRN ×2 (02:38→10:30)
[2016-04-22] MEDS: HYDROmorphone INJ 0.5 MG/0.5 ML SYR IV PRN ×3 (04:38→20:23)
[2016-04-22] MEDS: FLUOXETINE HCL 20 MG/5 ML PO SCH (06:05)
[2016-04-22 07:52] VITALS: BP 103/65; PULSE 70; TEMP 37; O2SAT 91
[2016-04-22] MEDS: VANCOMYCIN HCL 125 MG/2.5ML SOLN PO SCH ×4 (09:00→21:00)
[2016-04-22] MEDS: LANSOPRAZOLE SOLUTAB 30 MG NG SCH (09:00)
[2016-04-22] MEDS ORDERED: GABAPENTIN 250 MG/5 ML 470 ML BTL NG SCH (09:00)
[2016-04-22] MEDS: RIFAXIMIN TAB 200 MG TAB PO SCH ×2 (09:00→21:00)
[2016-04-22] MEDS: RASPBERRY SYRUP 5 ML UDP PO SCH ×4 (09:00→21:00)
--- NOTE | 2016-04-22 09:46 | Psychiatric Progress Notes ---
Psychiatric Progress Note Date of Service Apr 22, 2016. Notes entered additional orders re: neurontin titration, reviewed progress/update plan and will update Dr. Golden.
[2016-04-22] MEDS ORDERED: SCOPOLAMINE 1.5 MG TDSY TD SCH (11:15)
[2016-04-22] MEDS ORDERED: LORAZEPAM 2 MG/ML 1 ML VIAL IV PRN ×2 (12:00)
[2016-04-22] MEDS ORDERED: LORAZEPAM INJ 0.5 MG in SYRINGE 0.75 ML IV PRN (12:30)
--- NOTE | 2016-04-22 12:56 | Palliative Care Consultation ---
Consultation Date of Consultation: Apr 22, 2016. Requesting Physician: Dr. Teran Attending Physician: Dr. Teran Reason for Consultation: Goals of care, hospice History of Present Illness This 60 year old male patient presented to the ED 13 days ago with complaints of altered mental status, worsening lethargy, and diarrhea per the family. On arrival to ED, patient was obtunded and intubated for airway protection. He has a history of alcoholism, hepatitis C and liver cirrhosis. His daughter stated that he was currently being treated with clindamycin for a decubitus ulcer as well. CT of the head was negative, EEG showed encephalopathy. Neurology believed this to be a Wernicke encephalopathy, so patient was being aggressively treated with high doses of thiamine. GI was also consulted for management possible upper GI bleed, known esophageal varices, Celiac disease, C. difficile, and liver cirrhosis 2/2 alcohol/hepatitis C. The patient has since been extubated and transferred to regular medical floor. Unfortunately, the patient suffers from vocal cord paralysis and is unable to properly swallow or speak. He had a core safe feeding tube in, but it became clogged over the weekend and was discontinued. The patient is now awake and oriented and has made the decision to not have a feeding tube placed and would like to go home with hospice. His three children had several meetings with Dr. Hamilton about patient's prognosis and the decisions he has made. The children are supportive of their father's decision and are willing to help to keep him at home with hospice. Palliative care consulted to assist with this process. The patient is drowsy today, but he was able to participate in conversation. He c/o pain 7/10 in chest which he states is always there and generalized pain all over body. He denies any shortness of breath or other complaints. His voice is very breathy and quiet, but he is able to communicate. The patient confirmed with me that his goal is to go home with hospice so that he may at home. He does not want a feeding tube, CPR or intubation. His plan is to go back home to his house with hospice and the help of his children. I then met with two children, Estrellita and Ignacio Avalos. Estrellita is going to move in with the patient, and the two sons will also be available to help. I stressed the importance of the patient needing 24 hour care and they insisted that they could provide his care as the patient's strong wish is to be at home. Past Medical/Surgical History Medical History: Hepatitis C Alcoholism Cirrhosis of the liver Pancreatitis Bipolar disordder Celiac disease Stomach ulcers Esophageal varices Social History Smoking Status: Current Some Day Smoker History of Alcohol Use: No Drug Use: none Marital Status: Housing Status: lives alone Occupation Status: disabled Review of Systems Constitutional: + fatigue, + weakness Respiratory: + cough, + sputum, No dyspnea at rest, No dyspnea on exertion, No shortness of breath Cardiac: + chest pain (always there), + edema Abdomen: No nausea, No pain, No vomiting Male : + problem reported (Mayes catheter) Skin: + problem reported (decubitus ulcer) Allergies Coded Allergies: Gluten (Verified Allergy, Intermediate, PAINFUL JOINTS,ABD PAIN, 04/08/16) Lactose Intolerance (GI) (Unverified Allergy, Unknown, ABD PAIN, 04/08/16) NO KNOWN DRUG ALLERGIES (Unverified Allergy, Unknown, NONE, 04/08/16) Wheat (Verified Allergy, Unknown, GI intolerance, 04/08/16) Medications Current Inpatient Medications Medications (Trade) Dose Ordered Sig/Vin Route Start Time Stop Time Status Last Admin Dose Admin Raspberry (Raspberry Syrup 5ML Cup) 5 ml QID PO 04/09/16 13:00 04/26/16 23:59 04/20/16 21:28 5 ML Ioversol 100 ml 100 ml UD PRN IV 04/19/16 18:45 04/23/16 18:44 Dextrose (D5W 1000ml) 1,000 ml @ 50 mls/hr Q20H IV 04/20/16 07:45 05/20/16 07:44 04/22/16 00:19 50 MLS/HR Albuterol/ Ipratropium 3 ml 3 ml Q2H PRN INH 04/20/16 15:00 05/20/16 14:59 Lorazepam/Syringe (Ativan Inj/ Syringe) 1.25 ml @ 1 mls/min Q4H PRN IV 04/21/16 13:30 05/21/16 13:29 04/22/16 10:30 1 MLS/MIN Rifaximin (Xifaxan Tab) 550 mg BID PO 04/21/16 21:00 05/21/16 20:59 Hydromorphone HCl (Dilaudid Inj) 0.5 mg Q4H PRN IV 04/21/16 13:30 05/05/16 13:29 04/22/16 12:06 0.5 MG Vancomycin HCl (Vancomycin Oral Soln) 125 mg QID PO 04/21/16 19:00 04/26/16 18:59 Gabapentin (Neurontin) 600 mg HS ONCE NG 04/22/16 21:00 04/22/16 21:01 Scopolamine (Transderm-Scop Patch) 1.5 mg Q3D@0900 TD 04/22/16 11:15 05/22/16 11:14 04/22/16 11:23 1.5 MG Miscellaneous (Remove Transderm-Scop Patch) 1 ea Q3D@0859 N/A 04/25/16 08:59 05/25/16 08:58 Miscellaneous Information (Check Scopolamine Patch Placement) 1 ea QS N/A 04/22/16 16:00 05/22/16 15:59 Lorazepam (Ativan Inj) 0.5 mg Q4H PRN IV 04/22/16 12:00 05/22/16 11:59 UNV Lorazepam (Ativan Inj) 1 mg Q4H PRN IV 04/22/16 12:00 05/22/16 11:59 UNV Morphine Sulfate (Roxanol Oral Soln) 30 mg Q4 PRN PO 04/22/16 12:00 05/06/16 11:59 UNV Physical Exam Date Time Temp Pulse Resp B/P Pulse Ox O2 Delivery O2 Flow Rate FiO2 04/22/16 08:00 Room Air 04/22/16 07:52 37.0 70 19 103/65 91 Room Air 04/21/16 23:59 Room Air 04/21/16 16:00 Room Air 04/21/16 14:39 37.0 62 20 92/60 90 General Appearance: no apparent distress, + thin, + pertinent finding ( chronically ill appearing) Neck: no JVD, trachea midline Respiratory: no respiratory distress, no accessory muscle use, + decreased breath sounds, + rhonchi (few rhonchi in bilateral bases), + pertinent finding ( secretions and moist cough noted) Cardiovascular: regular rate, rhythm, + normal peripheral pulses, + pertinent finding (+1 pitting edema to bilateral feet and ankles) Abdomen: normal bowel sounds, non tender, + distended Musculoskeletal: pertinent finding (generalized weakness) Neurologic/Psychiatric: oriented x 3, + pertinent finding (drowsy but awake) Assessment & Plan Palliative Performance Scale: 10 % Problem list: Pain Weakness Respiratory failure- resolved C. difficult colitis BL vocal cord paralysis Dysphagia Hepatic encephalopathy- resolved Melena stools- resolved Cirrhosis 2/2 alcohol abuse and hepatitis C Bipolar disorder Folic acid deficiency Malnutrition/poor PO intake- no feeding tube Decubitus ulcer Goals of care Palliative care plan: Discontinue any unnecessary PO medications as patient is not taking PO Home with hospice- case management is working on providing agency list to family Roxanol and lorazepam PRN as ordered by Dr. Teran Atropine 1% oph solution 4 drops PO Q4h PRN secretions No feeding tube or artificial nutrition per patient's wishes, agreed upon by physician and patient's family Continue to educate the patient and family on end of life care and what to expect POLST form before discharge to clarify goals of care Thank you kindly for this consult. I will continue to follow.
[2016-04-22] MEDS: CHECK SCOPOLAMINE PATCH PLACEMENT SCH (15:52)
--- NOTE | 2016-04-22 15:56 | Progress Note ---
Subjective Date of Service: Apr 22, 2016. Subjective pt is conscious, speaks in low hoarse voice, can communicate that he wants to go home on hospice, I also met with family in the [place], they are prepared for the same, will need hospice arrangements validated and then will move once care plan is in place Problem List Medical Problems: (1) Acute kidney injury Status: Acute (2) Alcoholism Status: Acute (3) Altered mental status Status: Acute (4) Anemia Status: Acute (5) Cellulitis Status: Acute (6) Decubitus ulcer Status: Acute (7) Dehydration Status: Acute (8) Elevated LFTs Status: Acute (9) Elevated lipase Status: Acute (10) GI bleed Status: Acute (11) Hypokalemia Status: Acute (12) Leukocytosis Status: Acute (13) Varices, esophageal Status: Acute Review of Systems Constitutional: + weakness (prevents full ROS, states no pain, but does have anxiety) Objective Vital Signs Date Time Temp Pulse Resp B/P Pulse Ox O2 Delivery O2 Flow Rate FiO2 04/22/16 07:52 37.0 70 19 103/65 91 Room Air 04/21/16 23:59 Room Air 04/21/16 16:00 Room Air 04/21/16 14:39 37.0 62 20 92/60 90 Physical Exam General Appearance: + moderate distress, + cachetic, + thin Neck: supple, thyroid normal Respiratory/Chest: + decreased breath sounds, + accessory muscle use Cardiovascular: regular rate, rhythm, + systolic murmur Abdomen: soft, + distended, + pertinent finding (ascites fluid wave) Neurologic/Psychiatric: alert, + depressed affect Assessment and Plan 60yo male with known cirrhosis, hep C, and chronic alcohol abuse with who presented with encephalopathy, diarrhea, resp failure. acute hypoxemic respiratory failure - resolved. dysphagia - video swallow results reviewed. Severe aspiration b/l vocal cord paralysis - etiology uncertain, noticed after extubation. No laryngeal edema seen nor any nida. Aspiration etiology also uncertain. CT soft tissue neck and CT c-spine w/o etiology. MRI brain w/o stroke. The patient has been consistent with NOT wanting a PEG. hepatic encephalopathy - resolved. chronic hepatitis C cirrhosis with alcohol abuse/dependence - ascites persists. melena stools - resolved. Cont PPI. bipolar disorder - cont prozac and gabapentin BID stage [address] Hamilton has had lengthy discussion held with patient, his 2 sons, and daughter along with pt's nurse. transitioning to hospice/palliative care. stop NG tube feedings. Stop blood draws. Allow diet for palliation. Patient again very clear he simply wants to be comfortable at home on hospice. his 2 sons and daughter were very supportive of this when I discussed regarding him going home soon Family wants him home "as soon as possible." I asked them to ready the house for a hospital bed, etc. Continued [facility] stay due to: inadequate po fluid intake, inadequate oral pain control, voiding difficulties, ambulation difficulties, multiple IV medications needed, other (dysphagia - severe) Discharge planning: home with Hospice
[2016-04-22 16:05] VITALS: BP 95/63; PULSE 68; TEMP 36.4; O2SAT 92
[2016-04-22] MEDS: MoRPHine SULFATE 15 MG/0.75 ML UDP PO PRN (16:32)
[2016-04-22 16:44] VITALS: O2SAT 92
[2016-04-22] MEDS ORDERED: GABAPENTIN 250 MG/5 ML 470 ML BTL NG ONE (21:00)
[2016-04-22] MEDS ORDERED: NURSING VERBAL MED ORDER ONE (21:00)
[2016-04-22] MEDS ORDERED: GABAPENTIN 600 MG TAB PO ONE (21:00)
[2016-04-23] MEDS: CHECK SCOPOLAMINE PATCH PLACEMENT SCH ×3 (00:59→15:47)
[2016-04-23 07:53] VITALS: BP 96/62; PULSE 77; TEMP 36.5; O2SAT 91
[2016-04-23] MEDS: MoRPHine SULFATE 15 MG/0.75 ML UDP PO PRN ×3 (08:49→19:25)
[2016-04-23] MEDS ORDERED: GABAPENTIN 250 MG/5 ML 470 ML BTL NG SCH (09:00)
[2016-04-23] MEDS: RIFAXIMIN TAB 200 MG TAB PO SCH ×2 (09:00→20:34)
--- NOTE | 2016-04-23 15:42 | Progress Note ---
Subjective Date of Service: Apr 23, 2016. Subjective things are about the same today but pt is weak and lethargic, some family issues have impacted logistics of moving home on hospice today, will try to arrange for a safe transition this week Problem List Medical Problems: (1) Acute kidney injury Status: Acute (2) Alcoholism Status: Acute (3) Altered mental status Status: Acute (4) Anemia Status: Acute (5) Cellulitis Status: Acute (6) Decubitus ulcer Status: Acute (7) Dehydration Status: Acute (8) Elevated LFTs Status: Acute (9) Elevated lipase Status: Acute (10) GI bleed Status: Acute (11) Hypokalemia Status: Acute (12) Leukocytosis Status: Acute (13) Varices, esophageal Status: Acute Review of Systems Constitutional: No chills, No fever Respiratory: No cough, No sputum, No wheezing Cardiac: No PND, No chest pain, No edema Abdomen: No diarrhea, No nausea, No pain, No vomiting Neurologic: No memory loss, No weakness Objective Vital Signs Date Time Temp Pulse Resp B/P Pulse Ox O2 Delivery O2 Flow Rate FiO2 04/23/16 08:00 Room Air 04/23/16 07:53 36.5 77 16 96/62 91 Room Air 04/23/16 00:00 Room Air 04/22/16 16:44 92 Room Air 04/22/16 16:05 36.4 68 18 95/63 92 Room Air Physical Exam General Appearance: WD/WN Eyes: PERRL, EOMI Neck: supple, no JVD Respiratory/Chest: chest non-tender, + decreased breath sounds, + accessory muscle use Cardiovascular: regular rate, rhythm Abdomen: + abnormal bowel sounds, + distended, + guarding, + tenderness Extremities: no pedal edema, no calf tenderness Neurologic/Psychiatric: alert, oriented x 3 Assessment and Plan 60yo male with known cirrhosis, hep C, and chronic alcohol abuse with who presented with encephalopathy, diarrhea, resp failure. Overall goal is to return home on hospice care, stopped actively treating disease while inpatient acute hypoxemic respiratory failure - resolved. dysphagia - video swallow results reviewed. Severe aspiration b/l vocal cord paralysis - etiology uncertain, noticed after extubation. No laryngeal edema seen nor any nida. Aspiration etiology also uncertain. CT soft tissue neck and CT c-spine w/o etiology. MRI brain w/o stroke. The patient has been consistent with NOT wanting a PEG. hepatic encephalopathy - resolved. chronic hepatitis C cirrhosis with alcohol abuse/dependence - ascites persists. melena stools - resolved. Cont PPI. bipolar disorder - cont prozac and gabapentin BID stage [address] Hamilton has had lengthy discussion held with patient, his 2 sons, and daughter along with pt's nurse. transitioning to hospice/palliative care. stop NG tube feedings. Stop blood draws. Allow diet for palliation. Patient again very clear he simply wants to be comfortable at home on hospice. his 2 sons and daughter were very supportive of this when I discussed regarding him going home soon Family wants him home "as soon as possible." I asked them to ready the house for a hospital bed, etc. Continued [facility] stay due to: inadequate po fluid intake, inadequate oral pain control, voiding difficulties, ambulation difficulties, multiple IV medications needed, other (dysphagia - severe) Discharge planning: home with Hospice
[2016-04-23] MEDS: DEXTROSE 5% 1000ML 1,000 ML IV SCH (15:47)
[2016-04-23 16:31] VITALS: O2SAT 91
[2016-04-24] MEDS: CHECK SCOPOLAMINE PATCH PLACEMENT SCH ×2 (00:49→08:08)
[2016-04-24 07:05] VITALS: BP 95/57; PULSE 73; TEMP 36.8; O2SAT 90
[2016-04-24] MEDS: RIFAXIMIN TAB 200 MG TAB PO SCH (09:00)
[2016-04-24] MEDS: MoRPHine SULFATE 15 MG/0.75 ML UDP PO PRN ×2 (09:11→14:23)
[2016-04-24] MEDS ORDERED: RXNS15 PO (10:10)
[2016-04-24] MEDS ORDERED: SCPTP TD (10:11)
[2016-04-24] MEDS ORDERED: ATV/1 SL (10:11)
--- NOTE | 2016-04-24 10:13 | Discharge Instructions ---
Discharge Instructions Admission Reason for Admission: Gi Bleed, Hepatic Encephalopathy Discharge Discharge Diagnosis / Problem: liver failure Discharge Goals Goal(s): Diagnostic testing, Therapeutic intervention Activity Recommendations Activity Limitations: as noted below pt may rest as much as needed . Current Hospital Diet Patient's current hospital diet: Low Fiber Diet Discharge Diet Recommended Diet: Regular Diet (foods for comfort) Pending Studies Studies pending at discharge: no Medical Emergencies . Who to Call and When: Medical Emergencies: If at any time you feel your situation is an emergency, please call 911 immediately. . Non-Emergent Contact Non-Emergency issues call your: Specialist (hospice nurse) . . "Provider Documentation" section prepared by Quincy Teran. VTE Core Measure Inpt VTE Proph given/why not?: SCD's
[2016-04-24] MEDS ORDERED: DESTROY THIS MEDICATION ONE (11:15)
[2016-04-24] MEDS: DEXTROSE 5% 1000ML 1,000 ML IV SCH (11:45)
[2016-04-24 14:26] VITALS: BP 95/57; PULSE 73; TEMP 36.8; O2SAT 90
--- NOTE | 2016-04-24 16:00 | Discharge Summary ---
Discharge Summary Admission Date: Apr 09, 2016 at 02:47 Discharge Date: Apr 24, 2016 Discharge Disposition: Home with services Principal Diagnosis: cirrhosis, end stage liver failure Problems/Secondary Diagnoses: HOSPICE Immunizations: Have You Had Influenza Vaccine: Yes Influenza Vaccine Date: Mar 15, 2012 History of Tetanus Vaccine?: Unknown History of Pneumococcal: No History of Hepatitis B Vaccine: Unknown Medication Reconciliation New Medications: Lorazepam (Ativan) 1 Mg Tab 1 MG SL Q6H, #20 TAB Morphine Sulfate (Morphine Sulfate) 15 Mg/0.75 Ml Soln 30 MG PO Q4 PRN for Pain, #240 ML Scopolamine (Transderm-Scop) 1.5 Mg Tdsy 1.5 MG TD Q3D@0900, #10 PATCH Discontinued Medications: Ascorbic Acid (Vitamin C) 500 Mg Cap 500 MG PO QAM Buspirone Hcl (Buspirone Hcl) 5 Mg Tab 15 MG PO BID Calcium Carbonate (Calcium 600) 600 Mg Tab 600 MG PO QAM Cholecalciferol (Vitamin D) 5,000 Unit Tab 5000 UNIT PO DAILY Ergocalciferol (Vitamin D) 400 Inter.unit Tab 400 INTER.UNIT PO QAM Fluoxetine (Prozac) 40 Mg Cap 40 MG PO BID, 0 Refills Furosemide (Lasix) 40 Mg Tab 40 MG PO DAILY, 5 Refills Gabapentin (Neurontin) 600 Mg Tab 600 MG PO BID Magnesium Oxide (Mag-Ox) 400 Mg Tab 400 MG PO DAILY Naproxen (Aleve) 220 Mg Tab 440 MG PO Q6 PRN for Pain Pantoprazole (Protonix) 40 Mg Tab 40 MG PO BID Polyethylene Glycol 3350 (Miralax) 1 Pow Pow 17 GM PO DAILY Potassium Ext Rel (Klor-Con) 20 Meq Tabcr 20 MEQ PO DAILY Propranolol (Inderal) 20 Mg Tab 20 MG PO BID Ranitidine (Zantac) 150 Mg Tab 150 MG PO BID Spironolactone (Aldactone) 100 Mg Tab 100 MG PO DAILY Discharge Exam lethargy and weak, cannot speak clearly for ROS Physical Exam: General Appearance: + cachetic, + thin Eyes: + abnormal sclerae exam Neck: trachea midline Respiratory/Chest: + respiratory distress, + decreased breath sounds, + accessory muscle use Abdomen / GI: soft, + tenderness, + distended Extremities: + pedal edema, + swelling Neurologic/Psychiatric: + depressed affect, + disoriented Hospital Course 60yo male with known cirrhosis, hep C, and chronic alcohol abuse with who presented with encephalopathy, diarrhea, resp failure. Overall goal is to return home on hospice care, stopped actively treating disease while inpatient, family updated and supportive Previously in hospital stay acute hypoxemic respiratory failure, requiring intubation and ventilation - resolved. dysphagia - video swallow results reviewed. Severe aspiration b/l vocal cord paralysis - etiology uncertain, noticed after extubation. No laryngeal edema seen nor any nida. Aspiration etiology also uncertain. CT soft tissue neck and CT c-spine w/o etiology. MRI brain w/o stroke. The patient has been consistent with NOT wanting a PEG. hepatic encephalopathy -. chronic hepatitis C cirrhosis with alcohol abuse/ dependence - ascites persists. melena stools - resolved. since hospice stopping meds for encephalopathy this has recurred and will worsen bipolar disorder - stopped prozac and gabapentin BID stage [address] Hamilton has had lengthy discussion held with patient, his 2 sons, and daughter along with pt's nurse. transitioning to hospice/palliative care. I spoke to family 04/22 and 04/24. Family wants him home "as soon as possible." Hospice is in place, appropriate concerns given recent overdose of son, for hospice to be aware of comfort medications and security of these so as not to be mis appropriated Total Time Spent: Greater than 30 minutes This includes examination of the patient, discharge planning, medication reconciliation, and communication with other providers. Discharge Instructions Please refer to the electronic Patient Visit Report (Discharge Instructions) for additional information.
== END 2016-04-24 15:10 | disposition hospice, home (50) | DRG 441 ==
LOC: ENRESERVDT → ENRESERVTM → EDBD 22:21 → C.EDC 22:24 → C.MSICU 04-09 02:47 → UNDOADMIN 04-09 02:47 → C.2T 04-15 18:27 → C.MS2W 04-18 13:00
PROVIDERS: ADMIT Hospitalist; ATTEND Internal Medicine
PROC: 02HV33Z Insertion of Infusion Device into Superior Vena Cava, Percutaneous Approach (ICD-10-PCS; principal; 2016-04-09)
PROC: 0BH18EZ Insertion of Endotracheal Airway into Trachea, Via Natural or Artificial Opening Endoscopic (ICD-10-PCS; principal; 2016-04-09)
DX: K72.90 Hepatic failure, unspecified without coma (principal); G93.41 Metabolic encephalopathy; I85.00 Esophageal varices without bleeding; E87.2 Acidosis; A04.7 Enterocolitis due to Clostridium difficile; N17.9 Acute kidney failure, unspecified; E72.20 Disorder of urea cycle metabolism, unspecified; K92.1 Melena; K92.2 Gastrointestinal hemorrhage, unspecified; E87.0 Hyperosmolality and hypernatremia; B37.0 Candidal stomatitis; J18.9 Pneumonia, unspecified organism; J96.01 Acute respiratory failure with hypoxia; E43 Unspecified severe protein-calorie malnutrition; L89.153 Pressure ulcer of sacral region, stage 3; Z66 Do not resuscitate; Z51.5 Encounter for palliative care; K70.30 Alcoholic cirrhosis of liver without ascites; J38.02 Paralysis of vocal cords and larynx, bilateral; B18.2 Chronic viral hepatitis C; K25.9 Gastric ulcer, unspecified as acute or chronic, without hemorrhage or perforation; F31.9 Bipolar disorder, unspecified; R55 Syncope and collapse; F10.21 Alcohol dependence, in remission; E86.0 Dehydration; E83.39 Other disorders of phosphorus metabolism; E53.8 Deficiency of other specified B group vitamins; D64.9 Anemia, unspecified; R49.0 Dysphonia; Z97.8 Presence of other specified devices; Z79.899 Other long term (current) drug therapy; F17.200 Nicotine dependence, unspecified, uncomplicated; Z82.49 Family history of ischemic heart disease and other diseases of the circulatory system